=== PATIENT | female | born 1945 | race Caucasian/White ===

== ENCOUNTER 2018-08-18 13:48 | Inpatient (IN) | payer OTHER ==
[~2018-08-18] VITALS: Ht 167.6 cm; Wt 85.8 kg
[2018-08-18] MEDS ORDERED: HYDR25TAB PO (14:06)
[2018-08-18] MEDS ORDERED: CLOP75TA2 PO (14:06)
[2018-08-18] MEDS ORDERED: METF10004 PO (14:06)
[2018-08-18] MEDS ORDERED: MAG400TA PO (14:06)
[2018-08-18] MEDS ORDERED: LEVO50TA5 PO (14:06)
[2018-08-18] MEDS ORDERED: SIMV40TA2 PO (14:06)
[2018-08-18] MEDS ORDERED: JANU100T PO (14:06)
[2018-08-18] MEDS ORDERED: ASPI325T PO (14:06)
[2018-08-18] MEDS ORDERED: POTA1TAB14 PO (14:06)
[2018-08-18] MEDS ORDERED: BASA100I SC (14:06)
[2018-08-18] MEDS ORDERED: GLIM2TAB PO (14:06)
[2018-08-18] MEDS ORDERED: DULO1CAP2 PO (14:06)
[2018-08-18] MEDS ORDERED: NS 1,000 ML IV ONE (14:45)
[2018-08-18] MEDS ORDERED: HumuLIN R (REGULAR) INSULIN (NovoLIN R) **100U/ML** PER UNIT IV ONE (15:00)
[2018-08-18 15:01] LABS: BASO # 0.1 10^3/uL (0.0-0.2); BASO % 0.7 % (0.0-1.0); EOS # 0.1 10^3/uL (0.0-0.50); EOS % 1.3 % (0.0-3.0); HEMATOCRIT 40.2 % (36.0-47.0); HEMOGLOBIN 13.7 g/dl (12.0-15.5); LYMPH # 2.2 10^3/uL (1.5-4.5); MEAN CORPUSCULAR HEMOGLOBIN 29.5 pg (27.0-33.0); MEAN CORPUSCULAR HGB CONC 34.1 g/dl (32.0-36.5); MEAN CORPUSCULAR VOLUME 86.6 fl (80.0-96.0); MONO # 0.4 10^3/uL (0.0-0.8); MONO % 5.2 % (0.0-5.0); NEUTROPHILS # 4.6 10^3/uL (1.8-7.7); PLATELET COUNT, AUTOMATED 216 10^3/uL (150-450); RED BLOOD COUNT 4.64 10^6/uL (4.00-5.40); WHITE BLOOD COUNT 7.5 10^3/uL (4.0-10.0)
[2018-08-18 15:28] LABS: CALCIUM LEVEL 8.3 MG/DL (8.8-10.2); CREATININE FOR GFR 1.04 MG/DL (0.55-1.30); FREE THYROXINE INDEX 3.2 % (1.3-4.8); GLOMERULAR FILTRATION RATE 55.6 (>39); THYROID STIMULATING HORMONE 1.86 uIU/ML (0.358-3.740); THYROXINE (T4) 8.6 UG/DL (4.5-12.0)
[2018-08-18] MEDS ORDERED: NS 500 ML IV ONE (15:45)
[2018-08-18] MEDS ORDERED: ONDANSETRON 4MG/2ML VIAL (J2405) IV ONE ×2 (18:00→21:45)
[2018-08-18] MEDS ORDERED: METOCLOPRAMIDE INJ 10MG/2ML VIAL (J2765) IV ONE (18:00)
[2018-08-18] MEDS ORDERED: MECLIZINE 25 MG TABLET PO ONE (19:15)
[2018-08-18 19:40] LABS: ALBUMIN 3.5 GM/DL (3.2-5.2); BILIRUBIN,DIRECT 0.1 MG/DL (0.0-0.2); BILIRUBIN,TOTAL 0.3 MG/DL (0.2-1.0); MB/CK RELATIVE INDEX 1.54 (< OR =4); TOTAL PROTEIN 6.3 GM/DL (6.4-8.2); TROPONIN I 0.05 NG/ML (< 0.10)
[2018-08-18] MEDS ORDERED: LANTINJ4 SC (19:49)
[2018-08-18] MEDS ORDERED: VITMTA PO (19:49)
--- NOTE | 2018-08-18 19:56 | REP ---
CT Head without contrast HISTORY: Dizziness COMPARISON: None Areas of decreased attenuation are present in the periventricular white matter. This represents small-vessel ischemic disease. There is no intraparenchymal hemorrhage, acute infarct, mass or midline shift. The ventricular system and cortical sulci are dilated consistent with minimal volume loss. There is no extra cerebral collection. There is no fracture. The visualized sinuses are clear. IMPRESSION: 1. Small vessel ischemic disease. 2. Minimal volume loss. Electronically Signed by Tulio Lopez MD 08/18/2018 07:47 P
--- NOTE | 2018-08-18 21:55 | HPEPDOC ---
[facility] Medical History & Physical Date of Admission Aug 18, 2018 Other Provider Dictating/admitting Melvin Muniz M.D. Attending Physician: CAPRI GARNER DO History and Physical CHIEF COMPLAINT: Dizziness 1 day HISTORY OF PRESENT ILLNESS: Patient is a 72-year-old female with history of hypertension, diabetes, hypothyroidism. She came in complaining of dizziness. She is recently domiciled in [place] for the past 4-5 months. She reports being in her usual state of health until today when she started having dizziness and giddiness. She refers resting, but symptoms persisted, hence her presentation to the emergency room. She refers an episode of vomiting while in the emergency room. No fever or chills. No palpitations, no chest pain, no cough or shortness of breath. No recent sick contacts. No no record of eating in restaurants. Patient also reports that she has been off her Synthroid and the duloxetine for about a week. She says she was recently started on insulin prior to this time she used metformin for glycemic control. She also reported that her PCP had gradually increased her dose of insulin and her last use of insulin was yesterday before the dizziness started today. No change in bowel or urine and urinary habits. She was evaluated in the emergency room, non-orthostatic. Labs with slightly elevated glucose 308. Imaging also unremarkable. She received saline for IV fluid resuscitation and had 25 mg meclizine given, which did bring about some improvement. PAST MEDICAL HISTORY: Per HPI PAST SURGICAL HISTORY: None SOCIAL HISTORY: Denies alcohol, smoking or use of illicit drugs FAMILY HISTORY: Father: from heart disease Mother: Diagnosed with diabetes Siblings: Brother diagnosed with diabetes ALLERGIES: Please see below. REVIEW OF SYSTEMS: 12 point review of systems negative other than that described in the body of HPI. HOME MEDICATIONS: Please see below. PHYSICAL EXAMINATION: VITAL SIGNS: Temperature 97.1, pulse 67, respiratory rate 18, blood pressure 118/55, pulse oximetry 98% on room air. GENERAL APPEARANCE: Elderly woman, lying calmly in bed, not in any apparent distress. She is not pale, anicteric and afebrile HEENT: Atraumatic. Neck: Supple. LUNGS: Clear to auscultation bilaterally. CARDIOVASCULAR: S1 and 2 heard, no murmurs, rubs or gallops. ABDOMEN: Obese, soft, not tender, not distended. Bowel sounds normoactive. MUSCULOSKELETAL: Apparently within normal limits. EXTREMITIES: No pedal edema, 2+ bilateral pedal pulses noted. NEUROLOGICAL: Awake, alert, oriented 3. I observed the patient walking and she is still complaining of some dizziness though better no mention came in. PSYCHIATRIC: Normal affect LABORATORY DATA: See below. IMAGING: CT head without contrast: 1. Small vessel ischemic disease. 2. Minimal volume loss EKG: Normal sinus rhythm, no acute ST or T-wave changes noted. MICROBIOLOGY: Please see below. ASSESSMENT: 72-year-old woman with above-mentioned comorbid history comes in complaining of dizziness. No neurological deficits. Exam significant for some dizziness when patient ambulates imaging done negative. EKG normal sinus rhythm. Labs unremarkable and patient reports some improvement after use of meclizine. DIAGNOSES: 1. Dizziness, unclear etiology, possibly benign paroxysmal positional vertigo. 2. Mildly elevated serum glucose. . PLAN: 1. I will admit patient to medical floors with remote telemetry under care of Dr. Garner. 2. Mild hyperglycemia: We'll continue with ADA diet, insulin sliding scale. Follow BMP in the morning. 3. Dizziness: We'll continue meclizine 12.5 mg every 8. IV Zofran when necessary nausea and vomiting. 4. IV fluid resuscitation normal saline to run at 50 mils per hour review volume needs in the morning. 5. DVT prophylaxis. Subcutaneous enoxaparin. 6. GI prophylaxis. IV pantoprazole. 7. Resume outpatient medications. 8. Further management will be per patient's clinical course. Vital Signs Vital Signs Date Time Temp Pulse Resp B/P (MAP) Pulse Ox O2 Delivery O2 Flow Rate FiO2 08/18/18 20:00 97.1 08/18/18 19:56 64 125/59 (81) 67 134/63 (86) 70 133/61 (85) 08/18/18 19:16 16 96 Room Air Laboratory Data Labs 24H Laboratory Tests 2 08/18/18 14:44: Immature Granulocyte % (Auto) 0.8, White Blood Count 7.5, Red Blood Count 4.64, Hemoglobin 13.7, Hematocrit 40.2, Mean Corpuscular Volume 86.6, Mean Corpuscular Hemoglobin 29.5, Mean Corpuscular Hemoglobin Concent 34.1, Red Cell Distribution Width 12.6, Platelet Count 216, Neutrophils (%) (Auto) 62.0, Lymphocytes (%) (Auto) 30.0, Monocytes (%) (Auto) 5.2H, Eosinophils (%) (Auto) 1.3, Basophils (%) (Auto) 0.7, Neutrophils # (Auto) 4.6, Lymphocytes # (Auto) 2.2, Monocytes # (Auto) 0.4, Eosinophils # (Auto) 0.1, Basophils # (Auto) 0.1, Nucleated Red Blood Cells % (auto) 0.0, Anion Gap 11, Glomerular Filtration Rate 55.6, Calcium Level 8.3L, Aspartate Amino Transf (AST/SGOT) 11, Alanine Aminotransferase (ALT/SGPT) 27, Alkaline Phosphatase 68, Total Bilirubin 0.3, Direct Bilirubin 0.1, Total Creatine Kinase 65, Creatine Kinase MB 1.0, Creatine Kinase MB Relative Index 1.54, Troponin I 0.05, Total Protein 6.3L, Albumin 3.5, Albumin/Globulin Ratio 1.25, Lipase 176, Thyroid Stimulating Hormone (TSH) 1.860, Free Thyroxine Index 3.2, Thyroxine (T4) 8.6, Triiodothyronine (T3) Uptake 37 08/18/18 14:47: Bedside Glucose (Misc Panel) 322H 08/18/18 15:36: Bedside Glucose (Misc Panel) 255H 08/18/18 20:06: Lactic Acid Level 1.6 CBC/BMP Laboratory Tests 08/18/18 14:44 Red Blood Count 4.64, Mean Corpuscular Volume 86.6, Mean Corpuscular Hemoglobin 29.5, Mean Corpuscular Hemoglobin Concent 34.1, Red Cell Distribution Width 12.6, Neutrophils (%) (Auto) 62.0, Lymphocytes (%) (Auto) 30.0, Monocytes (%) (Auto) 5.2 H, Eosinophils (%) (Auto) 1.3, Basophils (%) (Auto) 0.7, Neutrophils # (Auto) 4.6, Lymphocytes # (Auto) 2.2, Monocytes # (Auto) 0.4, Eosinophils # (Auto) 0.1, Basophils # (Auto) 0.1 Home Medications Scheduled (Migue Goncalves) 100 Unit/Ml Inj, 18 UNIT SC DAILY Clopidogrel Bisulfate (Clopidogrel) 75 Mg Tab, 75 MG PO DAILY Duloxetine Hcl (Duloxetine HCl) 30 Mg Cap, 60 MG PO DAILY Glimepiride (Glimepiride) 2 Mg Tab, 6 MG PO DAILY Hydrochlorothiazide (Hydrochlorothiazide) 25 Mg Tab, 25 MG PO DAILY Insulin Glargine (Lantus Solostar) 100 Unit/Ml Inj, 1 UNITS SC QAM HAS NOT STARTED, EXPECTED TO START AFTER FINISHING BASAGLAR CHANCE Levothyroxine Sodium (Synthroid) 50 Mcg Tab, 50 MCG PO QHS Magnesium Oxide (Magnesium Oxide) 400 Mg Tab, 400 MG PO DAILY Metformin Hydrochloride (Metformin HCl) 1,000 Mg Tab, 1,000 MG PO BID Multivitamins *[facility] STOCKED* (Thera M Plus *[facility] STOCKED*) 1 Tab Tab, 1 TAB PO DAILY Potassium Chloride (Potassium Chloride ER) 20 Meq Tab, 20 MEQ PO DAILY Simvastatin - High Dose (Simvastatin) 40 Mg Tab, 40 MG PO QHS Sitagliptin Phosphate (Januvia) 100 Mg Tab, 100 MG PO DAILY Scheduled PRN Aspirin (Aspirin) 325 Mg Tab, 325 MG PO DAILY PRN for PAIN / FEVER Allergies Coded Allergies: Penicillins (Verified Allergy, Unknown, 08/18/18) MELVIN MUNIZ MD Aug 18, 2018 21:55
[2018-08-18] MEDS ORDERED: DEXTROSE 50% 50 ML SYRINGE IV PRN (22:00)
[2018-08-18] MEDS ORDERED: GLUCOSE 4 GM CHEW TABLET PO PRN (22:00)
[2018-08-18] MEDS ORDERED: ASPIRIN 325 MG TAB PO PRN (22:00)
[2018-08-18] MEDS ORDERED: GLUCAGON FOR INJ 1 MG VIAL (J1610) SC PRN (22:00)
[2018-08-18] MEDS ORDERED: MECLIZINE 12.5 MG TAB PO PRN (22:00)
[2018-08-18] MEDS ORDERED: ONDANSETRON 4MG/2ML VIAL (J2405) IV PRN (22:00)
[2018-08-18] MEDS ORDERED: ACETAMINOPHEN TAB 650MG DOSE (2X325MG) PO PRN (22:00)
[2018-08-18 23:35] VITALS: BP 139/65
[2018-08-19] MEDS: NS 1,000 ML IV SCH ×2 (00:09→13:56)
[2018-08-19] MEDS: HumaLOG INSULIN (NovoLOG) PER UNIT SC SCH ×4 (00:10→18:09)
[2018-08-19 06:00] VITALS: BP 111/57
[2018-08-19 08:18] LABS: HEMATOCRIT 38.2 % (36.0-47.0); HEMOGLOBIN 13.3 g/dl (12.0-15.5); MEAN CORPUSCULAR HEMOGLOBIN 29.6 pg (27.0-33.0); MEAN CORPUSCULAR HGB CONC 34.8 g/dl (32.0-36.5); MEAN CORPUSCULAR VOLUME 85.1 fl (80.0-96.0); PLATELET COUNT, AUTOMATED 229 10^3/uL (150-450); RED BLOOD COUNT 4.49 10^6/uL (4.00-5.40)
[2018-08-19 08:42] LABS: BLOOD UREA NITROGEN 15 MG/DL (7-18); CARBON DIOXIDE LEVEL 27 MEQ/L (21-32); CHLORIDE LEVEL 109 MEQ/L (98-107); CHOLESTEROL LEVEL 154 MG/DL (<200); CHOLESTEROL RISK RATIO 3.948 (<5); CREATININE FOR GFR 0.96 MG/DL (0.55-1.30); GLOMERULAR FILTRATION RATE > 60.0 (>39); GLUCOSE, FASTING 164 MG/DL (70-100); HDL CHOLESTEROL 39 MG/DL (>40); LDL CHOLESTEROL 78 MG/DL (<100); NON-HDL-C 115 MG/DL; POTASSIUM SERUM 3.5 MEQ/L (3.5-5.1); SODIUM LEVEL 143 MEQ/L (136-145); TRIGLYCERIDES LEVEL 186 MG/DL (<150)
[2018-08-19 08:56] LABS: HEMOGLOBIN A1c 9.7 %
[2018-08-19] MEDS: MAGNESIUM OXIDE 400 MG TAB (MAG-OX) PO SCH (09:26)
[2018-08-19] MEDS: CLOPIDOGREL 75 MG TAB PO SCH (09:26)
[2018-08-19] MEDS: hydroCHLOROthiazide 25 MG TAB PO SCH (09:26)
[2018-08-19] MEDS: ENOXAPARIN 40 MG/0.4 ML SYRINGE (J1650) SC SCH (09:27)
[2018-08-19] MEDS: DULoxetine 30 MG CAP (CYMBALTA) PO SCH (09:27)
[2018-08-19 14:00] VITALS: BP 121/57
--- NOTE | 2018-08-19 16:26 | IPN ---
DATE: 08/19/2018 SUBJECTIVE: Patient seen and examined in the room today. Patient stated she is feeling better; however, patient continues to have dizziness. Dizziness started a few days ago. Never had a similar episode in the past. Patient stated she has been running out of her duloxetine and Synthroid for about a week due to some miscommunication. OBJECTIVE: VITAL SIGNS: Temperature is 98.9, pulse is 59, respirations 18, blood pressure 111/57, pulse oximetry 94% in room air. GENERAL: No sign of acute distress. Patient is alert, awake, comfortable. HEENT: Normocephalic, atraumatic. Extraocular motor grossly intact. CARDIOVASCULAR: Positive S1, S2, regular rate. LUNGS: Clear to auscultation bilaterally. ABDOMEN: Soft, nontender, nondistended. Bowel sounds present. EXTREMITIES: No edema appreciated. LABORATORY DATA: WBC is 9, hemoglobin 13.3, hematocrit 38.2, platelet count is 229. Sodium is 143, potassium 3.5, chloride 109, carbon dioxide 27, BUN 15, creatinine 0.96, GFR greater than 60, fasting glucose is 164. A1c is 9.7. Calcium is 8. Triglycerides is 186, total cholesterol is 154, LDL is 78, HDL is 39. ASSESSMENT AND PLAN: 1. Dizziness. No events recorded on telemetry. Laboratory testing has remained negative. CT of the head without contrast was negative. Patient stated her syncope started acutely and there was worsening with specific head movements. Consult physical therapy (PT) for vascular re-evaluation. Patient stated she has been out of medications such as duloxetine and Synthroid. We restarted medication for the patient. Orthostatic measurement was performed, and result was negative. 2. Diabetes. A1c of 9.7. Patient is on insulin and consistent-carbohydrate diet. 3. Hypertension. Blood pressure in the satisfactory range, on hydrochlorothiazide. 4. Hypothyroidism, on Synthroid. 5. Deep vein thrombosis (DVT) prophylaxis, on Lovenox.
--- NOTE | 2018-08-19 19:49 | ECGEPIP ---
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
[2018-08-19] MEDS ORDERED: LEVOTHYROXINE 50MCG TABLET (0.05MG) PO SCH (21:00)
[2018-08-19] MEDS ORDERED: HumaLOG INSULIN (NovoLOG) PER UNIT SC SCH (21:00)
[2018-08-19] MEDS ORDERED: SIMVASTATIN 40 MG TAB PO SCH (21:00)
[2018-08-19 22:00] VITALS: BP 146/66
[2018-08-20] MEDS: NS 1,000 ML IV SCH (01:43)
[2018-08-20 06:00] VITALS: BP 145/65
[2018-08-20 08:33] LABS: HEMATOCRIT 36.2 % (36.0-47.0); HEMOGLOBIN 12.7 g/dl (12.0-15.5); MEAN CORPUSCULAR HGB CONC 35.1 g/dl (32.0-36.5); MEAN CORPUSCULAR VOLUME 85.4 fl (80.0-96.0); PLATELET COUNT, AUTOMATED 204 10^3/uL (150-450); RED BLOOD COUNT 4.24 10^6/uL (4.00-5.40); WHITE BLOOD COUNT 6.7 10^3/uL (4.0-10.0)
[2018-08-20] MEDS: MAGNESIUM OXIDE 400 MG TAB (MAG-OX) PO SCH (08:42)
[2018-08-20] MEDS: DULoxetine 30 MG CAP (CYMBALTA) PO SCH (08:42)
[2018-08-20] MEDS: CLOPIDOGREL 75 MG TAB PO SCH (08:43)
[2018-08-20] MEDS: hydroCHLOROthiazide 25 MG TAB PO SCH (08:43)
[2018-08-20] MEDS: HumaLOG INSULIN (NovoLOG) PER UNIT SC SCH (08:44)
[2018-08-20] MEDS: ENOXAPARIN 40 MG/0.4 ML SYRINGE (J1650) SC SCH (08:45)
[2018-08-20 08:55] LABS: CALCIUM LEVEL 7.8 MG/DL (8.8-10.2); CREATININE FOR GFR 0.98 MG/DL (0.55-1.30); GLOMERULAR FILTRATION RATE 59.6 (>39); MAGNESIUM LEVEL 1.8 MG/DL (1.8-2.4); POTASSIUM SERUM 3.8 MEQ/L (3.5-5.1)
--- NOTE | 2018-08-20 21:15 | DSES ---
DATE OF ADMISSION: 08/18/2018 DATE OF DISCHARGE: 08/20/2018 PRIMARY CARE PROVIDER: Dr. Franklin in [place]. CONSULTANTS: None. DISCHARGE DIAGNOSIS: 1. Positional vertigo. 2. Hypertension. 3. Hypothyroidism. 4. History of vascular stent placement. HOSPITALIZATION COURSE: Patient is 72-year-old female who presented to [facility] on 08/18/2018 with a complaint of acute severe dizziness with daily functions. Patient is admitted for diagnosis of dizziness. Patient was admitted on the telemetry floor. Patient's medications were reviewed. Patient was out of some medication which was restarted in the hospital. Physical therapy was also consulted for vestibular testing and this workup performed and it all came back negative. During the physical therapy evaluation patient tested positive for benign positional vertigo. Exercise was given to the patient. Patient demonstrated significant symptomatic improvement after the session and patient cleared by physical therapy 08/20/2018. Patient has returned to her baseline with a recommendation to followup with her primary care provider in [place] in 1-2 weeks. VITAL SIGNS ON DAY OF DISCHARGE: Temperature 97.6, pulse 59, respirations 17, blood pressure 145/65, pulse ox 92% on room air. LABORATORY DATA ON DAY OF DISCHARGE: WBC 6.7, hemoglobin 12.7, hematocrit 36.2, platelets 204, sodium 142, potassium 3.8, chloride 108, carbon dioxide 27, BUN 17, creatinine 0.98, GFR 59.6, fasting glucose 243, calcium 7.8, magnesium 1.8, TSH 186, T4 8.6. IMAGING STUDIES: CT of the head without contrast demonstrated a small right sided ischemic disease. Minimal volume loss. DISCHARGE MEDICATIONS: Aspirin 325 mg by mouth daily as needed, Kwik pen 18 units subcu daily, Plavix 75 mg by mouth daily, duloxetine 16 mg by mouth daily, glimepiride 6 mg by mouth daily, hydrochlorothiazide 25 mg by mouth daily, Lantus subcu in the morning, Synthroid 50 mcg by mouth at bedtime, magnesium 400 mg by mouth daily, metformin 1000 mg by mouth twice a day, multivitamin 1 tab by mouth daily, potassium chloride 20 mEq by mouth daily, simvastatin 40 mg at bedtime, Januvia 100 mg by mouth daily. DISCHARGE INSTRUCTIONS: Discontinue line discharge home. Activity as tolerated. Consistent carbohydrate diet as tolerated. Patient should followup with her primary care provider in 1-2 weeks. Patient was recommended to have a close followup with her primary care provider for continuous diabetic medication adjustments. Patient was also recommended to continue vestibular exercise. Patient may benefit from outpatient PT referral if there is a recurrence of symptoms. DISCHARGE CONDITION: Fair. DISCHARGE TIME: Greater than 30 minutes.
== END 2018-08-20 12:10 | disposition home or self-care (01) | DRG 149 ==
LOC: M ED 13:48 → EDBD 13:48 → M ED INP 21:55 → M MSPAV 23:34
PROVIDERS: ADMIT Hospitalist; ATTEND Internal Medicine
DX: H81.10 Benign paroxysmal vertigo, unspecified ear (principal); I10 Essential (primary) hypertension; E03.9 Hypothyroidism, unspecified; E11.65 Type 2 diabetes mellitus with hyperglycemia; Z79.899 Other long term (current) drug therapy; Z88.0 Allergy status to penicillin

== ENCOUNTER 2020-01-05 19:55 | Observation (INO) | payer MEDICARE, OTHER ==
[~2020-01-05] VITALS: Ht 167.6 cm; Wt 81.4 kg
[~2020-01-05 19:55] MED LIST: ASPI-1 PO; BASA100I SC; CLOP75TA2 PO; DULO1CAP5 PO; GLIM2TAB4 PO; HYDR25TAB PO; JANU100T PO; LANTINJ4 SC; LEVO50TA5 PO; MAG400TA PO; METF10004 PO; POTA1TAB14 PO; SIMV40TA20 PO; VITMTA PO
[2020-01-05 20:50] LABS: BASO # 0.1 10^3/uL (0.0-0.2); BASO % 0.8 % (0.0-1.0); EOS # 0.1 10^3/uL (0.0-0.5); EOS % 1.3 % (0.0-3.0); HEMOGLOBIN 14.6 g/dl (12.0-15.5); LYMPH # 3.2 10^3/uL (1.5-5.0); LYMPH % 34.9 % (24.0-44.0); MEAN CORPUSCULAR HEMOGLOBIN 29.1 pg (27.0-33.0); MEAN CORPUSCULAR VOLUME 85.8 fl (80.0-96.0); MONO # 0.6 10^3/uL (0.0-0.8); MONO % 6.6 % (0.0-5.0); NEUTROPHILS # 5.1 10^3/uL (1.5-8.5); NEUTROPHILS % 56.1 % (36.0-66.0); PLATELET COUNT, AUTOMATED 219 10^3/uL (150-450); RED BLOOD COUNT 5.01 10^6/uL (4.00-5.40); WHITE BLOOD COUNT 9.1 10^3/uL (4.0-10.0)
[2020-01-05] MEDS ORDERED: SITagliptin 50 MG TAB (JANUVIA) PO SCH (21:00)
[2020-01-05] MEDS ORDERED: MECLIZINE 25 MG TABLET PO ONE (21:00)
[2020-01-05] MEDS ORDERED: LEVEMIR (INSULIN DETEMIR) 1 UNITS/0.01ML SC SCH (21:00)
[2020-01-05] MEDS ORDERED: SIMVASTATIN 40 MG TAB PO SCH (21:00)
[2020-01-05 21:07] LABS: INR 1.03; PROTHROMBIN TIME 13.2 SECONDS (11.8-14.0)
[2020-01-05 21:08] LABS: PARTIAL THROMBOPLASTIN TIME 25.6 SECONDS (25.0-38.4)
[2020-01-05 21:28] LABS: BLOOD UREA NITROGEN 15 MG/DL (7-18); CALCIUM LEVEL 8.8 MG/DL (8.8-10.2); CARBON DIOXIDE LEVEL 29 MEQ/L (21-32); CHLORIDE LEVEL 107 MEQ/L (98-107); CK-MB VALUE MASS < 1.0 NG/ML (<3.6); CPK CREATINE PHOSPHOKINASE 60 U/L (26-192); CREATININE FOR GFR 0.96 MG/DL (0.55-1.30); FREE T4 1.02 NG/DL (0.76-1.46); GLOMERULAR FILTRATION RATE > 60.0 (>39); GLUCOSE, FASTING 119 MG/DL (70-100); MAGNESIUM LEVEL 1.8 MG/DL (1.8-2.4); MB/CK RELATIVE INDEX 1.67 (< OR =4); POTASSIUM SERUM 3.1 MEQ/L (3.5-5.1); SODIUM LEVEL 141 MEQ/L (136-145); TROPONIN I < 0.02 NG/ML (< 0.10)
--- NOTE | 2020-01-05 21:59 | REPVR ---
PROCEDURE INFORMATION: Exam: CT Head Without Contrast Exam date and time: 01/05/2020 9:26 PM Age: 74 years old Clinical indication: Pain; Headache; Additional info: Headache, dizzy TECHNIQUE: Imaging protocol: Computed tomography of the head without contrast. Radiation optimization: All CT scans at this facility use at least one of these dose optimization techniques: automated exposure control; mA and/or kV adjustment per patient size (includes targeted exams where dose is matched to clinical indication); or iterative reconstruction. COMPARISON: CT Head without contrast 08/18/2018 7:22 PM FINDINGS: Brain: Mild cerebral volume loss. No hemorrhage. Unremarkable white matter. No mass effect. Ventricles: Normal. No ventriculomegaly. Bones/joints: Unremarkable. No acute fracture. Sinuses: Visualized sinuses are unremarkable. No fluid levels. Mastoid air cells: Visualized mastoid air cells are well aerated. Soft tissues: Unremarkable. IMPRESSION: No acute intracranial abnormality. Electronically signed by: Reji Flores On 01/05/2020 21:58:51 PM
[2020-01-05] MEDS ORDERED: POTASSIUM CHLORIDE 10 MEQ SR TABLET PO ONE (22:00)
[2020-01-05] MEDS ORDERED: PROMETHAZINE INJ 25 MG/ML VIAL (J2550) IV ONE (23:00)
[2020-01-05] MEDS ORDERED: SYNT88TA2 PO (23:06)
[2020-01-05] MEDS ORDERED: VITA50005 PO (23:06)
[2020-01-05] MEDS ORDERED: SYNT75TA PO (23:34)
[2020-01-06] MEDS ORDERED: ACETAMINOPHEN TAB 650MG DOSE (2X325MG) PO PRN
[2020-01-06] MEDS ORDERED: MAALOX 30 ML SUSP *UDC PO PRN
[2020-01-06] MEDS ORDERED: MOM 30ML SUSPENSION UDC PO PRN
[2020-01-06] MEDS ORDERED: NS 1,000 ML IV SCH
[2020-01-06] MEDS ORDERED: MECLIZINE 12.5 MG TAB PO PRN
--- NOTE | 2020-01-06 00:05 | HPEPDOC ---
General Date of Admission Date of Service: Jan 05, 2020 Chief Complaint The patient is a 74-year-old female admitted with a reason for visit of Dizziness. Source: Patient Exam Limitations: No limitations Timing/Duration: Other Severity: Other (today) Associated Symptoms: Other (, dizziness) History of Present Illness This is 74 years old white female with past medical history of hypertension, diabetes, hypothyroidism, came in with chief complaints of dizziness starting this a.m. along with dizziness. She also complained of nausea but no chest pain, shortness of breath, abdominal pain, diarrhea, etc. Patient was diagnosed with similar episodes in August 2018 She was diagnosed with benign positional vertigo Home Medications Scheduled Aspirin (Aspirin) 325 Mg Tab, 325 MG PO DAILY, (Reported) Clopidogrel Bisulfate (Clopidogrel) 75 Mg Tab, 75 MG PO DAILY, (Reported) Duloxetine Hcl (Duloxetine HCl) 30 Mg Cap, 60 MG PO DAILY, (Reported) Ergocalciferol (Vitamin D2) (Vitamin D2) 50,000 Units Cap, 50,000 UNITS PO 1XWK, (Reported) SUNDAYS Glimepiride (Glimepiride) 2 Mg Tab, 6 MG PO DAILY, (Reported) Hydrochlorothiazide (Hydrochlorothiazide) 25 Mg Tab, 25 MG PO DAILY, (Reported) Insulin Glargine,Hum.rec.anlog (Basaglar Kwikpen U-100) 100 Unit/Ml Inj, 32 UNIT SC DAILY, (Reported) Levothyroxine Sodium (Synthroid) 75 Mcg Tablet, 75 MCG PO DAILY, (Reported) Magnesium Oxide (Magnesium Oxide) 400 Mg Tab, 400 MG PO DAILY, (Reported) Metformin HCl (Metformin HCl) 1,000 Mg Tab, 1,000 MG PO BID, (Reported) Multivitamins (Thera M Plus Tablet) 1 Tab Tab, 1 TAB PO DAILY, (Reported) Potassium Chloride (Potassium Chloride) 20 Meq Tab, 20 MEQ PO DAILY, (Reported) Simvastatin (Simvastatin) 40 Mg Tab, 40 MG PO QHS, (Reported) Sitagliptin Phosphate (Januvia) 100 Mg Tab, 100 MG PO QHS, (Reported) Allergies Coded Allergies: Penicillins (Verified Adverse Reaction, Mild, vomiting, 01/05/20) codeine (Verified Adverse Reaction, Mild, vomiting, 01/05/20) Past Medical History Medical History Diabetes mellitus, hypertension, hypothyroidism Surgical History None Family History Father with heart disease. Mother has diabetes Social History * Smoker: Denies Alcohol: Denies Drugs: denies A-FIB/CHADSVASC A-FIB History Current/History of A-Fib/PAF?: No Review of Systems Constitutional: Denies: Chills, Fever, Malaise, Night Sweats, Weakness, Fatigue, Weight Loss, Lethargy, Other Eyes: Denies: Pain, Vision change, Conjunctivae inflammation, Eyelid inflammation, Redness, Other ENT: Denies: Head Aches, Ear Pain, Dysphagia, Sinus Congestion, Post Nasal Drip, Sore Throat, Epistaxis, Other Symptoms Skin: Denies: Rash, Lesions, Jaundice, Bruising, Itching, Dry, Breakdown, Nail Changes, Other Pulmonary: Denies: Dyspnea, Cough, Pleuritic Chest Pain, Other Symptoms Cardiovascular: Denies: Chest Pain, Palpitations, Orthopnea, Paroxysmal Noc. Dyspnea, Edema, Lt Headedness, Other Symptoms Gastrointestinal: Denies: Nausea, Vomiting, Abdominal Pain, Diarrhea, Constipation, Melena, Hematochezia, Other Symptoms Genitourinary: Denies: Dysuria, Frequency, Incontinence, Hematuria, Retention, Other Symptoms Hematologic: Denies: Bruising, Bleeding Excessively, Petecchia, Purpura, Enlarged Lymph Nodes, Other Hematologic Endocrine: Denies: Polydipsia, Polyphagia, Polyuria, Heat Intolerance, Cold Intolerance, Other Endocrine Sx Musculoskeletal: Denies: Neck Pain, Back Pain, Shoulder Pain, Arm Pain, Hand Pain, Leg Pain, Foot Pain, Joint Pain, Muscle Pain, Spasms, Other Symptoms Neurological: Reports: Other Symptoms (, vertigo) Psych: Denies: Mood Normal, Anxiety, Depression, Memory Issues, Thoughts of Self Harm, Anger, Thoughts of Harming Other, Other Psych Physical Examination General Exam: Positive: Alert, Cooperative Eye Exam: Positive: PERRLA, Conjunctiva & lids normal ENT Exam: Positive: Atraumatic, Mucous membr. moist/pink Neck Exam: Positive: Supple Chest Exam: Positive: Clear to auscultation, Normal air movement Heart Exam: Positive: Rate Normal, Normal S1, Normal S2 Abdomen Exam: Positive: Normal bowel sounds Extremity Exam: Positive: Normal pulses Skin Exam: Positive: Nl turgor and temperature Neuro Exam: Positive: Strength at 5/5 X4 ext, Cranial Nerves 3-12 NL Psych Exam: Positive: Mood NL, Oriented x 3 Vital Signs Vital Signs Date Time Temp Pulse Resp B/P (MAP) Pulse Ox O2 Delivery O2 Flow Rate FiO2 01/05/20 23:31 98.7 20 150/84 (106) 96 Room Air 01/05/20 23:25 74 Laboratory Data Labs 24H Laboratory Tests 2 01/05/20 20:30: Immature Granulocyte % (Auto) 0.3, Neutrophils (%) (Auto) 56.1, Lymphocytes (%) (Auto) 34.9, Monocytes (%) (Auto) 6.6H, Eosinophils (%) (Auto) 1.3, Basophils (%) (Auto) 0.8, Neutrophils # (Auto) 5.1, Lymphocytes # (Auto) 3.2, Monocytes # (Auto) 0.6, Eosinophils # (Auto) 0.1, Basophils # (Auto) 0.1, Nucleated Red Blood Cells % (auto) 0.0, Prothrombin Time 13.2, Prothromb Time International Ratio 1.03, Activated Partial Thromboplast Time 25.6, Anion Gap 5L, Glomerular Filtration Rate > 60.0, Calcium Level 8.8, Magnesium Level 1.8, Total Creatine Kinase 60, Creatine Kinase MB < 1.0, Creatine Kinase MB Relative Index 1.67, Troponin I < 0.02, Thyroid Stimulating Hormone (TSH) 5.320H, Free Thyroxine 1.02 CBC/BMP Laboratory Tests 01/05/20 20:30 Problems (1) Vertigo Status: Acute Problem Text: Admit patient for observation to [facility] floor with telemetry IV fluids normal saline at 70 mL per hour Antivert 12.5 mg by mouth 3 times a day when necessary Physical therapy consult for Lauren maneuver in a.m. Continue all home meds Bed rest with bathroom privileges Consistent carbohydrate diet DVT prophylaxis with the heparin (2) Diabetes mellitus Status: Chronic Problem Text: Fingerstick blood sugar before meals and at bedtime with coverage as per orders Continue home meds Consistent carbohydrate diet (3) Hypothyroidism Status: Chronic Problem Text: Continue home meds (4) HTN (hypertension) Status: Chronic Problem Text: Continue home meds (5) Hypokalemia Status: Acute Problem Text: Potassium supplement ordered Repeat labs in a.m. Plan / VTE VTE Prophylaxis Ordered?: Yes KHUSHBOO MURILLO MD Jan 06, 2020 00:05
[2020-01-06] MEDS ORDERED: POTASSIUM CHLORIDE 10 MEQ SR TABLET PO ONE ×2 (00:15→09:00)
--- NOTE | 2020-01-06 01:37 | REP ---
Clinical: Syncope/near-syncopal episode . Comparison: None . Findings: The mediastinum and cardiac silhouette are stable and within normal limits for portable technique. The lung rodriguez are clear without acute consolidation, effusion, or pneumothorax. Skeletal structures are intact. Impression: No acute cardiopulmonary process appreciated. Electronically Signed by Poli Batres MD 01/06/2020 01:29 A
[2020-01-06 02:21] VITALS: BP 141/75
[2020-01-06] MEDS ORDERED: GLUCOSE 4GM CHEW TABLET PO PRN (03:00)
[2020-01-06] MEDS ORDERED: GLUCAGON INJ 1MG VIAL SC PRN (03:00)
[2020-01-06] MEDS ORDERED: DEXTROSE 50% 50 ML SYRINGE IV PRN (03:00)
[2020-01-06] MEDS: DOCUSATE SODIUM 100 MG CAP PO SCH ×2 (03:02→08:56)
[2020-01-06 05:59] LABS: HEMATOCRIT 41.2 % (36.0-47.0); MEAN CORPUSCULAR HEMOGLOBIN 29.3 pg (27.0-33.0); MEAN CORPUSCULAR VOLUME 86.2 fl (80.0-96.0); PLATELET COUNT, AUTOMATED 232 10^3/uL (150-450); RED BLOOD COUNT 4.78 10^6/uL (4.00-5.40); WHITE BLOOD COUNT 10.3 10^3/uL (4.0-10.0)
[2020-01-06 06:00] VITALS: BP 131/63
[2020-01-06 06:36] LABS: ALBUMIN 3.6 GM/DL (3.2-5.2); ALT/SGPT 27 U/L (12-78); BILIRUBIN,TOTAL 0.5 MG/DL (0.2-1.0); BLOOD UREA NITROGEN 15 MG/DL (7-18); CALCIUM LEVEL 8.5 MG/DL (8.8-10.2); CARBON DIOXIDE LEVEL 27 MEQ/L (21-32); CHLORIDE LEVEL 109 MEQ/L (98-107); CREATININE FOR GFR 0.95 MG/DL (0.55-1.30); GLOMERULAR FILTRATION RATE > 60.0 (>39); GLUCOSE, FASTING 117 MG/DL (70-100); MAGNESIUM LEVEL 1.6 MG/DL (1.8-2.4); POTASSIUM SERUM 3.4 MEQ/L (3.5-5.1); SODIUM LEVEL 144 MEQ/L (136-145); TOTAL PROTEIN 6.5 GM/DL (6.4-8.2)
--- NOTE | 2020-01-06 06:41 | ECGEPIP ---
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
[2020-01-06] MEDS: HumaLOG INSULIN (NovoLOG) PER UNIT SC SCH ×3 (07:30→12:04)
[2020-01-06] MEDS ORDERED: MAGNESIUM OXIDE 400 MG TAB (MAG-OX) PO SCH (09:00)
[2020-01-06] MEDS ORDERED: ASPIRIN 325 MG TAB PO SCH (09:00)
[2020-01-06] MEDS ORDERED: POTASSIUM CHLORIDE 10 MEQ SR TABLET PO SCH (09:00)
[2020-01-06] MEDS ORDERED: hydroCHLOROthiazide 25 MG TAB PO SCH (09:00)
[2020-01-06] MEDS ORDERED: metFORMIN (GLUCOPHAGE) 1000 MG TABLET PO SCH (09:00)
[2020-01-06] MEDS ORDERED: LEVOTHYROXINE 75MCG TABLET (0.075MG) PO SCH (09:00)
[2020-01-06] MEDS ORDERED: MULTIVITAMINS/MINERALS THERAP 1 TAB PO SCH (09:00)
[2020-01-06] MEDS ORDERED: CLOPIDOGREL 75 MG TAB PO SCH (09:00)
[2020-01-06] MEDS ORDERED: HEPARIN SOD (PORCINE) 5000UNITS/ML VIAL (J1644 PER 1000UNITS) SC SCH (09:00)
[2020-01-06] MEDS ORDERED: DULoxetine 30 MG CAP (CYMBALTA) PO SCH (09:00)
[2020-01-06] MEDS ORDERED: GLIMEPIRIDE 2 MG TAB PO SCH (09:00)
[2020-01-06] MEDS ORDERED: MECL12.589 PO (10:33)
[2020-01-06] MEDS: MAG SULF 1GM/100ML (MAG RUN) 1 GM in IV 1 EA IV SCH ×2 (10:38→11:51)
--- NOTE | 2020-01-06 16:03 | DS.PDOC ---
Discharge Summary General Date of Admission Jan 05, 2020 at 19:56 Date of Discharge 01/06/20 Attending Physician: RADHA LUNA MD Discharge Summary PROCEDURES PERFORMED DURING STAY: [None]. ADMITTING DIAGNOSES: 1. Vertigo DISCHARGE DIAGNOSES: 1. Vertigo COMPLICATIONS/CHIEF COMPLAINT: Vertigo. HISTORY OF PRESENT ILLNESS: Patient is a 74 year old female with a past medical history significant for hypertension, diabetes mellitus type 2, hypothyroidism, and vertigo who presented to the [facility] ER with complaint of dizziness that started in the morning and continued throughout the day. Due to the dizziness she had developed nausea and some vomiting. She denies any chest pain, abdominal pain, shortness of breath, or diarrhea. Given her increased nausea and vomiting the patient was admitted to Hospitalist service for further evaluation and management HOSPITAL COURSE: During her hospitalization the patient received a head CT which was negative for any acute intracranial abnormality. She was given Antivert with improvement in her dizziness. The patient was seen by physical therapy. The patients vertigo resolved and the patient was recommended for outpatient physical therapy and vestibular therapy DISCHARGE MEDICATIONS: Please see below. ALLERGIES: Please see below. PHYSICAL EXAMINATION ON DISCHARGE: VITAL SIGNS: Please see below. GENERAL: Awake, alert, and oriented. Appears in no acute distress. Lying in bed comfortably. Conversive HEENT: Atraumatic, normocephalic. Eyes are nonicteric. Trachea is midline. EOM are intact. No nystagmus demonstrated NECK: No palpable cervical, axillary, or supraclavicular lymphadenopathy CARDIOVASCULAR EXAMINATION: Normal S1, S2. Regular rate and rhythm. No clicks rubs or murmurs RESPIRATORY EXAMINATION: Clear vesicular breath sounds bilaterally with good respiratory effort. No wheezes, rhonchi or rales ABDOMINAL EXAMINATION: Soft, nondistended. Nontender. Normoactive bowel sounds throughout EXTREMITIES: No edema. Full and equal pulses in bilateral upper and lower extremities SKIN: No rashes or lesions NEUROLOGICAL EXAMINATION: No focal neurological deficits. CN II-XII grossly intact PSYCHIATRIC EXAMINATION: Mood and affect appear appropriate LABORATORY DATA: Please see below. IMAGING: Clinical: Syncope/near-syncopal episode . Comparison: None . Findings: The mediastinum and cardiac silhouette are stable and within normal limits for portable technique. The lung rodriguez are clear without acute consolidation, effusion, or pneumothorax. Skeletal structures are intact. Impression: No acute cardiopulmonary process appreciated. Electronically Signed by Poli Batres MD 01/06/2020 01:29 A PROCEDURE INFORMATION: Exam: CT Head Without Contrast Exam date and time: 01/05/2020 9:26 PM Age: 74 years old Clinical indication: Pain; Headache; Additional info: Headache, dizzy TECHNIQUE: Imaging protocol: Computed tomography of the head without contrast. Radiation optimization: All CT scans at this facility use at least one of these dose optimization techniques: automated exposure control; mA and/or kV adjustment per patient size (includes targeted exams where dose is matched to clinical indication); or iterative reconstruction. COMPARISON: CT Head without contrast 08/18/2018 7:22 PM FINDINGS: Brain: Mild cerebral volume loss. No hemorrhage. Unremarkable white matter. No mass effect. Ventricles: Normal. No ventriculomegaly. Bones/joints: Unremarkable. No acute fracture. Sinuses: Visualized sinuses are unremarkable. No fluid levels. Mastoid air cells: Visualized mastoid air cells are well aerated. Soft tissues: Unremarkable. IMPRESSION: No acute intracranial abnormality. Electronically signed by: Reji Flores On 01/05/2020 21:58:51 PM PROGNOSIS: GOOD ACTIVITY: [As tolerated]. DIET: TOLERATED DISCHARGE PLAN: Patient is to be discharged home with follow-up to her PCP in 7- 10 days. She is to take Meclizine as needed for vertigo. She is to follow-up with outpatient physical therapy and vestibular therapy DISPOSITION: 01 Home, Self-Care. DISCHARGE CONDITION: [Stable]. TIME SPENT ON DISCHARGE: Greater than 30 minutes. Attending attestation: I evaluated and examined the patient in person; I discussed the care with Resident in detail and agree with the plan above. Vital Signs/I&Os Vital Signs Date Time Temp Pulse Resp B/P (MAP) Pulse Ox O2 Delivery O2 Flow Rate FiO2 01/06/20 06:00 97.3 64 19 131/63 (85) 97 Room Air I&O- Last 24 Hours up to 6 AM 01/06/20 06:00 Intake Total 210 ml Balance 210 ml Laboratory Data Labs 24H Laboratory Tests 2 01/05/20 20:30: Immature Granulocyte % (Auto) 0.3, Neutrophils (%) (Auto) 56.1, Lymphocytes (%) (Auto) 34.9, Monocytes (%) (Auto) 6.6H, Eosinophils (%) (Auto) 1.3, Basophils (%) (Auto) 0.8, Neutrophils # (Auto) 5.1, Lymphocytes # (Auto) 3.2, Monocytes # (Auto) 0.6, Eosinophils # (Auto) 0.1, Basophils # (Auto) 0.1, Nucleated Red Blood Cells % (auto) 0.0, Prothrombin Time 13.2, Prothromb Time International Ratio 1.03, Activated Partial Thromboplast Time 25.6, Anion Gap 5L, Glomerular Filtration Rate > 60.0, Calcium Level 8.8, Magnesium Level 1.8, Total Creatine Kinase 60, Creatine Kinase MB < 1.0, Creatine Kinase MB Relative Index 1.67, Tro ponin I < 0.02, Thyroid Stimulating Hormone (TSH) 5.320H, Free Thyroxine 1.02 01/06/20 02:38: Bedside Glucose (Misc Panel) 159H 01/06/20 05:25: Nucleated Red Blood Cells % (auto) 0.0, Anion Gap 8, Glomerular Filtration Rate > 60.0, Calcium Level 8.5L, Magnesium Level 1.6L, Total Bilirubin 0.5, Aspartate Amino Transf (AST/SGOT) 16, Alanine Aminotransferase (ALT/SGPT) 27, Alkaline Phosphatase 71, Total Protein 6.5, Albumin 3.6, Albumin/Globulin Ratio 1.2 01/06/20 11:32: Bedside Glucose (Misc Panel) 170H CBC/BMP Laboratory Tests 01/05/20 20:30 01/06/20 05:25 FSBS Laboratory Tests Test 01/06/20 02:38 01/06/20 11:32 Range/Units Bedside Glucose (Misc Panel) 159 170 83-110 MG/DL Discharge Medications Scheduled Aspirin (Aspirin) 325 Mg Tab, 325 MG PO DAILY, (Reported) Clopidogrel Bisulfate (Clopidogrel) 75 Mg Tab, 75 MG PO DAILY, (Reported) Duloxetine Hcl (Duloxetine HCl) 30 Mg Cap, 60 MG PO DAILY, (Reported) Ergocalciferol (Vitamin D2) (Vitamin D2) 50,000 Units Cap, 50,000 UNITS PO 1XWK, (Reported) SUNDAYS Glimepiride (Glimepiride) 2 Mg Tab, 6 MG PO DAILY, (Reported) Hydrochlorothiazide (Hydrochlorothiazide) 25 Mg Tab, 25 MG PO DAILY, (Reported) Insulin Glargine,Hum.rec.anlog (Basaglar Kwikpen U-100) 100 Unit/Ml Inj, 32 UNIT SC DAILY, (Reported) Levothyroxine Sodium (Synthroid) 75 Mcg Tablet, 75 MCG PO DAILY, (Reported) Magnesium Oxide (Magnesium Oxide) 400 Mg Tab, 400 MG PO DAILY, (Reported) Metformin HCl (Metformin HCl) 1,000 Mg Tab, 1,000 MG PO BID, (Reported) Multivitamins (Thera M Plus Tablet) 1 Tab Tab, 1 TAB PO DAILY, (Reported) Potassium Chloride (Potassium Chloride) 20 Meq Tab, 20 MEQ PO DAILY, (Reported) Simvastatin (Simvastatin) 40 Mg Tab, 40 MG PO QHS, (Reported) Sitagliptin Phosphate (Januvia) 100 Mg Tab, 100 MG PO QHS, (Reported) Scheduled PRN Meclizine HCl (Meclizine HCl) 12.5 Mg Tablet, 12.5 MG PO TIDP PRN for DIZZINESS Allergies Coded Allergies: Penicillins (Verified Adverse Reaction, Mild, vomiting, 01/05/20) codeine (Verified Adverse Reaction, Mild, vomiting, 01/05/20) DAVID TYLER DO Jan 06, 2020 16:03 RADHA LUNA MD Jan 08, 2020 00:10
[2020-01-06] MEDS ORDERED: HumaLOG INSULIN (NovoLOG) PER UNIT SC SCH (21:00)
== END 2020-01-06 15:10 | disposition home or self-care (01) ==
LOC: M ED 19:55 → M ED INP 19:56 → ENRESERVDT 01-06 01:45 → ENRESERVTM 01-06 01:45 → M MSPAV 01-06 02:30
PROVIDERS: ADMIT Internal Medicine; ATTEND Internal Medicine
DX: R42 Dizziness and giddiness (principal); R11.2 Nausea with vomiting, unspecified; R26.81 Unsteadiness on feet; I10 Essential (primary) hypertension; E11.9 Type 2 diabetes mellitus without complications; E03.9 Hypothyroidism, unspecified; Z79.899 Other long term (current) drug therapy; Z79.82 Long term (current) use of aspirin; Z79.02 Long term (current) use of antithrombotics/antiplatelets; Z79.4 Long term (current) use of insulin; Z88.0 Allergy status to penicillin; Z88.5 Allergy status to narcotic agent
CPT/HCPCS: 36415; 70450; 71045; 80048; 80053; 82550; 82553; 83735; 84439; 84443; 84484; 85025; 85027; 85610; 85730; 93005; 93041; 94760; 96365; 96372; 96374; 97112; 97161; 97530; 99285; G0378; J1644; J3475

== ENCOUNTER 2020-09-01 14:58 | Inpatient (IN) | payer MEDICARE ==
[~2020-09-01] VITALS: Ht 167.6 cm; Wt 83.4 kg
[~2020-09-01 14:58] MED LIST changes: +MECL12.590 PO; +SYNT75TA PO; +SYNT88TA2 PO; +VITA50005 PO
--- OUTSIDE RECORDS SUMMARY | 2020-09-01 15:05 | CCD ---
Full Chart - [facility] Created on: 06/09/2020 Ender Nolan External Reference #: [id number] : 1945 Sex: Female Author Author [facility] Address [address] [place] [address] Phone Care Team Providers Care Beef Pusher Name Role Phone Lor NAIK, Michelle Singh PP [phone] Abdiaziz CASTILLO, Hailey Unavailable [phone] JONATHAN Bennett, Ksenia Unavailable [phone] Reason for Referral No Reason for Referral Recorded Problems Includes: Active, inactive, and resolved Problems All Visits Effective Date(s) Provider Condition Stat us Nicotine Dependence Cigarettes Mild in Early Remission 03/07 Sharmin Danielson NP Active Note: quit 2019 Hypothyroidism 05/15/2019 Michelle NAIK Active Nicotine Dependence 05/05/2019 - 03/07/2020 Sharmin Danielson PRACTICING DERMATOLOGIST Res olved Note: Quit 2019 Visit For: Gynecological Exam with Pap Smear 05/29/2018 Srikanth Currie NP Active Nicotine Dependence 01/21/2018 - 01/21/2018 Sharmin Danielson NP Res olved Hypokalemia 01/21/2018 Krista L Ray DO Active Diabetes Mellitus Type 2 01/10/2018 Krista L Ray DO Active Hypertension (systemic) 01/10/2018 Krista L Ray DO Active Anxiety Disorder of Unknown (axis Iii) Etiology 01/10/2018 Krista L Ray DO Active Peripheral Vascular Disease 01/10/2018 Krista L Ray DO Acti ve Note: s/p stent placed in RL E Hypothyroidism 01/10/2018 Michelle NAIK Inactive Hyperlipidemia 01/10/2018 Krista L Ray DO Active Benign neoplasm of colon, unspecified 04/24/2017 Hailey mckoy RN Active Note: benign colonic neoplas m- tubular adenoma Per Pathology dated 04/24/17 Plan of Treatment Referrals To Diagnosis DEXA- Order Encounter for genera l adult medical exam w abnormal findings Note: Please schedule patient for test Ophthalmology Referral - Diabetic Eye Exam Dr. Jaylan Menchaca OD Type 2 diabetes mellitus with unspecified complications Note: Please schedule patient with provi yulissa, please send to someone [facility] Case Management Diabetes Future Appointments Date Time Location Provider Care Management Medical- Telephone Encounter 06/10/2020 9:50AM [facility] Hailey Freed RN Chronic Disease Follow-up 10/11/2020 3:00PM [facility] Sharmin Danielson NP Future Tests Order Diagnosis Results Due Ordering Provid er Records Immunizations Type 2 diabetes mellitus with un specified complications 06/09/20 Sharmin Danielson NP Visit Summary - Standard Visit Visit Summary Standard Visi t Type 2 diabetes mellitus with unspecified complications 06/09/20 Sharmin Danielson NP Findings Encounter Date Instructions for patient Chronic Disease Follow-up with Sharmin Danielson NP 06/09/2020 Ordered follow-up visit Chronic Disease Follow-up with Sharmin Danielson NP 06/09/2020 Ordered return to the clinic if condition worsens or n ew symptoms arise Chronic Disease Follow-up with Sharmin Danielson NP 06/09/2020 Return to the clinic if condition worsens or new sympt oms arise Care Management Medical- Telephone Encounter with Sharmin Danielson NP 06/03/2020 Ordered Clinical summary transmitted to referring provider electronically with reasonable certainty of receipt or receiving provider electronically through [employer] [facility] AHR with Sharmin Danielson NP 03/07/2020 Ordered return to the clinic if condition worsens or n ew symptoms arise AHR with Sharmin Danielson NP 03/07/2020 Ordered Clinical summary transmitted to referring provider electronically with reasonable certainty of receipt or receiving provider electronically through [employer] [facility] Acute L3 with Sharmin George NP 03/01/2020 Ordered return to the clinic if condition worsens or n ew symptoms arise Acute L3 with Sharmin George NP 03/01/2020 Ordered Clinical summary transmitted to referring provider electronically with reasonable certainty of receipt or receiving provider electronically through [employer] [facility] Lab Order with Trevon Franklin DO 01/07/2020 Ordered Clinical summary transmitted to referring provider electronically with reasonable certainty of receipt or receiving provider electronically through [employer] [facility] Primary Care Telehealth Zoom with Maik Franklin DO 11/02/2019 Return to the clinic if condition worsens or new sympt oms arise Care Management Medical- Telephone Encounter with Michelle Horowitz [facility] 10/13/2019 Return to the clinic if condition worsens or new sympt oms arise Care Management Medical- Telephone Encounter with Ksenia Bennett RN 08/13/2019 Instructions for patient Labs as order ed in july. Sleep scheudle and habits as reviewed. Increase basal insulin to 28 units and monitor fasting glucose. Follow up in 3 months, sooner with concerns Diabetes Follow-up with Michelle Horowitz [facility] 06/23/2019 Ordered Clinical summary transmitted to referring provider electronically with reasonable certainty of receipt or receiving provider electronically through [facility] Diabetes Follow-up with Michelle Horowitz [facility] 9 Ordered follow-up visit Diabetes Follow-up with Michelle cross [facility] 06/23/2019 Ordered return to the clinic if condition worsens or n ew symptoms arise Diabetes Follow-up with Michelle Horowitz [facility] 06/23/2019 Instructions for patient Labs as order ed. Further recommendation after testing. Nicotine replacement as discussed. She will call when she watns a decrease. Otherwise will see her in one month for DM follow up and chronic follow up Chronic Disease Follow-up with Michelle Horowitz [facility] Ordered Clinical summary transmitted to referring provider electronically with reasonable certainty of receipt or receiving provider electronically through [facility] Chronic Disease Follow-up with Michelle Horowitz [facility] 05/05/2019 Ordered follow-up visit Chronic Disease Follow-up with Michelle Horowitz [facility] 05/05/2019 Ordered return to the clinic if condition worsens or n ew symptoms arise Chronic Disease Follow-up with Michelle Horowitz [facility] 05/05/2019 Instructions for patient Continue curr ent medications, Dietary changes as discsused. If A1C elevated above 7 at next visit will do slight titration of lantus. dm EYE EXAM DUE IN 07/2019. Follow up in 3-4 months, sooner with concerns. Recheck TSH in 8 weeks after taking in morning spaced 1 hour before other meds Chronic Disease Follow-up with Michelle Horowitz [facility] Ordered Clinical summary transmitted to referring provider electronically or receiving provider electronically through [employer] [facility] Chronic Disease Follow-up with Michelle Horowitz [facility] 03/10/2019 Ordered follow-up visit Chronic Disease Follow-up with Michelle Horowitz [facility] 03/10/2019 Ordered return to the clinic if condition worsens or n ew symptoms arise Chronic Disease Follow-up with Michelle Horowitz [facility] 03/10/2019 Ordered Clinical summary transmitted to referring provider electronically or receiving provider electronically through [employer] [facility] AHR with Michelle Horowitz [facility] 12/02/2018 Ordered follow-up visit AHR with Michelle Horowitz [facility] 2018 Ordered return to the clinic if condition worsens or n ew symptoms arise AHR with Michelle Horowitz [employer] 12/02/2018 Instructions for patient Hospital Follow-up with Michelle velez [facility] 08/28/2018 Ordered follow-up visit Hospital Follow-up with Michelle cross [employer] 08/28/2018 Ordered return to the clinic if condition worsens or n ew symptoms arise Hospital Follow-up with Michelle Horowitz [employer] 08/28/2018 Return to the clinic if condition worsens or new sympt oms arise Care Management with Michelle Horowitz [facility] 08/14/2018 Ordered Clinical summary transmitted to referring provider electronically or receiving provider electronically through [employer] [facility] Pap with Le Currie NP 05/29/2018 Ordered return to the clinic if condition worsens or n ew symptoms arise Pap with Le Currie NP 05/29/2018 Ordered Clinical summary transmitted to referring provider electronically or receiving provider electronically through [employer] [facility] Meet & Greet New Appointment with Le Currie NP 03/13/2018 Ordered return to the clinic if condition worsens or n ew symptoms arise Meet & Greet New Appointment with Le Currie NP 03/13/2018 Ordered Clinical summary transmitted to referring provider electronically or receiving provider electronically through [employer] [facility] Walk-In with Krista Saba DO 02/11/2018 Return to the clinic if condition worsens or new sympt oms arise Walk-In with Krista Saba DO 02/11/2018 Ordered Clinical summary transmitted to referring provider electronically or receiving provider electronically through [employer] [facility] Walk-In with Krista Saba DO 01/21/2018 Return to the clinic if condition worsens or new sympt oms arise Walk-In with Krista Cabrera Ray DO 01/21/2018 Ordered Clinical summary transmitted to referring provider electronically or receiving provider electronically through [employer] [facility] Walk-In with Krista Cabrera Ray DO 01/10/2018 Return to the clinic if condition worsens or new sympt oms arise Walk-In with Krista L Ray DO 01/10/2018 Assessments Includes: Assessments for all patient encounters Findings Encounter Date Hyperlipidemia Chronic Disease Follow-up with Sharmin miranda NP 06/09/2020 Hypertension Chronic Disease Follow-up with Sharmin miranda NP 06/09/2020 Hypothyroidism Chronic Disease Follow-up with Sharmin miranda NP 06/09/2020 Type 2 diabetes mellitus Chronic Disease Follow-up with Sharmin Danielson NP 06/09/2020 Hypertension AHR with Sharmin Danielson NP 03/07/2020 Hypothyroidism AHR with Sharmin Danielson NP 03/07/2020 Mild dependence on nicotine in cigarettes in early rem ission AHR with Sharmin Danielson NP 03/07/2020 Routine history and physical See [facility] ed problem list above for impression and plan of any problems addressed today Immunizations reviewed. Tdap advised. Seasonal flu vaccine advised. Colonoscopy- possibly in 2017- records requested. Pap 05/29/2018 reviewed and benign. No further screening advised after age 65. Mammogram and ultrasound 09/08/2018 reviewed and benign. Repeat ordered today. DEXA 03/23/2003 reviewed and benign, repeat ordered today. Greater than 30 pack year history. Low dose CT ordered. Diabetic eye exam 07/08/2018 reviewed and benign, referral provided to provider that is closer. Will obtain urine vanna today, foot exam completed today AHR with Sharmin Danielson NP 03/07/2020 Type 2 diabetes mellitus AHR with Sharmin Danielson NP 0 Left rotator cuff tendonitis Acute L3 with Sharmin George NP 03/01/2020 Left trapezius muscle strain Acute L3 with Sharmin George NP 03/01/2020 Hypothyroidism Telephonic Encounter with Trevon peguero DO 01/14/2020 Hypertension Lab Order with Trevon Franklin DO Hypokalemia Lab Order with Trevon Delacruz Justinsigifredo DO Hypothyroidism Lab Order with Trevon Delacruz Justinsigifredo DO Type 2 diabetes mellitus Lab Order with Trevon Delacruz Justinsigifredo DO 01/07/2020 Vertigo Lab Order with Trevon Jayme Andersonsigifredo DO Anxiety disorder of unknown (axis III) etiology Primar y Care Telehealth Zoom with Trevon Jayme Andersonmanjulachata DO 11/02/2019 Hyperlipidemia Primary Care Telehealth Zoom with Maik bertha Andersonmanjulachata DO 11/02/2019 Hypertension Primary Care Telehealth Zoom with Maik bertha Andersonmanjulachata DO 11/02/2019 Hypothyroidism Primary Care Telehealth Zoom with Maik bertha Andersonmanjulachata DO 11/02/2019 Type 2 diabetes mellitus Primary Care Telehealth Zoom with Trevon Jayme Andersonmanjulachata DO 11/02/2019 Anxiety disorder of unknown (axis III) etiology Diabet es Follow-up with Michelle Horowitz [facility] 06/23/2019 Hyperlipidemia 03/06/19 lipids reviewed Diabetes Follow -up with Michelle Horowitz [facility] 06/23/2019 Hypertension : Well controlled Diabetes Follow-up with Michelle Horowitz [facility] 06/23/2019 Hypothyroidism Due for recheck beginning of july Diabetes Follow-up with Michelle Horowitz [facility] 06/23/2019 Type 2 diabetes mellitus - A1C up to 8. 2. Diet poor and sleep habits. Missing meds. Compliance encouraged. Monitor fasting gluse and we will check in with ehr when she gets labs done. Increase basal insulin to 28 units nightly Diabetes Follow-up with Michelle REYNOLDSP 06/23/2019 Anxiety disorder of unknown (axis III) etiology Chroni c Disease Follow-up with Michelle Horowitz [facility] 05/05/2019 Hypertension Chronic Disease Follow-up with Michelle basurto [facility] 05/05/2019 Hypothyroidism Chronic Disease Follow-up with Michelle basurto [facility] 05/05/2019 Nicotine dependence Chronic Disease Follow-up with Michelle basurto [facility] 05/05/2019 Anxiety disorder of unknown (axis III) etiology Chroni c Disease Follow-up with Michelle REYNOLDSP 03/10/2019 Hyperlipidemia 03/06/19 lipids reviewed Chronic Disease Follow-up with iMchelle Horowitz [facility] 03/10/2019 Hypertension : Well controlled [facility] Hypothyroidism 03/06/19 TSH slightly off, not taking medication properly. Proper administration discussed and recheck in 8 weeks [facility] Type 2 diabetes mellitus : Slightly elev ated a1c, diet changes discussed. Has been drinking a drink with sugar in it when she thought it did not have it, has been effecting her gluicose Chronic Disease [facility]/10[facility]2019 Anxiety disorder of unknown (axis III) etiology AHR with Ruthann Singh [facility] 12/02/2018 Hyperlipidemia AHR with [facility] 12/02/2018 Hypertension : Well controlled [facility]HR with [facility] 12/02/2018 Hypothyroidism : Labs advised [facility]2018 Routine history and physical see [facility] ed problem list above for impression and plan of any problems addressed today. Vaccines reviewed. Seasonal flu shots advised. Tetanus advised, she will look at her records for her last dose. Shingles vaccine optional. Prevnar advised. Routine cancer screening reviewed. Mammograms advised every other year, MAMMO 09/08/18 on file. Paps not advised over 65. Colon cancer screening reviewed and records requested.. Bone density recommended. AHR with Michelle Vargastay [facility] 12/02/2018 Type 2 diabetes mellitus : Well controll ed. She will check who had done her eye exam. Continue with weight loss and increase exercise [facility] Anxiety disorder of unknown (axis III) etiology : Well controlled Hospital Follow-up with Michelle Francisco Lor [facility] 08/28/2018 Hyperlipidemia Labs reviewed. Stable Hospital Follow- up with Michellebenson Horowitz [facility] 08/28/2018 Hypertension : Well controlled. Labs rev iewed. Orders given for microalbumin with next labs Hospital Follow-up with Michelle Horowitz [facility] 9 Hypokalemia Hospital Follow-up with Michellebenson Horowitz [facility] 08/28/2018 Hypothyroidism : THS stable on labs from hospital repo rt Hospital Follow-up with Michelle Horowitz [facility] 08/28/2018 Type 2 diabetes mellitus Hospital Follow-up with Michelle Thomasjaelyn agustin [facility] 08/28/2018 Vertigo : Hospital records reviewed. Stable. Will do P T should symptoms return Hospital Follow-up with Michelle Singh Lor [facility] 08/28/2018 Assessment of visit for: gynecological exam with jackie estrada Pap with Le Currie NP 05/29/2018 Hypertension Meet & Greet New Appointment with Le Currie NP 03/13/2018 Type 2 diabetes mellitus Meet & Greet New Appointment with Le Currie NP 03/13/2018 Type 2 diabetes mellitus I advised t hat since patient is having several elevated blood sugar readings, that she start on 10 units of Lantus with breakfast daily. I advised that she is going to take this insulin in addition to her other diabetic medications. She was advised that the diabetic nurse will be contacting her to help give her some additional instruction about how to use her insulin and further instruction about a diabetic diet. She was advised of the signs and symptoms of hypoglycemia. She was advised to have glucose tablets on hand in case she does have a blood sugar below 80 and needs to take something quickly to bring her blood sugar back up. She was advised to call my office with any questions regarding her new medication or side effects from the new medication. She was advised to call the office if she has any blood sugars less than 80 Walk-In with Krista Saba DO 02/11/2018 Hypokalemia taking potassium 20meQ randy y. Will re-check potassium levels. Patient reports she feels better now that she is taking potassium Walk-In with Krista Saba DO 01/21/2018 Type 2 diabetes mellitus improved controll on oral me dications only Walk-In with Krista Saba DO 01/21/2018 Hyperlipidemia Walk-In with Krista Saba DO 01/10/2018 Hypertension Walk-In with Krista Saba DO 01/10/2018 Hypothyroidism Walk-In with Krista Saba DO 01/10/2018 Peripheral vascular disease Walk-In with Krista Saba DO 03/2018 Type 2 diabetes mellitus I advised p atient to increase her Januvia from 50 mg once a day 200 mg once a day with breakfast. I advised her to have her labs done early next week, fasting. I advised her to keep her initial appointment with her PCP in 2 months. I advised that if her blood sugars were uncontrolled before then, despite the medication change, that she come through walk-in again in 3-4 weeks. Greater than 60 minutes spent in office today, most of time was spent reconciling medications because patient did not bring an accurate list of medications and her pharmacy had to be called Walk-In with Krista Saba DO 01/10/2018 Instructions Instructions not supported for this document typeNo Instructions Recorded Medical Equipment - Implanted Devices Includes: Current and historical DevicesNo Medical Equipment Recorded Medications Includes: Current and historical Medications Current Medications (continue as prescribed) Glimepiride 2 MG Oral Tablet 06/09/2020 Provider: Sharmin Danielson NP Diagnosis: Type 2 diabetes rob itus with unspecified complications 1 tab with breakfast, 2 tabs with supper- with food MiraLax 17 GM/SCOOP Oral Powder 06/09/2020 - 06/04/2021 Prov ider: Sharmin Danielson NP Diagnosis: Other constipation up to 1 cap full PO daily. Mix with 4-8 ounces liquid. OneTouch Delica Lancets 33G Miscellaneous 06/09/2020 - 12/06 Provider: Sharmin Danielson NP Diagnosis: Type 2 diabetes rob itus with unspecified complications as directed Testing BID Levothyroxine Sodium 88 MCG Oral Tablet 06/09/2020 Provider: Sharmin Danielson NP Diagnosis: Hypothyroidism, unsp ecified once a day OneTouch Ultra In Vitro Strip 06/09/2020 - 12/06/2020 Provid er: Sharmin Danielson NP Diagnosis: Type 2 diabetes rob itus with unspecified complications as directed Test blood sugars BID Januvia 100 MG Oral Tablet 03/15/2020 Provider: Sharmin Danielson NP Diagnosis: Type 2 diabetes rob itus with unspecified complications once a day CareFine Pen [place] 32G X 4 MM Miscellaneous 03/15/2020 Provider: Sharmin Danielson NP Diagnosis: Type 2 diabetes rob itus with unspecified complications once a day use to inject insulin once daily OneTouch Ultra STRP 03/15/2020 - 09/11/2020 Provider: Diagnosis: Type 2 diabetes rob itus with unspecified complications Test blood sugars BID Vitamin D (Ergocalciferol) 1.25 MG (68843 UT) Oral Cap poonam 03/07/2020 - 12/02/2020 Provider: Sharmin Danielson NP Diagnosis: as directed Basaglar KwikPen 100 UNIT/ML Subcutaneous Solution Pen-injec tor 11/02/2019 Provider: Trevon Franklin DO Diagnosis: Type 2 diabetes rob itus with unspecified complications INCREASED Inject 36 units SC once daily - MDD=50 units. metFORMIN HCl 1000 MG Oral Tablet 11/02/2019 Provid er: Trevon Franklin DO Diagnosis: Type 2 diabetes rob itus with unspecified complications twice a day Simvastatin 40 MG Oral Tablet 11/02/2019 Provider: Trevon Franklin DO Diagnosis: Hyperlipidemia, unsp ecified 1 every bedtime one po at bedtime Plavix 75 MG Oral Tablet 11/02/2019 Provider: Trevon Franklin DO Diagnosis: Peripheral vascular disease, unspecified once a day Cymbalta 30 MG Oral Capsule Delayed Release Particles 2019 Provider: Trevon Franklin DO Diagnosis: Anxiety disorder, un specified 2 once a day Potassium Chloride ER 20 MEQ Oral Tablet Extended Release Provider: Trevon Franklin DO Diagnosis: Hypokalemia once a day Magnesium Oxide 400 MG Oral Tablet 09/29/2019 - 09/23/2020 P gino: iMchelle Horowitz [employer] Diagnosis: once a day OneTouch Ultra 2 w/Device Kit 08/28/2019 Provider: Sharmin Danielson NP Diagnosis: Type 2 diabetes rob itus with unspecified complications as directed Testing BID Aspirin 325MG Oral Tablet 08/28/2018 Provider: Diagnosis: 1 tab po daily Alcohol Prep 70% Pad 03/13/2018 Provider: Le Currie NP Diagnosis: as directed Past Medications on file OneTouch Delica Lancets 33G Miscellaneous 03/15/2020 - 06/09 Provider: Sharmin Danielson NP Diagnosis: Type 2 diabetes rob itus with unspecified complications as directed Testing BID Glimepiride 2 MG Oral Tablet 03/15/2020 - 06/09/2020 Provide r: Sharmin Danielson NP Diagnosis: Type 2 diabetes rob itus with unspecified complications 3 tabs once a day- with food OneTouch Ultra In Vitro Strip 03/15/2020 - 06/09/2020 Provid er: Sharmin Danielson NP Diagnosis: Type 2 diabetes rob itus with unspecified complications as directed Test blood sugars BID Levothyroxine Sodium 88 MCG Oral Tablet 03/15/2020 - 020 Provider: Sharmin Danielson NP Diagnosis: Hypothyroidism, unsp ecified once a day Dosage decrease Levothyroxine Sodium 88 MCG OR TABS 03/10/2020 - 03/15/2020 Provider: Diagnosis: Hypothyroidism, unsp ecified Dosage decrease Levothyroxine Sodium 88 MCG Oral Tablet 03/10/2020 - 020 Provider: Sharmin Danielson NP Diagnosis: Hypothyroidism, unsp ecified once a day Dosage decrease CareFine Pen [place] 32G X 4 MM Miscellaneous 03/07/2020 - 0 03/15/2020 Provider: Sharmin Danielson NP Diagnosis: Type 2 diabetes rob itus with unspecified complications once a day use to inject insulin once daily Accu-Chek FastClix Lancets Miscellaneous 03/07/2020 - 2019 Provider: Sharmin Danielson NP Diagnosis: Type 2 diabetes rob itus with unspecified complications twice a day Tesst blood sugars BID Glimepiride 2 MG Oral Tablet 03/07/2020 - 03/15/2020 Provide r: Sharmin Danielson NP Diagnosis: Type 2 diabetes rob itus with unspecified complications 3 tabs once a day- with food Januvia 100 MG Oral Tablet 03/07/2020 - 03/15/2020 Provider: Sharmin Danielson NP Diagnosis: Type 2 diabetes rob itus with unspecified complications once a day Cyclobenzaprine HCl 5 MG Oral Tablet 03/01/2020 - 06/09/2020 Provider: Sharmin George NP Diagnosis: 1 every bedtime PRN MUSCLE SPASM Levothyroxine Sodium 100 MCG OR TABS 01/18/2020 - 03/07/2020 Provider: Diagnosis: Hypothyroidism, unsp ecified Levothyroxine Sodium 100 MCG Oral Tablet 01/18/2020 - 2019 Provider: Sharmin Danielson NP Diagnosis: Hypothyroidism, unsp ecified once a day Levothyroxine Sodium 100 MCG Oral Tablet 01/14/2020 - 2019 Provider: Trevon Franklin DO Diagnosis: Hypothyroidism, unsp ecified once a day - increased Meclizine HCl 12.5 MG Oral Tablet 01/06/2020 - 06/09/2020 Pr ovider: Diagnosis: ER discharge Glimepiride 2 MG Oral Tablet 11/16/2019 - 03/07/2020 Provide r: Sharmin Danielson NP Diagnosis: Type 2 diabetes rob itus with unspecified complications 3 tabs once a day- with food Glimepiride 2 MG OR TABS 11/12/2019 - 11/16/2019 Provider: Diagnosis: Type 2 diabetes rob itus with unspecified complications Glimepiride 2 MG Oral Tablet 11/12/2019 - 11/16/2019 Provide r: Fannie Cervantes NP Diagnosis: Type 2 diabetes rob itus with unspecified complications 3 once a day hydroCHLOROthiazide 25 MG Oral Tablet 11/02/2019 - 0 Provider: Trevon Franklin DO Diagnosis: Essential (primary) hypertension once a day Levothyroxine Sodium 88 MCG Oral Tablet 11/02/2019 - 020 Provider: Trevon Franklin DO Diagnosis: Hypothyroidism, unsp ecified once a day increased CareFine Pen [place] 32G X 4 MM Miscellaneous 10/15/2019 - 0 03/07/2020 Provider: Fannie Cervantes NP Diagnosis: Type 2 diabetes rob itus with unspecified complications once a day use to inject insulin once daily Magnesium Oxide 400 MG Oral Tablet 09/24/2019 - 09/29/2019 P rovider: Sharmin Danielson NP Diagnosis: once a day OneTouch Ultra Blue In Vitro Strip 09/08/2019 - 03/15/2020 P rovider: Michelle NAIK Diagnosis: Type 2 diabetes rob itus with unspecified complications as directed Testing BID OneTouch Delica Lancets 33G Miscellaneous 09/08/2019 - 03/15 Provider: Michelle NAIK Diagnosis: Type 2 diabetes rob itus with unspecified complications as directed Testing BID OneTouch Ultra Blue STRP 08/28/2019 - 08/28/2019 Provider : Diagnosis: Type 2 diabetes rob itus with unspecified complications OneTouch Club Lancets Fine Pt MISC 08/28/2019 - 08/28/2019 P rovider: Diagnosis: Type 2 diabetes rob itus with unspecified complications Testing BID OneTouch Ultra Blue In Vitro Strip 08/28/2019 - 03/15/2020 P rovider: Sharmin Danielson PRACTICING DERMATOLOGIST Diagnosis: Type 2 diabetes rob itus with unspecified complications as directed Testing BID OneTouch Ultra Blue STRP 08/28/2019 - 11/12/2019 Provider : Diagnosis: Type 2 diabetes rob itus with unspecified complications Testing BID OneTouch Ultra Blue STRP 08/28/2019 - 11/12/2019 Provider : Diagnosis: Type 2 diabetes rob itus with unspecified complications Testing BID OneTouch Delica Lancets 33G MISC 08/28/2019 - 11/02/2019 Pro vider: Diagnosis: Type 2 diabetes rob itus with unspecified complications Testing BID OneTouch Delica Lancets 33G Miscellaneous 08/28/2019 - 03/15 Provider: Sharmin Danielson NP Diagnosis: Type 2 diabetes rob itus with unspecified complications as directed Testing BID OneTouch Ultra Blue In Vitro Strip 08/28/2019 - 03/15/2020 P rovider: Sharmin Danielson PRACTICING DERMATOLOGIST Diagnosis: Type 2 diabetes rob itus with unspecified complications testing daily and prn OneTouch Ultra 2 w/Device KIT 08/28/2019 - 08/28/2019 Provid er: Diagnosis: Type 2 diabetes rob itus with unspecified complications Testing BID OneTouch Delica Lancets 33G MISC 08/28/2019 - 08/28/2019 Pro vider: Diagnosis: Type 2 diabetes rob itus with unspecified complications Testing BID Accu-Chek Melia Plus In Vitro Strip 08/25/2019 - 08/25/2019 Provider: Michelle NAIK Diagnosis: Type 2 diabetes rob itus with unspecified complications as directed- testing BID and PRN. Accu-Chek Melia Plus In Vitro Strip 08/25/2019 - 08/28/2019 Provider: Michelle REYNOLDSP Diagnosis: Type 2 diabetes rob itus with unspecified complications as directed- testing BID and PRN. MiraLax Oral Powder 08/13/2019 - 06/09/2020 Provider: Sharmin Danielson NP Diagnosis: Other constipation up to 1 cap full PO daily. Mix with 4-8 ounces liquid. Basaglar KwikPen 100 UNIT/ML SC SOPN 07/07/2019 - 08/24/2019 Provider: Diagnosis: Type 2 diabetes rob itus with unspecified complications Inject 26 units SC once daily - MDD=30 units Basaglar KwikPen 100 UNIT/ML Subcutaneous Solution Pen -injector 07/07/2019 - 11/02/2019 Provider: Michelle NAIK Diagnosis: Type 2 diabetes rob itus with unspecified complications once a day Inject 26 units SC once daily - MDD=30 units. REP LACES LANTUS Vitamin D (Ergocalciferol) 1.25 MG (29671 UT) Oral Cap poonam 07/06/2019 - 03/07/2020 Provider: Michelle NAIK Diagnosis: as directed Accu-Chek FastClix Lancets Miscellaneous 07/01/2019 - 2019 Provider: Sharmin PEREYRA Diagnosis: Type 2 diabetes rob itus with unspecified complications twice a day Tesst blood sugars BID CareFine Pen [place] 32G X [address] [facility] [place] 07/01/2019 - 07/03/2019 Provider: Diagnosis: Type 2 diabetes rob itus with unspecified complications use to inject insulin once daily CareFine Pen [place] 32G X 4 MM Miscellaneous 07/01/2019 - 0 10/15/2019 Provider: Sharmin PEREYRA Diagnosis: Type 2 diabetes rob itus with unspecified complications once a day use to inject insulin once daily CareFine Pen [place] 32G X [address] [facility] [place] 06/30/2019 - 07/03/2019 Provider: Diagnosis: Type 2 diabetes rob itus with unspecified complications ; use to inject insulin once daily Potassium Chloride ER 20 MEQ Oral Tablet Extended Rele ase 06/26/2019 - 11/02/2019 Provider: Michelle NAIK Diagnosis: Hypokalemia once a day Lantus SoloStar 100 UNIT/ML Subcutaneous Solution Pen- injector 06/26/2019 - 07/07/2019 Provider: Michelle NAIK Diagnosis: Type 2 diabetes rob itus with unspecified complications Inject 26 units SC once daily- dose increase Cymbalta 30 MG Oral Capsule Delayed Release Particles 2018 - 11/02/2019 Provider: Michelle NAIK Diagnosis: Anxiety disorder, un specified 2 once a day Simvastatin 40 MG Oral Tablet 06/26/2019 - 11/02/2019 Provid er: Michelle NAIK Diagnosis: Hyperlipidemia, unsp ecified 1 every bedtime one po at bedtime metFORMIN HCl 1000 MG Oral Tablet 06/26/2019 - 11/02/2019 Pr ovider: Michelle NAIK Diagnosis: Type 2 diabetes rob itus with unspecified complications twice a day Magnesium Oxide 400 MG Oral Tablet 06/26/2019 - 09/24/2019 P rovider: Michelle REYNOLDSP Diagnosis: once a day Levothyroxine Sodium 75 MCG Oral Tablet 06/26/2019 - 020 Provider: Michelle REYNOLDSP Diagnosis: Hypothyroidism, unsp ecified once a day- DOSE INCREASED Plavix 75 MG Oral Tablet 06/26/2019 - 11/02/2019 Provider: Michelle REYNOLDSP Diagnosis: Peripheral vascular disease, unspecified once a day Januvia 100 MG Oral Tablet 06/26/2019 - 03/07/2020 Provider: Michelle NAIK Diagnosis: Type 2 diabetes rob itus with unspecified complications once a day hydroCHLOROthiazide 25 MG Oral Tablet 06/26/2019 - 0 Provider: Michelle NAIK Diagnosis: Essential (primary) hypertension once a day CareFine Pen [place] 32G X 4 MM Miscellaneous 06/26/2019 - 1 08/30/2018 Provider: Michelle NAIK Diagnosis: Type 2 diabetes rob itus with unspecified complications as directed; use to inject insulin once daily Vitamin D (Ergocalciferol) 1.25 MG (35229 UT) Oral Cap poonam 06/26/2019 - 07/06/2019 Provider: Mihcelle NAIK Diagnosis: as directed Glimepiride 2 MG Oral Tablet 06/26/2019 - 03/07/2020 Provide r: Michelle NAIK Diagnosis: Type 2 diabetes rob itus with unspecified complications as directed 3 a day Levothyroxine Sodium 75 MCG Oral Tablet 05/15/2019 - 019 Provider: Michelle NAIK Diagnosis: Hypothyroidism, unsp ecified once a day- DOSE INCREASED Cymbalta 30 MG Oral Capsule Delayed Release Particles 2018 - 06/26/2019 Provider: Michelle NAIK Diagnosis: Anxiety disorder, un specified 2 once a day Lantus SoloStar 100 UNIT/ML Subcutaneous Solution Pen- injector 05/05/2019 - 06/26/2019 Provider: Michelle NAIK Diagnosis: Type 2 diabetes rob itus with unspecified complications Inject 26 units SC once daily- dose increase Nicorette 2 MG Mouth/Throat Gum 05/05/2019 - 06/23/2019 Prov ider: Michelle NAIK Diagnosis: Nicotine dependence, unspecified, uncomplicated as directed- chew 1 peice of gum with cr avings for 30-60 seconds. MAX 24 pieces in 24 hours. EQ Nicotine 21 MG/24HR Transdermal Patch 24 Hour 05/05/2019 - 06/23/2019 Provider: Michelle NAIK Diagnosis: Nicotine dependence, unspecified, uncomplicated as directed- apply patch once daily. Be sure to remove previous patch before putting on new patch. Rotate site daily. Levothyroxine Sodium 50MCG Oral Tablet 03/18/2019 - 05/15/20 19 Provider: Ros Carlson NP Diagnosis: Hypothyroidism, unsp ecified once a day 1 tab po daily True Metrix Blood Glucose Test In Vitro Strip 03/16/2019 - 0 04/28/2019 Provider: Michelle NAIK Diagnosis: Type 2 diabetes rob itus with unspecified complications twice a day as directed, use to test BG bid and PRN Glimepiride 2MG Oral Tablet 03/16/2019 - 06/26/2019 Provider : Michelle NAIK Diagnosis: Type 2 diabetes rob itus with unspecified complications as directed 3 a day Potassium Chloride ER 20MEQ Oral Tablet Extended Relea se 03/16/2019 - 06/26/2019 Provider: Michelle NAIK Diagnosis: Hypokalemia once a day Simvastatin 40MG Oral Tablet 03/16/2019 - 06/26/2019 Provide r: Michelle NAIK Diagnosis: Hyperlipidemia, unsp ecified 1 every bedtime one po at bedtime metFORMIN HCl 1000MG Oral Tablet 03/16/2019 - 06/26/2019 Pro vider: Michelle NAIK Diagnosis: Type 2 diabetes rob itus with unspecified complications twice a day Plavix 75MG Oral Tablet 03/16/2019 - 06/26/2019 Provider: Michelle NAIK Diagnosis: Peripheral vascular disease, unspecified once a day Potassium Chloride ER 20MEQ Oral Tablet Extended Relea se 03/10/2019 - 03/16/2019 Provider: Michelle NAIK Diagnosis: Hypokalemia once a day Plavix 75MG Oral Tablet 03/10/2019 - 03/16/2019 Provider: Michelle NIAK Diagnosis: Peripheral vascular disease, unspecified once a day Simvastatin 40MG Oral Tablet 03/10/2019 - 03/16/2019 Provide r: Michelle NAIK Diagnosis: Hyperlipidemia, unsp ecified 1 every bedtime one po at bedtime metFORMIN HCl 1000MG Oral Tablet 03/10/2019 - 03/16/2019 Pro vider: Michelle NAIK Diagnosis: Type 2 diabetes rob itus with unspecified complications twice a day Glimepiride 2MG Oral Tablet 03/10/2019 - 03/16/2019 Provider : Michelle NAIK Diagnosis: Type 2 diabetes rob itus with unspecified complications as directed 3 a day Magnesium Oxide 400MG Oral Tablet 03/10/2019 - 06/26/2019 Pr ovider: Michelle NAIK Diagnosis: once a day hydroCHLOROthiazide 25MG Oral Tablet 02/11/2019 - 06/26/2019 Provider: Sharmin PEREYRA Diagnosis: Essential (primary) hypertension once a day Glimepiride 2MG Oral Tablet 01/07/2019 - 03/10/2019 Provider : Nicole Aguirre MD Diagnosis: Type 2 diabetes rob itus with unspecified complications as directed Take 3 tablets a day Glimepiride 2 MG OR TABS 01/07/2019 - 02/11/2019 Provider: Diagnosis: Type 2 diabetes rob itus with unspecified complications Take 3 tablets a day Lantus SoloStar 100UNIT/ML Subcutaneous Solution Pen-i njector 12/09/2018 - 05/05/2019 Provider: Michelle NAIK Diagnosis: Type 2 diabetes rob itus with unspecified complications Inject 26 units SC once daily- dose increase Plavix 75MG Oral Tablet 12/09/2018 - 03/10/2019 Provider: Michelle NAIK Diagnosis: Peripheral vascular disease, unspecified once a day Januvia 100MG Oral Tablet 12/09/2018 - 06/26/2019 Provider: Michelle NAIK Diagnosis: Type 2 diabetes rob itus with unspecified complications once a day Simvastatin 40MG Oral Tablet 12/09/2018 - 03/10/2019 Provide r: Michelle NAIK Diagnosis: Hyperlipidemia, unsp ecified 1 every bedtime one po at bedtime CareFine Pen [place] 32G X 4 MM Miscellaneous 12/09/2018 - 1 08/26/2018 Provider: Michelle NAIK Diagnosis: Type 2 diabetes rob itus with unspecified complications as directed; use to inject insulin once daily metFORMIN HCl 1000MG Oral Tablet 12/09/2018 - 03/10/2019 Pro vider: Michelle NAIK Diagnosis: Type 2 diabetes rob itus with unspecified complications twice a day Potassium Chloride ER 20MEQ Oral Tablet Extended Relea se 12/09/2018 - 03/10/2019 Provider: Michelle NAIK Diagnosis: Hypokalemia once a day Cymbalta 30MG Oral Capsule Delayed Release Particles 019 - 05/05/2019 Provider: Michelle NAIK Diagnosis: Anxiety disorder, un specified 2 once a day Lantus SoloStar 100UNIT/ML Subcutaneous Solution Pen-i njector 12/02/2018 - 12/09/2018 Provider: Michelle NAIK Diagnosis: Type 2 diabetes rob itus with unspecified complications Inject 26 units SC once daily- dose increase Vitamin D (Ergocalciferol) [id number] Oral Capsule 12/02/2018 - 06/26/2019 Provider: Michelle NAIK Diagnosis: as directed Accu-Chek Melia Plus In Vitro Strip 10/30/2018 - 11/06/2018 Provider: Ros Carslon PRACTICING DERMATOLOGIST Diagnosis: Type 2 diabetes rob itus with unspecified complications twice a day Test blood sugars BID Accu-Chek Melia Plus STRP 10/30/2018 - 08/24/2019 Provide r: Diagnosis: Type 2 diabetes rob itus with unspecified complications Test blood sugars BID Januvia 100MG Oral Tablet 10/06/2018 - 12/09/2018 Provider: Michelle NAIK Diagnosis: Type 2 diabetes rob itus with unspecified complications once a day Magnesium Oxide 400MG Oral Tablet 09/23/2018 - 03/10/2019 Pr ovider: Michelle NAIK Diagnosis: once a day Simvastatin 40MG Oral Tablet 09/02/2018 - 12/02/2018 Provide r: Le Currie NP Diagnosis: once a day - Will run out before mail order pharmacy refills script. Lantus SoloStar 100UNIT/ML Subcutaneous Solution Pen-i njector 08/28/2018 - 12/02/2018 Provider: Michlele NAIK Diagnosis: Benign paroxysmal ve rtigo, bilateral Inject 18 units SC once daily- replaces baslagar Simvastatin 40MG Oral Tablet 08/28/2018 - 12/09/2018 Provide r: Michelle NAIK Diagnosis: Hyperlipidemia, unsp ecified 1 every bedtime one po at bedtime MiraLax Oral Powder 08/28/2018 - 08/13/2019 Provider: Michelle NAIK Diagnosis: Other constipation up to 1 cap full PO daily. Mix with 4-8 ounces liquid. Cymbalta 30MG Oral Capsule Delayed Release Particles 019 - 12/09/2018 Provider: Michelle NAIK Diagnosis: Anxiety disorder, un specified 2 once a day HydroCHLOROthiazide 25MG Oral Tablet 08/28/2018 - 02/11/2019 Provider: Michelle NAIK Diagnosis: Essential (primary) hypertension once a day Plavix 75MG Oral Tablet 08/28/2018 - 12/09/2018 Provider: Michelle NAIK Diagnosis: Peripheral vascular disease, unspecified once a day Potassium Chloride ER 20MEQ Oral Tablet Extended Relea se 08/28/2018 - 12/09/2018 Provider: Michelle NAIK Diagnosis: Hypokalemia once a day Levothyroxine Sodium 50MCG Oral Tablet 08/28/2018 - 03/18/20 19 Provider: Michelle NAIK Diagnosis: Hypothyroidism, unsp ecified once a day 1 tab po daily MetFORMIN HCl 1000MG Oral Tablet 08/28/2018 - 12/09/2018 Pro vider: Michelle NAIK Diagnosis: Type 2 diabetes rob itus with unspecified complications twice a day Glimepiride 2MG Oral Tablet 08/28/2018 - 03/10/2019 Provider : Michelle NAIK Diagnosis: Type 2 diabetes rob itus with unspecified complications as directed 3 a day Januvia 100MG Oral Tablet 08/28/2018 - 10/06/2018 Provider: Michelle REYNOLDSP Diagnosis: Type 2 diabetes rob itus with unspecified complications once a day Magnesium Oxide 400MG Oral Tablet 08/28/2018 - 09/23/2018 Pr ovider: Michelle Horowitz SCENIC DESIGNER Diagnosis: once a day Simvastatin 40MG Oral Tablet 08/28/2018 - 08/28/2018 Provide r: Diagnosis: Hyperlipidemia, unsp ecified one po at bedtime MiraLax Oral Powder 08/28/2018 - 08/28/2018 Provider: Diagnosis: 17 po daily Cymbalta 30MG Oral Capsule Delayed Release Particles 019 - 08/28/2018 Provider: Krista Saba DO Diagnosis: 2 once a day Levothyroxine Sodium 50MCG Oral Tablet 08/12/2018 - 08/28/19 Provider: Krista Saba DO Diagnosis: once a day 1 tab po daily Accu-Chek Melia Device 07/24/2018 - 08/28/2019 Provider: David Levin MD Diagnosis: Type 2 diabetes rob itus with unspecified complications as directed Test blood sugars BID Accu-Chek FastClix Lancets MISC 07/24/2018 - 08/12/2018 Prov ider: Diagnosis: Type 2 diabetes rob itus with unspecified complications Tesst blood sugars BID Accu-Chek Melia Plus STRP 07/24/2018 - 08/12/2018 Provide r: Diagnosis: Type 2 diabetes rob itus with unspecified complications Test blood sugars BID Accu-Chek Melia HUBERT 07/24/2018 - 08/12/2018 Provider: Diagnosis: Type 2 diabetes rob itus with unspecified complications Test blood sugars BID Accu-Chek Melia Plus In Vitro Strip 07/24/2018 - 10/30/2018 Provider: David Levin MD Diagnosis: Type 2 diabetes rob itus with unspecified complications twice a day Test blood sugars BID Accu-Chek FastClix Lancets Miscellaneous 07/24/2018 - 2018 Provider: David Levin MD Diagnosis: Type 2 diabetes rob itus with unspecified complications twice a day Tesst blood sugars BID Cymbalta 30MG Oral Capsule Delayed Release Particles 018 - 08/12/2018 Provider: Le Currie NP Diagnosis: 2 once a day True Metrix Blood Glucose Test In Vitro Strip 06/20/2018 - 0 03/16/2019 Provider: Krista Saba DO Diagnosis: Type 2 diabetes rob itus with unspecified complications twice a day as directed, use to test BG bid and PRN True Metrix Blood Glucose Test STRP 06/20/2018 - 07/07/20 18 Provider: Diagnosis: Type 2 diabetes rob itus with unspecified complications as directed, use to test BG bid and PRN Cymbalta 30MG Oral Capsule Delayed Release Particles 018 - 07/08/2018 Provider: Le Currie NP Diagnosis: 2 once a day Basaglar KwikPen 100UNIT/ML Subcutaneous Solution Pen- injector 05/07/2018 - 08/28/2018 Provider: Le Currie NP Diagnosis: Type 2 diabetes rob itus with unspecified complications as directed Inject 14 units SC with breakfast daily MDD=14 Dosage increase Basaglar KwikPen 100 UNIT/ML SC SOPN 05/07/2018 - 05/29/2018 Provider: Diagnosis: Type 2 diabetes rob itus with unspecified complications Inject 14 units SC with breakfast daily MDD=14 Dosage incr ease Cymbalta 30MG Oral Capsule Delayed Release Particles 018 - 06/05/2018 Provider: Le Currie NP Diagnosis: 2 once a day Plavix 75 MG OR TABS 04/08/2018 - 05/07/2018 Provider: Diagnosis: Plavix 75MG Oral Tablet 04/08/2018 - 08/28/2018 Provider: Le Currie NP Diagnosis: once a day HydroCHLOROthiazide 25MG Oral Tablet 04/08/2018 - 08/28/2018 Provider: Le Currie NP Diagnosis: Essential (primary) hypertension once a day hydroCHLOROthiazide 25 MG TABS 04/08/2018 - 05/07/2018 Provi yulissa: Diagnosis: Essential (primary) hypertension Levothyroxine Sodium 50MCG Oral Tablet 04/02/2018 - 08/12/19 19 Provider: Le Currie NP Diagnosis: once a day 1 tab po daily Plavix 75MG Oral Tablet 03/29/2018 - 04/08/2018 Provider: Sharmin George NP Diagnosis: once a day 1 tab po daily Cymbalta 30MG Oral Capsule Delayed Release Particles - 04/30/2018 Provider: Shramin George NP Diagnosis: 2 once a day HydroCHLOROthiazide 25MG Oral Tablet 03/29/2018 - 04/08/2018 Provider: Sharmin George NP Diagnosis: once a day 1 tab po daily MetFORMIN HCl 1000MG Oral Tablet 03/27/2018 - 08/28/2018 Pro vider: Le Currie NP Diagnosis: Type 2 diabetes rob itus with unspecified complications twice a day Potassium Chloride ER 20MEQ Oral Tablet Extended Relea se 03/27/2018 - 08/28/2018 Provider: Le Currie NP Diagnosis: once a day Magnesium Oxide 400MG Oral Tablet 03/27/2018 - 08/28/2018 Pr ovider: Le Currie NP Diagnosis: once a day metFORMIN HCl 1000 MG TABS 03/27/2018 - 04/08/2018 Provider: Diagnosis: Type 2 diabetes rob itus with unspecified complications Potassium Chloride ER 20 MEQ OR TBCR 03/27/2018 - 08/28/2018 Provider: Diagnosis: Magnesium Oxide 400 MG OR TABS 03/27/2018 - 08/28/2018 Provi yulissa: Diagnosis: Glimepiride 2MG Oral Tablet 03/13/2018 - 08/28/2018 Provider : Le Currie NP Diagnosis: as directed 3 a day Vitamin D (Ergocalciferol) [id number] Oral Capsule 03/13/2018 - 12/02/2018 Provider: Le Currie NP Diagnosis: as directed Januvia 100MG Oral Tablet 03/13/2018 - 08/28/2018 Provider: Le Currie NP Diagnosis: once a day Simvastatin 40MG Oral Tablet 02/21/2018 - 03/13/2018 Provide r: Krista Saba DO Diagnosis: Hyperlipidemia, unsp ecified 1 every bedtime one po at bedtime Magnesium Oxide 400MG Oral Tablet 02/21/2018 - 08/28/2018 Pr ovider: Krista Saba DO Diagnosis: once a day MetFORMIN HCl 1000MG Oral Tablet 02/21/2018 - 03/27/2018 Pro vider: Krista Saba DO Diagnosis: twice a day 1 tab po BID Potassium Chloride ER 20MEQ Oral Tablet Extended Relea se 02/21/2018 - 08/28/2018 Provider: Krista Saba DO Diagnosis: once a day Simvastatin 40MG Oral Tablet 02/20/2018 - 08/28/2018 Provide r: Diagnosis: Hyperlipidemia, unsp ecified one po at bedtime Basaglar KwikPen 100UNIT/ML Subcutaneous Solution Pen- injector 02/11/2018 - 05/29/2018 Provider: Krista Saba DO Diagnosis: as directed; inject 10 units SC with breakfast daily Lantus SoloStar 100UNIT/ML Subcutaneous Solution Pen-i njector 02/11/2018 - 02/11/2018 Provider: Krista Saba DO Diagnosis: Type 2 diabetes rob itus with unspecified complications as directed; inject 10 units with breakfast each morning SC CareFine Pen [place] 32G X 4 MM Miscellaneous 02/11/2018 - 0 12/09/2018 Provider: Krista Saba DO Diagnosis: Type 2 diabetes rob itus with unspecified complications as directed; use to inject insulin once daily MetFORMIN HCl 1000MG Oral Tablet 01/21/2018 - 02/21/2018 Pro vider: Krista Sbaa DO Diagnosis: twice a day 1 tab po BID Glimepiride 2MG Oral Tablet 01/21/2018 - 03/13/2018 Provider : Diagnosis: 3 a day Magnesium Oxide 400MG Oral Tablet 01/21/2018 - 02/21/2018 Pr ovider: Krista Saba DO Diagnosis: once a day Januvia 100MG Oral Tablet 01/21/2018 - 03/13/2018 Provider: Krista Saba DO Diagnosis: once a day Potassium Chloride ER 20MEQ Oral Tablet Extended Relea se 01/17/2018 - 02/21/2018 Provider: Krista Saba DO Diagnosis: once a day Lancets MISC 01/14/2018 - 03/04/2018 Provider: Diagnosis: Type 2 diabetes rob itus with unspecified complications please dipsense what is covered by ins, use to test BG up to BID Blood Glucose System Luke KIT 01/14/2018 - 03/04/2018 Provide r: Diagnosis: Type 2 diabetes rob itus with unspecified complications please dispense glucose meter covered by insurance Blood Glucose Test STRP 01/14/2018 - 03/04/2018 Provider: Diagnosis: Type 2 diabetes rob itus with unspecified complications use to test BG up to 2 times per day Blood Glucose Test In Vitro Strip 01/14/2018 - 08/12/2018 Pr ovider: Krista Saba DO Diagnosis: Type 2 diabetes rob itus with unspecified complications as directed; use to test BG bid and PRN Lancets Miscellaneous 01/14/2018 - 08/12/2018 Provider: Krista Saba DO Diagnosis: Type 2 diabetes rob itus with unspecified complications twice a day please dipsense what is cove red by ins, use to test BG up to BID and PRN Blood Glucose System Luke Kit 01/14/2018 - 08/12/2018 Provide r: Krista Saba DO Diagnosis: Type 2 diabetes rob itus with unspecified complications twice a day please dispense glucose meter covered by insuran ce Simvastatin 40MG Oral Tablet 01/10/2018 - 02/20/2018 Provide r: Diagnosis: 1 tab at bedtime Sertraline HCl 50MG Oral Tablet 01/10/2018 - 08/14/2018 Prov ider: Diagnosis: 1 tab po daily MiraLax Oral Powder 01/10/2018 - 08/28/2018 Provider: Diagnosis: 17 po daily Algal [place]-3 DHA 200MG Oral Capsule 01/10/2018 - 01/10/2018 Provider: Diagnosis: 1 tab po daily Levothyroxine Sodium 50MCG Oral Tablet 01/10/2018 - 08/28/19 Provider: Diagnosis: 1 tab po daily Cymbalta 30MG Oral Capsule Delayed Release Particles - 03/13/2018 Provider: Diagnosis: 2 caps po daily Plavix 75MG Oral Tablet 01/10/2018 - 03/13/2018 Provider: Diagnosis: 1 tab po daily Aspirin 325MG Oral Tablet 01/10/2018 - 08/28/2018 Provider: Diagnosis: 1 tab po daily HydroCHLOROthiazide 25MG Oral Tablet 01/10/2018 - 03/13/2018 Provider: Diagnosis: 1 tab po daily Glimepiride 1MG Oral Tablet 01/10/2018 - 01/21/2018 Provider : Diagnosis: 3 tabs po daily Januvia 25MG Oral Tablet 01/10/2018 - 01/10/2018 Provider: Diagnosis: 1 tab po daily MetFORMIN HCl 1000MG Oral Tablet 01/10/2018 - 01/21/2018 Pro vider: Diagnosis: 1 tab po BID Januvia 100MG Oral Tablet 01/10/2018 - 01/21/2018 Provider: Krista Saba DO Diagnosis: once a day EQL [place] 3 Fish Oil 1000MG Oral Capsule 01/10/2018 - 2017 Provider: Diagnosis: two caps twice daily Januvia 50MG Oral Tablet 01/10/2018 - 01/10/2018 Provider: Diagnosis: [facility] Vitamin D3 [id number] Oral Capsule 01/10/2018 - 8 Provider: Diagnosis: two caps everyday Medications Administered Includes: Administered Medications in patient's chartNo Administered Medications Recorded Vital Signs Includes: Vital Signs from 06/09/2019 through 06/09/2020 Vital Name 06/09/2020 11:35A 03/07/2020 01:15P 03/01/2020 02:48P 06/23/2019 01:42P Blood Pressure Sitting L 124/70 120/76 128 /80 BP Cuff Size Large Large Regular Large Pulse Rate-Sitting (bpm) 92 92 86 90 Pulse Rhythm Regular Regular Regular Respiration Rate (breaths/min) 18 18 18 18 Temp-Tympanic (F) 97.8 99.9 98.6 97.8 Weight (lb) 180 179 180 181 Pain Level 0 0 0 0 Oxygen Saturation (%) 95 95 97 96 Flow Rate (l/min) (None (Room Air)) (None (Room Air)) (None (Lacy m Air)) (None (Room Air)) FiO2 (%) 21 21 21 21 Height (in) 66 66 Body Mass Index (kg/m2) 28.9 29.1 Body Surface Area (m2) 1.91 1.91 Blood Pressure Sitting R 148/80 Note: temp taken by Afshan SYKES Results Includes: Results from 06/09/2019 through 06/09/2020 NO URINE RECEIVED FROM PATIENT [facility] Ordered by Sharmin Danielson NP on 04/13/[address] [place], [address] Collected: 04/13/2020 Reported: 04/13/2020 tel:[phone] NO URINE RECEIVED FROM PATIENT NO URINE RECEIVED None Note: Patient informed to return with jaelyn espinoza.Responsible Observer: CLIVE ABRAHAM NO URINE RECEIVED FORM PATIENT 200.9743 (A) Reviewed by Sharmin Danielson NP on 04/14/20; All test results are final unless otherwise noted. Reported Physicians [facility] Ordered by Sharmin Danielson NP on 04/13/[address] [place] [address], [address] Collected: 04/13/2020 Reported: 04/13/2020 tel:[phone] Reported Physicians See Note None Note: Reported Physicians:Ordering: Sharmin ThompsonAttending: Sharmin Danielson Reviewed by Sharmin Danielson NP on 04/14/20; All test results are final unless otherwise noted. FREE T4 (FREE THYROXINE) [facility] Ordered by Sharmin Danielson NP on 04/09/[address] [place] [address], [address] Collected: 04/13/2020 Reported: 04/13/2020 tel:[phone] FREE T4 (FREE THYROXINE) 1.01 NG/DL (0.76-1.78) N (Normal) Note: Responsible Observer: FREE T4 FREE THYROXINE 300.5250 (A) Reviewed by Sharmin Danielson NP on 04/14/20; All test results are final unless otherwise noted. TSH [facility] Ordered by Sharmin Danielson NP on 04/09/[address] [place] [address], [address] Collected: 04/13/2020 Reported: 04/13/2020 tel:[phone] TSH 1.295 uIU/ML (0.470-4.200) N (Normal) Note: Patients should not be tested for 72 hours post fluorescein dye angiography. A false depression of result may occur.Responsible Observer: TSH TSH 300.5500 (A) Reviewed by Sharmin Danielson NP on 04/14/20; All test results are final unless otherwise noted. Reported Physicians [facility] Ordered by Sharmin Danielson NP on 04/09/[address] [place] [address], [address] Collected: 04/13/2020 Reported: 04/13/2020 tel:[phone] Reported Physicians See Note None Note: Reported Physicians:Ordering: Sharmin ThompsonAttending: Sahrmin Danielson Reviewed by Sharmin Danielson NP on 04/14/20; All test results are final unless otherwise noted. Hgb A1c [facility] Ordered by Sharmin Danielson NP on 03/07/2020 Specimen Source: Whole blood Collected: 03/07/2020 R eported: 03/07/2020 Hgb A1c 9.6 A (Abnormal) Reviewed on 03/07/2020; All test result s are final unless otherwise noted. MICROALBUMIN RANDOM [facility] Ordered by Trevon Jayme Franklin DO on 01/31/[address] [place] [address], [address] Collected: 03/07/2020 Reported: 03/07/2020 tel:[phone] Note: Has Patient Fasted For The Past 12 Hours? Y CREAT RANDOM URINE 112.6 MG/DL None Note: No Normal Ranges Available for th is Procedure.Responsible Observer: UR CREAT UR CREATININE 200.3655 (A) MICROALBUMIN,URINE 11.0 MG/L None Note: Responsible Observer: UR MICROALB RND UR MICROALBUMIN RANDOM 200.4000 (A) MICROALBUM/CREATININE RATIO,UR 9.8 UG/MG_CR (0.0-30.0) N (Normal) Note: Responsible Observer: UR MICROALB/ CRE UR MICROALBUMIN/CREAT RATIO 200.4100 (A) Reviewed by Sharmin Danielson NP on 03/07/20 20; All test results are final unless otherwise noted. COMPREHENSIVE METABOLIC PANEL [facility] Ordered by Trevon Franklin DO on 01/31/[address] [place] [address], [address] Collected: 03/07/2020 Reported: 03/07/2020 tel:[phone] Note: Has Patient Fasted For The Past 12 Hours? Y ALB/GLOB RATIO 2.3 G/DL (1.0-3.0) N (Normal) Note: Responsible Observer: A/G RATIO AL B/GLOB RATIO 300.4100 (A) ALBUMIN 4.5 G/DL (3.0-5.1) N (Normal) Note: Responsible Observer: ALB ALBUMIN 300.3900 (A) ALKALINE PHOSPHATASE 72 U/L (40-140) N (Normal) Note: Responsible Observer: ALK PHOS ALK PAUL PHOSPHATASE 300.3110 (A) ALT 55 U/L (5-48) H (High) Note: Responsible Observer: ALT/SGPT ALT 300.3100 (A) AST 25 U/L (5-40) N (Normal) Note: Responsible Observer: AST/SGOT AST 300.3050 (A) BUN/CREAT RATIO 14 (8-36) N (Normal) Note: Responsible Observer: BUN/CREAT RA CAILIN BUN/CREAT RATIO 300.0450 (A) BILIRUBIN,TOTAL 0.4 MG/DL (0.1-1.3) N (Normal) Note: Responsible Observer: TOTAL BILI T OTAL BILIRUBIN 300.2700 (A) BLOOD UREA NITRO 16 MG/DL (7-25) N (Normal) Note: Responsible Observer: BUN BLOOD UR EA NITROGEN 300.0350 (A) CA 9.5 MG/DL (8.7-10.5) N (Normal) Note: Responsible Observer: CA CALCIUM 300.2200 (A) CHLORIDE 102 MEQ/L (94-110) N (Normal) Note: Responsible Observer: CL CHLORIDE 300.0200 (A) CARBON DIOXIDE 28 MEQ/L (22-33) N (Normal) Note: Responsible Observer: CO2 CARBON D IOXIDE 300.0250 (A) CREATININE 1.1 MG/DL (0.6-1.4) N (Normal) Note: Responsible Observer: CREAT CREATI NINE 300.0400 (A) ANION GAP 17 (5-16) H (High) Note: Responsible Observer: ANION GAP AN ION GAP 300.0300 (A) GFR 48.7 ML/MIN None Note: Stage G3a - Mildly to moderately decreased kidney function The GFR is an estimate of the Glomerular Filtration Rate. It is an aid to assess a patient's renal function. It is not a conclusive diagnosis of kidney disease. GFR normal is >=90 The MDRD GFR calculation is considered valid between the ages of 18 and 75 years only.Responsible Observer: GFR GFR 300.0410 (A) GLOBULIN 2.0 G/DL (1.5-3.5) N (Normal) Note: Responsible Observer: GLOB GLOBULI N 300.4050 (A) GLUCOSE 173 MG/DL (70-100) H (High) Note: Responsible Observer: GLU GLUCOSE 300.0500 (A) POTASSIUM 3.9 MEQ/L (3.5-5.3) N (Normal) Note: Responsible Observer: K POTASSIUM 300.0150 (A) SODIUM 143 MEQ/L (135-145) N (Normal) Note: Responsible Observer: NA SODIUM 3 00.0100 (A) TOTAL PROTEIN 6.5 G/DL (5.9-8.3) N (Normal) Note: Responsible Observer: TP TOTAL PRO TEIN 300.3750 (A) Reviewed by Sharmin Danielson NP on 03/07/20; All test results are final unless otherwise noted. LIPID PANEL [facility] Ordered by Trevon Franklin DO on 01/31/[address] [place] [address], [address] Collected: 03/07/2020 Reported: 03/07/2020 tel:[phone] Note: Has Patient Fasted For The Past 12 Hours? Y CHOL/HDL RATIO 4.3 (0-4.3) N (Normal) Note: Responsible Observer: CHOL/HDL RAT IO CHOL/HDL RATIO 300.4700 (A) CHOLESTEROL 138 MG/DL (125-200) N (Normal) Note: Responsible Observer: CHOL CHOLEST KATHERINE 300.4350 (A) HDL CHOLESTEROL 32 MG/DL (32-96) N (Normal) Note: Responsible Observer: HDL HDL CHOL ESTEROL 300.4600 (A) LDL CHOLESTEROL 47 MG/DL (50-130) L (Low) Note: Responsible Observer: LDL LDL CHOL ESTEROL 300.4400 (A) TRIGLYCERIDES 295 MG/DL (45-150) H (High) Note: Responsible Observer: TRIG TRIGLYC ERIDES 300.4300 (A) Reviewed by Sharmin Danielson NP on 03/07/20; All test results are final unless otherwise noted. TSH [facility] Ordered by Trevon Franklin DO on 01/31/[address] [place] [address], [address] Collected: 03/07/2020 Reported: 03/07/2020 tel:[phone] Note: Has Patient Fasted For The Past 12 Hours? Y TSH 0.133 uIU/ML (0.470-4.200) L (Low) Note: Patients should not be tested for 72 hours post fluorescein dye angiography. A false depression of result may occur.Responsible Observer: TSH TSH 300.5500 (A) Reviewed by Sharmin Danielson NP on 03/07/20; All test results are final unless otherwise noted. CBC w/ Auto Diff [facility] Ordered by Trevon Franklin DO on 01/31/[address], [address] Collected: 03/07/2020 Reported: 03/07/2020 tel:[phone] BASO # (AUTO) 0.07 10\^3/uL (0.00-0.20) N (Normal) Note: Responsible Observer: BASO # (AUTO ) BASO # (AUTO) 100.1500 (A) BASO % (AUTO) 0.7 % (0.0-2.0) N (Normal) Note: Responsible Observer: BASO % (AUTO ) BASO % (AUTO) 100.1250 (A) EOS # (AUTO) 0.25 10\^3/uL (0.00-1.10) N (Normal) Note: Responsible Observer: EOS # (AUTO) EOS # (AUTO) 100.1450 (A) EOS % (AUTO) 2.6 % (0.0-11.0) N (Normal) Note: Responsible Observer: EOS % (AUTO) EOS % (AUTO) 100.1200 (A) GRAN # (AUTO) 4.01 10\^3/uL (1.50-6.50) N (Normal) Note: Responsible Observer: GRAN # (AUTO ) GRAN #(AUTO) 100.1325 (A) GRAN % (AUTO) 42.3 % (42.0-75.0) N (Normal) Note: Responsible Observer: GRAN % (AUTO ) GRAN % (AUTO) 100.1000 (A) HEMATOCRIT 43.8 % (35.0-46.0) N (Normal) Note: Responsible Observer: HCT HEMATOCR IT 100.0400 (A) HEMOGLOBIN 14.5 G/DL (11.5-15.6) N (Normal) Note: Responsible Observer: HGB HEMOGLOB IN 100.0300 (A) IG # (AUTO) 0.0 10\^3/uL (<0.5) None Note: Responsible Observer: IG # (AUTO) IG # (AUTO) 100.1260 (A) IG % (AUTO) 0.4 % (1.00-5.00) None Note: Responsible Observer: IG % (AUTO) IG % (AUTO) 100.1255 (A) LYMPH # (AUTO) 4.3 k/uL (1.0-5.0) N (Normal) Note: Responsible Observer: LYMPH # (AUT O) LYMPH # (AUTO) 100.1350 (A) LYMPH % (AUTO) 45.1 % (20.0-51.0) N (Normal) Note: Responsible Observer: LYMPH % (AUT O) LYMPH % (AUTO) 100.1100 (A) MCH 29.5 PG (27.0-34.0) N (Normal) Note: Responsible Observer: MCH MCH 100 .0600 (A) MCHC 33.1 G/DL (32-36) N (Normal) Note: Responsible Observer: MCHC MCHC 1 00.0650 (A) MCV 89.0 FL (80.0-100.0) N (Normal) Note: Responsible Observer: MCV MCV 100 .0550 (A) MONO # (AUTO) 0.84 k/uL (0.20-1.50) N (Normal) Note: Responsible Observer: MONO # (AUTO ) MONO # (AUTO) 100.1400 (A) MONO % (AUTO) 8.9 % (2.0-15.0) N (Normal) Note: Responsible Observer: MONO % (AUTO ) MONO% (AUTO) 100.1150 (A) MPV 8.9 FL (8.7-13.2) N (Normal) Note: Responsible Observer: MPV MPV 100 .0950 (A) PLATELET COUNT 312 10\^3/uL (130-400) N (Normal) Note: Responsible Observer: PLT PLATELET COUNT 100.0850 (A) RED BLOOD COUNT 4.92 10\^6/uL (3.90-5.20) N (Normal) Note: Responsible Observer: RBC RED BLOO D COUNT 100.0250 (A) RDW 12.9 % (11.5-14.5) N (Normal) Note: Responsible Observer: RDW RDW 100 .0700 (A) WHITE BLOOD COUNT 9.49 10\^3/uL (4.00-10.50) N (Normal) Note: Responsible Observer: WBC WHITE BL OOD COUNT 100.0150 (A) Reviewed by Sharmin Danielson NP on 03/07/20 20; All test results are final unless otherwise noted. Reported Physicians [facility] Ordered by Trevon Franklin DO on 01/31/[address], [address] Collected: 03/07/2020 Reported: 03/07/2020 tel:[phone] Reported Physicians See Note None Note: Reported Physicians:Ordering: Trevon Lindoending: Trevon Franklin Reviewed by Sharmin Danielson NP on 03/07/20 20; All test results are final unless otherwise noted. COMPREHENSIVE METABOLIC PANEL [facility] Ordered by Trevon Franklin DO on 01/14/[address], [address] Collected: 01/14/2020 Reported: 01/14/2020 tel:[phone] Note: Has Patient Fasted For The Past 12 Hours? N ALB/GLOB RATIO 2.0 G/DL (1.0-3.0) N (Normal) Note: Responsible Observer: A/G RATIO AL B/GLOB RATIO 300.4100 (A) ALBUMIN 4.4 G/DL (3.0-5.1) N (Normal) Note: Responsible Observer: ALB ALBUMIN 300.3900 (A) ALKALINE PHOSPHATASE 77 U/L (40-140) N (Normal) Note: Responsible Observer: ALK PHOS ALK PAUL PHOSPHATASE 300.3110 (A) ALT 34 U/L (5-48) N (Normal) Note: Responsible Observer: ALT/SGPT ALT 300.3100 (A) AST 16 U/L (5-40) N (Normal) Note: Responsible Observer: AST/SGOT AST 300.3050 (A) BUN/CREAT RATIO 23 (8-36) N (Normal) Note: Responsible Observer: BUN/CREAT RA CAILIN BUN/CREAT RATIO 300.0450 (A) BILIRUBIN,TOTAL 0.3 MG/DL (0.1-1.3) N (Normal) Note: Responsible Observer: TOTAL BILI T OTAL BILIRUBIN 300.2700 (A) BLOOD UREA NITRO 23 MG/DL (7-25) N (Normal) Note: Responsible Observer: BUN BLOOD UR EA NITROGEN 300.0350 (A) CA 9.3 MG/DL (8.7-10.5) N (Normal) Note: Responsible Observer: CA CALCIUM 300.2200 (A) CHLORIDE 101 MEQ/L (94-110) N (Normal) Note: Responsible Observer: CL CHLORIDE 300.0200 (A) CARBON DIOXIDE 28 MEQ/L (22-33) N (Normal) Note: Responsible Observer: CO2 CARBON D IOXIDE 300.0250 (A) CREATININE 1.0 MG/DL (0.6-1.4) N (Normal) Note: Responsible Observer: CREAT CREATI NINE 300.0400 (A) ANION GAP 14 (5-16) N (Normal) Note: Responsible Observer: ANION GAP AN ION GAP 300.0300 (A) GFR 54.3 ML/MIN None Note: Stage G3a - Mildly to moderately decreased kidney function The GFR is an estimate of the Glomerular Filtration Rate. It is an aid to assess a patient's renal function. It is not a conclusive diagnosis of kidney disease. GFR normal is >=90 The MDRD GFR calculation is considered valid between the ages of 18 and 75 years only.Responsible Observer: GFR GFR 300.0410 (A) GLOBULIN 2.2 G/DL (1.5-3.5) N (Normal) Note: Responsible Observer: GLOB GLOBULI N 300.4050 (A) GLUCOSE 321 MG/DL (70-100) H (High) Note: Responsible Observer: GLU GLUCOSE 300.0500 (A) POTASSIUM 3.7 MEQ/L (3.5-5.3) N (Normal) Note: Responsible Observer: K POTASSIUM 300.0150 (A) SODIUM 139 MEQ/L (135-145) N (Normal) Note: Responsible Observer: NA SODIUM 3 00.0100 (A) TOTAL PROTEIN 6.6 G/DL (5.9-8.3) N (Normal) Note: Responsible Observer: TP TOTAL PRO TEIN 300.3750 (A) Reviewed on 01/18/2020; All test result s are final unless otherwise noted. [facility] Ordered by Trevon Franklin DO on 01/14/[address], [address] Collected: 01/14/2020 Reported: 01/14/2020 tel:[phone] Note: Has Patient Fasted For The Past 12 Hours? N TSH 12.204 uIU/ML (0.470-4.200) H (High) Note: Patients should not be tested for 72 hours post fluorescein dye angiography. A false depression of result may occur.Responsible Observer: TSH TSH 300.5500 (A) Reviewed on 01/18/2020; All test result s are final unless otherwise noted. CBC WITH MANUAL DIFF [facility] Ordered by Trevon Franklin DO on 01/14/[address], [address] Collected: 01/14/2020 Reported: 01/14/2020 tel:[phone] BAND # 0.00 10\^3/uL (0.00-0.10) N (Normal) Note: Responsible Observer: BAND# BAND # 100.2450 (A) BASO # 0.00 10\^3/uL (0.00-0.20) N (Normal) Note: Responsible Observer: BASO # BASO # 100.2850 (A) DANYELL CELLS 1+ None Note: Responsible Observer: DANYELL CELLS B URR CELLS 100.5650 (A) EOS # 0.33 10\^3/uL (0.00-1.10) N (Normal) Note: Responsible Observer: EOS # EOS # 100.2750 (A) EOS % 3.00 % (0-11) N (Normal) Note: Responsible Observer: EOS% EOS % 100.2050 (A) GRAN # 4.89 10\^3/uL (1.50-6.50) N (Normal) Note: Responsible Observer: NEUT# NEUT # 100.2400 (A) GRAN % 45.0 % (42-75) N (Normal) Note: Responsible Observer: GRAN% GRAN% 100.1650 (A) HEMATOCRIT 42.2 % (35.0-46.0) N (Normal) Note: Responsible Observer: HCT HEMATOCR IT 100.0400 (A) HEMOGLOBIN 14.3 G/DL (11.5-15.6) N (Normal) Note: Responsible Observer: HGB HEMOGLOB IN 100.0300 (A) LYMPH # 5.00 10\^3/uL (1.00-5.00) N (Normal) Note: Responsible Observer: LYMPH # LYMP H # 100.2550 (A) LYMPHS % 46.0 % (25-45) H (High) Note: Responsible Observer: LYMPH% LYMPH S % 100.1850 (A) ATYPICAL LYMPHS % 3.0 % (0-0) H (High) Note: Responsible Observer: ATYPICAL LYM PHS ATYPICAL LYMPHS 100.3550 (A) MCH 29.7 PG (27.0-34.0) N (Normal) Note: Responsible Observer: MCH MCH 100 .0600 (A) MCHC 33.9 G/DL (32-36) N (Normal) Note: Responsible Observer: MCHC MCHC 1 00.0650 (A) MCV 87.6 FL (80.0-100.0) N (Normal) Note: Responsible Observer: MCV MCV 100 .0550 (A) MONO # 0.33 10\^3/uL (0.00-1.10) N (Normal) Note: Responsible Observer: MONO # MONO # 100.2650 (A) MONO % 3.00 % (2.0-15.0) N (Normal) Note: Responsible Observer: MONO% MONO % 100.1950 (A) MPV 8.9 FL (8.7-13.2) N (Normal) Note: Responsible Observer: MPV MPV 100 .0950 (A) PLATELET ESTIMATE NORMAL None Note: Responsible Observer: PLATELET EST PLATELET ESTIMATE 100.4305 (A) PLATELET COUNT 283 10\^3/uL (130-400) N (Normal) Note: Responsible Observer: PLT PLATELET COUNT 100.0850 (A) RED BLOOD COUNT 4.82 10\^6/uL (3.90-5.20) N (Normal) Note: Responsible Observer: RBC RED BLOO D COUNT 100.0250 (A) RDW 12.8 % (11.5-14.5) N (Normal) Note: Responsible Observer: RDW RDW 100 .0700 (A) SMUDGE CELLS FEW None Note: Responsible Observer: SMUDGE CELLS SMUDGE CELLS 100.4050 (A) TOTAL CELLS COUNTED(MANUAL) 100 None Note: Responsible Observer: TOT CELLS CO UNT TOTAL CELLS COUNTED(MANUAL) 100.1550 (A) WHITE BLOOD COUNT 10.86 10\^3/uL (4.00-10.50) H (High) Note: Responsible Observer: WBC WHITE BL OOD COUNT 100.0150 (A) Reviewed on 01/18/2020; All test result s are final unless otherwise noted. Reported Physicians [facility] Ordered by Trevon Franklin DO on 01/14/[address], [address] Collected: 01/14/2020 Reported: 01/14/2020 tel:[phone] Reported Physicians See Note None Note: Reported Physicians:Ordering: Trevon Lindoending: Trevon Franklin Reviewed on 01/18/2020; All test result s are final unless otherwise noted. URINALYSIS [facility] Ordered by Trevon Franklin DO on 01/07/[address], [address] Collected: 01/07/2020 Reported: 01/07/2020 tel:[phone] URINE EPITH MANY PER/LPF (FEW-MOD) None Note: Responsible Observer: UR EPITH URI NE EPITH 200.1155 (A) APPEARANCE,UR CLOUDY (CLEAR) A (Abnormal) Note: Responsible Observer: UR APPEAR UR APPEARANCE 200.0250 (A) BACTERIA,UR MANY PER_HPF (NONE) A (Abnormal) Note: Responsible Observer: UR BACT UR B ACTERIA 200.1755 (A) BILIRUBIN,UR NEGATIVE (NEGATIVE) None Note: Responsible Observer: UR BILI UR B ILIRUBIN 200.0750 (A) COLOR,UR YELLOW (YELLOW) None Note: Responsible Observer: UR COLOR UR COLOR 200.0200 (A) GLUCOSE, UR 50 MG/DL (NEGATIVE) A (Abnormal) Note: Responsible Observer: UR GLU UR GL UCOSE 200.0500 (A) HYALINE CAST,UR RARE PER/LPF (NONE SEEN) None Note: Responsible Observer: UR HYALINE C AST HYALINE CAST,UR 200.1850 (A) KETONES,UR NEGATIVE MG/DL (NEGATIVE) None Note: Responsible Observer: UR KETO UR K ETONES 200.0600 (A) LEUKOCYTE ESTERASE ,UR LARGE (NEGATIVE) A (Abnormal) Note: Responsible Observer: UR KEYONA ELYSE ASE UR LEUKOCYTE ESTERASE 200.0725 (A) MUCUS,UR RARE PER_HPF (NONE SEEN) None Note: Responsible Observer: UR MUCUS UR MUCUS 200.2300 (A) NITRATE,UR POSITIVE (NEGATIVE) A (Abnormal) Note: Responsible Observer: UR NIT UR NI TRATE 200.0700 (A) OCCULT BLOOD,UR SMALL (NEGATIVE) A (Abnormal) Note: Responsible Observer: UR OCLT BLD UR OCCULT BLOOD 200.0650 (A) PH,UR 5.0 (5.0-8.0) None Note: Responsible Observer: UR PH UR PH 200.0350 (A) PROTEIN,UR NEGATIVE MG/DL (NEGATIVE) None Note: Responsible Observer: UR PROT UR P ROTEIN 200.0450 (A) RBC,UR 3-9 PER_HPF (0-2) A (Abnormal) Note: Responsible Observer: UR RBC UR RB C 200.1005 (A) SPECIFIC GRAVITY,UR 1.013 (1.002-1.035) N (Normal) Note: Responsible Observer: SG URINE SPE CIFIC GRAVITY,UR 200.0410 (A) UROBILINOGEN,UR 0.2-1.0 EU_MG/DL (NEG-0-1.0) None Note: Responsible Observer: UR URO UR UR OBILINOGEN 200.0900 (A) WBC,UR >100 PER_HPF (<5) A (Abnormal) Note: Responsible Observer: UR WBC UR WB C 200.1055 (A) Reviewed by Trevon Franklin DO on ; All test results are final unless otherwise noted. URINE CULTURE [facility] Ordered by Trevon Franklin DO on 01/07/[address], [address] Collected: 01/07/2020 Reported: 01/09/2020 tel:[phone] See Note Peterson None Note: Run: 01/09/20 0849 INTERFACED REPORT Name: Ender Nolan Age/Sex: 74/F Location: [facility] Acct: [id number] Unit: [id number] Status: REG REF Room/Bed: Re01/07/20 Disch: Att Dr: Trevon Franklin DO Specimen #: [id number] Ordered : 01/07/2011/22/1846 Collected : 01/07/2011/22/1846 By: OFFICE Received: 01/07/2011/22/1846 By: LUDMILA Source: URINE CC Specimen Description: Comments: Has been collected UCC Procedure Result COLONY COUNT Final COLONY COUNT GREATER THAN 100,000 CFU/ML URINE CULTURE Final COLIFORMS MANY Organism 1 ESCHERICHIA COLI 1. ESCHERICHIA COLI SEVEN Int --------- --- AMIKACIN <=16 S AMPICILLIN >16 R AMPICILLIN/SULBACTAM 16/8 I AZTREONAM <=4 S CEFAZOLIN <=2 S CEFEPIME <=2 S CEFTAZIDIME <=1 S CEFTRIAXONE <=1 S CIPROFLOXACIN <=1 S GENTAMICIN <=4 S IMIPENEM <=1 S LEVOFLOXACIN <=2 S MEROPENEM <=1 S NITROFURANTOIN <=32 S TETRACYCLINE <=4 S TOBRAMYCIN <=4 S TRIMETHOPRIM/SULFAMETHOXAZOLE <=2/38 S PIPERACILLIN/TAZOBACTAM <=16 S S = Susceptible MS = Moderately Susceptible I = Intermediate R = Resistant LOUISE = Beta Lactamase Positive SEVEN = MCG/mL BLANK = Not Tested or Advisable URINE CULTURE Preliminary (Corrected) COLIFORMS MANY END OF REPORT Reviewed by Trevon Franklin DO on ; All test results are final unless otherwise noted. Reported Physicians [facility] Ordered by Trevon Franklin DO on 01/07/[address] [place] [address], [address] Collected: 01/07/2020 Reported: 01/09/2020 tel:[phone] Reported Physicians See Note None Note: Reported Physicians:Ordering: Trevon Lindoending: Trevon Franklin Reviewed by Trevon Franklin DO on ; All test results are final unless otherwise noted. [facility] Ordered by Michelle NAIK on 10/26/[address], [address] Collected: 10/28/2019 Reported: 10/30/2019 tel:[phone] TSH 5.839 uIU/ML (0.470-4.200) H (High) Note: Patients should not be tested for 72 hours post fluorescein dye angiography. A false depression of result may occur.Responsible Observer: TSH TSH 300.5500 (A) Reviewed by Trevon Franklin DO on ; All test results are final unless otherwise noted. Reported Physicians [facility] Ordered by Michelle NAIK on 10/26/[address], [address] Collected: 10/28/2019 Reported: 10/30/2019 tel:[phone] Reported Physicians See Note None Note: Reported Physicians:Ordering: Michelle PerzeAttending: Michelle Horowitz Reviewed by Trevon Franklin DO on ; All test results are final unless otherwise noted. CBC w/ Auto Diff [facility] Ordered by Michelle Horowitz [facility] on 07/10/[address] [place], [address] Collected: 08/26/2019 Reported: 08/26/2019 tel:[phone] BASO # (AUTO) 0.07 10\^3/uL (0.00-0.20) N (Normal) Note: Responsible Observer: BASO # (AUTO ) BASO # (AUTO) 100.1500 (A) BASO % (AUTO) 0.9 % (0.0-2.0) N (Normal) Note: Responsible Observer: BASO % (AUTO ) BASO % (AUTO) 100.1250 (A) EOS # (AUTO) 0.18 10\^3/uL (0.00-1.10) N (Normal) Note: Responsible Observer: EOS # (AUTO) EOS # (AUTO) 100.1450 (A) EOS % (AUTO) 2.3 % (0.0-11.0) N (Normal) Note: Responsible Observer: EOS % (AUTO) EOS % (AUTO) 100.1200 (A) GRAN # (AUTO) 3.44 10\^3/uL (1.50-6.50) N (Normal) Note: Responsible Observer: GRAN # (AUTO ) GRAN #(AUTO) 100.1325 (A) GRAN % (AUTO) 43.6 % (42.0-75.0) N (Normal) Note: Responsible Observer: GRAN % (AUTO ) GRAN % (AUTO) 100.1000 (A) HEMATOCRIT 42.2 % (35.0-46.0) N (Normal) Note: Responsible Observer: HCT HEMATOCR IT 100.0400 (A) HEMOGLOBIN 14.5 G/DL (11.5-15.6) N (Normal) Note: Responsible Observer: HGB HEMOGLOB IN 100.0300 (A) IG # (AUTO) 0.0 10\^3/uL (<0.5) None Note: Responsible Observer: IG # (AUTO) IG # (AUTO) 100.1260 (A) IG % (AUTO) 0.4 % (1.00-5.00) None Note: Responsible Observer: IG % (AUTO) IG % (AUTO) 100.1255 (A) LYMPH # (AUTO) 3.5 k/uL (1.0-5.0) N (Normal) Note: Responsible Observer: LYMPH # (AUT O) LYMPH # (AUTO) 100.1350 (A) LYMPH % (AUTO) 44.2 % (20.0-51.0) N (Normal) Note: Responsible Observer: LYMPH % (AUT O) LYMPH % (AUTO) 100.1100 (A) MCH 30.3 PG (27.0-34.0) N (Normal) Note: Responsible Observer: MCH MCH 100 .0600 (A) MCHC 34.4 G/DL (32-36) N (Normal) Note: Responsible Observer: MCHC MCHC 1 00.0650 (A) MCV 88.1 FL (80.0-100.0) N (Normal) Note: Responsible Observer: MCV MCV 100 .0550 (A) MONO # (AUTO) 0.68 k/uL (0.20-1.50) N (Normal) Note: Responsible Observer: MONO # (AUTO ) MONO # (AUTO) 100.1400 (A) MONO % (AUTO) 8.6 % (2.0-15.0) N (Normal) Note: Responsible Observer: MONO % (AUTO ) MONO% (AUTO) 100.1150 (A) MPV 9.0 FL (8.7-13.2) N (Normal) Note: Responsible Observer: MPV MPV 100 .0950 (A) PLATELET COUNT 248 10\^3/uL (130-400) N (Normal) Note: Responsible Observer: PLT PLATELET COUNT 100.0850 (A) RED BLOOD COUNT 4.79 10\^6/uL (3.90-5.20) N (Normal) Note: Responsible Observer: RBC RED BLOO D COUNT 100.0250 (A) RDW 12.9 % (11.5-14.5) N (Normal) Note: Responsible Observer: RDW RDW 100 .0700 (A) WHITE BLOOD COUNT 7.89 10\^3/uL (4.00-10.50) N (Normal) Note: Responsible Observer: WBC WHITE BL OOD COUNT 100.0150 (A) Reviewed by Michelle NAIK on 08/06; All test results are final unless otherwise noted. RETICULOCYTE % (AUTO) [facility] Ordered by Michelle NAIK on 07/10/[address] [place], [address] Collected: 08/26/2019 Reported: 08/26/2019 tel:[phone] IMMATURE RETIC FRACTION 8.0 % (3.0-15.9) N (Normal) Note: Responsible Observer: IRF IMMATURE RETIC FRAC 100.6275 (A) ABSOLUTE RETICS # 0.0905 10\^6/uL None Note: Responsible Observer: ABS RETIC# A BSOLUTE RETICS # 100.6200 (A) RETICULOCYTE % (AUTO) 1.9 % (0.5-2.0) N (Normal) Note: Responsible Observer: RETIC% (AUTO ) RETICULOCYTE % (AUTO) 100.6100 (A) RETICULOCYTE HGB 35.4 pg (29-35) H (High) Note: Responsible Observer: RET-HE (AUTO ) RETICULOCYTE HGB 100.6155 (A) Reviewed by Michelle NAIK on 08/06; All test results are final unless otherwise noted. COMPREHENSIVE METABOLIC PANEL [facility] Ordered by Michelle NAIK on 07/10/[address] [place] [address], [address] Collected: 08/26/2019 Reported: 08/26/2019 tel:[phone] Note: Has Patient Fasted For The Past 12 Hours? N Has Patient Fasted For The Past 12 Hours? Y ALB/GLOB RATIO 2.1 G/DL (1.0-2.7) N (Normal) Note: Responsible Observer: A/G RATIO AL B/GLOB RATIO 300.4100 (A) ALBUMIN 4.5 G/DL (3.0-5.1) N (Normal) Note: Responsible Observer: ALB ALBUMIN 300.3900 (A) ALKALINE PHOSPHATASE 76 U/L (40-140) N (Normal) Note: Responsible Observer: ALK PHOS ALK PAUL PHOSPHATASE 300.3110 (A) ALT 26 U/L (5-48) N (Normal) Note: Responsible Observer: ALT/SGPT ALT 300.3100 (A) AST 11 U/L (5-40) N (Normal) Note: Responsible Observer: AST/SGOT AST 300.3050 (A) BUN/CREAT RATIO 24 (8-36) N (Normal) Note: Responsible Observer: BUN/CREAT RA CAILIN BUN/CREAT RATIO 300.0450 (A) BILIRUBIN,TOTAL 0.5 MG/DL (0.1-1.3) N (Normal) Note: Responsible Observer: TOTAL BILI T OTAL BILIRUBIN 300.2700 (A) BLOOD UREA NITRO 24 MG/DL (7-25) N (Normal) Note: Responsible Observer: BUN BLOOD UR EA NITROGEN 300.0350 (A) CA 9.7 MG/DL (8.7-10.5) N (Normal) Note: Responsible Observer: CA CALCIUM 300.2200 (A) CHLORIDE 103 MEQ/L (94-110) N (Normal) Note: Responsible Observer: CL CHLORIDE 300.0200 (A) CARBON DIOXIDE 31 MEQ/L (22-33) N (Normal) Note: Responsible Observer: CO2 CARBON D IOXIDE 300.0250 (A) CREATININE 1.0 MG/DL (0.6-1.4) N (Normal) Note: Responsible Observer: CREAT CREATI NINE 300.0400 (A) ANION GAP 11 (5-16) N (Normal) Note: Responsible Observer: ANION GAP AN ION GAP 300.0300 (A) GFR 54.5 ML/MIN None Note: Stage G3a - Mildly to moderately decreased kidney function GFR normal is >=90 The MDRD GFR calculation is considered valid between the ages of 18 and 75 years only. The GFR is an estimate of the Glomerular Filtration Rate. It is considered accurate in evaluating patients with Chronic Kidney Disease,but may underestimate kidney function in Healthy Patients.Responsible Observer: GFR GFR 300.0410 (A) GLOBULIN 2.1 G/DL (1.5-3.5) N (Normal) Note: Responsible Observer: GLOB GLOBULI N 300.4050 (A) GLUCOSE 242 MG/DL (70-100) H (High) Note: Responsible Observer: GLU GLUCOSE 300.0500 (A) POTASSIUM 4.0 MEQ/L (3.5-5.3) N (Normal) Note: Responsible Observer: K POTASSIUM 300.0150 (A) SODIUM 141 MEQ/L (135-145) N (Normal) Note: Responsible Observer: NA SODIUM 3 00.0100 (A) TOTAL PROTEIN 6.6 G/DL (5.9-8.3) N (Normal) Note: Responsible Observer: TP TOTAL PRO TEIN 300.3750 (A) Reviewed by Michelle NAIK on 08/06; All test results are final unless otherwise noted. IRON TIBC [facility] Ordered by Michelle NAIK on 07/10/[address], [address] Collected: 08/26/2019 Reported: 08/26/2019 tel:[phone] Note: Has Patient Fasted For The Past 12 Hours? N Has Patient Fasted For The Past 12 Hours? Y IRON 90 UG/DL (35-150) N (Normal) Note: Responsible Observer: FE IRON 300 .2400 (A) % IRON SATURATION 24.0 % (20-50) N (Normal) Note: Responsible Observer: % FE SAT % I BEN SATURATION 300.2500 (A) TIBC 378 UG/DL (260-400) N (Normal) Note: Responsible Observer: TIBC TIBC 3 00.2450 (A) Reviewed by Michelle NAIK on 08/06; All test results are final unless otherwise noted. FERRITIN [facility] Ordered by Michelle NAIK on 07/10/[address], [address] Collected: 08/26/2019 Reported: 08/26/2019 tel:[phone] Note: Has Patient Fasted For The Past 12 Hours? N Has Patient Fasted For The Past 12 Hours? Y FERRITIN 45.7 NG/ML (22-322) N (Normal) Note: Responsible Observer: FERRITIN CAL RITIN 300.2650 (A) Reviewed by Michelle NAIK on 08/06; All test results are final unless otherwise noted. LIPID PANEL [facility] Ordered by Michelle NAIK on 07/10/[address], [address] Collected: 08/26/2019 Reported: 08/26/2019 tel:[phone] Note: Has Patient Fasted For The Past 12 Hours? N Has Patient Fasted For The Past 12 Hours? Y CHOL/HDL RATIO 4.3 (0-4.3) N (Normal) Note: Responsible Observer: CHOL/HDL RAT IO CHOL/HDL RATIO 300.4700 (A) CHOLESTEROL 178 MG/DL (125-200) N (Normal) Note: Responsible Observer: CHOL CHOLEST KATHERINE 300.4350 (A) HDL CHOLESTEROL 41 MG/DL (32-96) N (Normal) Note: Responsible Observer: HDL HDL CHOL ESTEROL 300.4600 (A) LDL CHOLESTEROL 94 MG/DL (50-130) N (Normal) Note: Responsible Observer: LDL LDL CHOL ESTEROL 300.4400 (A) TRIGLYCERIDES 217 MG/DL (45-150) H (High) Note: Responsible Observer: TRIG TRIGLYC ERIDES 300.4300 (A) Reviewed by Michelle NAIK on 08/06; All test results are final unless otherwise noted. VITAMIN B12 [facility] Ordered by Michelle NAIK on 07/10/[address] [place] [address], [address] Collected: 08/26/2019 Reported: 08/26/2019 tel:[phone] Note: Has Patient Fasted For The Past 12 Hours? N Has Patient Fasted For The Past 12 Hours? Y VITAMIN B12 727 PG/ML (211-2000) N (Normal) Note: Responsible Observer: B12 VITAMIN B12 300.5200 (A) Reviewed by Michelle NAIK on 08/06; All test results are final unless otherwise noted. FOLATE [facility] Ordered by Michelle NAIK on 07/10/[address] [place] [address], [address] Collected: 08/26/2019 Reported: 08/26/2019 tel:[phone] Note: Has Patient Fasted For The Past 12 Hours? N Has Patient Fasted For The Past 12 Hours? Y FOLATE 10.73 NG/ML (3.40-24.00) N (Normal) Note: Responsible Observer: FOLATE FOLAT E 300.5210 (A) Reviewed by Michelle NAIK on 08/06; All test results are final unless otherwise noted. TSH [facility] Ordered by Michelle NAIK on 07/10/[address] [place], [address] Collected: 08/26/2019 Reported: 08/26/2019 tel:[phone] Note: Has Patient Fasted For The Past 12 Hours? N Has Patient Fasted For The Past 12 Hours? Y TSH 6.402 uIU/ML (0.470-4.200) H (High) Note: Patients should not be tested for 72 hours post fluorescein dye angiography. A false depression of result may occur.Responsible Observer: TSH TSH 300.5500 (A) Reviewed by Michelle ANIK on 08/06; All test results are final unless otherwise noted. Reported Physicians [facility] Ordered by Michelle NAIK on 07/10/[address] [place], [address] Collected: 08/26/2019 Reported: 08/26/2019 tel:[phone] Reported Physicians See Note None Note: Reported Physicians:Ordering: Michelle PerezAttending: Michelle Horowitz Reviewed by Michelle NAIK on 08/06; All test results are final unless otherwise noted. [facility] Ordered by Michelle NAIK on 07/15/[address] [place], [address] Collected: 07/10/2019 Reported: 07/10/2019 tel:[phone] TSH 2.683 uIU/ML (0.470-4.200) N (Normal) Note: Patients should not be tested for 72 hours post fluorescein dye angiography. A false depression of result may occur.Responsible Observer: TSH TSH 300.5500 (A) Reviewed by Michelle NAIK on 04/2019; All test results are final unless otherwise noted. Reported Physicians [facility] Ordered by Michelle NAIK on 07/15/[address] [place], [address] Collected: 07/10/2019 Reported: 07/10/2019 tel:[phone] Reported Physicians See Note None Note: Reported Physicians:Ordering: Checo Perezending: Michelle Horowitz Reviewed by Michelle NAIK on 04/2019; All test results are final unless otherwise noted. Hgb A1c [facility] Ordered by Michelle NAIK on 06/23/2019 Specimen Source: Whole blood Collected: 06/23/2019 R eported: 06/23/2019 Hgb A1c 8.2 A (Abnormal) Reviewed on 06/23/2019; All test result s are final unless otherwise noted. Hgb A1c [facility] Ordered by Sharmin Danielson NP on 06/09/2020 Specimen Source: Whole blood Collected: Reported: 06/09/2020 Hgb A1c 8.6 A (Abnormal) Reviewed on 06/09/2020; All test result s are final unless otherwise noted. History of Present Illness History of Present Illness not supported for this document typeNo History of Present Illness Recorded Social History Description Last Updated Has high school diploma 06/09/2020 No secondhand cigarette smoke exposure 06/09/2020 Smoking status 06/09/2020 : Former smoker 06/09/2020 Procedures and Surgical/Medical History Includes: Procedures from 06/09/2019 through 06/09/2020 Procedures CPT-4 Diagnosis Performing Provider Service Location Service Date Hemoglobin; Glycated A1c (QW) 04015 Type 2 alyssia betes mellitus with unspecified complications Sharmin aDnielson NP [facility] 03/07/2020 Tdap, Tetanus, [place]hthe[place] [address] Encounter for immunization Sharmin Danielson NP [facility] 03/07/2020 Immunization Administration (includes Percutaneous, Intrader 37208 Encounter for immunization Sharmin Danileson NP [facility] 03/07/2020 AHR -Subsequent Annual Wellness Visit (Signi/Sep Eval. & Man .) G0439 Encntr for general adult medical exam w/o abnormal findings, Anxiety disorder, unspecified, Unspecified menopausal and perimenopausal disorder, Essential (primary) hypertension Sharmin Danielson NP [facility] 03/07/2020 Qual nonMD est pt 21>min G2063 Essential (prim enma) hypertension, Type 2 diabetes mellitus with unspecified complications, Hypokalemia, Hypothyroidism, unspecified Trevon Franklin DO [facility] 01/07/2020 Hemoglobin; Glycated A1c (QW) 42726 Type 2 alyssia betes mellitus with unspecified complications Michelle Horowitz [facility] 06/23/2019 Surgical History Last Updated Surgical / procedural history stent RLE 06/09/2020 Family History Includes: Family History in patient's chart Description Last Updated Family history of diabetes mellitus mom 06/09/2020 Family history of heart disease dad 06/09/2020 Family history of hypertension dad 06/09/2020 Review of Systems Review of Systems not supported for this document typeNo Review of Systems Recorded Mental Status Mental Status not supported for this document type Description Oriented to time, place, and person Functional Status Functional Status not supported for this document typeNo Functional Status Recorded Physical Exam Physical Exam not supported for this document typeNo Physical Exam Recorded Immunizations Includes: Immunizations in patient's chart Vaccine Dose # Date Site Reaction(s) Status Source Boostrix 1 03/07/2020 Right Arm Complete (Administered) [facility] Influenza 1 05/05/2018 Complete (Reported) Patient Influenza 2 04/17/2019 Complete (Reported) Patient PCV (Pneumovax 23) 1 09/16/2017 Complete (Reported ) Patient Prevnar 13 1 12/02/2018 Upper Left Thigh Complete (Adminis tered) [facility] Zoster (Use [employer]) 1 12/02/2018 Complet e (Refused - Patient objection) [facility] Allergies Includes: Active, inactive, and resolved Allergies Substance Type Reaction Effective Status Penicillins Allergy Nausea, Vomiting, Diarrhea 01/10/2018 A ctive Codeine and Related Allergy Nausea, Vomiting, Diarrhea 018 Active Encounters Includes: Encounters from 06/09/2019 through 06/09/2020 Encounter Provider Location Date Diagnosis Chronic Disease Follow-up Sharmin Danielson NP [facility] 06/09/20 20 Diabetes Mellitus Type 2, Hypertension (systemic), Hyperlipidemia, Hypothyroidism Care Management Medical- Telephone Encounter Sharmin Danielson NP [facility] 06/03/2020 Chart Update Hailey Freed RN 04/14/2020 Correspondence Trevon Franklin DO 03/31/2020 Chart Update Sharmin Danielson NP 03/31/2020 Lab Order Sharmin Danielson NP 03/10/2020 [Patient Encounter] Sharmin Danielson NP 03/08/2020 [Patient Encounter] Sharmin Reis Jgajit PRACTICING DERMATOLOGIST 03/07/2020 AHR Sharmin Reis Jagjit PRACTICING DERMATOLOGIST [facility] 03/07/2020 Routine History and Physical, Diabetes Mellitus Type 2, Hypertension (systemic), Hypothyroidism, Nicotine Dependence Cigarettes Mild in Early Remission Correspondence Trevon Jayme Franklin 03/03/2020 Acute L3 Sharmin George PRACTICING DERMATOLOGIST [facility] 03/01/20 20 Tendonitis Rotator Cuff Left, Trapezius Muscle Strain Left Telephonic Encounter [place] [facility] Franklin 01/14/2020 Hypothyroidism [facility] Verti go, Hypothyroidism, Hypokalemia, Hypertension (systemic), Diabetes Mellitus Type 2 Primary Care Telehealth Zoom [place] Jay[facility] Franklin Diabetes Mellitus Type 2, Hypothyroidism, Hypertension (systemic), Anxiety Disorder of Unknown (axis Iii) Etiology, Hyperlipidemia Care Management Medical- Telephone Encounter Michelle Horowitz [facility] 10/13/2019 Care Management Medical- Telephone Encounter Ksenia Bennett RN 10/06/2019 Correspondence Michelle Horowitz [facility] 08/28/2019 Lab Order Michelle Horowitz [facility] 08/28/2019 Medication Order Michelle Horowitz [facility] 08/25/2019 Correspondence Michelle Horowitz [facility] 08/17/2019 Care Management Medical- Telephone Encounter Ksenia Bennett RN 08/13/2019 Correspondence Michelle Horowitz [facility] 07/14/2019 Diabetes Follow-up Michelle Horowitz [facility] 06/23/2019 Diabetes Mellitus Type 2, Hypothyroidism, Hypertension (systemic), Anxiety Disorder of Unknown (axis Iii) Etiology, Hyperlipidemia Insurance Includes: Active Insurance Policies Plan Name Member ID Group # Subscriber Relationship Effective Da cameron 1 - [employer] [id number] Ender Nolan Self [id number] - Unknown Advance Directives Includes: Current Advance Directives Directive Pat Aware Third Constitution Party Effective Date Reviewed Status Ebola Screening Performed Yes 03/01/2020 Current and Verified Note: Within the last month, have you traveled outside of the [place]? - NO packet given Pt Bill of Rights, Priv Prac, Ad Dir Yes 03/07/2020 Current and Verified Note: Pt declined AD packet Health Concerns Includes: Active Health Concerns Diabetes Mellitus Type 2 Onset 01/10/2018 Patient Self-management Goal Added 12/02/2018 Goals Includes: Active Goals fasting blood sugar consistently under 2 00. HgbA1C under 8 Added 08/13/2019 by Provider Health Concern: Diabetes Mellitus Type 2 Interventions Includes: Interventions for active Goals pt reeducated on dm diet and carbs Added 08/13/2019 Goal: fasting blood sugar consistently under 200. HgbA1C under 8 basaglar increased to 30 units daily Added 08/13/2019 Goal: fasting blood sugar consistently under 200. HgbA1C under 8 pt will increase exercise to 15 min randy y Added 08/13/2019 Goal: fasting blood sugar consistently under 200. HgbA1C under 8 Will call patient weekly/biweekly as braulio newman for diabetic care management Added 06/03/2020 Goal: fasting blood sugar consistently under 200. HgbA1C under 8 Patient will exercise 5x/week for 20-30 minutes Added 06/03/2020 Goal: fasting blood sugar consistently under 200. HgbA1C under 8 Patient will make dietary changes to fur ther reduce carb intake. Reeducated patient on diabetic diet. Added 06/03/2020 Goal: fasting blood sugar consistently under 200. HgbA1C under 8 Evaluations & Outcomes Includes: Evaluations & Outcomes for active Goals Call to pt to initiate diabetic care man agement and patient reports fasting BGs in 130s-160s range. Patient will begin to check BGs pre and post prandially daily and record BG readings. Patient states she is taking all diabetic medications as prescribed with no missed doses including 36 units of basaglar. Educated patient on s/s of hyper/hypoglycemia, importance of reducing carbs in diet and exercising frequently, and on proper foot/oral/eye care. Advised patient would call with any changes to meds/treatment plan but otherwise will follow up again in 7-10 days. Patient will call with any significantly elevated BG readings or if symptoms of hyper/hypoglycemia occur. Added 10/06/2019 - In Progress Goal: fasting blood sugar consistently under 200. HgbA1C under 8
--- OUTSIDE RECORDS SUMMARY | 2020-09-01 15:07 | CCD ---
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 Name Role Phone Lor NAIK, Michelle Singh PP [phone] Abdiaziz CASTILLO, Hailey Unavailable [phone] JONATHAN Bennett, Ksenia Unavailable [phone] Reason for Referral No Reason for Referral Recorded Problems Includes: Active, inactive, and resolved Problems All Visits Effective Date(s) Provider Condition Stat us Nicotine Dependence Cigarettes Mild in Early Remission 03/07 Sharmin Danielson NP Active Note: quit 2019 Hypothyroidism 05/15/2019 Michelle NAIK Active Nicotine Dependence 05/05/2019 - 03/07/2020 Sharmin Danielson [employer] Res olved Note: Quit 2019 Visit For: [...] Per Pathology dated 04/24/17 Plan of Treatment Pending Tests Order Diagnosis Results Due Ordering Provi yulissa Lab MICROALBUMIN RANDOM 07/07/20 Sharmin vega NP Referrals To Diagnosis DEXA- Order Encounter for genera l adult medical exam w abnormal findings Note: Please schedule patient for test Ophthalmology Referral - Diabetic Eye Exam Dr. Jaylan Menchaca OD Type 2 diabetes mellitus with unspecified complications Note: Please schedule patient with provi yulissa, please send to someone local [facility] Case Management Diabetes Future Appointments Date Time Location Provider Chronic Disease Follow-up 06/09/2020 11:10AM [facility] Sharmin Danielson NP Care Management Medical- Telephone Encounter 06/10/2020 9:50AM [facility] Hailey Freed RN Findings Encounter Date Return to the clinic if condition worsens or new sympt oms arise Care Management Medical- Telephone Encounter with Sharmin Danielson NP 06/03/2020 Ordered Clinical summary transmitted to referring provider electronically with reasonable certainty of receipt or receiving provider electronically through [facility] AHR with Sharmin Danielson NP 03/07/2020 Ordered return to the clinic if condition worsens or n ew symptoms arise AHR with Sharmin Danielson NP 03/07/2020 Ordered Clinical summary transmitted to referring provider electronically with reasonable certainty of receipt or receiving provider electronically through [facility] Acute L3 with Sharmin George NP 03/01/2020 Ordered return to the clinic if condition worsens or n ew symptoms arise Acute L3 with Sharmin George NP 03/01/2020 Ordered Clinical summary transmitted to referring provider electronically with reasonable certainty of receipt or receiving provider electronically through [facility] Lab Order with Trevon Franklin DO 01/07/2020 Ordered Clinical summary transmitted to referring provider electronically with reasonable certainty of receipt or receiving provider electronically through [facility] Primary Care Telehealth Zoom with Maik Franklin DO 11/02/2019 Return to the clinic if condition worsens or new sympt oms arise Care Management Medical- Telephone Encounter with Michelle NAIK 10/13/2019 Return to the clinic if condition worsens or new sympt oms arise Care Management Medical- Telephone Encounter with Ksenia Bennett RN 08/13/2019 Instructions for patient Labs as order ed in july. Sleep scheudle and habits as reviewed. Increase basal insulin to 28 units and monitor fasting glucose. Follow up in 3 months, sooner with concerns Diabetes Follow-up with Michelle Horowitz [facility] 06/23/2019 Ordered Clinical summary transmitted to referring provider electronically with reasonable certainty of receipt or receiving provider electronically through [facility] Diabetes Follow-up with Michelle Horowitz [facility] 9 Ordered follow-up visit Diabetes Follow-up with Michelle cross [facility] 06/23/2019 Ordered return to the clinic if condition worsens or n ew symptoms arise Diabetes Follow-up with Michelle Horowitz [facility] 06/23/2019 Instructions for patient Labs as order ed. Further recommendation after testing. Nicotine replacement as discussed. She will call when she watns a decrease. Otherwise will see her in one month for DM follow up and chronic follow up Chronic Disease Follow-up with Michelle Horowitz [facility] Ordered Clinical summary transmitted to referring provider electronically with reasonable certainty of receipt or receiving provider electronically through [facility] Chronic Disease Follow-up with Michelle Horowitz [facility] 05/05/2019 Ordered follow-up visit Chronic Disease Follow-up with Michelle Horowitz [facility] 05/05/2019 Ordered return to the clinic if condition worsens or n ew symptoms arise Chronic Disease Follow-up with Michelle Horowitz [facility] 05/05/2019 Instructions for patient Continue curr ent medications, Dietary changes as discsused. If A1C elevated above 7 at next visit will do slight titration of lantus. dm EYE EXAM DUE IN 07/2019. Follow up in 3-4 months, sooner with concerns. Recheck TSH in 8 weeks after taking in morning spaced 1 hour before other meds Chronic Disease Follow-up with Michelle Horowitz [facility] Ordered Clinical summary transmitted to referring provider electronically or receiving provider electronically through [facility] Chronic Disease Follow-up with Michelle Horowitz [facility] 03/10/2019 Ordered follow-up visit Chronic Disease Follow-up with Michelle Horowitz [facility] 03/10/2019 Ordered return to the clinic if condition worsens or n ew symptoms arise Chronic Disease Follow-up with Michelle Horowitz [facility] 03/10/2019 Ordered Clinical summary transmitted to referring provider electronically or receiving provider electronically through [facility] AHR with Michelle Francisco Lor [facility] 12/02/2018 Ordered follow-up visit AHR with Michelle Francisco Lor [employer] 2018 Ordered return to the clinic if condition worsens or n ew symptoms arise AHR with Michelle Francisco Lor [facility] 12/02/2018 Instructions for patient Hospital Follow-up with Michelle Francisco Galarza agustin [employer] 08/28/2018 Ordered follow-up visit Hospital Follow-up with Michelle Francisco Alicia cross [employer] 08/28/2018 Ordered return to the clinic if condition worsens or n ew symptoms arise Hospital Follow-up with Michelle Francisco Lor [employer] 08/28/2018 Return to the clinic if condition worsens or new sympt oms arise Care Management with Michelle Horowitz [facility] 08/14/2018 Ordered Clinical summary transmitted to referring provider electronically or receiving provider electronically through [facility] Pap with Le Currie NP 05/29/2018 Ordered return to the clinic if condition worsens or n ew symptoms arise Pap with Le Currie NP 05/29/2018 Ordered Clinical summary transmitted to referring provider electronically or receiving provider electronically through [facility] Meet & Greet New Appointment with Le Currie NP 03/13/2018 Ordered return to the clinic if condition worsens or n ew symptoms arise Meet & Greet New Appointment with Le Currie NP 03/13/2018 Ordered Clinical summary transmitted to referring provider electronically or receiving provider electronically through [facility] Walk-In with Krista L Ray DO 02/11/2018 Return to the clinic if condition worsens or new sympt oms arise Walk-In with Krista L Ray DO 02/11/2018 Ordered Clinical summary transmitted to referring provider electronically or receiving provider electronically through [facility] Walk-In with Krista L Ray DO 01/21/2018 Return to the clinic if condition worsens or new sympt oms arise Walk-In with Krista L Ray DO 01/21/2018 Ordered Clinical summary transmitted to referring provider electronically or receiving provider electronically through [facility] Walk-In with Krista L Ray DO 01/10/2018 Return to the clinic if condition worsens or new sympt oms arise Walk-In with Krista L Ray DO 01/10/2018 Assessments Includes: Assessments for all patient encounters Findings Encounter Date Hypertension AHR with Sharmin Danielson NP 03/07/2020 Hypothyroidism AHR with Sharmin Danielson NP 03/07/2020 Mild dependence on nicotine in cigarettes in early rem ission AHR with Sharmin Danielson NP 03/07/2020 Routine history and physical See [facility] ed problem list above for impression and [...] Franklin DO Hypokalemia Lab Order with Trevon Franklin DO Hypothyroidism Lab Order with Trevon Franklin DO Type 2 diabetes mellitus Lab Order with Trevon Franklin DO 01/07/2020 Vertigo Lab Order with Trevon Franklin DO Anxiety disorder of unknown (axis III) etiology Primar y Care Telehealth Zoom with Trevon Franklin DO 11/02/2019 Hyperlipidemia Primary Care Telehealth Zoom with Maik Franklin DO 11/02/2019 Hypertension Primary Care Telehealth Zoom with Maik Franklin DO 11/02/2019 Hypothyroidism Primary Care Telehealth Zoom with Maik Franklin DO 11/02/2019 Type 2 diabetes mellitus Primary Care Telehealth Zoom with Trevon Franklin DO 11/02/2019 Anxiety disorder of unknown (axis III) etiology Diabet es Follow-[facility]benson [facility] 06/23/2019 Hyperlipidemia 03/06/19 lipids reviewed Diabetes Follow -up with Michelle [facility] 06/23/2019 Hypertension : Well controlled Diabetes Follow-up with Michelle Horowitz [facility] 06/23/2019 Hypothyroidism Due for recheck beginning of july Diabetes Follow[facility] with Michelle [facility] 06/23/2019 Type 2 diabetes mellitus - A1C up to 8. 2. Diet poor and sleep habits. Missing meds. Compliance encouraged. Monitor fasting gluse and we will check in with ehr when she gets labs done. Increase basal insulin to 28 units nightly Diabetes Follow-up with Michelle Horowitz [facility] 06/23/2019 Anxiety disorder of unknown (axis III) etiology Chroni c Disease Follow-up with Michelle Horowitz [facility] 05/05/2019 Hypertension Chronic Disease Follow-up with Michelle basurto [facility] 05/05/2019 Hypothyroidism Chronic Disease Follow-up with Michelle trevinoewelina [facility] 05/05/2019 Nicotine dependence [facility] Anxiety disorder of unknown (axis III) etiology Chroni c Disease Follow-up with Michelle Horowitz [facility] 03/10/2019 Hyperlipidemia 03/06/19 lipids reviewed Chronic Disease Follow-up with Michelle Horowitz [facility] 03/10/2019 Hypertension : Well controlled Chronic Disease Follow- up with Michelle Horowitz [facility] 03/10/2019 Hypothyroidism 03/06/19 TSH slightly off, not taking medication properly. Proper administration discussed and recheck in 8 weeks Chronic Disease Follow-up with Michelle Horowtiz [facility] 03/10/2019 Type 2 diabetes mellitus : Slightly elev ated a1c, diet changes discussed. Has been drinking a drink with sugar in it when she thought it did not have it, has been effecting her gluicose Chronic Disease Follow-up with Michelle Horowitz [facility] 03/10/2019 Anxiety disorder of unknown (axis III) etiology AHR with Ruthann Horowitz [facility] 12/02/2018 Hyperlipidemia AHR with Michelle Horowitz [facility] 12/02/2018 Hypertension : Well controlled AHR with Michelle Horowitz [facility] 12/02/2018 Hypothyroidism : Labs advised AHR with Michelle Francisco Lor [facility] 12/02/2018 Routine history and physical see [facility] ed problem list above for impression and [...] requested.. Bone density recommended. AHR with Michelle Singh Lor [facility] 12/02/2018 Type 2 diabetes mellitus : Well controll ed. She will check who had done her eye exam. Continue with weight loss and increase exercise AHR with Michelle Francisco Lor [facility] 12/02/2018 Anxiety disorder of unknown (axis III) etiology : Well controlled Hospital Follow-up with Michelle Horowitz [facility] 08/28/2018 Hyperlipidemia Labs reviewed. Stable Hospital Follow- up with Michelle Horowitz [facility] 08/28/2018 Hypertension : Well controlled. Labs rev iewed. Orders given for microalbumin with next labs Hospital Follow-up with Michelle Horowitz [facility] 9 Hypokalemia Hospital Follow-up with Michelle Horowitz [facility] 08/28/2018 Hypothyroidism : THS stable on labs from hospital repo rt Hospital Follow-up with Michelle Horowitz [facility] 08/28/2018 Type 2 diabetes mellitus Hospital Follow-up with Michelle velez [facility] 08/28/2018 Vertigo : Hospital records reviewed. Stable. Will do P T should symptoms return Hospital Follow-up with Michelle Horowitz [facility] 08/28/2018 Assessment of visit for: gynecological exam with pap s mear Pap with Le Currie NP 05/29/2018 Hypertension [...] historical Medications Current Medications (continue as prescribed) Levothyroxine Sodium 88 MCG Oral Tablet 03/15/2020 Provider: Sharmin Danielson NP Diagnosis: Hypothyroidism, unsp ecified once a day Dosage decrease Glimepiride 2 MG Oral Tablet 03/15/2020 Provider: Sharmin Danielson NP Diagnosis: Type 2 diabetes rob itus with unspecified complications 3 tabs once a day- with food Januvia 100 MG Oral Tablet 03/15/2020 Provider: Sharmin Danielson NP Diagnosis: Type 2 diabetes rob itus with unspecified complications once a day CareFine Pen Lignite 32G X 4 MM Miscellaneous 03/15/2020 Provider: Sharmin Danielson NP Diagnosis: Type 2 diabetes rob itus with unspecified complications once a day use to inject insulin once daily OneTouch Ultra In Vitro Strip 03/15/2020 Provider: Sharmin Danielson NP Diagnosis: Type 2 diabetes rob itus with unspecified complications as directed Test blood sugars BID OneTouch Delica Lancets 33G Miscellaneous 03/15/2020 Provider: Sharmin Danielson NP Diagnosis: Type 2 diabetes rob itus with unspecified complications as directed Testing BID OneTouch Ultra STRP 03/15/2020 - 09/11/2020 Provider: Diagnosis: Type 2 diabetes rob itus with unspecified complications Test blood sugars BID Vitamin D (Ergocalciferol) 1.25 MG (72501 UT) Oral Cap poonam 03/07/2020 - 12/02/2020 Provider: Sharmin Danielson NP Diagnosis: as directed Meclizine HCl 12.5 MG Oral Tablet 01/06/2020 Provid er: Diagnosis: ER discharge metFORMIN HCl 1000 MG Oral Tablet 11/02/2019 Provid er: Trevon Franklin DO Diagnosis: Type 2 diabetes rob itus with unspecified complications twice a day Basaglar KwikPen 100 UNIT/ML Subcutaneous Solution Pen-injec tor 11/02/2019 Provider: Trevon Franklin DO Diagnosis: Type 2 diabetes rob itus with unspecified complications INCREASED Inject 36 units SC once daily - MDD=50 units. Simvastatin 40 MG Oral Tablet 11/02/2019 Provider: [...] 400 MG Oral Tablet 09/29/2019 - 09/23/2020 Barby christian: Michelle REYNOLDSP Diagnosis: once a day OneTouch Ultra 2 w/Device Kit 08/28/2019 Provider: Sharmin Danielson NP Diagnosis: Type 2 diabetes rob itus with unspecified complications as directed Testing BID MiraLax Oral Powder 08/13/2019 Provider: Sharmin Danielson NP Diagnosis: Other constipation up to 1 cap full PO daily. Mix with 4-8 ounces liquid. Aspirin 325MG Oral Tablet 08/28/2018 Provider: Diagnosis: 1 tab po daily Alcohol Prep 70% Pad 03/13/2018 Provider: Le Currie NP Diagnosis: as directed Past Medications on file Levothyroxine Sodium 88 MCG Oral Tablet 03/10/2020 - 020 Provider: Sharmin Danielson NP Diagnosis: Hypothyroidism, unsp ecified once a day Dosage decrease Levothyroxine Sodium 88 MCG OR TABS 03/10/2020 - 03/15/2020 Provider: Diagnosis: Hypothyroidism, unsp ecified Dosage decrease Glimepiride 2 MG Oral Tablet 03/07/2020 - 03/15/2020 Provide r: Sharmin Danielson NP Diagnosis: Type 2 diabetes rob itus with unspecified complications 3 tabs once a day- with food CareFine Pen L[place]ite 32G X 4 MM Miscellaneous 03/07/2020 - 0 03/15/2020 Provider: Sharmin Danielson NP Diagnosis: Type 2 diabetes rob itus with unspecified complications once a day use to inject insulin once daily Accu-Chek FastClix Lancets Miscellaneous 03/07/2020 - 2019 Provider: Sharmin Danielson NP Diagnosis: Type 2 diabetes rob itus with unspecified complications twice a day Tesst blood sugars BID Januvia 100 MG Oral Tablet 03/07/2020 - 03/15/2020 Provider: Sharmin Danielson NP Diagnosis: Type 2 diabetes rob itus with unspecified complications once a day Cyclobenzaprine HCl 5 MG Oral Tablet 03/01/2020 - 03/08/2020 Provider: Sharmin George [employer] Diagnosis: 1 every bedtime PRN MUSCLE SPASM Levothyroxine Sodium 100 MCG OR TABS 01/18/2020 - 03/07/2020 Provider: Diagnosis: Hypothyroidism, unsp ecified Levothyroxine Sodium 100 MCG Oral Tablet 01/18/2020 - 2019 Provider: Sharmin Danielson NP Diagnosis: Hypothyroidism, unsp ecified once a day Levothyroxine Sodium 100 MCG Oral Tablet 01/14/2020 - 2019 Provider: Trevon Franklin DO Diagnosis: Hypothyroidism, unsp ecified once a day - increased Glimepiride 2 MG Oral Tablet 11/16/2019 - [...] with unspecified complications 3 once a day Levothyroxine Sodium 88 MCG Oral Tablet 11/02/2019 - 020 Provider: Trevon Franklin DO Diagnosis: Hypothyroidism, unsp ecified once a day increased hydroCHLOROthiazide 25 MG Oral Tablet 11/02/2019 - 0 Provider: Trevon Franklin DO Diagnosis: Essential (primary) hypertension once a day CareFine Pen Lignite 32G X 4 MM Miscellaneous 10/15/2019 - 0 03/07/2020 Provider: Fannie Cervantes NP Diagnosis: Type 2 diabetes rob itus with unspecified complications once a day use to inject insulin once daily Magnesium Oxide 400 MG Oral Tablet 09/24/2019 - 09/29/2019 P rovider: Sharmin Danielson NP Diagnosis: once a day OneTouch Ultra Blue In Vitro Strip 09/08/2019 - 03/15/2020 P jassivider: Michelle NAIK Diagnosis: Type 2 diabetes rob itus with unspecified complications as directed Testing BID OneTouch Delica Lancets 33G Miscellaneous 09/08/2019 - 03/15 Provider: Michelle NAIK Diagnosis: Type 2 diabetes rob itus with unspecified complications as directed Testing BID OneTouch Club Lancets Fine Pt MISC 08/28/2019 - 08/28/2019 P rovider: Diagnosis: Type 2 diabetes rob itus with unspecified complications Testing BID OneTouch Ultra Blue STRP 08/28/2019 - 08/28/2019 Provider : Diagnosis: Type 2 diabetes rob itus with unspecified complications OneTouch Delica Lancets 33G MISC 08/28/2019 - 08/28/2019 Pro vider: Diagnosis: Type 2 diabetes rob itus with unspecified complications Testing BID OneTouch Ultra Blue In Vitro Strip 08/28/2019 - 03/15/2020 P rovider: Sharmin Danielson NP Diagnosis: Type 2 diabetes rob itus with unspecified complications as directed Testing BID OneTouch Ultra Blue STRP 08/28/2019 - 11/12/2019 Provider : Diagnosis: Type 2 diabetes rob itus with unspecified complications Testing BID OneTouch Ultra Blue STRP 08/28/2019 - 11/12/2019 Provider : Diagnosis: Type 2 diabetes rob itus with unspecified complications Testing BID OneTouch [facility]ets [facility]G [facility] 08/[facility] - 11/02/2019 Pro vider: Diagnosis: Type 2 diabetes rob itus with unspecified complications Testing BID OneTouch Delica Lancets 33G Miscellaneous 08/28/2019 - 03/15 Provider: Sharmin Danielson NP Diagnosis: Type 2 diabetes rob itus with unspecified complications as directed Testing BID OneTouch Ultra Blue In Vitro Strip 08/28/2019 - 03/15/2020 P rovider: Sharmin Danielson NP Diagnosis: Type 2 diabetes rob itus with unspecified complications testing daily and prn OneTouch Ultra 2 w/Device KIT 08/28/2019 - 08/28/2019 Provid er: Diagnosis: Type 2 diabetes rob itus with unspecified complications Testing BID Accu-Chek Melia Plus In Vitro Strip 08/25/2019 - 08/28/2019 Provider: Michelle NAIK Diagnosis: Type 2 diabetes rob itus with unspecified complications as directed- testing BID and PRN. Accu-Chek Melia Plus In Vitro Strip 08/25/2019 - 08/25/2019 Provider: Michelle NAIK Diagnosis: Type 2 diabetes rob itus with unspecified complications as directed- testing BID and PRN. Basaglar KwikPen 100 UNIT/ML Subcutaneous Solution Pen -injector 07/07/2019 - 11/02/2019 Provider: Michelle NAIK Diagnosis: Type 2 diabetes rob itus with unspecified complications once a day Inject 26 units SC once daily - MDD=30 units. REP LACES LANTUS Basaglar KwikPen 100 UNIT/ML SC SOPN 07/07/2019 - 08/24/2019 Provider: Diagnosis: Type 2 diabetes rob itus with unspecified complications Inject 26 units SC once daily - MDD=30 units Vitamin D (Ergocalciferol) 1.25 MG (18633 UT) Oral Cap poonam 07/06/2019 - 03/07/2020 Provider: Michelle NAIK Diagnosis: as directed CareFine Pen Lignite 32G X 4 MM Miscellaneous 07/01/2019 - 0 10/15/2019 Provider: Sharmin PEREYRA Diagnosis: Type 2 diabetes rob itus with unspecified complications once a day use to inject insulin once daily Accu-Chek FastClix Lancets Miscellaneous 07/01/2019 - 2019 Provider: Sharmin PEREYRA Diagnosis: Type 2 diabetes rob itus with unspecified complications twice a day Tesst blood sugars BID CareFine Pen Lignite 32G X 4 MM [facility] 07/01/2019 - 07/03/2019 Provider: Diagnosis: Type 2 diabetes rob itus with unspecified complications use to inject insulin once daily CareFine Pen Lignite 32G X 4 MM [facility] 06/30/2019 - 07/03/2019 Provider: Diagnosis: Type 2 diabetes rob itus with unspecified complications ; use to inject insulin once daily Potassium Chloride ER 20 MEQ Oral Tablet Extended Rele ase 06/26/2019 - 11/02/2019 Provider: Michelle NAIK Diagnosis: Hypokalemia once a day Glimepiride 2 MG Oral Tablet 06/26/2019 - 03/07/2020 Provide r: Michelle NAIK Diagnosis: Type 2 diabetes rob itus with unspecified complications as directed 3 a day Lantus SoloStar 100 UNIT/ML Subcutaneous [...] Tablet 06/26/2019 - 09/24/2019 P rovider: Michelle NAIK Diagnosis: once a day Levothyroxine Sodium 75 MCG Oral Tablet 06/26/2019 - 020 Provider: Michelle NAIK Diagnosis: Hypothyroidism, unsp ecified once a day- DOSE INCREASED Plavix 75 MG Oral Tablet 06/26/2019 - 11/02/2019 Provider: Michelle NAIK Diagnosis: Peripheral vascular disease, unspecified once a day Januvia 100 MG Oral Tablet 06/26/2019 - 03/07/2020 Provider: Michelle NAIK Diagnosis: Type 2 diabetes rob itus with unspecified complications once a day hydroCHLOROthiazide 25 MG Oral Tablet 06/26/2019 - 0 Provider: Michelle NAIK Diagnosis: Essential (primary) hypertension once a day CareFine Pen Lignite 32G X 4 MM Miscellaneous 06/26/2019 - 1 08/30/2018 Provider: Michelle NAIK Diagnosis: Type 2 diabetes rob itus with unspecified complications as directed; use to inject insulin once daily Vitamin D (Ergocalciferol) 1.25 MG (81303 UT) Oral Cap poonam 06/26/2019 - 07/06/2019 Provider: Michelle NAIK Diagnosis: as directed Levothyroxine Sodium 75 MCG Oral Tablet 05/15/2019 - 019 Provider: Michelle NAIK Diagnosis: Hypothyroidism, unsp ecified once a day- DOSE INCREASED Cymbalta 30 MG Oral Capsule Delayed Release Particles 10/01/ 2019 - 06/26/2019 Provider: Michelle NAIK Diagnosis: Anxiety [...] Sodium 50MCG Oral Tablet 03/18/2019 - 05/15/20 Provider: Ros Carlson [employer] Diagnosis: Hypothyroidism, unsp ecified once a day [...] Oral Tablet 03/10/2019 - 03/16/2019 Provider: Michelle NAIK Diagnosis: Peripheral vascular disease, [...] 1 every bedtime one po at bedtime Cymbalta 30MG Oral Capsule Delayed Release Particles 019 - 05/05/2019 Provider: Michelle NAIK Diagnosis: Anxiety disorder, un specified 2 once a day Potassium Chloride ER 20MEQ Oral Tablet Extended Relea se 12/09/2018 - 03/10/2019 Provider: Michelle NAIK Diagnosis: Hypokalemia once a day metFORMIN HCl 1000MG Oral Tablet 12/09/2018 - 03/10/2019 Pro vider: Michelle NAIK Diagnosis: Type 2 diabetes rob itus with unspecified complications twice a day CareFine Pen [place] 32G X 4 MM Miscellaneous 12/09/2018 - 1 08/26/2018 Provider: Michelle NAIK Diagnosis: Type 2 diabetes rob itus with unspecified complications as directed; use to inject insulin once daily Lantus SoloStar 100UNIT/ML Subcutaneous Solution Pen-i njector 12/02/2018 - 12/09/2018 Provider: Michelle NAIK Diagnosis: Type 2 diabetes rob itus with unspecified complications Inject 26 units SC once daily- dose increase Vitamin D (Ergocalciferol) [id number] Oral Capsule 12/02/2018 - 06/26/2019 Provider: Michelle NAIK Diagnosis: as directed Accu-Chek Melia Plus In Vitro Strip 10/30/2018 - 11/06/2018 Provider: Ros Carlson NP Diagnosis: Type 2 diabetes rob itus [...] 09/02/2018 - 12/02/2018 Provide r: Le Currie [employer] Diagnosis: once a day - Will run out before mail order pharmacy refills script. Lantus SoloStar 100UNIT/ML Subcutaneous Solution Pen-i njector 08/28/2018 - 12/02/2018 Provider: Michelle NAIK Diagnosis: Benign paroxysmal ve rtigo, bilateral [...] Oral Tablet 08/28/2018 - 03/10/2019 Provider : Micehlle NAIK Diagnosis: Type 2 diabetes rob itus with unspecified complications as directed 3 a day Januvia 100MG Oral Tablet 08/28/2018 - 10/06/2018 Provider: Michelle REYNOLDSP Diagnosis: Type 2 diabetes rob itus with unspecified complications once a day Magnesium Oxide 400MG Oral Tablet 08/28/2018 - 09/23/2018 Pr ovider: Michelle REYNOLDSP Diagnosis: once a day Simvastatin 40MG Oral Tablet 08/28/2018 - 08/28/2018 Provide r: Diagnosis: Hyperlipidemia, unsp ecified one po at bedtime MiraLax Oral Powder 08/28/2018 - 08/28/2018 Provider: Diagnosis: 17 po daily Levothyroxine Sodium 50MCG Oral Tablet 08/12/2018 - 08/28/19 Provider: Krista Saba DO Diagnosis: once a day 1 tab po daily Cymbalta 30MG Oral Capsule Delayed Release Particles - 08/28/2018 Provider: Krista Saba DO Diagnosis: 2 once a day Accu-Chek Melia Device 07/24/2018 - 08/28/2019 Provider: David Levin MD Diagnosis: Type 2 diabetes rob itus with unspecified complications as directed Test blood sugars BID Accu-Chek FastClix Lancets Miscellaneous 07/24/2018 - 2018 Provider: David Levin MD Diagnosis: Type 2 diabetes rob itus with unspecified complications twice a day Tesst blood sugars BID Accu-Chek FastClix Lancets MISC [...] twice a day Test blood sugars BID Cymbalta 30MG Oral Capsule Delayed Release Particles 018 - 08/12/2018 Provider: Le Currie NP Diagnosis: 2 once a day True Metrix Blood Glucose Test STRP 06/20/2018 - 07/07/20 18 Provider: Diagnosis: Type 2 diabetes rob itus with unspecified complications as directed, use to test BG bid and PRN True Metrix Blood Glucose Test In Vitro Strip 06/20/2018 - 0 03/16/2019 Provider: Krista Saba DO Diagnosis: Type 2 diabetes rob itus with unspecified complications twice a day as directed, use to test BG bid and PRN Cymbalta 30MG Oral Capsule Delayed Release Particles 018 - 07/08/2018 Provider: Le Currie NP Diagnosis: 2 once a day Basaglar KwikPen 100 UNIT/ML SC SOPN 05/07/2018 - 05/29/2018 Provider: Diagnosis: Type 2 diabetes rob itus with unspecified complications Inject 14 units SC with breakfast daily MDD=14 Dosage incr ease Basaglar KwikPen 100UNIT/ML Subcutaneous Solution Pen- injector 05/07/2018 - 08/28/2018 Provider: Le Currie NP Diagnosis: Type 2 diabetes rob itus with unspecified complications as directed Inject 14 units SC with breakfast daily MDD=14 Dosage increase Cymbalta 30MG Oral Capsule Delayed Release Particles 018 - 06/05/2018 Provider: Le Currie NP Diagnosis: 2 once a day HydroCHLOROthiazide 25MG Oral Tablet 04/08/2018 - 08/28/2018 Provider: Le Currie NP Diagnosis: Essential (primary) hypertension once a day Plavix 75 MG OR TABS 04/08/2018 - 05/07/2018 Provider: Diagnosis: hydroCHLOROthiazide 25 MG TABS 04/08/2018 - 05/07/2018 Provi yulissa: Diagnosis: Essential (primary) hypertension Plavix 75MG Oral Tablet 04/08/2018 - 08/28/2018 Provider: Le Currie NP Diagnosis: once a day Levothyroxine Sodium 50MCG Oral Tablet 04/02/2018 - 08/12/19 19 Provider: Le Currie NP Diagnosis: once a day 1 tab po daily Cymbalta 30MG Oral Capsule Delayed Release Particles - 04/30/2018 Provider: Sharmin George NP Diagnosis: 2 once a day Plavix 75MG Oral Tablet 03/29/2018 - 04/08/2018 Provider: Sharmin George NP Diagnosis: once a day 1 tab po daily HydroCHLOROthiazide 25MG Oral Tablet 03/29/2018 - 04/08/2018 Provider: Sharmin George NP Diagnosis: once a day 1 tab po daily Potassium Chloride ER 20MEQ Oral Tablet Extended Relea se 03/27/2018 - 08/28/2018 Provider: Le Currie NP Diagnosis: once a day Magnesium Oxide 400MG Oral Tablet 03/27/2018 - 08/28/2018 Pr ovider: Le Currie NP Diagnosis: once a day MetFORMIN HCl 1000MG Oral Tablet 03/27/2018 - 08/28/2018 Pro vider: Le Currie NP Diagnosis: Type 2 diabetes rob itus with unspecified complications twice a day Potassium Chloride ER 20 MEQ OR TBCR 03/27/2018 - 08/28/2018 Provider: Diagnosis: Magnesium Oxide 400 MG OR TABS 03/27/2018 - 08/28/2018 Provi yulissa: Diagnosis: metFORMIN HCl 1000 MG TABS 03/27/2018 - 04/08/2018 Provider: Diagnosis: Type 2 diabetes rob itus with unspecified complications Glimepiride 2MG Oral Tablet 03/13/2018 - 08/28/2018 Provider : Le Currie NP Diagnosis: as directed 3 a day Vitamin D (Ergocalciferol) [id number] Oral Capsule 03/13/2018 - 12/02/2018 Provider: Le [...] inject 10 units SC with breakfast daily CareFine Pen [place] 32G X 4 MM Miscellaneous 02/11/2018 - 0 12/09/2018 Provider: Krista Saba DO Diagnosis: Type 2 diabetes rob itus with unspecified complications as directed; use to inject insulin once daily Lantus SoloStar 100UNIT/ML Subcutaneous Solution Pen-i njector 02/11/2018 - 02/11/2018 Provider: Krista Saba DO Diagnosis: Type 2 diabetes rob itus with unspecified complications as directed; inject 10 units with breakfast each morning SC Magnesium Oxide 400MG Oral Tablet 01/21/2018 - 02/21/2018 Pr ovider: Krista Saba DO Diagnosis: once a day MetFORMIN HCl 1000MG Oral Tablet 01/21/2018 - 02/21/2018 Pro vider: Krista Saba DO Diagnosis: twice a day 1 tab po BID Januvia 100MG Oral Tablet 01/21/2018 - 03/13/2018 Provider: Krista Saba DO Diagnosis: once a day Glimepiride 2MG Oral Tablet 01/21/2018 - 03/13/2018 Provider : Diagnosis: 3 a day Potassium Chloride ER 20MEQ Oral Tablet Extended Relea se 01/17/2018 - 02/21/2018 Provider: Krista Saba DO Diagnosis: once a day Blood Glucose System Luke Kit 01/14/2018 - 08/12/2018 Provide r: Krista Saba DO Diagnosis: Type 2 diabetes rob itus with unspecified complications twice a day please dispense glucose meter covered by insuran ce Blood Glucose Test In Vitro Strip 01/14/2018 [...] test BG up to BID and PRN Lancets MISC 01/14/2018 - 03/04/2018 Provider: Diagnosis: Type 2 diabetes rob itus with unspecified complications please dipsense what is covered by ins, use to test BG up to BID Blood Glucose Test STRP 01/14/2018 - 03/04/2018 Provider: Diagnosis: Type 2 diabetes rob itus with unspecified complications use to test BG up to 2 times per day Blood Glucose System Luke KIT 01/14/2018 - 03/04/2018 Provide r: Diagnosis: Type 2 diabetes rob itus with unspecified complications please dispense glucose meter covered by insurance HydroCHLOROthiazide 25MG Oral Tablet 01/10/2018 - 03/13/2018 Provider: Diagnosis: 1 tab po daily Glimepiride 1MG Oral Tablet 01/10/2018 - 01/21/2018 Provider : Diagnosis: 3 tabs po daily Januvia 25MG Oral Tablet 01/10/2018 - 01/10/2018 Provider: Diagnosis: 1 tab po daily MetFORMIN HCl 1000MG Oral Tablet 01/10/2018 - 01/21/2018 Pro vider: Diagnosis: 1 tab po BID Aspirin 325MG Oral Tablet 01/10/2018 - 08/28/2018 Provider: Diagnosis: 1 tab po daily Januvia 100MG Oral Tablet 01/10/2018 - 01/21/2018 Provider: Krista Saba DO Diagnosis: once a day [facility] Vitamin D3 [id number] Oral Capsule 01/10/2018 - 8 Provider: Diagnosis: two caps everyday Januvia 50MG Oral Tablet 01/10/2018 - 01/10/2018 Provider: Diagnosis: EQL [place] 3 Fish Oil 1000MG Oral Capsule 01/10/2018 - 2017 Provider: Diagnosis: two caps twice daily Simvastatin 40MG Oral Tablet 01/10/2018 - 02/20/2018 Provide r: Diagnosis: 1 tab at bedtime Sertraline HCl 50MG Oral Tablet 01/10/2018 - 08/14/2018 Prov ider: Diagnosis: 1 tab po daily MiraLax Oral Powder 01/10/2018 - 08/28/2018 Provider: Diagnosis: 17 po daily Algal [place]-3 DHA 200MG Oral Capsule 01/10/2018 - 01/10/2018 Provider: Diagnosis: 1 tab po daily Levothyroxine Sodium 50MCG Oral Tablet 01/10/2018 - 08/28/19 19 Provider: Diagnosis: 1 tab po daily Cymbalta 30MG Oral Capsule Delayed Release Particles 018 - 03/13/2018 Provider: Diagnosis: 2 caps po daily Plavix 75MG Oral Tablet 01/10/2018 - 03/13/2018 Provider: Diagnosis: 1 tab po daily Medications Administered Includes: Administered Medications in patient's chartNo Administered Medications Recorded Vital Signs Includes: Vital Signs from 06/03/2019 through 06/03/2020 Vital Name 03/07/2020 01:15P 03/01/2020 02:48P 06/23/2019 0 1:42P Blood Pressure Sitting L 120/76 128/80 BP Cuff Size Large Regular Large Pulse Rate-Sitting (bpm) 92 86 90 Pulse Rhythm Regular Regular Respiration Rate (breaths/min) 18 18 1 8 Temp-Tympanic (F) 99.9 98.6 97.8 Height (in) 66 66 Weight (lb) 179 180 181 Body Mass Index (kg/m2) 28.9 29.1 Body Surface Area (m2) 1.91 1.91 Pain Level 0 0 0 Oxygen Saturation (%) 95 97 96 Flow Rate (l/min) (None (Room Air)) (None (Room Air)) (None ( Room Air)) FiO2 (%) 21 21 21 Blood Pressure Sitting R 148/80 Note: temp taken by Afshan SYKES Results Includes: Results from 06/03/2019 through 06/03/2020 NO URINE RECEIVED FROM PATIENT [facility] Ordered by Sharmin Danielson NP on 04/13/[address] [place], [address] Collected: 04/13/2020 Reported: 04/13/2020 tel:[phone] NO URINE RECEIVED FROM PATIENT NO URINE RECEIVED None Note: Patient informed to return with jaelyn espinoza.Responsible Observer: CLIVE ABRAHAM NO URINE RECEIVED FORM PATIENT 200.6095 (A) Reviewed by Sharmin Danielson NP on 04/14/20; All test results are final unless otherwise noted. Reported Physicians [facility] Ordered by Sharmin Danielson NP on 04/13/[address] [place] [address], [address] Collected: 04/13/2020 Reported: 04/13/2020 tel:[phone] Reported Physicians See Note None Note: Reported Physicians:Ordering: Sharmin ThompsonAttending: Sharmin Danielson Reviewed by Sharmin Danielson NP on 04/14/20; All test results are final unless otherwise noted. FREE T4 (FREE THYROXINE) [facility] Ordered by Sharmin Danielson NP on 04/09/[address] [place] [address], [address] Collected: 04/13/2020 Reported: 04/13/2020 tel:[phone] FREE T4 (FREE THYROXINE) 1.01 NG/DL (0.76-1.78) N (Normal) Note: Responsible Observer: FREE T4 FREE THYROXINE 300.5250 (A) Reviewed by Sharmin Danielson NP on 04/14/20; All test results are final unless otherwise noted. TSH [facility] Ordered by Sharmin Danielson NP on 04/09/[address] [place] [address], [address] Collected: 04/13/2020 Reported: 04/13/2020 tel:[phone] TSH 1.295 uIU/ML (0.470-4.200) N (Normal) Note: Patients should not be tested for 72 hours post fluorescein dye angiography. A false depression of result may occur.Responsible Observer: TSH TSH 300.5500 (A) Reviewed by Sharmin Danielson NP on 04/14/20; All test results are final unless otherwise noted. Reported Physicians [facility] Ordered by Sharmin Danielson NP on 04/09/[address] [place] [address], [address] Collected: 04/13/2020 Reported: 04/13/2020 tel:[phone] Reported Physicians See Note None Note: Reported [...] are final unless otherwise noted. MICROALBUMIN RANDOM [facility] Ordered by Trevon Franklin DO on 01/31/[address], [address] Collected: 03/07/2020 Reported: 03/07/2020 tel:[phone] Note: Has Patient Fasted For The Past [...] final unless otherwise noted. COMPREHENSIVE METABOLIC PANEL [facility] Ordered by Trevon Franklin DO on 01/31/[address] [place] [address], [address] Collected: 03/07/2020 Reported: 03/07/2020 tel:[phone] Note: Has Patient Fasted For The Past [...] are final unless otherwise noted. LIPID PANEL [facility] Ordered by Trevon Franklin DO on 01/31/[address] [place] [address], [address] Collected: 03/07/2020 Reported: 03/07/2020 tel:[phone] Note: Has Patient Fasted For The Past [...] results are final unless otherwise noted. TSH [facility] Ordered by Trevon Franklin DO on 01/31/[address] [place] [address], [address] Collected: 03/07/2020 Reported: 03/07/2020 tel:[phone] Note: Has Patient Fasted For The Past 12 Hours? Y TSH 0.133 uIU/ML (0.470-4.200) L (Low) Note: Patients should not be tested for 72 hours post fluorescein dye angiography. A false depression of result may occur.Responsible Observer: TSH TSH 300.5500 (A) Reviewed by Sharmin Danielson NP on 03/07/20 20; All test results are final unless otherwise noted. CBC w/ Auto Diff [facility] Ordered by Trevon Franklin DO on 01/31/[address] [place] [address], [address] Collected: 03/07/2020 Reported: 03/07/2020 tel:[phone] BASO # (AUTO) 0.07 10\^3/uL (0.00-0.20) N [...] are final unless otherwise noted. Reported Physicians [facility] Ordered by Trevon Franklin DO on 01/31/[address] [place] [address], [address] Collected: 03/07/2020 Reported: 03/07/2020 tel:[phone] Reported Physicians See Note None Note: Reported Physicians:Ordering: Trevon Lindoending: Trevon Franklin Reviewed by Sharmin Danielson NP on 03/07/20 20; All test results are final unless otherwise noted. COMPREHENSIVE METABOLIC PANEL [facility] Ordered by Trevon Franklin DO on 01/14/[address], [address] Collected: 01/14/2020 Reported: 01/14/2020 tel:[phone] Note: Has Patient Fasted For The Past [...] result s are final unless otherwise noted. [facility] Ordered by Trevon Franklin DO on 01/14/[address], [address] Collected: 01/14/2020 Reported: 01/14/2020 tel:[phone] Note: Has Patient Fasted For The Past 12 Hours? N TSH 12.204 uIU/ML (0.470-4.200) H (High) Note: Patients should not be tested for 72 hours post fluorescein dye angiography. A false depression of result may occur.Responsible Observer: TSH TSH 300.5500 (A) Reviewed on 01/18/2020; All test result s are final unless otherwise noted. CBC WITH MANUAL DIFF [facility] Ordered by Trevon Franklin DO on 01/14/[address], [address] Collected: 01/14/2020 Reported: 01/14/2020 tel:[phone] BAND # 0.00 10\^3/uL (0.00-0.10) N (Normal) [...] are final unless otherwise noted. Reported Physicians [facility] Ordered by Trevon Franklin DO on 01/14/[address], [address] Collected: 01/14/2020 Reported: 01/14/2020 tel:[phone] Reported Physicians See Note None Note: Reported Physicians:Ordering: Trevon Lindoending: Trevon Franklin Reviewed on 01/18/2020; All test result s are final unless otherwise noted. URINALYSIS [facility] Ordered by Trevon Jayme Franklin DO on 01/07/[address], [address] Collected: 01/07/2020 Reported: 01/07/2020 tel:[phone] URINE EPITH MANY PER/LPF (FEW-MOD) None Note: [...] are final unless otherwise noted. URINE CULTURE [facility] Ordered by Trevon Franklin DO on 01/07/[address] [place] [address], [address] Collected: 01/07/2020 Reported: 01/09/2020 tel:[phone] See Note Peterson None Note: Run: 01/09/20 0849 INTERFACED REPORT Name: nEder Nolan Age/Sex: 74/F Location: [facility] Acct: [id number] Unit: [id number] Status: REG REF Room/Bed: Re01/07/20 Disch: Att Dr: Trevon Franklin DO Specimen #: [id number] Ordered : 01/07/2011/22/1846 Collected : 01/07/2011/22/1846 By: [...] are final unless otherwise noted. Reported Physicians [facility] Ordered by Trevon Franklin DO on 01/07/[address] [place] [address], [address] Collected: 01/07/2020 Reported: 01/09/2020 tel:[phone] Reported Physicians See Note None Note: Reported Physicians:Ordering: Trevon Lindoending: Trevon Franklin Reviewed by Trevon Franklin DO on ; All test results are final unless otherwise noted. [facility] Ordered by Michelle NAIK on 10/26/[address], [address] Collected: 10/28/2019 Reported: 10/30/2019 tel:[phone] TSH 5.839 uIU/ML (0.470-4.200) H (High) Note: Patients should not be tested for 72 hours post fluorescein dye angiography. A false depression of result may occur.Responsible Observer: TSH TSH 300.4954 (A) Reviewed by Trevon Franklin DO on ; All test results are final unless otherwise noted. Reported Physicians [facility] Ordered by Michelle NAIK on 10/26/[address] [place] [address], [address] Collected: 10/28/2019 Reported: 10/30/2019 tel:[phone] Reported Physicians See Note None Note: Reported Physicians:Ordering: Michelle PerezAttending: Michelle Horowitz Reviewed by Trevon Franklin DO on ; All test results are final unless otherwise noted. CBC w/ Auto Diff [facility] Ordered by Michelle Horowitz [facility] on 07/10/[address] [place] [address], [address] Collected: 08/26/2019 Reported: 08/26/2019 tel:[phone] BASO # (AUTO) 0.07 10\^3/uL (0.00-0.20) N [...] final unless otherwise noted. RETICULOCYTE % (AUTO) [facility] Ordered by Michelle NAIK on 07/10/[address] [place] [address], [address] Collected: 08/26/2019 Reported: 08/26/2019 tel:[phone] IMMATURE RETIC FRACTION 8.0 % (3.0-15.9) N [...] final unless otherwise noted. COMPREHENSIVE METABOLIC PANEL [facility] Ordered by Michelle NAIK on 07/10/[address] [place] [address], [address] Collected: 08/26/2019 Reported: 08/26/2019 tel:[phone] Note: Has Patient Fasted For The Past [...] are final unless otherwise noted. IRON TIBC [facility] Ordered by Michelle NAIK on 07/10/[address], [address] Collected: 08/26/2019 Reported: 08/26/2019 tel:[phone] Note: Has Patient Fasted For The Past [...] results are final unless otherwise noted. FERRITIN [facility] Ordered by Michelle NAIK on 07/10/[address] [place] [address], [address] Collected: 08/26/2019 Reported: 08/26/2019 tel:[phone] Note: Has Patient Fasted For The Past 12 Hours? N Has Patient Fasted For The Past 12 Hours? Y FERRITIN 45.7 NG/ML (22-322) N (Normal) Note: Responsible Observer: FERRITIN CAL RITIN 300.2650 (A) Reviewed by Michelle NAIK on 08/06; All test results are final unless otherwise noted. LIPID PANEL [facility] Ordered by Michelle NAIK on 07/10/[address] [place] [address], [address] Collected: 08/26/2019 Reported: 08/26/2019 tel:[phone] Note: Has Patient Fasted For The Past [...] are final unless otherwise noted. VITAMIN B12 [facility] Ordered by Michelle NAIK on 07/10/[address] [place] [address], [address] Collected: 08/26/2019 Reported: 08/26/2019 tel:[phone] Note: Has Patient Fasted For The Past 12 Hours? N Has Patient Fasted For The Past 12 Hours? Y VITAMIN B12 727 PG/ML (211-2000) N (Normal) Note: Responsible Observer: B12 VITAMIN B12 300.5200 (A) Reviewed by Michelle NAIK on 08/06; All test results are final unless otherwise noted. FOLATE [facility] Ordered by Michelle NAIK on 07/10/[address] [place] [address], [address] Collected: 08/26/2019 Reported: 08/26/2019 tel:[phone] Note: Has Patient Fasted For The Past 12 Hours? N Has Patient Fasted For The Past 12 Hours? Y FOLATE 10.73 NG/ML (3.40-24.00) N (Normal) Note: Responsible Observer: FOLATE FOLAT E 300.5210 (A) Reviewed by Michelle NAIK on 08/06; All test results are final unless otherwise noted. TSH [facility] Ordered by Michelle REYNOLDSP on 07/10/2019 [address] [place], [address] Collected: 08/26/2019 Reported: 08/26/2019 tel:[phone] Note: Has Patient Fasted For The Past 12 Hours? N Has Patient Fasted For The Past 12 Hours? Y TSH 6.402 uIU/ML (0.470-4.200) H (High) Note: Patients should not be tested for 72 hours post fluorescein dye angiography. A false depression of result may occur.Responsible Observer: TSH TSH 300.5500 (A) Reviewed by Michelle NAIK on 08/06; All test results are final unless otherwise noted. Reported Physicians [facility] Ordered by Michelle REYNOLDSP on 07/10/2019 [address] [place], [address] Collected: 08/26/2019 Reported: 08/26/2019 tel:[phone] Reported Physicians See Note None Note: Reported Physicians:Ordering: Michelle PerezAttending: Michelle Horowitz Reviewed by Michelle NAIK on 08/06; All test results are final unless otherwise noted. [facility] Ordered by Michelle REYNOLDSP on 07/15/2019 [address] [place], [address] Collected: 07/10/2019 Reported: 07/10/2019 tel:[phone] TSH 2.683 uIU/ML (0.470-4.200) N (Normal) Note: Patients should not be tested for 72 hours post fluorescein dye angiography. A false depression of result may occur.Responsible Observer: TSH TSH 300.5500 (A) Reviewed by Michelle NAIK on 04/2019; All test results are final unless otherwise noted. Reported Physicians [facility] Ordered by Michelle NAIK on 07/15/2019 [address] [place], [address] Collected: 07/10/2019 Reported: 07/10/2019 tel:[phone] Reported Physicians See Note None Note: Reported Physicians:Ordering: Checo Perezending: Michelle Horowitz Reviewed by Michelle REYNOLDSP on 04/2019; All test results are final [...] Illness Recorded Social History Description Last Updated Do you feel stress - tense, restless, ne rvous, or anxious, or unable to sleep at night because your mind is troubled all the time - these days? A little bit 03/07/2020 Has high school diploma 03/07/2020 How hard is it for you to pay for the ve basics like food, housing, medical care, and heating? was four pts Not very hard 03/07/2020 How often does patient see or talk to pe ople that that he/she cares about and feels close to: 5 or more times a week 03/07/2020 No secondhand cigarette smoke exposure 03/07/2020 Smoking status 03/07/2020 : Former smoker 03/07/2020 Procedures and Surgical/Medical History Includes: Procedures from 06/03/2019 through 06/03/2020 Procedures CPT-4 Diagnosis Performing Provider Service Location Service Date Hemoglobin; Glycated A1c (QW) 47797 Type 2 alyssia betes mellitus with unspecified complications Sharmin Danielson NP [facility] 03/07/2020 Tdap, Tetanus, Diphthe[place] [address] Encounter for immunization Sharmin Danielson NP [facility] 03/07/2020 Immunization Administration (includes Percutaneous, [place] [id number] Encounter for immunization Sharmin Danielson NP [facility] 03/07/2020 AHR -Subsequent Annual Wellness Visit (Signi/Sep Eval. & Man .) [id number] Encntr for general adult medical exam w/o abnormal findings, Anxiety disorder, unspecified, Unspecified menopausal and perimenopausal disorder, Essential (primary) hypertension Sharmin Danielson [employer] [facility] 03/07/2020 Qual nonMD est pt 21>min G2063 Essential (prim enma) hypertension, Type 2 diabetes mellitus with unspecified complications, Hypokalemia, Hypothyroidism, unspecified Trevon Delacruz Justinmanjulachata DO [facility] 01/07/2020 Hemoglobin; Glycated A1c (QW) 26581 Type 2 alyssia betes mellitus with unspecified complications Michelle Horowitz [facility] 06/23/2019 Surgical History Last Updated Surgical / procedural history stent RLE 03/07/2020 Medical History Last Updated Generalized noncompliance 06/03/2020 Not taking antibiotics 06/03/2020 Past medical history -Please see Problem List for Act prateek Chronic Problems 03/07/2020 Therapy noncompliance due to lack of comprehension 10/2019 Therapy noncompliance for dietary reasons 03/07/2020 Family History Includes: Family History in patient's chart Description Last Updated Family history of diabetes mellitus mom 03/07/2020 Family history of heart disease dad 03/07/2020 Family history of hypertension dad 03/07/2020 Review of Systems Review of Systems not supported for this document typeNo Review of Systems Recorded Mental Status Mental Status not supported for this document typeNo Mental Status Recorded Functional Status Functional Status not supported for [...] Diarrhea 018 Active Encounters Includes: Encounters from 06/03/2019 through 06/03/2020 Encounter Provider Location Date Diagnosis Care Management Medical- Telephone Encounter Sharmin Danielson NP [facility] 06/03/2020 Chart Update Hailey Freed RN 04/14/2020 Correspondence Trevon Franklin 03/31/2020 Chart Update Rebecca Jagjit DANIELS 03/31/2020 Lab Order Sharmin Reis Jagjit DANIELS 03/10/2020 [Patient Encounter] Sharmin Reis Jagjit DANIELS 03/08/2020 [Patient Encounter] Sharmin Reis Jagjit [employer] [employer] 03/07/2020 A[facility] Sharmin Danielson [facility] [facility] 03/07/2020 Routine History and Physical, Diabetes Mellitus Type 2, Hypertension (systemic), Hypothyroidism, Nicotine Dependence Cigarettes Mild in Early Remission Correspondence Trevon Franklin 03/03/2020 Acute L3 SashaLeydi George NP [facility] 03/01/20 20 Tendonitis Rotator Cuff Left, Trapezius Muscle Strain Left Telephonic Encounter Trevongabriela Franklin 01/14/2020 Hypothyroidism Telephonic Encounter Trevon Franklin DO [facility] 020 Lab Order Trevongabriela Franklin 01/07/2020 Verti go, Hypothyroidism, Hypokalemia, Hypertension (systemic), Diabetes Mellitus Type 2 Primary Care Telehealth Zoom Trevongabriela Franklin Diabetes Mellitus Type 2, Hypothyroidism, Hypertension (systemic), Anxiety Disorder of Unknown (axis Iii) Etiology, Hyperlipidemia Care Management Medical- Telephone Encounter Michelle Horowitz [facility] 10/13/2019 Care Management Medical- Telephone Encounter Ksenia Bennett RN 10/06/2019 Correspondence Michelle Horowitz [facility] 08/28/2019 Lab Order Michelle Horowitz [facility] 08/28/2019 Medication Order Michelle Horowitz [facility] 08/25/2019 Correspondence Michelle Horowitz [facility] 08/17/2019 Care Management Medical- Telephone Encounter Ksenia Bennett RN 08/13/2019 Correspondence Michelle Horowitz [facility] 07/14/2019 Diabetes Follow-up Michelle Horowitz [facility] 06/23/2019 Diabetes Mellitus Type 2, Hypothyroidism, Hypertension (systemic), Anxiety Disorder of Unknown (axis Iii) Etiology, Hyperlipidemia Insurance Includes: Active Insurance Policies Plan Name Member ID Group # Subscriber Relationship Effective Da cameron 1 - [facility] [id number] Ender Nolan Self [phone] [id number] Unknown Advance Directives Includes: Current Advance Directives Directive Pat Aware Third Libertarian Effective Date Reviewed Status Ebola Screening Performed [...]
--- OUTSIDE RECORDS SUMMARY | 2020-09-01 15:08 | CCD ---
Author Author [facility] Organization [facility] Address Unknown Phone Unavailable Care Team Providers Care Crossword Puzzle Maker Name Role Phone Kimberlyn, Chato Sharmin WOOL HAT FLANGER Unavailable Unavailable Shaben, E Sharmin WOOL HAT FLANGER Unavailable Unavailable Shaben, E Sharmin WOOL HAT FLANGER Unavailable Unavailable Shaben, E Sharmin WOOL HAT FLANGER Unavailable Unavailable Shaben, E Sharmin WOOL HAT FLANGER Unavailable Unavailable Shaben, E Sharmin WOOL HAT FLANGER Unavailable Unavailable Shaben, E Sharmin WOOL HAT FLANGER Unavailable Unavailable Shaben, E Sharmin WOOL HAT FLANGER Unavailable Unavailable Shaben, E Sharmin WOOL HAT FLANGER Unavailable Unavailable Shaben, E Sharmin WOOL HAT FLANGER Unavailable Unavailable Shaben, E Sharmin WOOL HAT FLANGER Unavailable Unavailable Shaben, E Sharmin WOOL HAT FLANGER Unavailable Unavailable Shaben, E Sharmin WOOL HAT FLANGER Unavailable Unavailable Shaben, E Sharmin WOOL HAT FLANGER Unavailable Unavailable Shaben, E Sharmin WOOL HAT FLANGER Unavailable Unavailable Shaben, E Sharmin WOOL HAT FLANGER Unavailable Unavailable Shaben, E Sharmin WOOL HAT FLANGER Unavailable Unavailable Shaben, E Sharmin WOOL HAT FLANGER Unavailable Unavailable Shaben, E Sharmin WOOL HAT FLANGER Unavailable Unavailable Shaben, E Sharmin WOOL HAT FLANGER Unavailable Unavailable Shaben, E Sharmin WOOL HAT FLANGER Unavailable Unavailable Shaben, E Sharmin WOOL HAT FLANGER Unavailable Unavailable Shaben, E Sharmin WOOL HAT FLANGER Unavailable Unavailable Shaben, E Sharmin WOOL HAT FLANGER Unavailable Unavailable Brushaber, M Michelle WATER CONTROL STATION ENGINEER Unavailable Unavailable Brushaber, M Michelle WATER CONTROL STATION ENGINEER Unavailable Unavailable Brushaber, M Michelle WATER CONTROL STATION ENGINEER Unavailable Unavailable Brushaber, M Michelle WATER CONTROL STATION ENGINEER Unavailable Unavailable Brushaber, M Michelle WATER CONTROL STATION ENGINEER Unavailable Unavailable Brushaber, M Michelle WATER CONTROL STATION ENGINEER Unavailable Unavailable Brushaber, M Michelle WATER CONTROL STATION ENGINEER Unavailable Unavailable Brushaber, M Michelle WATER CONTROL STATION ENGINEER Unavailable Unavailable Brushaber, M Michelle WATER CONTROL STATION ENGINEER Unavailable Unavailable Brushaber, M Michelle WATER CONTROL STATION ENGINEER Unavailable Unavailable Brushaber, M Michelle WATER CONTROL STATION ENGINEER Unavailable Unavailable Brushaber, M Michelle WATER CONTROL STATION ENGINEER Unavailable Unavailable Brushaber, M Michelle WATER CONTROL STATION ENGINEER Unavailable Unavailable Brushaber, M Michelle WATER CONTROL STATION ENGINEER Unavailable Unavailable Brushaber, M Michelle WATER CONTROL STATION ENGINEER Unavailable Unavailable Brushaber, M Micehlle WATER CONTROL STATION ENGINEER Unavailable Unavailable Brushaber, M Michelle WATER CONTROL STATION ENGINEER Unavailable Unavailable Brushaber, M Michelle WATER CONTROL STATION ENGINEER Unavailable Unavailable Brushaber, M Michelle WATER CONTROL STATION ENGINEER Unavailable Unavailable Brushaber, M Michelle WATER CONTROL STATION ENGINEER Unavailable Unavailable Brushaber, M Michelle WATER CONTROL STATION ENGINEER Unavailable Unavailable Brushaber, M Michelle WATER CONTROL STATION ENGINEER Unavailable Unavailable Brushaber, M Michelle WATER CONTROL STATION ENGINEER Unavailable Unavailable Brushaber, M Michelle WATER CONTROL STATION ENGINEER Unavailable Unavailable Brushaber, M Michelle WATER CONTROL STATION ENGINEER Unavailable Unavailable Brushaber, M Michelle WATER CONTROL STATION ENGINEER Unavailable Unavailable Brushaber, M Michelle WATER CONTROL STATION ENGINEER Unavailable Unavailable Brushaber, M Michelle WATER CONTROL STATION ENGINEER Unavailable Unavailable Brushaber, M Michelle WATER CONTROL STATION ENGINEER Unavailable Unavailable Brushaber, M Michelle WATER CONTROL STATION ENGINEER Unavailable Unavailable Brushaber, M Michelle WATER CONTROL STATION ENGINEER Unavailable Unavailable Brushaber, M Michelle WATER CONTROL STATION ENGINEER Unavailable Unavailable Brushaber, M Michelle WATER CONTROL STATION ENGINEER Unavailable Unavailable Brushaber, M Michelle WATER CONTROL STATION ENGINEER Unavailable Unavailable JASIEL-GEORGE, CHASE WATER CONTROL STATION ENGINEER Unavailable Unavaila ble JASIEL-GEORGE, CHASE WATER CONTROL STATION ENGINEER Unavailable Unavaila ble JASIEL-GEORGE, CHASE WATER CONTROL STATION ENGINEER Unavailable Unavaila ble JASIEL-GEORGE, CHASE WATER CONTROL STATION ENGINEER Unavailable Unavaila ble JASIEL-GEORGE, CHASE WATER CONTROL STATION ENGINEER Unavailable Unavaila ble JASIEL-GEORGE, CHASE WATER CONTROL STATION ENGINEER Unavailable Unavaila ble JASIEL-GEORGE, SHARMIN ACOSTA WATER CONTROL STATION ENGINEER Unavailable Unavaila ble JASIEL-GEORGE, SHARMIN ACOSTA WATER CONTROL STATION ENGINEER Unavailable Unavaila ble JASIEL-GEORGE, SHARMIN ACOSTA WATER CONTROL STATION ENGINEER Unavailable Unavaila ble JASIEL-GEORGE, SHARMIN ACOSTA WATER CONTROL STATION ENGINEER Unavailable Unavaila ble JASIEL-GEORGE, SHARMIN ACOSTA WATER CONTROL STATION ENGINEER Unavailable Unavaila ble JASIEL-GEORGE, SHARMIN ACOSTA WATER CONTROL STATION ENGINEER Unavailable Unavaila ble JASIEL-GEORGE, SHARMIN ACOSTA WATER CONTROL STATION ENGINEER Unavailable Unavaila ble JASIEL-GEORGE, SHARMIN ACOSTA WATER CONTROL STATION ENGINEER Unavailable Unavaila ble JASIEL-GEORGE, SHARMIN ACOSTA WATER CONTROL STATION ENGINEER Unavailable Unavaila ble JASIEL-GEORGE, SHARMIN ACOSTA WATER CONTROL STATION ENGINEER Unavailable Unavaila ble JASIEL-GEORGE, SHARMIN ACOSTA WATER CONTROL STATION ENGINEER Unavailable Unavaila ble JASIEL-GEORGE, SHARMIN ACOSTA WATER CONTROL STATION ENGINEER Unavailable Unavaila ble JASIEL-GEORGE, SHARMIN ACOSTA WATER CONTROL STATION ENGINEER Unavailable Unavaila ble JASIEL-GEORGE, SHARMIN ACOSTA WATER CONTROL STATION ENGINEER Unavailable Unavaila ble JASIEL-GEORGE, SHARMIN ACOSTA WATER CONTROL STATION ENGINEER Unavailable Unavaila ble JASIEL-GEORGE, SHARMIN ACOSTA WATER CONTROL STATION ENGINEER Unavailable Unavaila ble JASIEL-GEORGE, SHARMIN ACOSTA WATER CONTROL STATION ENGINEER Unavailable Unavaila ble JASIEL-GEORGE, SHARMIN ACOSTA WATER CONTROL STATION ENGINEER Unavailable Unavaila ble JASIEL-GEORGE, SHARMIN ACOSTA WATER CONTROL STATION ENGINEER Unavailable Unavaila ble JASIEL-GEORGE, SHARMIN ACOSTA WATER CONTROL STATION ENGINEER Unavailable Unavaila ble JASIEL-GEORGE, SHARMIN ACOSTA WATER CONTROL STATION ENGINEER Unavailable Unavaila ble JASIEL-GEORGE, SHARMIN ACOSTA WATER CONTROL STATION ENGINEER Unavailable Unavaila ble JASIEL-GEORGE, SHARMIN ACOSTA WATER CONTROL STATION ENGINEER Unavailable Unavaila ble JASIEL-GEORGE, SHARMIN ACOSTA WATER CONTROL STATION ENGINEER Unavailable Unavaila ble JASIEL-GEORGE, SHARMIN ACOSTA WATER CONTROL STATION ENGINEER Unavailable Unavaila ble JASIEL-GEORGE, SHARMIN ACOSTA WATER CONTROL STATION ENGINEER Unavailable Unavaila ble JASIEL-GEORGE, SHARMIN ACOSTA WATER CONTROL STATION ENGINEER Unavailable Unavaila ble JASIEL-GEORGE, SHARMIN ACOSTA WATER CONTROL STATION ENGINEER Unavailable Unavaila ble JASIEL-GEORGE, SHARMIN ACOSTA WATER CONTROL STATION ENGINEER Unavailable Unavaila ble JASIEL-GEORGE, SHARMIN ACOSTA WATER CONTROL STATION ENGINEER Unavailable Unavaila ble JASIEL-GEORGE, SHARMIN ACOSTA WATER CONTROL STATION ENGINEER Unavailable Unavaila ble JASIEL-GEORGE, SHARMIN ACOSTA WATER CONTROL STATION ENGINEER Unavailable Unavaila ble JASIEL-GEORGE, SHARMIN ACOSTA WATER CONTROL STATION ENGINEER Unavailable Unavaila ble JASIEL-GEORGE, SHARMIN ACOSTA WATER CONTROL STATION ENGINEER Unavailable Unavaila ble JASIEL-GEORGE, SHARMIN ACOSTA WATER CONTROL STATION ENGINEER Unavailable Unavaila ble JASIEL-GEORGE, SHARMIN ACOSTA WATER CONTROL STATION ENGINEER Unavailable Unavaila ble JASIEL-GEORGE, SHARMIN ACOSTA WATER CONTROL STATION ENGINEER Unavailable Unavaila ble JASIEL-GEORGE, SHARMIN ACOSTA WATER CONTROL STATION ENGINEER Unavailable Unavaila ble JASIEL-GEORGE, SHARMIN ACOSTA WATER CONTROL STATION ENGINEER Unavailable Unavaila ble JASIEL-GEORGE, SHARMIN ACOSTA WATER CONTROL STATION ENGINEER Unavailable Unavaila ble JustinguJayme brizuela Trevon DO Unavailable Unavailable Carguello J Trevon DO Unavailable Unavailable Carguello J Trevon DO Unavailable Unavailable Carguello J Trevon DO Unavailable Unavailable CarguelloJayme Trevon DO Unavailable Unavailable CarguelloJayme Trevon DO Unavailable Unavailable CarguelloJayme Trevon DO Unavailable Unavailable CarguelloJayme Trevon DO Unavailable Unavailable CarguelloJayme Trevon DO Unavailable Unavailable CarguelloJayme Trevon DO Unavailable Unavailable CarguelloJayme Trevon DO Unavailable Unavailable CarguelloJayme Trevon DO Unavailable Unavailable CarguelloJayme Trevon DO Unavailable Unavailable CarguelloJayme Trevon DO Unavailable Unavailable CarguelloJayme Trevon DO Unavailable Unavailable CarguelloJayme Trevon DO Unavailable Unavailable CarguelloJayme Trevon DO Unavailable Unavailable CarguelloJayme Trevon DO Unavailable Unavailable CarguelloJayme Trevon DO Unavailable Unavailable CarguelloJayme Trevon DO Unavailable Unavailable CarguelloJayme Trevon DO Unavailable Unavailable CarguelloJayme Trevon DO Unavailable Unavailable CarguelloJayme Trevon DO Unavailable Unavailable CarguelloJayme Trevon DO Unavailable Unavailable CarguelloJayme Trevon DO Unavailable Unavailable CarguelloJayme Trevon DO Unavailable Unavailable CarguelloJayme Trevon DO Unavailable Unavailable CarguelloJayme Trevon DO Unavailable Unavailable CarguelloJayme Trevon DO Unavailable Unavailable CarguelloJayme Trevon DO Unavailable Unavailable CarguelloJayme Trevon DO Unavailable Unavailable CarguelloJayme Trevon DO Unavailable Unavailable CarguelloJayme Trevon DO Unavailable Unavailable CarguelloJayme Trevon DO Unavailable Unavailable CarguelloJayme Trevon DO Unavailable Unavailable CarguelloJayme Trevon DO Unavailable Unavailable CarguelloJayme Trevon DO Unavailable Unavailable CarguelloJayme Trevon DO Unavailable Unavailable CarguJayme brizuela Trevon DO Unavailable Unavailable Carguello, J Trevon DO Unavailable Unavailable Carguello J Trevon DO Unavailable Unavailable Carguello, J Trevno DO Unavailable Unavailable Carguello J Trevon DO Unavailable Unavailable Carguello J Trevon DO Unavailable Unavailable Carguello, J Trevon DO Unavailable Unavailable Carguello, J Trevon DO Unavailable Unavailable Carguello, J Trevon DO Unavailable Unavailable Carguello, J Trevon DO Unavailable Unavailable Carguello, J Trevon DO Unavailable Unavailable Carguello, J Trevon DO Unavailable Unavailable Carguello J Trevon DO Unavailable Unavailable Carguello, J Trevon DO Unavailable Unavailable Carguello, J Trevon DO Unavailable Unavailable Carguello, J Trevon DO Unavailable Unavailable Carguello, J Trevon DO Unavailable Unavailable Carguello, J Trevon DO Unavailable Unavailable Carguello, J Trevon DO Unavailable Unavailable Carguello, J Trevon DO Unavailable Unavailable Carguello, J Trevon DO Unavailable Unavailable Carguello, J Trevon DO Unavailable Unavailable Carguello, J Trevon DO Unavailable Unavailable Carguello, J Trevon DO Unavailable Unavailable Carguello J Trevon DO Unavailable Unavailable Carguello J Trevon DO Unavailable Unavailable Carguello J Trevon DO Unavailable Unavailable Carguello, J Trevon DO Unavailable Unavailable Carguello, J Trevon DO Unavailable Unavailable Carguello, J Trevon DO Unavailable Unavailable Carguello J Trevon DO Unavailable Unavailable Carguello, J Trevon DO Unavailable Unavailable Carguello, J Trevon DO Unavailable Unavailable Carguello, J Trevon DO Unavailable Unavailable Carguello, J Trevon DO Unavailable Unavailable Carguello J Trevon DO Unavailable Unavailable Carguello J Trevon DO Unavailable Unavailable Carguello J Trevon DO Unavailable Unavailable Carguello J Trevon DO Unavailable Unavailable Carguello J Trevon DO Unavailable Unavailable Carguello, J Trevon DO Unavailable Unavailable Carguello, J Trevon DO Unavailable Unavailable Carguello J Trevon DO Unavailable Unavailable Carguello, J Trevon DO Unavailable Unavailable Carguello J Trevon DO Unavailable Unavailable Abdiaziz CASTILLO, Hailey Unavailable RAVI, SHARMIN ACOSTA WATER CONTROL STATION ENGINEER Unavailable Unavaila ble RAVI, SHARMIN ACOSTA WATER CONTROL STATION ENGINEER Unavailable Unavaila ble RAVI, SHARMIN ACOSTA WATER CONTROL STATION ENGINEER Unavailable Unavaila ble JASIEL-GEORGE, SHARMIN ACOSTA WATER CONTROL STATION ENGINEER Unavailable Unavaila ble JASIEL-GEORGE, SHARMIN ACOSTA WATER CONTROL STATION ENGINEER Unavailable Unavaila ble JASIEL-GEORGE, SHARMIN ACOSTA WATER CONTROL STATION ENGINEER Unavailable Unavaila ble JASIEL-GEORGE, SHARMIN ACOSTA WATER CONTROL STATION ENGINEER Unavailable Unavaila ble JASIEL-GEORGE, SHARMIN ACOSTA WATER CONTROL STATION ENGINEER Unavailable Unavaila ble JASIEL-GEORGE, SHARMIN ACOSTA WATER CONTROL STATION ENGINEER Unavailable Unavaila ble JASIEL-GEORGE, SHARMIN ACOSTA WATER CONTROL STATION ENGINEER Unavailable Unavaila ble JASIEL-GEORGE, SHARMIN ACOSTA WATER CONTROL STATION ENGINEER Unavailable Unavaila ble JASIEL-GEORGE, SHARMIN ACOSTA WATER CONTROL STATION ENGINEER Unavailable Unavaila ble JASIEL-GEORGE, SHARMIN ACOSTA WATER CONTROL STATION ENGINEER Unavailable Unavaila ble JASIEL-GEORGE, SHARMIN ACOSTA WATER CONTROL STATION ENGINEER Unavailable Unavaila ble JASIEL-GEORGE, SHARMIN ACOSTA WATER CONTROL STATION ENGINEER Unavailable Unavaila ble JASIEL-GEORGE, SHARMIN ACOSTA WATER CONTROL STATION ENGINEER Unavailable Unavaila ble JASIEL-GEORGE, SHARMIN ACOSTA WATER CONTROL STATION ENGINEER Unavailable Unavaila ble JASIEL-GEORGE, SHARMIN ACOSTA WATER CONTROL STATION ENGINEER Unavailable Unavaila ble JASIEL-GEORGE, SHARMIN ACOSTA WATER CONTROL STATION ENGINEER Unavailable Unavaila ble JASIEL-GEORGE, SHARMIN ACOSTA WATER CONTROL STATION ENGINEER Unavailable Unavaila ble JASIEL-GEORGE, SHARMIN ACOSTA WATER CONTROL STATION ENGINEER Unavailable Unavaila ble JASIEL-GEORGE, SHARMIN ACOSTA WATER CONTROL STATION ENGINEER Unavailable Unavaila ble JASIEL-GEORGE, SHARMIN ACOSTA WATER CONTROL STATION ENGINEER Unavailable Unavaila ble JASIEL-GEORGE, SHARMIN ACOSTA WATER CONTROL STATION ENGINEER Unavailable Unavaila ble JASIEL-GEORGE, SHARMIN ACOSTA WATER CONTROL STATION ENGINEER Unavailable Unavaila ble JASIEL-GEORGE, SHARMIN ACOSTA WATER CONTROL STATION ENGINEER Unavailable Unavaila ble JASIEL-GEORGE, SHARMIN ACOSTA WATER CONTROL STATION ENGINEER Unavailable Unavaila ble JASIEL-GEORGE, SHARMIN ACOSTA WATER CONTROL STATION ENGINEER Unavailable Unavaila ble JASIEL-GEORGE, SHARMIN ACOSTA WATER CONTROL STATION ENGINEER Unavailable Unavaila ble JASIEL-GEORGE, SHARMIN ACOSTA WATER CONTROL STATION ENGINEER Unavailable Unavaila ble JASIEL-GEORGE, SHARMIN ACOSTA WATER CONTROL STATION ENGINEER Unavailable Unavaila ble JASIEL-GEORGE, SHARMIN ACOSTA WATER CONTROL STATION ENGINEER Unavailable Unavaila ble JASIEL-GEORGE, SHARMIN ACOSTA WATER CONTROL STATION ENGINEER Unavailable Unavaila ble JASIEL-GEORGE, SHARMIN ACOSTA WATER CONTROL STATION ENGINEER Unavailable Unavaila ble JASIEL-GEORGE, SHARMIN ACOSTA WATER CONTROL STATION ENGINEER Unavailable Unavaila ble JASIEL-GEORGE, SHARMIN ACOSTA WATER CONTROL STATION ENGINEER Unavailable Unavaila ble JASIEL-GEORGE, SHARMIN ACOSTA WATER CONTROL STATION ENGINEER Unavailable Unavaila ble JASIEL-GEORGE, SHARMIN ACOSTA WATER CONTROL STATION ENGINEER Unavailable Unavaila ble JASIEL-GEORGE, SHARMIN ACOSTA WATER CONTROL STATION ENGINEER Unavailable Unavaila ble JASIEL-GEORGE, SHARMIN ACOSTA WATER CONTROL STATION ENGINEER Unavailable Unavaila ble JASIEL-GEORGE, SHARMIN ACOSTA WATER CONTROL STATION ENGINEER Unavailable Unavaila ble JASIEL-GEORGE, SHARMIN ACOSTA WATER CONTROL STATION ENGINEER Unavailable Unavaila ble JASIEL-GEORGE, SHARMIN ACOSTA WATER CONTROL STATION ENGINEER Unavailable Unavaila ble JASIEL-GEORGE, SHARMIN ACOSTA WATER CONTROL STATION ENGINEER Unavailable Unavaila ble JASIEL-GEORGE, SHARMIN ACOSTA WATER CONTROL STATION ENGINEER Unavailable Unavaila ble JASIEL-GEORGE, SHARMIN ACOSTA WATER CONTROL STATION ENGINEER Unavailable Unavaila ble JONATHAN Bennett, Ksenia Unavailable Jayme Franklin DO Unavailable Unavailable Jayme Franklin DO Unavailable Unavailable Jayme Franklin DO Unavailable Unavailable Jayme Franklin DO Unavailable Unavailable Jayme Franklin Trevon DO Unavailable Unavailable Jayem Franklin DO Unavailable Unavailable Jayme Franklin DO Unavailable Unavailable Jayme Franklin DO Unavailable Unavailable Jayme Franklin DO Unavailable Unavailable Jayme Franklin DO Unavailable Unavailable Jayme Franklin DO Unavailable Unavailable Jayme Franklin DO Unavailable Unavailable Jayme Franklin DO Unavailable Unavailable Jayme Franklin Trevon DO Unavailable Unavailable Jayme Franklin DO Unavailable Unavailable Jayme Franklin DO Unavailable Unavailable Jayme Franklin Trevon DO Unavailable Unavailable Jayme Franklin Trevon DO Unavailable Unavailable Jayme Franklin Trevon DO Unavailable Unavailable Jayme Franklin Trevon DO Unavailable Unavailable Jayme Franklin Trevon DO Unavailable Unavailable Jayme Franklin Trevon DO Unavailable Unavailable Jayme Franklin Trevon DO Unavailable Unavailable JustinguJayme brizuela Trevon DO Unavailable Unavailable JustinguJayme brizuela Trevon DO Unavailable Unavailable Jayme Franklin Trevon DO Unavailable Unavailable Jayme Franklin Trevon DO Unavailable Unavailable Jayme Franklin Trevon DO Unavailable Unavailable Jayme Franklin Trevon DO Unavailable Unavailable Jayme Franklin Trevon DO Unavailable Unavailable JustinguJayme brizuela Trevon DO Unavailable Unavailable Jayme Franklin Trevon DO Unavailable Unavailable Jayme Franklin Trevon DO Unavailable Unavailable Jayme Franklin Trevon DO Unavailable Unavailable Carguello, J Trevon DO Unavailable Unavailable Carguello, J Trevon DO Unavailable Unavailable Carguello, J Trevon DO Unavailable Unavailable Carguello, J Trevon DO Unavailable Unavailable Carguello, J Trevon DO Unavailable Unavailable Carguello, J Trevon DO Unavailable Unavailable Carguello, J Trevon DO Unavailable Unavailable Carguello, J Trevon DO Unavailable Unavailable Carguello, J Trevon DO Unavailable Unavailable Carguello, J Trevon DO Unavailable Unavailable Carguello, J Trevon DO Unavailable Unavailable Carguello, J Trevon DO Unavailable Unavailable Carguello, J Trevon DO Unavailable Unavailable Carguello, J Trevon DO Unavailable Unavailable Carguello, J Trevon DO Unavailable Unavailable Carguello, J Trevon DO Unavailable Unavailable Carguello, J Trevon DO Unavailable Unavailable Carguello, J Trevon DO Unavailable Unavailable Carguello, J Trevon DO Unavailable Unavailable Carguello, J Trevon DO Unavailable Unavailable Carguello, J Trevon DO Unavailable Unavailable Carguello, J Trevon DO Unavailable Unavailable Carguello, J Trevon DO Unavailable Unavailable Carguello J Trevon DO Unavailable Unavailable Carguello, J Trevon DO Unavailable Unavailable Carguello, J Trevon DO Unavailable Unavailable Carguello, J Trevon DO Unavailable Unavailable Carguello, J Trevon DO Unavailable Unavailable Carguello, J Trevon DO Unavailable Unavailable Carguello, J Trevon DO Unavailable Unavailable Carguello, J Trevon DO Unavailable Unavailable Carguello, J Trevon DO Unavailable Unavailable Carguello, J Trevon DO Unavailable Unavailable Carguello, J Trevon DO Unavailable Unavailable Carguello, J Trevon DO Unavailable Unavailable Carguello, J Trevon DO Unavailable Unavailable Carguello, J Trevon DO Unavailable Unavailable Carguello, J Trevon DO Unavailable Unavailable Carguello J Trevon DO Unavailable Unavailable Carguello, J Trevon DO Unavailable Unavailable Carguello, J Trevon DO Unavailable Unavailable Carguello J Trevon DO Unavailable Unavailable Carguello, J Trevon DO Unavailable Unavailable Carguello, J Trevon DO Unavailable Unavailable Carguello, J Trevon DO Unavailable Unavailable Carguello J Trevon DO Unavailable Unavailable Carguello, J Trevon DO Unavailable Unavailable Carguello, J Trevon DO Unavailable Unavailable Carguello, J Trevon DO Unavailable Unavailable Re-disclosure Warning The records that you are about to access may contain information from federally-assisted alcohol or drug abuse programs. If such information is present, then the following federally mandated warning applies: This information has been disclosed to you from records protected by federal confidentiality rules (42 CFR part 2). The federal rules prohibit you from making any further disclosure of this information unless further disclosure is expressly permitted by the written consent of the person to whom it pertains or as otherwise permitted by 42 CFR part 2. A general authorization for the release of medical or other information is NOT sufficient for this purpose. The Federal rules restrict any use of the information to criminally investigate or prosecute any alcohol or drug abuse patient.The records that you are about to access may contain highly sensitive health information, the redisclosure of which is protected by Article 27-F of the [facility] Public [facility] law. If you continue you may have access to information: Regarding HIV / AIDS; Provided by facilities licensed or operated by the [facility] Office of Mental Health; or Provided by the [facility] Office for People With Developmental Disabilities. If such information is present, then the following [facility] mandated warning applies: This information has been disclosed to you from confidential records which are protected by state law. State law prohibits you from making any further disclosure of this information without the specific written consent of the person to whom it pertains, or as otherwise permitted by law. Any unauthorized further disclosure in violation of state law may result in a fine or fpc sentence or both. A general authorization for the release of medical or other information is NOT sufficient authorization for further disc losure. 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 -NO Allergies and Adverse Reactions Type Description Substance Reaction Status Data Source(s ) Drug Class PENICILLINS PENICILLINS [place] DRUG INGREDI CODEINE CODEINE [place] Family History Family Member Name Family Member Gender Family Member Status Date o f Status Description Data Source(s) Unknown Female Problem [facility] ([facility]) Encounters Encounter Providers Location Date Indications Data Source(s ) Outpatient<td ID="encounterTypeDescripti onID0">Chronic Disease Follow- up</td><td>Sharmin Danielson NP</td><td>[facility]</td><td>06/09/2020</td><td><content ID="encounterDiagnosisID0-0"> Diabetes Mellitus Type 2</content>, <content ID="encounterDiagnosisID0- 1">Hypertension (systemic)</content>, <content ID="encounterDiagnosisID0-2">Hyperlipidemia</content>, <content ID="encounterDiagnosisID0-3">Hypothyroidism</content></td> Attender: Sharmin NAIK [facility] 06/09/2020 11:13:00 AM EST - 06/09/2020 12:02:01 PM EST HypothyroidismHyperlipidemiaHypertension (systemic)Diabetes Mellitus Type 2 [place] ([facility]) Hypothyroidism Hyperlipidemia Hypertension (systemic) Diabetes Mellitus Type 2 Outpatient<td ID="encounterTypeDescripti onID1">Care Management Medical- Telephone Encounter</td><td>Sharmin Danielson NP</td><td>[facility]</td><td>06/03/2020</td><td></td> Attender: Sharmin NAIK [facility] 06/03/2020 02:56:00 PM EDT - 06/03/2020 02:56:00 PM EDT [place] ([facility]) Unknown<td ID="encounterTypeDescriptionI D2">Chart Update</td><td>Hailey Freed RN</td><td></td><td>04/14/2020</td><td></td> Attender: Hailey Freed RN 04/14/2020 10:50:00 AM EDT - 04/14/2020 11:59:00 PM EDT [place] ([facility]) Outpatient Attender: Sharmin NAIK 04/13/2020 07:58:00 A M EDT lab 1 of 1 [facility] lab 1 of 1 Unknown<td ID="encounterTypeDescriptionI D3">Correspondence</td><td>Trevon Franklin DO</td><td></td><td>03/31/2020</td><td></td> Attender: Trevon Franklin DO 03/31/2020 04:11:00 PM EDT - 03/31/2020 11:59:00 PM EDT [place] ([facility]) Unknown<td ID="encounterTypeDescriptionI D4">Chart Update</td><td>Sharmin Danielson NP</td><td></td><td>03/31/2020</td><td></td> Attender: Sharmin NAIK 03/31/2020 10:03:00 AM EDT - 03/31/2020 11:59:00 PM EDT [place] ([facility]) Outpatient Attender: Sharmin NAIK 03/30/2020 08:2 7:00 AM EDT Z12.31 mammo/US,N95.9 bonita/pre-bonita,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 211 remiss Obstetrics<td ID="encounterTypeDescripti onID5">Lab Order</td><td>Sharmin Danielson NP</td><td></td><td>03/10/2020</td><td></td> Attender: Sharmin NAIK 03/10/2020 09:14:00 AM EDT - 03/10/2020 11:59:00 PM EDT [place] ([facility]) Unknown<td ID="encounterTypeDescriptionI D6">[Patient Encounter]</td><td>Sharmin Danielson NP</td><td></td><td>03/08/2020</td><td></td> Attender: Sharmin NAIK 03/08/2020 10:08:00 AM EDT - 03/08/2020 11:59:00 PM EDT [place] ([facility]) Unknown<td ID="encounterTypeDescriptionI D7">[Patient Encounter]</td><td>Sharmin Reis Jagjit DANIELS</td><td></td><td>03/07/2020</td><td></td> Attender: Sharmin Martinezlynette NAIK 03/07/2020 02:51:00 PM EDT - 03/07/2020 11:59:00 PM EDT [place] ([facility]) Unknown<td ID="encounterTypeDescriptionI D8">AHR</td><td>Sharmin Reis Jagjit DANIELS</td><td>[facility]</td><td>03/07/2020</td><td><content ID="encounterDiagnosisID8-0">Routine History and Physical</content>, <content ID="encounterDiagnosisID8-1">Diabetes Mellitus Type 2</content>, <content ID="encounterDiagnosisID8-2">Hypertension (systemic)</content>, <content ID="encounterDiagnosisID8-3">Hypothyroidism</content>, <content ID="encounterDiagnosisID8-4">Nicotine Dependence Cigarettes Mild in Early Remission</content></td> Attender: Sharmin Martinezlynette [facility] 0 12:57:00 PM EDT - 03/07/2020 02:32:23 PM EDT Nicotine Dependence Cigarettes Mild in Early RemissionRoutine History and PhysicalNicotine Dependence Cigarettes Mild in Early RemissionRoutine History and PhysicalNicotine Dependence Cigarettes Mild in Early RemissionRoutine History and PhysicalNicotine Dependence Cigarettes Mild in Early RemissionRoutine History and PhysicalNicotine Dependence Cigarettes Mild in Early RemissionRoutine History and PhysicalNicotine Dependence Cigarettes Mild in Early RemissionRoutine History and PhysicalHypothyroidismHypothyroidismHypothyroidismHypothyroidismHypothyroidismHy pothyroidismHypertension (systemic)Diabetes Mellitus Type 2Hypertension (systemic)Diabetes Mellitus Type 2Hypertension (systemic)Diabetes Mellitus Type 2Hypertension (systemic)Diabetes Mellitus Type 2Hypertension (systemic)Diabetes Mellitus Type 2Hypertension (systemic)Diabetes Mellitus Type 2 [place] ([facility]) Nicotine Dependence Cigarettes Mild in E fanny Remission Routine History and Physical Nicotine Dependence Cigarettes Mild in E fanny Remission Routine History and Physical Nicotine Dependence Cigarettes Mild in E fanny Remission Routine History and Physical Nicotine Dependence Cigarettes Mild in E fanny Remission Routine History and Physical Nicotine Dependence Cigarettes Mild in E fanny Remission Routine History and Physical Nicotine Dependence Cigarettes Mild in E fanny Remission Routine History and Physical Hypothyroidism Hypothyroidism Hypothyroidism Hypothyroidism Hypothyroidism Hypothyroidism Hypertension (systemic) Diabetes Mellitus Type 2 Hypertension (systemic) Diabetes Mellitus Type 2 Hypertension (systemic) Diabetes Mellitus Type 2 Hypertension (systemic) Diabetes Mellitus Type 2 Hypertension (systemic) Diabetes Mellitus Type 2 Hypertension (systemic) Diabetes Mellitus Type 2 Outpatient Attender: Trevon Franklin DO 03/07/2020 08:20:00 AM EDT lab 1 of 1 [facility] lab 1 of 1 Unknown<td ID="encounterTypeDescriptionI D9">Correspondence</td><td>Trevon Franklin DO</td><td></td><td>03/03/2020</td><td></td> Attender: Trevon Franklin DO 03/03/2020 09:26:00 AM EDT - 03/03/2020 11:59:00 PM EDT [place] ([facility]) Outpatient Attender: SHARMIN RODRIGUES NP 0 03/01/2020 03:53:00 PM EDT ay [facility] Xray Outpatient<td ID="encounterTypeDescripti onID10">Acute L3</td><td>Sharmin George NP</td><td>[facility]</td><td>03/01/2020</td><td><content ID="[id number]">Tendonitis Rotator Cuff Left</content>, <content ID="zqjoihfufZyozcfbcxOC61-6">Trapezius Muscle Strain Left</content></td> Attender: SHARMIN RODRIGUES NP [facility] 03/01/2020 02: 22:00 PM EDT - 03/01/2020 03:32:51 PM EDT Trapezius Muscle Strain LeftTendonitis R otator Cuff LeftTrapezius Muscle Strain LeftTendonitis Rotator Cuff LeftTrapezius Muscle Strain LeftTendonitis Rotator Cuff LeftTrapezius Muscle Strain LeftTen donitis Rotator Cuff LeftTrapezius Muscle Strain LeftTendonitis Rotator Cuff LeftTrapezius Muscle Strain LeftTendonitis Rotator Cuff LeftTrapezius Muscle Strain LeftTendonitis Rotator Cuff Left [place] ([facility]) Trapezius Muscle Strain Left Tendonitis Rotator Cuff Left Trapezius Muscle Strain Left Tendonitis Rotator Cuff Left Trapezius Muscle Strain Left Tendonitis Rotator Cuff Left Trapezius Muscle Strain Left Tendonitis Rotator Cuff Left Trapezius Muscle Strain Left Tendonitis Rotator Cuff Left Trapezius Muscle Strain Left Tendonitis Rotator Cuff Left Trapezius Muscle Strain Left Tendonitis Rotator Cuff Left Outpatient<td ID="encounterTypeDescripti onID11">Telephonic Encounter</td><td>Trevon Franklin DO</td><td></td><td>01/14/2020</td><td><content ID="[id number]"> Hypothyroidism</content></td> Attender: Trevon Franklin DO 01/14/2020 04:13:00 PM EDT - 01/14/2020 11:59:00 PM EDT HypothyroidismHypothyroidismHypothyroidismHypothyroidismHypothyroidismHypothyroi dismHypothyroidismHypothyroidism [place] ([facility]) Hypothyroidism Hypothyroidism Hypothyroidism Hypothyroidism Hypothyroidism Hypothyroidism Hypothyroidism Hypothyroidism Outpatient Attender: Trevon Franklin DO 01/14/2020 09:36 :00 AM EDT Lab [facility] Lab Outpatient Attender: Trevon Franklin DO 01/07/2020 11:47:00 PM EDT 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 [facility] 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 Outpatient<td ID="encounterTypeDescripti onID12">Telephonic Encounter</td><td>Trevon Franklin DO</td><td>[facility]</td><td>01/07/2020</td><td></td> Attender: Trevon Franklin DO [facility] 01/07/2020 04:40:00 PM EDT - 01/07/2020 02:40:38 PM EDT [place] ([facility]) Obstetrics<td ID="encounterTypeDescripti onID13">Lab Order</td><td>Trevon Franklin DO</td><td></td><td>01/07/2020</td><td><content ID="[id number]">Vertigo</content>, <content ID="gwvbcrezfIjycrfuocEX54-9">Hypothyroidism</content>, <content ID="rbnpsvyyzQmxmqcnedCK24-2">Hypokalemia</content>, <content ID="icuerpluhTahfvkjplMK63-9">Hypertension (systemic)</content>, <content ID="azxjgufghKitqlglncDM16-7">Diabetes Mellitus Type 2</content></td> Attender: Trevon Franklin DO 01/07/2020 11:12:00 AM EDT - 01/07/2020 11:59:00 PM EDT VertigoVertigoVertigoVertigoVertigoVertigoVertigoVertigoVertigoHypothyroidismHyp aHypokalemiaHypokalemiaHypokalemiaHypokalemia HypokalemiaHypokalemiaHypokalemiaHypokalemiaDiabetes Mellitus Type 2Hypertension (systemic)Diabetes Mellitus Type 2Hypertension (systemic)Diabetes Mellitus Type 2Hypertension (systemic)Diabetes Mellitus Type 2Hypertension (systemic)Diabetes Mellitus Type 2Hypertension (systemic)Diabetes Mellitus Type 2Hypertension (systemic)Diabetes Mellitus Type 2Hypertension (systemic)Diabetes Mellitus Type 2Hypertension (systemic)Diabetes Mellitus Type 2Hypertension (systemic) [place] ([facility]) Vertigo Vertigo Vertigo Vertigo Vertigo Vertigo Vertigo Vertigo Vertigo Hypothyroidism Hypothyroidism Hypothyroidism Hypothyroidism Hypothyroidism Hypothyroidism Hypothyroidism Hypothyroidism Hypothyroidism Hypokalemia Hypokalemia Hypokalemia Hypokalemia Hypokalemia Hypokalemia Hypokalemia Hypokalemia Hypokalemia Diabetes Mellitus Type 2 Hypertension (systemic) Diabetes Mellitus Type 2 Hypertension (systemic) Diabetes Mellitus Type 2 Hypertension (systemic) Diabetes Mellitus Type 2 Hypertension (systemic) Diabetes Mellitus Type 2 Hypertension (systemic) Diabetes Mellitus Type 2 Hypertension (systemic) Diabetes Mellitus Type 2 Hypertension (systemic) Diabetes Mellitus Type 2 Hypertension (systemic) Diabetes Mellitus Type 2 Hypertension (systemic) Outpatient<td ID="encounterTypeDescripti onID14">Primary Care Telehealth [facility]</td><td>Trevon Franklin DO</td><td></td><td>11/02/2019</td><td><content ID="syjtibqeaDvpwzcuivIS44-9">Diabetes Mellitus Type 2</content>, <content ID="kaqxiqketCnafmkqpiEE43-8">Hypothyroidism</content>, <content ID="dyxnshrmwTybwurbokXO93-8">Hypertension (systemic)</content>, <content ID="dlgjbqtahKqqprqrruJK55-3">Anxiety Disorder of Unknown (axis Iii) Etiology</content>, <content ID="rhyiwmoczRegqrkftwUD88-8">Hyperlipidemia</content></td> Attender: Trevon Franklin DO 11/02/2019 03:40:00 PM EDT - 11/02/2019 11:59:00 PM EDT HypothyroidismHypothyroidismHypothyroidismHypothyroidismHypothyroidismHypothyroi Disorder of Unknown (axis Iii) EtiologyHypertension (systemic)Diabetes Mellitus Type 2HyperlipidemiaAnxiety Disorder of Unknown (axis Iii) EtiologyHypertension (systemic)Diabetes Mellitus Type 2HyperlipidemiaAnxiety Disorder of Unknown (axis Iii) EtiologyHypertension (systemic)Diabetes Mellitus Type 2 HyperlipidemiaAnxiety Disorder of Unknown (axis Iii) EtiologyHypertension (systemic)Diabetes Mellitus Type 2HyperlipidemiaAnxiety Disorder of Unknown (axis Iii) EtiologyHypertension (systemic)Diabetes Mellitus Type 2Hyperlipidemia Anxiety Disorder of Unknown (axis Iii) EtiologyHypertension (systemic)Diabetes Mellitus Type 2HyperlipidemiaAnxiety Disorder of Unknown (axis Iii) EtiologyHypertension (systemic)Diabetes Mellitus Type 2HyperlipidemiaAnxiety Disorder of Unknown (axis Iii) EtiologyHypertension (systemic)Diabetes Mellitus Type 2HyperlipidemiaAnxiety Disorder of Unknown (axis Iii) EtiologyHypertension (systemic)Diabetes Mellitus Type 2HyperlipidemiaAnxiety Disorder of Unknown (axis Iii) EtiologyHypertension (systemic)Diabetes Mellitus Type 2 [place] ([facility]) Hypothyroidism Hypothyroidism Hypothyroidism Hypothyroidism Hypothyroidism Hypothyroidism Hypothyroidism Hypothyroidism Hypothyroidism Hypothyroidism Hyperlipidemia Anxiety Disorder of Unknown (axis Iii) E tiology Hypertension (systemic) Diabetes Mellitus Type 2 Hyperlipidemia Anxiety Disorder of Unknown (axis Iii) E tiology Hypertension (systemic) Diabetes Mellitus Type 2 Hyperlipidemia Anxiety Disorder of Unknown (axis Iii) E tiology Hypertension (systemic) Diabetes Mellitus Type 2 Hyperlipidemia Anxiety Disorder of Unknown (axis Iii) E tiology Hypertension (systemic) Diabetes Mellitus Type 2 Hyperlipidemia Anxiety Disorder of Unknown (axis Iii) E tiology Hypertension (systemic) Diabetes Mellitus Type 2 Hyperlipidemia Anxiety Disorder of Unknown (axis Iii) E tiology Hypertension (systemic) Diabetes Mellitus Type 2 Hyperlipidemia Anxiety Disorder of Unknown (axis Iii) E tiology Hypertension (systemic) Diabetes Mellitus Type 2 Hyperlipidemia Anxiety Disorder of Unknown (axis Iii) E tiology Hypertension (systemic) Diabetes Mellitus Type 2 Hyperlipidemia Anxiety Disorder of Unknown (axis Iii) E tiology Hypertension (systemic) Diabetes Mellitus Type 2 Hyperlipidemia Anxiety Disorder of Unknown (axis Iii) E tiology Hypertension (systemic) Diabetes Mellitus Type 2 Outpatient Attender: Michelle Horowitz NP 10/28/2019 11:21:00 AM EDT Lab [facility] Lab Outpatient<td ID="encounterTypeDescripti onID15">Care Management Medical- Telephone Encounter</td><td>Michelle NAIK</td><td></td><td>10/13/2019</td><td></td> Attender: Michelle Horowitz NP 10/13/2019 03:39:00 PM EDT - 10/13/2019 11:59:00 PM EDT [place] ([facility]) Outpatient<td ID="encounterTypeDescripti onID16">Care Management Medical- Telephone Encounter</td><td>Ksenia Bennett RN</td><td></td><td>10/06/2019</td><td></td> Attender: Ksenia Bennett RN 10/06/2019 09:22:00 AM EST - 10/06/2019 11:59:00 PM EST [place] ([facility]) Unknown<td ID="encounterTypeDescriptionI D17">Correspondence</td><td>Michelle NAIK</td><td></td><td>08/28/2019</td><td></td> Attender: Michelle Horowitz NP 08/28/2019 10:54:00 AM EST - 08/28/2019 11:59:00 PM EST [place] ([facility]) Obstetrics<td ID="encounterTypeDescripti onID18">Lab Order</td><td>Michelle Horowitz WOOL HAT FLANGER</td><td></td><td>08/28/2019</td><td></td> Attender: Michelle Horowitz NP 08/28/2019 10:29:00 AM EST - 08/28/2019 11:59:00 PM EST [place] [facility] Attender: Michelle Horowitz NP 08/26/2019 08:17:00 AM EST Lab [facility] Lab Outpatient<td ID="encounterTypeDescripti onID19">Medication Order</td><td>Michelle Horowitz WOOL HAT FLANGER</td><td></td><td>08/25/2019</td><td></td> Attender: Michelle Horowitz NP 08/25/2019 08:16:00 AM EST - 08/25/2019 11:59:00 PM EST [place] ([facility]) Unknown<td ID="encounterTypeDescriptionI D20">Correspondence</td><td>Michelle Horowitz WOOL HAT FLANGER</td><td></td><td>08/17/2019</td><td></td> Attender: Michelle Horowitz NP 08/17/2019 01:13:00 PM EST - 08/17/2019 11:59:00 PM EST [place] [facility] Outpatient<td ID="encounterTypeDescripti onID21">Care Management Medical- Telephone Encounter</td><td>Ksenia Bennett RN</td><td></td><td>08/13/2019</td><td></td> Attender: Ksenia Bennett RN 08/13/2019 09:08:00 AM EST - 08/13/2019 11:59:00 PM EST [place] [facility] Unknown<td ID="encounterTypeDescriptionI D22">Correspondence</td><td>Michelle REYNOLDSP</td><td></td><td>07/14/2019</td><td></td> Attender: Michelle Horowitz WATER CONTROL STATION ENGINEER 07/14/2019 11:47:00 AM EST - 07/14/2019 11:59:00 PM EST [place] ([facility]) Outpatient Attender: Michelle Horowitz NP 07/10/2019 08:51:00 AM EST lab [facility] lab Immunizations Vaccine Date Status Description Data Source(s) Tdap 03/07/2020 02:48:00 PM EDT completed Boostrix 1 0 Right Arm Complete (Administered) [facility] ([facility]) Medications Medication Brand Name Start Date Product Form Dose Route Admi nistrative Instructions Pharmacy Instructions Status Indications Reaction Description Data Source(s) glimepiride 2 MG Oral Tablet Glimepiride 2 MG Oral Tab let Glimepiride 2 MG Oral Tablet 06/09/2020 12:00:00 AM EST active glimepiride 2 MG Oral Tablet [place] ([facility]) OneTouch Delica Lancets 33G Miscellaneous OneTouch Del ica Lancets 33G Miscellaneous 06/09/2020 12:00:00 AM EST acti ve OneTouch Delica Lancets 33G [place] ([facility]) OneTouch Ultra In Vitro Strip OneTouch Ultra In Vitro Strip 06/09/2020 12:00:00 AM EST [facility] Levothyroxine Sodium 0.088 MG Oral Table t Levothyroxine Sodium 88 MCG Oral Tablet Levothyroxine Sodium 88 MCG Oral Tablet 06/09/2020 12:00:00 AM EST 1 active levothyroxine sodium 0.08 8 MG Oral Tablet [place] ([facility]) POLYETHYLENE GLYCOL 3350 142 MG/ML Oral Solution [Miralax] MiraLax 17 GM/SCOOP Oral Powder MiraLax 17 GM/SCOOP Oral Powder 06/09/2020 12:00:00 AM EST active polyethylene gly col 3350 41769 MG Powder for Oral Solution [Miralax] [place] ([facility]) glimepiride 2 MG Oral Tablet Glimepiride 2 MG Oral Tab let Glimepiride 2 MG Oral Tablet 03/15/2020 12:00:00 AM EDT aborted glimepiride 2 MG Oral Tablet [place] ([facility]) CareFine Pen Webster 32G X 4 MM Miscellaneous CareFine Pen Webster 32G X 4 MM Miscellaneous 03/15/2020 12:00:00 AM EDT 1 acti ve CareFine Pen Webster [place] ([facility]) sitagliptin 100 MG Oral Tablet [Januvia] Januvia 100 M G Oral Tablet Januvia 100 MG Oral Tablet 03/15/2020 12:00:00 AM EDT 1 act prateek sitagliptin 100 MG Oral Tablet [Januvia] [place] ([facility]) Levothyroxine Sodium 0.088 MG Oral Table t Levothyroxine Sodium 88 MCG Oral Tablet Levothyroxine Sodium 88 MCG Oral Tablet 03/15/2020 12:00:00 AM EDT 1 aborted levothyroxine sodium 0.08 8 MG Oral Tablet [place] ([facility]) OneTouch Ultra STRP OneTouch Ultra STRP 03/15/2020 12:00:00 AM E DT active OneTouch Ultra [place] ( [facility]) OneTouch Ultra In Vitro Strip OneTouch Ultra In Vitro Strip 03/15/2020 12:00:00 AM EDT aborted OneTouch Ultra G [place] ([facility]) OneTouch Delica Lancets 33G Miscellaneous OneTouch Del ica Lancets 33G Miscellaneous 03/15/2020 12:00:00 AM EDT abor jessica OneTouch Delica Lancets 33G [place] ([facility]) Levothyroxine Sodium 0.088 MG Oral Table t Levothyroxine Sodium 88 MCG Oral Tablet Levothyroxine Sodium 88 MCG Oral Tablet 03/10/2020 12:00:00 AM EDT 1 aborted levothyroxine sodium 0.08 8 MG Oral Tablet [place] ([facility]) Levothyroxine Sodium 0.088 MG Oral Tablet Levothyroxin e Sodium 88 MCG OR TABS Levothyroxine Sodium 88 MCG OR TABS 03/10/2020 12:00:00 AM EDT 1 aborted levothyroxine sodium 0.088 MG Or al Tablet [place] ([facility]) glimepiride 2 MG Oral Tablet Glimepiride 2 MG Oral Tab let Glimepiride 2 MG Oral Tablet 03/07/2020 12:00:00 AM EDT aborted glimepiride 2 MG Oral Tablet [place] ([facility]) CareFine Pen Webster 32G X 4 MM Miscellaneous CareFine Pen Webster 32G X 4 MM Miscellaneous 03/07/2020 12:00:00 AM EDT 1 abor jessica CareFine Pen Webster [place] ([facility]) Vitamin D (Ergocalciferol) 1.25 MG (98338 UT) Oral Cap poonam Vitamin D (Ergocalciferol) 1.25 MG (01985 UT) Oral Capsule 03/07/2020 12:00:00 AM EDT active Vitamin D (Ergocalci ferol) [place] ([facility]) sitagliptin 100 MG Oral Tablet [Januvia] Januvia 100 M G Oral Tablet Januvia 100 MG Oral Tablet 03/07/2020 12:00:00 AM EDT 1 abo rted sitagliptin 100 MG Oral Tablet [Januvia] [place] ([facility]) Accu-Chek FastClix Lancets Miscellaneous Accu-Chek Fas tClix Lancets Miscellaneous 03/07/2020 12:00:00 AM EDT 1 abor jessica Accu-Chek FastClix Lancets [place] ([facility]) Cyclobenzaprine hydrochloride 5 MG Oral Tablet Cyclobenzaprine HCl 5 MG Oral Tablet Cyclobenzaprine HCl 5 MG Oral Tablet 03/01/2020 12:00:00 AM EDT 1 aborted cyclobenzaprine hydrochlorid e 5 MG Oral Tablet [place] ([facility]) Levothyroxine Sodium 0.1 MG Oral Tablet Levothyroxine Sodium 100 MCG OR TABS Levothyroxine Sodium 100 MCG OR TABS 01/18/2020 12:00:00 AM EDT 1 aborted levothyroxine sodium 0.1 MG Oral Tablet [place] ([facility]) Levothyroxine Sodium 0.1 MG Oral Tablet Levothyroxine Sodium 100 MCG Oral Tablet Levothyroxine Sodium 100 MCG Oral Tablet 01/18/2020 12:00:00 AM EDT 1 aborted levothyroxine sodium 0.1 MG Oral Tablet [place] ([facility]) Levothyroxine Sodium 0.1 MG Oral Tablet Levothyroxine Sodium 100 MCG Oral Tablet Levothyroxine Sodium 100 MCG Oral Tablet 01/14/2020 12:00:00 AM EDT 1 aborted levothyroxine sodium 0.1 MG Oral Tablet [place] ([facility]) Meclizine Hydrochloride 12.5 MG Oral Tablet Meclizine HCl 12.5 MG Oral Tablet Meclizine HCl 12.5 MG Oral Tablet 01/06/2020 12:00:00 AM EDT aborted meclizine hydrochloride 12.5 MG Oral Tab let [place] ([facility]) glimepiride 2 MG Oral Tablet Glimepiride 2 MG Oral Tab let Glimepiride 2 MG Oral Tablet 11/16/2019 12:00:00 AM EDT aborted glimepiride 2 MG Oral Tablet [place] ([facility]) glimepiride 2 MG Oral Tablet Glimepiride 2 MG Oral Tab let Glimepiride 2 MG Oral Tablet 11/12/2019 12:00:00 AM EDT 3 aborted glimepiride 2 MG Oral Tablet [place] ([facility]) glimepiride 2 MG Oral Tablet Glimepiride 2 MG OR TABS Glimep iride 2 MG OR TABS 11/12/2019 12:00:00 AM EDT 3 aborted glimepiride 2 MG Oral Tablet [place] ([facility]) Levothyroxine Sodium 0.088 MG Oral Table t Levothyroxine Sodium 88 MCG Oral Tablet Levothyroxine Sodium 88 MCG Oral Tablet 11/02/2019 12:00:00 AM EDT 1 aborted levothyroxine sodium 0.08 8 MG Oral Tablet [place] ([facility]) Basaglar KwikPen 100 UNIT/ML Subcutaneous Solution Pen -injector Basaglar KwikPen 100 UNIT/ML Subcutaneous Solution Pen-injector 11/02/2019 12:00:00 AM EDT 1 active Sensor 3 ML insulin glargine 100 UNT/ML Pen Injector [Basaglar] [place] ([facility]) Metformin hydrochloride 1000 MG Oral Tablet metFORMIN HCl 1000 MG Oral Tablet metFORMIN HCl 1000 MG Oral Tablet 11/02/2019 12:00:00 AM EDT 1 active metformin hydrochloride 1000 MG Oral Tablet [place] ( [facility]) Hydrochlorothiazide 25 MG Oral Tablet hydroCHLOROthiaz margarita 25 MG Oral Tablet hydroCHLOROthiazide 25 MG Oral Tablet 11/02/2019 12:00:00 AM EDT 1 aborted hydrochlorothiazide 25 MG Oral T ablet [place] ([facility]) Simvastatin 40 MG Oral Tablet Simvastatin 40 MG Oral Tablet 11/02/2019 12:00:00 AM EDT 1 active simvastatin 40 MG Oral Tablet [place] ([facility]) duloxetine 30 MG Delayed Release Oral Ca psule [Cymbalta] Cymbalta 30 MG Oral Capsule Delayed Release Particles Cymbalta 30 MG Oral Capsule Delayed Rele ase Particles 11/02/2019 12:00:00 AM EDT 2 active duloxetine 30 MG Delayed Release Oral Capsule [Cymbalta] [place] ([facility]) Potassium Chloride 20 MEQ Extended Relea se Oral Tablet Potassium Chloride ER 20 MEQ Oral Tablet Extended Release Potassium Chloride ER 20 MEQ Oral Tablet Extended Release 11/02/2019 12:00:00 AM EDT 1 a ctive potassium chloride 20 MEQ Extended Release Oral Tablet [place] ([facility]) clopidogrel 75 MG Oral Tablet [Plavix] Plavix 75 MG Or al Tablet Plavix 75 MG Oral Tablet 11/02/2019 12:00:00 AM EDT 1 active clopidogrel 75 MG Oral Tablet [Plavix] [place] ([facility]) CareFine Pen Webster 32G X 4 MM Miscellaneous CareFine Pen Webster 32G X 4 MM Miscellaneous 10/15/2019 12:00:00 AM EDT 1 abor jessica CareFine Pen Webster [place] ([facility]) Magnesium Oxide 400 MG Oral Tablet Magnesium Oxide 400 MG Or al Tablet 09/29/2019 12:00:00 AM EST 1 active magnesi um oxide 400 MG Oral Tablet [place] ([facility]) Magnesium Oxide 400 MG Oral Tablet Magnesium Oxide 400 MG Or al Tablet 09/24/2019 12:00:00 AM EST 1 aborted magnes ium oxide 400 MG Oral Tablet [place] ([facility]) OneTouch Delica Lancets 33G Miscellaneous OneTouch Del ica Lancets 33G Miscellaneous 09/08/2019 12:00:00 AM EST abor jessica OneTouch Delica Lancets 33G [place] ([facility]) OneTouch Ultra Blue In Vitro Strip OneTouch Ultra Blue In Vi tro Strip 09/08/2019 12:00:00 AM EST aborted OneTou ch Ultra Blue [place] [facility] OneTouch Ultra 2 w/Device KIT OneTouch Ultra 2 w/Device KIT 08/28/2019 12:00:00 AM EST aborted OneTouch Ultra 2 [place] [facility] OneTouch Ultra Blue In Vitro Strip OneTouch Ultra Blue In Vi tro Strip 08/28/2019 12:00:00 AM EST aborted OneTou ch Ultra Blue [place] [facility] OneTouch Delica Lancets 33G Miscellaneous OneTouch Del ica Lancets 33G Miscellaneous 08/28/2019 12:00:00 AM EST abor jessica OneTouch Delica Lancets 33G [place] [facility] OneTouch Delica Lancets 33G MISC OneTouch Delica Lancets 33G MISC 08/28/2019 12:00:00 AM EST aborted OneTouc h Delica Lancets 33G [place] ([facility] OneTouch Ultra Blue STRP OneTouch Ultra Blue STRP 08/06 12:00:00 AM EST aborted OneTouch Ultra B lue [place] ([facility] OneTouch Ultra Blue STRP OneTouch Ultra Blue STRP 08/06 12:00:00 AM EST aborted OneTouch Ultra B lue [place] ([facility]) OneTouch Ultra 2 w/Device Kit OneTouch Ultra 2 w/Device Kit 08/28/2019 12:00:00 AM EST active OneTouch Ultra 2 [place] [facility] OneTouch Delica Lancets 33G MISC OneTouch Delica Lancets 33G MISC 08/28/2019 12:00:00 AM EST aborted OneTouc h Delica Lancets 33G [place] ([facility] OneTouch Ultra Blue In Vitro Strip OneTouch Ultra Blue In Vi tro Strip 08/28/2019 12:00:00 AM EST aborted OneTou ch Ultra Blue [place] ([facility] OneTouch Ultra Blue STRP OneTouch Ultra Blue STRP 08/06 12:00:00 AM EST aborted OneTouch Ultra B lue [place] ([facility]) OneTouch Club Lancets Fine Pt [facility] OneTouch Club Lancets [facility] 08/28/2019 12:00:00 AM EST aborted OneTou ch Club Lancets Fine Pt [place] ([facility]) Accu-Chek Melia Plus In Vitro Strip Accu-Chek Melia Plus In Vitro Strip 08/25/2019 12:00:00 AM EST aborted Accu-Chek Melia Plus [place] ([facility]) Accu-Chek Melia Plus In Vitro Strip Accu-Chek Melia Plus In Vitro Strip 08/25/2019 12:00:00 AM EST aborted Accu-Chek Melia Plus [place] ([facility]) POLYETHYLENE GLYCOL 3350 142 MG/ML Oral Solution [Eliz lax] MiraLax Oral Powder MiraLax Oral Powder 08/13/2019 12:00:00 AM EST aborted polyethylene glycol 3350 18675 MG Powder for Oral Solution [Miralax] [place] ([facility]) Basaglar KwikPen 100 UNIT/ML SC SOPN Basaglar KwikPen 100 UN IT/ML SC SOPN 07/07/2019 12:00:00 AM EST 1 aborted Sensor 3 ML insulin glargine 100 UNT/ML Pen Injector [Basaglar] [place] ([facility]) Basaglar KwikPen 100 UNIT/ML Subcutaneous Solution Pen -injector Basaglar KwikPen 100 UNIT/ML Subcutaneous Solution Pen-injector 07/07/2019 12:00:00 AM EST 1 aborted Sensor 3 ML in sulin glargine 100 UNT/ML Pen Injector [Basaglar] [place] ([facility]) Vitamin D (Ergocalciferol) 1.25 MG (40210 UT) Oral Cap poonam Vitamin D (Ergocalciferol) 1.25 MG (17233 UT) Oral Capsule 07/06/2019 12:00:00 AM EST aborted Vitamin D (Ergocalci ferol) MI[place] ([facility]) CareFine Pen Webster 32G X 4 MM Miscellaneous CareFine Pen Webster 32G X 4 MM Miscellaneous 07/01/2019 12:00:00 AM EST 1 abor jessica CareFine Pen Webster [place] ([facility]) Accu-Chek FastClix Lancets Miscellaneous Accu-Chek Fas tClix Lancets Miscellaneous 07/01/2019 12:00:00 AM EST 1 abor jessica Accu-Chek FastClix Lancets [place] ([facility]) Magnesium Oxide 400 MG Oral Tablet Magnesium Oxide 400 MG Or al Tablet 06/26/2019 12:00:00 AM EST 1 aborted magnes ium oxide 400 MG Oral Tablet [place] ([facility]) Levothyroxine Sodium 0.075 MG Oral Table t Levothyroxine Sodium 75 MCG Oral Tablet Levothyroxine Sodium 75 MCG Oral Tablet 06/26/2019 12:00:00 AM EST 1 aborted levothyroxine sodium 0.07 5 MG Oral Tablet [place] ([facility]) clopidogrel 75 MG Oral Tablet [Plavix] Plavix 75 MG Or al Tablet Plavix 75 MG Oral Tablet 06/26/2019 12:00:00 AM EST 1 aborte d clopidogrel 75 MG Oral Tablet [Plavix] [place] ([facility]) sitagliptin 100 MG Oral Tablet [Januvia] Januvia 100 M G Oral Tablet Januvia 100 MG Oral Tablet 06/26/2019 12:00:00 AM EST 1 abo rted sitagliptin 100 MG Oral Tablet [Januvia] [place] ([facility]) Vitamin D (Ergocalciferol) 1.25 MG (79842 UT) Oral Cap poonam Vitamin D (Ergocalciferol) 1.25 MG (35445 UT) Oral Capsule 06/26/2019 12:00:00 AM EST aborted Vitamin D (Ergocalci ferol) [place] ([facility]) Hydrochlorothiazide 25 MG Oral Tablet hydroCHLOROthiaz margarita 25 MG Oral Tablet hydroCHLOROthiazide 25 MG Oral Tablet 06/26/2019 12:00:00 AM EST 1 aborted hydrochlorothiazide 25 MG Oral T ablet [place] ([facility]) Simvastatin 40 MG Oral Tablet Simvastatin 40 MG Oral Tablet 06/26/2019 12:00:00 AM EST 1 aborted simvastatin 40 M G Oral Tablet [place] ([facility]) 3 ML Insulin Glargine 100 UNT/ML Pen Inj bubba [Lantus] Lantus SoloStar 100 UNIT/ML Subcutaneous Solution Pen-injector Lantus SoloStar 100 UNIT/ML Subcutaneous Solution Pen-injector 06/26/2019 12:00:00 AM EST 1 aborted 3 ML insulin glargine 100 UNT/ML Pen Inj bubba [Lantus] [place] ([facility]) duloxetine 30 MG Delayed Release Oral Ca psule [Cymbalta] Cymbalta 30 MG Oral Capsule Delayed Release Particles Cymbalta 30 MG Oral Capsule Delayed Rele ase Particles 06/26/2019 12:00:00 AM EST 2 aborted duloxetine 30 MG Delayed Release Oral Capsule [Cymbalta] [place] ([facility]) Potassium Chloride 20 MEQ Extended Relea se Oral Tablet Potassium Chloride ER 20 MEQ Oral Tablet Extended Release Potassium Chloride ER 20 MEQ Oral Tablet Extended Release 06/26/2019 12:00:00 AM EST 1 a borted potassium chloride 20 MEQ Extended Release Oral Tablet [place] ([facility]) glimepiride 2 MG Oral Tablet Glimepiride 2 MG Oral Tab let Glimepiride 2 MG Oral Tablet 06/26/2019 12:00:00 AM EST aborted glimepiride 2 MG Oral Tablet [place] ([facility]) Metformin hydrochloride 1000 MG Oral Tablet metFORMIN HCl 1000 MG Oral Tablet metFORMIN HCl 1000 MG Oral Tablet 06/26/2019 12:00:00 AM EST 1 aborted metformin hydrochloride 1000 MG Oral Tab let [place] ([facility]) Accu-Chek Melia Plus STRP Accu-Chek Melia Plus STRP 12:00:00 AM EDT 1 aborted Accu-Chek Melia Plus [place] ([facility]) POLYETHYLENE GLYCOL 3350 142 MG/ML Oral Solution [Eliz lax] MiraLax Oral Powder MiraLax Oral Powder 08/28/2018 12:00:00 AM EST aborted polyethylene glycol 3350 09393 MG Powder for Oral Solution [Miralax] [place] ([facility]) Accu-Chek Melia Device Accu-Chek Melia Device 07/24/2018 12:00:[address] aborted Accu-Chek Melia [place] ([facility]) Insurance Providers Payer name Policy type / Coverage type Policy ID Covered green party ID Covered green party's relationship to bernardo Policy Bernardo Plan Information [facility] [id number] [employer] Other 0 Self 0 [employer]. Other 0 Self 0 Well[employer] Other 0 Self 0 SELF PAY WellCare MCR [employer] [id number] SP [id number] HU[employer] MEDICARE ADVANTAGE 26 [id number] Self [id number] SELF PAY Well[employer] MCR [employer] [id number] SP [id number] [employer] Other 0 Self 0 [employer]. Other 0 Self 0 [employer]. Other 0 Self 0 [employer] Other 0 Self 0 SELF PAY WellCare MCR [employer] [id number] SP [id number] SELF PAY Well[employer] MCR [employer] [id number] SP [id number] [employer] Other 0 Self 0 [employer]. Other 0 Self 0 SELF PAY WellCare MCR [employer] [id number] SP [id number] WELLCARE [id number] SP [id number] HU[employer]NA GOLD [id number] SP [id number] [employer] Other 0 Self 0 SELF PAY WellCare MCR [employer] [id number] SP [id number] Well[employer]. Other 0 Self 0 [employer] Other 0 Self 0 SELF PAY Well[employer] M[employer] [id number] SP [id number] [employer]. Other 0 Self 0 SELF PAY Well[employer] M[employer] [id number] SP [id number] Well[employer]. Other 0 Self 0 SELF PAY HUMANA MEDICARE ADV [id number] SP [id number] Humana Care Plan Other 0 Self 0 SELF PAY HUMANA MEDICARE ADV [id number] SP [id number] [employer] Care Plan Other 0 Self 0 Humana Care Plan Other 0 Self 0 Humana Care Plan Other 0 Self 0 SELF PAY HUMANA MEDICARE ADV [id number] SP [id number] SELF PAY HUMANA MEDICARE ADV [id number] SP [id number] Humana Care Plan Other 0 Self 0 HUMANA GOLD [id number] SP [id number] [employer] INC [id number] SP [id number] SELF PAY HUMANA MEDICARE ADV [id number] SP [id number] Medicare/Humana Commercial [id number] Self [id number] TOD[employer]YS OPTIONS MCR [id number] SP [id number] TOD[employer] MCR [id number] SP [id number] TOD[employer] MCR [id number] SP [id number] TODAY'S OPTIONS [facility] [id number] SP [id number] Problems, Conditions, and Diagnoses Code Display Name Description Problem Type Effective Dates Data Source(s) 12182492 Tobacco dependence syndrome (disorder) N icotine Dependence Cigarettes Mild in Early Remission Problem 03/07/2020 12:00:00 AM EDT [facility] ([facility] 78184961 Tobacco dependence syndrome (disorder) N icotine Dependence Cigarettes Mild in Early Remission Problem 03/07/2020 12:00:00 AM EDT [place] ([facility]) 40861715 Tobacco dependence syndrome (disorder) N icotine Dependence Cigarettes Mild in Early Remission Problem 03/07/2020 12:00:00 AM EDT [place] ([facility]) 60620095 Tobacco dependence syndrome (disorder) N icotine Dependence Cigarettes Mild in Early Remission Problem 03/07/2020 12:00:00 AM EDT [facility] ([facility] 72558646 Tobacco dependence syndrome (disorder) N icotine Dependence Cigarettes Mild in Early Remission Problem 03/07/2020 12:00:00 AM EDT [place] ([facility]) 63378243 Tobacco dependence syndrome (disorder) N icotine Dependence Cigarettes Mild in Early Remission Problem 03/07/2020 12:00:00 AM EDT [facility] ([facility] Z87.891 Personal history of nicotine dependence Z87.891 - Personal history of nicotine dependence Diagnosis 03/30/2020 08:27:00 AM EDT [facility] E03.9 Hypothyroidism, unspecified E03.9 - Hypothyroidism, un specified Diagnosis 03/07/2020 08:20:00 AM EDT [facility] E87.6 Hypokalemia E87.6 - Hypokalemia Diagnosis 01/14/2020 09:3 6:00 AM EDT [facility] N39.0 Urinary tract infection, site not specif ied N39.0 - Urinary tract infection, site not specified Diagnosis 01/07/2020 11:47:00 PM EDT [facility] [employer] Surgeries/Procedures Procedure Description Date Indications Data Source(s) Surgical / procedural history stent RLE Surgical / pr ocedural history stent RLE 06/09/2020 12:00:00 AM EST [place] ([facility]) Not taking antibiotics Not taking antibiotics 06/03/2020 12:00:00 A M EDT [place] ([facility]) Generalized noncompliance Generalized noncompliance 06/03/2020 1 2:00:00 AM EDT [place] ([facility]) Annual wellness visit, includes a person alized prevention plan of service (pps), subsequent visit AHR -Subsequent Annual Wellness Visit (S igni/Sep Eval. & Man.) 03/07/2020 12:00:00 AM EDT [place] ([facility]) Immunization Administration (includes Percutaneous, In loan administrator Immunization Administration (includes Percutaneous, Intrader 03/07/2020 12:00:00 AM EDT [place] ([facility]) Tdap, Tetanus, Diphtheria Toxoids and Acellular Pertus sis Va Tdap, Tetanus, Diphtheria Toxoids and Acellular Pertussis Va 03/07/2020 12:00:00 AM EDT [place] ([facility]) Hemoglobin; Glycated A1c (QW) Hemoglobin; Glycated A1c (QW) 03/07/2020 12:00:00 AM EDT [place] ([facility]) Therapy noncompliance for dietary reasons Therapy nonc ompliance for dietary reasons 03/07/2020 12:00:00 AM EDT [place] ([facility]) Therapy noncompliance due to lack of comprehension The rapy noncompliance due to lack of comprehension 03/07/2020 12:00:00 AM EDT [place] ([facility]) Past medical history -Please see Problem List for Act prateek Chronic Problems Past medical history -Please see Problem List for Active Chronic Problems 03/07/2020 12:00:00 AM EDT [place] ([facility]) Surgical / procedural history stent RLE Surgical / pr ocedural history stent RLE 03/07/2020 12:00:00 AM EDT [place] ([facility]) Not taking antibiotics Not taking antibiotics 03/07/2020 12:00:00 A M EDT [place] ([facility]) Tdap, Tetanus, Diphtheria Toxoids and Acellular Pertus sis Va Tdap, Tetanus, Diphtheria Toxoids and Acellular Pertussis Va 03/07/2020 12:00:00 AM EDT [place] ([facility]) Therapy noncompliance for dietary reasons Therapy nonc ompliance for dietary reasons 01/14/2020 12:00:00 AM EDT [place] ([facility]) Therapy noncompliance due to lack of comprehension The rapy noncompliance due to lack of comprehension 01/14/2020 12:00:00 AM EDT [place] ([facility]) Not taking antibiotics Not taking antibiotics 01/14/2020 12:00:00 A M EDT [place] ([facility]) Surgical / procedural history stent RLE Surgical / pr ocedural history stent RLE 01/14/2020 12:00:00 AM EDT [place] ([facility]) Qual nonMD est pt 21>min Qual nonMD est pt 21>min 01/07/2020 12:00: 00 AM EDT [place] ([facility]) Therapy noncompliance for dietary reasons Therapy nonc ompliance for dietary reasons 01/07/2020 12:00:00 AM EDT [place] ([facility]) Therapy noncompliance due to lack of comprehension The rapy noncompliance due to lack of comprehension 01/07/2020 12:00:00 AM EDT [place] ([facility]) Not taking antibiotics Not taking antibiotics 01/07/2020 12:00:00 A M EDT [place] ([facility]) Surgical / procedural history stent RLE Surgical / pr ocedural history stent RLE 01/07/2020 12:00:00 AM EDT [place] ([facility]) Not taking antibiotics Not taking antibiotics 10/13/2019 12:00:00 A M EDT [place] ([facility]) Therapy noncompliance for dietary reasons Therapy nonc ompliance for dietary reasons 08/13/2019 12:00:00 AM EST [place] ([facility]) Not taking antibiotics Not taking antibiotics 08/13/2019 12:00:00 A M EST [place] ([facility]) OPH MEDICAL XM&EVAL COMPRHNSV ESTAB PT 1/> VST 07/15 12:00:00 AM EST [facility] ([facility]) Results ID Date Data Source [id number] 06/09/2020 12:00:00 AM EST [place] ([facility]) Name Value Range Interpretation Code Description Data Karen rce(s) Supporting Document(s) Hemoglobin A1c/Hemoglobin.total in Blood 8.6 Abnormal (applies to non-numeric results) Hgb A1c [place] ([facility]) ID Date Data Source [id number] 04/13/2020 10:24:00 AM EDT [place] ([facility]) Name Value Range Interpretation Code Description Data Karen rce(s) Supporting Document(s) Reported Physicians See Note Reported Physicians [place] ([facility]) Note: Reported Physicians:Ordering: Sharmin ThompsonAttending: Sharmin Danielson ID Date Data Source [id number] 04/13/2020 10:24:00 AM EDT [facility] Name Value Range Interpretation Code Description Data Karen rce(s) Supporting Document(s) NO URINE RECEIVED FROM PATIENT NO URINE RECEIVED NO URINE RECEIVED FROM PATIENT [place] ([facility]) Note: Patient informed to return with jaelyn espinoza.Responsible Observer: CLIVE JARAD NO URINE RECEIVED FORM PATIENT [phone] (A) ID Date Data Source [id number] 04/13/2020 10:25:00 AM EDT [facility] [facility] Name Value Range Interpretation Code Description Data Karen rce(s) Supporting Document(s) NO URINE RECEIVED FROM PATIENT NO URINE RECEIVED [email or web address] Patient informed to return with specime n. ID Date Data Source [id number] 04/13/2020 08:01:00 AM EDT [place] ([facility]) Name Value Range Interpretation Code Description Data Karen rce(s) Supporting Document(s) Reported Physicians See Note Reported Physicians [place] ([facility]) Note: Reported Physicians:Ordering: Sharmin ThompsonAttending: Sharmin Danielson ID Date Data Source [id number] 04/13/2020 08:01:00 AM EDT [facility] Name Value Range Interpretation Code Description Data Karen rce(s) Supporting Document(s) Thyrotropin [Units/volume] in Serum or Plasma by Detec tion limit <= 0.05 mIU/L 1.295 uIU/ML Normal TSH [place] ([facility]) Note: Patients should not be tested for 72 hours post fluorescein dye angiography. A false depression of result may occur.Responsible Observer: TSH TSH 300.5500 (A) ID Date Data Source [id number] 04/13/2020 08:01:00 AM EDT [place] ([facility]) Name Value Range Interpretation Code Description Data Karen rce(s) Supporting Document(s) FREE T4 (FREE THYROXINE) 1.01 NG/DL Normal FREE T4 (FR EE THYROXINE) [place] ([facility]) Note: Responsible Observer: FREE T4 FREE THYROXINE 300.5250 (A) ID Date Data Source [id number] 04/13/2020 02:57:00 PM EDT [facility] Name Value Range Interpretation Code Description Data Karen rce(s) Supporting Document(s) FREE T4 (FREE THYROXINE) 1.01 NG/DL 0.76-1.78 [facility] ID Date Data Source [id number] 04/13/2020 02:57:00 PM EDT [facility] Name Value Range Interpretation Code Description Data Karen rce(s) Supporting Document(s) TSH 1.295 uIU/ML 0.470-4.200 N [facility] Patients should not be tested for 72 ho urs post fluorescein dye angiography. A false depression of result may occur. ID Date Data Source [id number] 03/30/2020 10:27:00 [place] [address] Patient Name: Enedr Simpson Exam Date: 03/30/20 : 1945 Ordering Doctor: Sharmin Danielson NP Attending Doctor: Sharmin Danielson NP CC: CT CHEST WITHOUT CONTRAST CLINICAL HISTORY: NICOTINE DEPENDENCE COMPARISON: None. TECHNIQUE: Axial CT images were obtained of the chest without. Additional coronal and sagittal reformatted images were obtained. One or more of the following dose reduction techniques were utilized in effectively lowering the radiation dose for this examination: Automated Exposure Control, Adjustment of the mA and/or kV according to patient size, or Iterative reconstruction. FINDINGS: Lines and devices: None. Lungs: Right upper lobe calcified granuloma. No pulmonary nodules are identified. No consolidations. Large airways: Unremarkable. Mediastinum and karo: Unremarkable. Pleura: Unremarkable. Vessels: Evaluation of the vessels is limited without contrast. Unremarkable. Heart: Unremarkable. Chest wall/tissues: Unremarkable. Bones: Unremarkable. Upper abdomen: Limited evaluation without contrast, Grossly unremarkable. IMPRESSION: No pulmonary nodules are identified. Lung-RADS 1 - Negative, no nodules and definitely benign nodules. Recommendation: Continue annual screening with Low Dose CT in 12 months. Professional interpretation performed by [facility] at [facility] . End of diagnostic report: [id number] Signed: Manjit Paris MD 03/30/20 1229 Interpreted by: Manjit ParisTranscribed by: Manjit Paris Name Value Range Interpretation Code Description Data Karen rce(s) Supporting Document(s) ID Date Data Source [id number] 03/30/2020 10:06:00 [place] [address] Patient Name: Ender Simpson Exam Date: 03/30/20 : 1945 Ordering Doctor: Sharmin Danielson NP Attending Doctor: Sharmin Danielson NP CC: SCREENING DIGITAL MAMMOGRAM WITH CAD INDICATION: Routine screen COMPARISON: 2018 LAST CLINICAL BREAST EXAM: 2019 MARI Breast Cancer Risk Evaluation (Tyrer-Cuzick Model v.8) This patient - Lifetime risk (to age 85): 6.4% Lifetime population risk (to age 85): 4.6% Probability BRCA 1: 7.65% Probability BRCA 2: 0.45% TECHNIQUE: Craniocaudal and mediolateral oblique digital mammograms. Computer-aided detection was also utilized. FINDINGS: The breast tissue is almost entirely fatty. No primary or secondary signs of malignancy detected. BILATERAL BREAST SO NOGRAM History: Bilateral breast sonogram for screening. TECHNIQUE: Bilateral survey of the breast parenchyma sonographically. COMPARISON: 2019 sonogram. FINDINGS: There are no solid or cystic masses seen in either breast. IMPRESSION: Negative BI-RADS Category 1 IMPRESSION: Normal mammogram and sonogram . Recommend routine yearly mammography. BI- RADS 1 - NEGATIVE Professional interpretation performed at [facility] . End of diagnostic report: [id number] Signed: Joaquim Duran MD 03/30/20 1015 Interpreted by: Joaquim DuranTranscribed by: Joaquim Duran Name Value Range Interpretation Code Description Data Karen rce(s) Supporting Document(s) ID Date Data Source [id number] 03/30/2020 10:03:00 AM EDT [address] [address] Patient Name: Ender Simpson Exam Date: 03/30/20 : 1945 Ordering Doctor: Sharmin Danielson NP Attending Doctor: Sharmin Danielson NP CC: SCREENING DIGITAL MAMMOGRAM WITH CAD INDICATION: Routine screen COMPARISON: 2018 LAST CLINICAL BREAST EXAM: 2019 MARI Breast Cancer Risk Evaluation (Tyrer-Cuzick Model v.8) This patient - Lifetime risk (to age 85): 6.4% Lifetime population risk (to age 85): 4.6% Probability BRCA 1: 7.65% Probability BRCA 2: 0.45% TECHNIQUE: Craniocaudal and mediolateral oblique digital mammograms. Computer-aided detection was also utilized. FINDINGS: The breast tissue is almost entirely fatty. No primary or secondary signs of malignancy detected. BILATERAL BREAST SO NOGRAM History: Bilateral breast sonogram for screening. TECHNIQUE: Bilateral survey of the breast parenchyma sonographically. COMPARISON: 2019 sonogram. FINDINGS: There are no solid or cystic masses seen in either breast. IMPRESSION: Negative BI-RADS Category 1 IMPRESSION: Normal mammogram and sonogram . Recommend routine yearly mammography. BI- RADS 1 - NEGATIVE Professional interpretation performed at [facility] . End of diagnostic report: [id number] Signed: Joaquim Duran MD 03/30/20 1015 Interpreted by: Joaquim DuranTranscribed by: Joaquim Duran Name Value Range Interpretation Code Description Data Karen rce(s) Supporting Document(s) ID Date Data Source [id number] 03/30/2020 09:36:00 [place] [address] Patient Name: Ender Simpson Exam Date: 03/30/20 : 1945 Ordering Doctor: Sharmin Danielson NP Attending Doctor: Sharmin Danielson NP CC: DEXA BONE DENSITOMETRY INDICATION: Postmenopausal screening for osteoporosis. COMPARISON: None TECHNIQUE: Quantitative assessment of bone mineral density was obtained with dual-energy x-ray technique with the Hologic scanner. Imaging was performed over the lumbar spine and hip. By convention, the World Health Organization criteria for postmenopausal men and women older than age 50 is as follows: Normal is T- score greater than or equal to -1.0 Osteopenia is a T-score between -1.0 and - 2.5. Osteoporosis is a T-score less than or equal to -2.5. IMPRESSION: No rmal bone mineral density Complete data sheets will be sent to the referring physician's office. Professional interpretation performed at [facility] . End of diagnostic report: [id number] Signed: Aj Valerio MD 03/30/20 0951 Interpreted by: Rossi Valerioscribed by: Aj Valerio Name Value Range Interpretation Code Description Data Karen rce(s) Supporting Document(s) ID Date Data Source [id number] 03/07/2020 01:29:00 PM EDT [place] ([facility]) Name Value Range Interpretation Code Description Data Karen rce(s) Supporting Document(s) Hemoglobin A1c/Hemoglobin.total in Blood 9.6 Abnormal (applies to non-numeric results) Hgb A1c [facility] [facility] ID Date Data Source [id number] 03/07/2020 08:22:00 AM EDT [place] ([facility]) Name Value Range Interpretation Code Description Data Karen rce(s) Supporting Document(s) Reported Physicians See Note Reported Physicians [place] ([facility]) Note: Reported Physicians:Ordering: Trevon Lnidoending: Trevon Franklin ID Date Data Source [id number] 03/07/2020 08:22:00 AM EDT [place] ([facility]) Name Value Range Interpretation Code Description Data Karen rce(s) Supporting Document(s) BASO # (AUTO) 0.07 10\\^3/uL Normal BASO # (AUTO) [place] ([facility]) Note: Responsible Observer: BASO # (AUTO ) BASO # (AUTO) 100.1500 (A) BASO % (AUTO) 0.7 % Normal BASO % (AUTO) [place] ([facility]) Note: Responsible Observer: BASO % (AUTO ) BASO % (AUTO) 100.1250 (A) EOS # (AUTO) 0.25 10\\^3/uL Normal EOS # (AUTO) [place] ( [facility]) Note: Responsible Observer: EOS # (AUTO) EOS # (AUTO) 100.1450 (A) EOS % (AUTO) 2.6 % Normal EOS % (AUTO) [place] ([facility]) Note: Responsible Observer: EOS % (AUTO) EOS % (AUTO) 100.1200 (A) GRAN # (AUTO) 4.01 10\\^3/uL Normal GRAN # (AUTO) [place] ([facility]) Note: Responsible Observer: GRAN # (AUTO ) GRAN #(AUTO) 100.1325 (A) GRAN % (AUTO) 42.3 % Normal GRAN % (AUTO) [place] ([facility]) Note: Responsible Observer: GRAN % (AUTO ) GRAN % (AUTO) 100.1000 (A) Hematocrit [Volume Fraction] of Blood by Automated count 43.8 % Normal HEMATOCRIT [place] ([facility]) Note: Responsible Observer: HCT HEMATOCR IT 100.0400 (A) Hemoglobin [Mass/volume] in Blood 14.5 G/DL Normal HE MOGLOBIN [place] ([facility]) Note: Responsible Observer: HGB HEMOGLOB IN 100.0300 (A) IG # (AUTO) 0.0 10\\^3/uL IG # (AUTO) [facility] ([facility]) Note: Responsible Observer: IG # (AUTO) IG # (AUTO) 100.1260 (A) IG % (AUTO) 0.4 % IG % (AUTO) MILE ([facility]) Note: Responsible Observer: IG % (AUTO) IG % (AUTO) 100.1255 (A) LYMPH # (AUTO) 4.3 k/uL Normal LYMPH # (AUTO) MILE ( [facility]) Note: Responsible Observer: LYMPH # (AUT O) LYMPH # (AUTO) 100.1350 (A) Erythrocyte mean corpuscular hemoglobin [Entitic mass] by Automated count 29.5 PG Normal MCH [place] ([facility]) Note: Responsible Observer: MCH MCH 100 .0600 (A) LYMPH % (AUTO) 45.1 % Normal LYMPH % (AUTO) MI[place] ( [facility]) Note: Responsible Observer: LYMPH % (AUT O) LYMPH % (AUTO) 100.1100 (A) Erythrocyte mean corpuscular hemoglobin concentration [Mass/volume] by Automated count 33.1 G/DL Normal MCHC [place] ([facility]) Note: Responsible Observer: MCHC MCHC 1 00.0650 (A) Erythrocyte mean corpuscular volume [Entitic volume] by Auto mated count 89.0 FL Normal MCV [place] ([facility]) Note: Responsible Observer: MCV MCV 100 .0550 (A) MONO # (AUTO) 0.84 k/uL Normal MONO # (AUTO) MI[place] ([facility]) Note: Responsible Observer: MONO # (AUTO ) MONO # (AUTO) 100.1400 (A) MONO % (AUTO) 8.9 % Normal MONO % (AUTO) MI[place] ([facility]) Note: Responsible Observer: MONO % (AUTO ) MONO% (AUTO) 100.1150 (A) MPV 8.9 FL Normal MPV [place] ([facility]) Note: Responsible Observer: MPV MPV 100 .0950 (A) Platelets [#/volume] in Plasma by Automated count 312 10\\^3/uL Normal PLATELET COUNT [place] ([facility]) Note: Responsible Observer: PLT PLATELET COUNT 100.0850 (A) Erythrocytes [#/volume] in Blood by Automated count 4.92 10\\^6/uL Normal RED BLOOD COUNT [place] ([facility]) Note: Responsible Observer: RBC RED BLOO D COUNT 100.0250 (A) Erythrocyte distribution width [Ratio] by Automated count 12.9 % Normal RDW [place] ([facility]) Note: Responsible Observer: RDW RDW 100 .0700 (A) Leukocytes [#/volume] in Blood by Automated count 9.49 10\\^3/uL Normal WHITE BLOOD COUNT [place] ([facility]) Note: Responsible Observer: WBC WHITE BL OOD COUNT 100.0150 (A) ID Date Data Source [id number] 03/07/2020 08:22:00 AM EDT [place] ([facility]) Name Value Range Interpretation Code Description Data Karen rce(s) Supporting Document(s) Thyrotropin [Units/volume] in Serum or Plasma by Detec tion limit <= 0.05 mIU/L 0.133 uIU/ML Below low normal TSH [place] ([facility]) Note: Patients should not be tested for 72 hours post fluorescein dye angiography. A false depression of result may occur.Responsible Observer: TSH TSH 300.5500 (A) ID Date Data Source [id number] 03/07/2020 08:22:00 AM EDT [employer] ([facility]) Name Value Range Interpretation Code Description Data Karen rce(s) Supporting Document(s) Deprecated Cholesterol.in LDL/Cholestero l.in HDL [Mass ratio] in Serum or Plasma 4.3 Normal CHOL/HDL RATIO [place] ([facility] ) Note: Responsible Observer: CHOL/HDL RAT IO CHOL/HDL RATIO 300.4700 (A) Cholesterol crystals [Presence] in Stone by Infrared spectroscop y 138 MG/DL Normal CHOLESTEROL [place] ([facility]) Note: Responsible Observer: CHOL CHOLEST KATHERINE 300.4350 (A) Cholesterol in HDL [Mass/volume] in Serum or Plasma ultracen trifugate 32 MG/DL Normal HDL CHOLESTEROL [place] ([facility]) Note: Responsible Observer: HDL HDL CHOL ESTEROL 300.4600 (A) Cholesterol in LDL [Mass/volume] in Serum or Plasma by Direct as say 47 MG/DL Below low normal LDL CHOLESTEROL [place] ([facility]) Note: Responsible Observer: LDL LDL CHOL ESTEROL 300.4400 (A) Triglyceride [Mass/volume] in Serum or Plasma 295 MG/DL Above high normal TRIGLYCERIDES [place] ([facility]) Note: Responsible Observer: TRIG TRIGLYC ERIDES 300.4300 (A) ID Date Data Source [id number] 03/07/2020 08:22:00 AM EDT [employer] ([facility]) Name Value Range Interpretation Code Description Data Karen rce(s) Supporting Document(s) Albumin/Globulin [Mass Ratio] in Amniotic fluid 2.3 G/DL Normal ALB/GLOB RATIO [place] ([facility]) Note: Responsible Observer: A/G RATIO AL B/GLOB RATIO 300.4100 (A) Albumin [Mass/volume] in Synovial fluid 4.5 G/DL Normal ALBUMIN [place] ([facility]) Note: Responsible Observer: ALB ALBUMIN 300.3900 (A) Alkaline phosphatase isoenzyme [Units/volume] in Serum or Plasma 72 U/L Normal ALKALINE PHOSPHATASE [place] ([facility]) Note: Responsible Observer: ALK PHOS ALK PAUL PHOSPHATASE 300.3110 (A) Alanine aminotransferase [Enzymatic activity/volume] in Seru m or Plasma 55 U/L Above high normal ALT [place] ([facility]) Note: Responsible Observer: ALT/SGPT ALT 300.3100 (A) Aspartate aminotransferase [Enzymatic activity/volume] in Serum or Plasma 25 U/L Normal AST [place] ([facility]) Note: Responsible Observer: AST/SGOT AST 300.3050 (A) Urea nitrogen/Creatinine [Mass Ratio] in Serum or Plasma 14 Normal BUN/CREAT RATIO [place] ([facility]) Note: Responsible Observer: BUN/CREAT RA CAILIN BUN/CREAT RATIO 300.0450 (A) Bilirubin.total [Mass/volume] in Serum or Plasma 0.4 MG/DL Normal BILIRUBIN,TOTAL [place] ([facility]) Note: Responsible Observer: TOTAL BILI T OTAL BILIRUBIN 300.2700 (A) BLOOD UREA NITRO 16 MG/DL Normal BLOOD UREA NITRO [facility] ([facility]) Note: Responsible Observer: BUN BLOOD UR EA NITROGEN 300.0350 (A) CA 9.5 MG/DL Normal CA [place] ([facility]) Note: Responsible Observer: CA CALCIUM 300.2200 (A) Chloride [Moles/volume] in Serum, Plasma or Blood 102 MEQ/L Normal CHLORIDE [place] ([facility]) Note: Responsible Observer: CL CHLORIDE 300.0200 (A) Carbon dioxide, total [Moles/volume] in Serum or Plasma 28 MEQ/L Normal CARBON DIOXIDE [place] ([facility]) Note: Responsible Observer: CO2 CARBON D IOXIDE 300.0250 (A) Creatine/Creatinine [Mass Ratio] in Urine 1.1 MG/DL Sonia l CREATININE [place] ([facility]) Note: Responsible Observer: CREAT CREATI NINE 300.0400 (A) Anion gap in Blood 17 Above high normal ANION GAP GRE [facility] ([facility]) Note: Responsible Observer: ANION GAP AN ION GAP 300.0300 (A) GFR 48.7 ML/MIN GFR [place] ([facility]) Note: Stage G3a - Mildly to moderately [...] years only.Responsible Observer: GFR GFR 300.0410 (A) Globulin [Mass/volume] in Serum by calculation 2.0 G/DL Normal GLOBULIN [place] ([facility]) Note: Responsible Observer: GLOB GLOBULI N 300.4050 (A) Glucose [Presence] in Urine 173 MG/DL Above high normal G LUCOSE [place] ([facility]) Note: Responsible Observer: GLU GLUCOSE 300.0500 (A) Potassium [Mass/volume] in Blood 3.9 MEQ/L Normal POT ASSIUM [place] ([facility]) Note: Responsible Observer: K POTASSIUM 300.0150 (A) Sodium [Moles/volume] in Serum, Plasma or Blood 143 MEQ/L Normal SODIUM [place] ([facility]) Note: Responsible Observer: NA SODIUM 3 00.0100 (A) Protein [Mass/volume] in Synovial fluid 6.5 G/DL Normal TOTAL PROTEIN [place] ([facility]) Note: Responsible Observer: TP TOTAL PRO TEIN 300.3750 (A) ID Date Data Source [id number] 03/07/2020 08:22:00 AM EDT [place] ([facility]) Name Value Range Interpretation Code Description Data Karen rce(s) Supporting Document(s) Deprecated Creatinine 112.6 MG/DL CREAT RANDOM URI NE [place] ([facility]) Note: No Normal Ranges Available for th is Procedure.Responsible Observer: UR CREAT UR CREATININE 200.3655 (A) Microalbumin [Mass/volume] in Urine 11.0 MG/L MICROALBUMIN,URINE [place] ([facility]) Note: Responsible Observer: UR MICROALB RND UR MICROALBUMIN RANDOM 200.4000 (A) Microalbumin/Creatinine [Mass Ratio] in Urine 9.8 UG/MG_CR Normal MICROALBUM/CREATININE RATIO,UR [place] ([facility]) Note: Responsible Observer: UR MICROALB/ CRE UR MICROALBUMIN/CREAT RATIO 200.4100 (A) ID Date Data Source [id number] 03/07/2020 01:56:00 PM [facility] Has Patient Fasted For The Past 12 Hour s? Y Has Patient Fasted For The Past 12 Hour s? Y Has Patient Fasted For The Past 12 Hour s? Y Has Patient Fasted For The Past 12 Hour s? Y Name Value Range Interpretation Code Description Data Karen rce(s) Supporting Document(s) CREAT RANDOM URINE 112.6 MG/DL [place] [facility] No Normal Ranges Available for this Pro cedure. MICROALBUMIN,URINE 11.0 MG/L [facility] MICROALBUM/CREATININE RATIO,UR 9.8 UG/MG CR 0.0-30.0 N [facility] ID Date Data Source [id number] 03/07/2020 02:32:00 PM EDT [facility] Has Patient Fasted For The Past 12 Hour s? Y Has Patient Fasted For The Past 12 Hour s? Y Has Patient Fasted For The Past 12 Hour s? Y Has Patient Fasted For The Past 12 Hour s? Y Name Value Range Interpretation Code Description Data Karen rce(s) Supporting Document(s) WHITE BLOOD COUNT 9.49 10^3/uL 4.00-10.50 N [facility] RED BLOOD COUNT 4.92 10^6/uL 3.90-5.20 N [facility] HEMOGLOBIN 14.5 G/DL 11.5-15.6 N [facility] HEMATOCRIT 43.8 % 35.0-46.0 N [facility] MCV 89.0 FL 80.0-100.0 N [facility] MCH 29.5 PG 27.0-34.0 N [facility] MCHC 33.1 G/DL 32-36 N [facility] RDW 12.9 % 11.5-14.5 N [facility] PLATELET COUNT 312 10^3/uL 130-400 N [facility] MPV 8.9 FL 8.7-13.2 N [facility] GRAN % (AUTO) 42.3 % 42.0-75.0 N [facility] LYMPH % (AUTO) 45.1 % 20.0-51.0 N [facility] MONO % (AUTO) 8.9 % 2.0-15.0 N [facility] EOS % (AUTO) 2.6 % 0.0-11.0 N [facility] BASO % (AUTO) 0.7 % 0.0-2.0 N [facility] % (AUTO) 0.4 % 1.00-5.00 [facility] IG # (AUTO) 0.0 10^3/uL <0.5 [facility] GRAN # (AUTO) 4.01 10^3/uL 1.50-6.50 N [facility] LYMPH # (AUTO) 4.3 k/uL 1.0-5.0 N [facility] MONO # (AUTO) 0.84 k/uL 0.20-1.50 N [facility] EOS # (AUTO) 0.25 10^3/uL 0.00-1.10 N [facility] BASO # (AUTO) 0.07 10^3/uL 0.00-0.20 N [facility] ID Date Data Source [id number] 03/07/2020 01:56:00 PM EDT [facility] Has Patient Fasted For The Past 12 Hour s? Y Has Patient Fasted For The Past 12 Hour s? Y Has Patient Fasted For The Past 12 Hour s? Y Has Patient Fasted For The Past 12 Hour s? Y Name Value Range Interpretation Code Description Data Karen rce(s) Supporting Document(s) SODIUM 143 MEQ/L 135-145 N [facility] POTASSIUM 3.9 MEQ/L 3.5-5.3 [facility] CHLORIDE 102 MEQ/L 94-110 [facility] CARBON DIOXIDE 28 MEQ/L 22-33 [facility] ANION GAP 17 5-16 H [facility] BLOOD UREA NITRO 16 MG/DL 7-25 N [facility] CREATININE 1.1 MG/DL 0.6-1.4 [facility] GFR 48.7 ML/MIN [facility] Stage G3a - Mildly to moderately decrea sed kidney function The GFR is an estimate of the Glomerular Filtration Rate. It is an aid to assess a patient's renal function. It is not a conclusive diagnosis of kidney disease. GFR normal is >=90 The MDRD GFR calculation is considered valid between the ages of 18 and 75 years only. BUN/CREAT RATIO 14 8-36 N [facility] GLUCOSE 173 MG/DL 70-100 H [facility] CA 9.5 MG/DL 8.7-10.5 [facility] BILIRUBIN,TOTAL 0.4 MG/DL 0.1-1.3 N [facility] AST 25 U/L 5-40 N [facility] ALT 55 U/L 5-48 H [facility] ALKALINE PHOSPHATASE 72 U/L 40-140 [facility] TOTAL PROTEIN 6.5 G/DL 5.9-8.3 N [facility] ALBUMIN 4.5 G/DL 3.0-5.1 N [facility] GLOBULIN 2.0 G/DL 1.5-3.5 N [facility] ALB/GLOB RATIO 2.3 G/DL 1.0-3.0 N [facility] ID Date Data Source [id number] 03/07/2020 01:56:00 PM EDT [facility] Has Patient Fasted For The Past 12 Hour s? Y Has Patient Fasted For The Past 12 Hour s? Y Has Patient Fasted For The Past 12 Hour s? Y Has Patient Fasted For The Past 12 Hour s? Y Name Value Range Interpretation Code Description Data Karen rce(s) Supporting Document(s) TRIGLYCERIDES 295 MG/DL 45-150 H [facility] CHOLESTEROL 138 MG/DL 125-200 N [facility] LDL CHOLESTEROL 47 MG/DL 50-130 L [facility] HDL CHOLESTEROL 32 MG/DL 32-96 N [facility] CHOL/HDL RATIO 4.3 0-4.3 N [facility] ID Date Data Source [id number] 03/07/2020 01:56:00 PM EDT [facility] Has Patient Fasted For The Past 12 Hour s? Y Has Patient Fasted For The Past 12 Hour s? Y Has Patient Fasted For The Past 12 Hour s? Y Has Patient Fasted For The Past 12 Hour s? Y Name Value Range Interpretation Code Description Data Karen rce(s) Supporting Document(s) TSH 0.133 uIU/ML 0.470-4.200 L [facility] Patients should not be tested for 72 ho urs post fluorescein dye angiography. A false depression of result may occur. ID Date Data Source [id number] 03/01/2020 04:04:00 [place] [address] Patient Name: Ender Simpson Exam Date: 03/01/20 : 1945 Ordering Doctor: Sharmin George NP Attending Doctor: Sharmin George NP CC: Left shoulder three views INDICATION: Other shoulder lesion, left shoulder. Pain. COMPARISON: None FINDINGS: Moderate inferior humeral head is neck junction and mild inferior glenoid degenerative osteophytes. Mild to moderate acromioclavicular joint space narrowing and mild inferior degenerative osteophytosis. No acute fracture or dislocation. The visualized portion of the left lung is unremarkable. IMPRESSION: Mild to moderate glenohumeral osteoarthritis. K8 End of diagnostic report: [id number] Signed: Dejuan Christensen MD 03/01/20 1848 Interpreted by: Dejuan ChristensenTranscribed by: Dejuan Christensen Name Value Range Interpretation Code Description Data Karen rce(s) Supporting Document(s) ID Date Data Source [id number] 01/14/2020 09:39:00 AM EDT [place] ([facility]) Name Value Range Interpretation Code Description Data Karen rce(s) Supporting Document(s) Reported Physicians See Note Reported Physicians [place] ([facility]) Note: Reported Physicians:Ordering: Trevon Lindoending: Trevon Franklin ID Date Data Source [id number] 01/14/2020 09:39:00 AM EDT [place] ([facility]) Name Value Range Interpretation Code Description Data Karen rce(s) Supporting Document(s) BAND # 0.00 10\\^3/uL Normal BAND # [place] ([facility]) Note: Responsible Observer: BAND# BAND # 100.2450 (A) BASO # 0.00 10\\^3/uL Normal BASO # [place] ([facility]) Note: Responsible Observer: BASO # [place] # 100.2850 (A) Nicholas cells [Presence] in Blood by Light microscopy 1+ NICHOLAS CELLS [place] ([facility]) Note: Responsible Observer: NICHOLAS CELLS B URR CELLS 100.5650 (A) EOS # 0.33 10\\^3/uL Normal EOS # [place] ([facility]) Note: Responsible Observer: EOS # EOS # 100.2750 (A) EOS % 3.00 % Normal EOS % [place] ([facility]) Note: Responsible Observer: EOS% EOS % 100.2050 (A) GRAN # 4.89 10\\^3/uL Normal GRAN # [place] ([facility]) Note: Responsible Observer: NEUT# NEUT # 100.2400 (A) GRAN % 45.0 % Normal GRAN % [place] ([facility]) Note: Responsible Observer: GRAN% GRAN% 100.1650 (A) Hemoglobin [Mass/volume] in Blood 14.3 G/DL Normal HE MOGLOBIN [place] ([facility]) Note: Responsible Observer: HGB HEMOGLOB IN 100.0300 (A) Hematocrit [Volume Fraction] of Blood by Automated count 42.2 % Normal HEMATOCRIT [place] ([facility]) Note: Responsible Observer: HCT HEMATOCR IT 100.0400 (A) LYMPHS % 46.0 % Above high normal LYMPHS % [place] ([facility]) Note: Responsible Observer: LYMPH% LYMPH S % 100.1850 (A) LYMPH # 5.00 10\\^3/uL Normal LYMPH # [place] ([facility]) Note: Responsible Observer: LYMPH # LYMP H # 100.2550 (A) ATYPICAL LYMPHS % 3.0 % Above high normal ATYPICAL LY MPHS % [place] ([facility]) Note: Responsible Observer: ATYPICAL LYM PHS ATYPICAL LYMPHS 100.3550 (A) Erythrocyte mean corpuscular hemoglobin concentration [Mass/volume] by Automated count 33.9 G/DL Normal MCHC [place] ([facility]) Note: Responsible Observer: MCHC MCHC 1 00.0650 (A) Erythrocyte mean corpuscular hemoglobin [Entitic mass] by Automated count 29.7 PG Normal MCH [place] ([facility]) Note: Responsible Observer: MCH MCH 100 .0600 (A) Erythrocyte mean corpuscular volume [Entitic volume] by Auto mated count 87.6 FL Normal MCV [place] ([facility]) Note: Responsible Observer: MCV MCV 100 .0550 (A) MONO # 0.33 10\\^3/uL Normal MONO # [place] ([facility]) Note: Responsible Observer: MONO # MONO # 100.2650 (A) MONO % 3.00 % Normal MONO % [place] ([facility]) Note: Responsible Observer: MONO% MONO % 100.1950 (A) MPV 8.9 FL Normal MPV [place] ([facility]) Note: Responsible Observer: MPV MPV 100 .0950 (A) PLATELET ESTIMATE NORMAL PL[facility] ESTIMATE [facility] ([facility]) Note: Responsible Observer: PLATELET EST PLATELET ESTIMATE 100.4305 (A) Platelets [#/volume] in Plasma by Automated count 283 10\\^3/uL Normal PLATELET COUNT [place] ([facility]) Note: Responsible Observer: PLT PLATELET COUNT 100.0850 (A) Erythrocyte distribution width [Ratio] by Automated count 12.8 % Normal RDW [place] ([facility]) Note: Responsible Observer: RDW RDW 100 .0700 (A) Erythrocytes [#/volume] in Blood by Automated count 4.82 10\\^6/uL Normal RED BLOOD COUNT [place] ([facility]) Note: Responsible Observer: RBC RED BLOO D COUNT 100.0250 (A) Smudge cells [#/volume] in Blood by Manual count FEW SMUDGE CELLS [place] ([facility]) Note: Responsible Observer: SMUDGE CELLS SMUDGE CELLS 100.4050 (A) TOTAL CELLS COUNTED(MANUAL) 100 TOTAL CE LLS COUNTED(MANUAL) [place] ([facility]) Note: Responsible Observer: TOT CELLS CO UNT TOTAL CELLS COUNTED(MANUAL) 100.1550 (A) Leukocytes [#/volume] in Blood by Automated count 10.86 10\\^3/uL Above high normal WHITE BLOOD COUNT [place] ([facility]) Note: Responsible Observer: WBC WHITE BL OOD COUNT 100.0150 (A) ID Date Data Source [id number] 01/14/2020 09:39:00 AM EDT [place] ([facility]) Name Value Range Interpretation Code Description Data Akren rce(s) Supporting Document(s) Thyrotropin [Units/volume] in Serum or Plasma by Detec tion limit <= 0.05 mIU/L 12.204 uIU/ML Above high normal TSH [place] ([facility]) Note: Patients should not be tested for 72 hours post fluorescein dye angiography. A false depression of result may occur.Responsible Observer: TSH TSH 300.5500 (A) ID Date Data Source [id number] 01/14/2020 09:39:00 AM EDT [place] ([facility]) Name Value Range Interpretation Code Description Data Karen rce(s) Supporting Document(s) Albumin/Globulin [Mass Ratio] in Amniotic fluid 2.0 G/DL Normal ALB/GLOB RATIO [place] ([facility]) Note: Responsible Observer: A/G RATIO AL B/GLOB RATIO 300.4100 (A) Albumin [Mass/volume] in Synovial fluid 4.4 G/DL Normal ALBUMIN [place] ([facility]) Note: Responsible Observer: ALB ALBUMIN 300.3900 (A) Alanine aminotransferase [Enzymatic activity/volume] in Seru m or Plasma 34 U/L Normal ALT [place] ([facility]) Note: Responsible Observer: ALT/SGPT ALT 300.3100 (A) Alkaline phosphatase isoenzyme [Units/volume] in Serum or Plasma 77 U/L Normal ALKALINE PHOSPHATASE [place] ([facility]) Note: Responsible Observer: ALK PHOS ALK PAUL PHOSPHATASE 300.3110 (A) Aspartate aminotransferase [Enzymatic activity/volume] in Serum or Plasma 16 U/L Normal AST [place] ([facility]) Note: Responsible Observer: AST/SGOT AST 300.3050 (A) Urea nitrogen/Creatinine [Mass Ratio] in Serum or Plasma 23 Normal BUN/CREAT RATIO [place] ([facility]) Note: Responsible Observer: BUN/CREAT RA CAILIN BUN/CREAT RATIO 300.0450 (A) Bilirubin.total [Mass/volume] in Serum or Plasma 0.3 MG/DL Normal BILIRUBIN,TOTAL [place] ([facility]) Note: Responsible Observer: TOTAL BILI T OTAL BILIRUBIN 300.2700 (A) BLOOD UREA NITRO 23 MG/DL Normal BLOOD UREA NITRO [facility] ([facility]) Note: Responsible Observer: BUN BLOOD UR EA NITROGEN 300.0350 (A) CA 9.3 MG/DL Normal CA [place] ([facility]) Note: Responsible Observer: CA CALCIUM 300.2200 (A) Chloride [Moles/volume] in Serum, Plasma or Blood 101 MEQ/L Normal CHLORIDE [place] ([facility]) Note: Responsible Observer: CL CHLORIDE 300.0200 (A) Carbon dioxide, total [Moles/volume] in Serum or Plasma 28 MEQ/L Normal CARBON DIOXIDE [place] ([facility]) Note: Responsible Observer: CO2 CARBON D IOXIDE 300.0250 (A) Creatine/Creatinine [Mass Ratio] in Urine 1.0 MG/DL Sonia l CREATININE [place] ([facility]) Note: Responsible Observer: CREAT CREATI NINE 300.0400 (A) Anion gap in Blood 14 Normal ANION GAP [place] ([facility] [place]) Note: Responsible Observer: ANION GAP AN ION GAP 300.0300 (A) GFR 54.3 ML/MIN GFR [place] ([facility]) Note: Stage G3a - Mildly to moderately [...] years only.Responsible Observer: GFR GFR 300.0410 (A) Globulin [Mass/volume] in Serum by calculation 2.2 G/DL Normal GLOBULIN [place] ([facility]) Note: Responsible Observer: GLOB GLOBULI N 300.4050 (A) Glucose [Presence] in Urine 321 MG/DL Above high normal G LUCOSE [place] ([facility]) Note: Responsible Observer: GLU GLUCOSE 300.0500 (A) Sodium [Moles/volume] in Serum, Plasma or Blood 139 MEQ/L Normal SODIUM [place] ([facility]) Note: Responsible Observer: NA SODIUM 3 00.0100 (A) Potassium [Mass/volume] in Blood 3.7 MEQ/L Normal POT ASSIUM [place] ([facility]) Note: Responsible Observer: K POTASSIUM 300.0150 (A) Protein [Mass/volume] in Synovial fluid 6.6 G/DL Normal TOTAL PROTEIN [place] ([facility]) Note: Responsible Observer: TP TOTAL PRO TEIN 300.3750 (A) ID Date Data Source [id number] 01/14/2020 01:57:00 PM EDT [place] [facility] Has Patient Fasted For The Past 12 Hour s? N Has Patient Fasted For The Past 12 Hour s? N Name Value Range Interpretation Code Description Data Karen rce(s) Supporting Document(s) SODIUM 139 MEQ/L 135-145 N [place] [facility] POTASSIUM 3.7 MEQ/L 3.5-5.3 N [place] [facility] CHLORIDE 101 MEQ/L 94-110 N [facility] CARBON DIOXIDE 28 MEQ/L 22-33 N [place] [facility] ANION GAP 14 5-16 N [place] [facility] BLOOD UREA NITRO 23 MG/DL 7-25 N [place] [facility] CREATININE 1.0 MG/DL 0.6-1.4 N [place] [facility] GFR 54.3 ML/MIN [place] [facility] Stage G3a - Mildly to moderately decrea sed kidney function The GFR is an estimate of the Glomerular Filtration Rate. It is an aid to assess a patient's renal function. It is not a conclusive diagnosis of kidney disease. GFR normal is >=90 The MDRD GFR calculation is considered valid between the ages of 18 and 75 years only. BUN/CREAT RATIO 23 8-36 N [facility] GLUCOSE 321 MG/DL 70-100 H [facility] CA 9.3 MG/DL 8.7-10.5 [facility] BILIRUBIN,TOTAL 0.3 MG/DL 0.1-1.3 N [facility] AST 16 U/L 5-40 N [facility] ALT 34 U/L 5-48 [facility] ALKALINE PHOSPHATASE 77 U/L 40-140 [facility] alth TOTAL PROTEIN 6.6 G/DL 5.9-8.3 N [facility] ALBUMIN 4.4 G/DL 3.0-5.1 [facility] GLOBULIN 2.2 G/DL 1.5-3.5 [facility] ALB/GLOB RATIO 2.0 G/DL 1.0-3.0 [facility] ID Date Data Source [id number] 01/14/2020 02:17:00 PM EDT [facility] Has Patient Fasted For The Past 12 Hour s? N Has Patient Fasted For The Past 12 Hour s? N Name Value Range Interpretation Code Description Data Karen rce(s) Supporting Document(s) WHITE BLOOD COUNT 10.86 10^3/uL 4.00-10.50 H [facility] RED BLOOD COUNT 4.82 10^6/uL 3.90-5.20 [facility] th HEMOGLOBIN 14.3 G/DL 11.5-15.6 [facility] HEMATOCRIT 42.2 % 35.0-46.0 [facility] MCV 87.6 FL 80.0-100.0 [facility] MCH 29.7 PG 27.0-34.0 [facility] MCHC 33.9 G/DL 32-36 N [facility] RDW 12.8 % 11.5-14.5 [facility] PLATELET COUNT 283 10^3/uL 130-400 [facility] MPV 8.9 FL 8.7-13.2 [facility] TOTAL CELLS COUNTED(MANUAL) 100 [facility] GRAN % 45.0 % 42-75 N [facility] LYMPHS % 46.0 % 25-45 H [facility] MONO % 3.00 % 2.0-15.0 N [facility] EOS % 3.00 % 0-11 N [facility] GRAN # 4.89 10^3/uL 1.50-6.50 N [facility] BAND # 0.00 10^3/uL 0.00-0.10 N [facility] LYMPH # 5.00 10^3/uL 1.00-5.00 N [facility] MONO # 0.33 10^3/uL 0.00-1.10 N [facility] EOS # 0.33 10^3/uL 0.00-1.10 N [facility] BASO # 0.00 10^3/uL 0.00-0.20 N [facility] ATYPICAL LYMPHS % 3.0 % 0-0 [facility] SMUDGE CELLS FEW [facility] PLATELET ESTIMATE NORMAL [facility] NICHOLAS CELLS 1+ [facility] ID Date Data Source [id number] 01/14/2020 01:57:00 PM EDT [facility] Has Patient Fasted For The Past 12 Hour s? N Has Patient Fasted For The Past 12 Hour s? N Name Value Range Interpretation Code Description Data Karen rce(s) Supporting Document(s) TSH 12.204 uIU/ML 0.470-4.200 [email or web address] Patients should not be tested for 72 ho urs post fluorescein dye angiography. A false depression of result may occur. ID Date Data Source [id number] 01/07/2020 06:47:00 PM EDT [place] ([facility]) Name Value Range Interpretation Code Description Data Karen rce(s) Supporting Document(s) Reported Physicians See Note Reported Physicians [place] ([facility]) Note: Reported Physicians:Ordering: Trevon Lindoending: Trevno Franklin ID Date Data Source [id number] 01/07/2020 06:47:00 PM EDT [place] ([facility]) Name Value Range Interpretation Code Description Data Karen rce(s) Supporting Document(s) See Note Peterson See Note Kristen [place] ([employer]) Note: Run: 01/09/20 0849 INTERFACED REPORT Name: Ender Simpson Age/Sex: 74/F Location: [facility] Acct: [id number] Unit: [id number] Status: REG REF Room/Bed: Re01/07/20 Disch: Att Dr: Trevon Franklin DO Specimen #: [id number] Ordered : 01/07/2011/22/1846 Collected : 01/07/2011/22/1846 By: [...] Preliminary (Corrected) COLIFORMS MANY END OF REPORT ID Date Data Source [id number] 01/07/2020 06:47:00 PM EDT [place] ([facility]) Name Value Range Interpretation Code Description Data Karen rce(s) Supporting Document(s) URINE EPITH MANY PER/LPF URINE EPITH [place] ([facility]) Note: Responsible Observer: UR EPITH URI NE EPITH 200.1155 (A) APPEARANCE,UR CLOUDY Abnormal (applies to non-numeric results) APPEARANCE,UR [place] ([employer]) Note: Responsible Observer: UR APPEAR UR APPEARANCE 200.0250 (A) BACTERIA,UR MANY PER_HPF Abnormal (applies to non-num rita results) BACTERIA,UR [facility] ([facility]) Note: Responsible Observer: UR BACT UR B ACTERIA 200.1755 (A) BILIRUBIN,UR NEGATIVE BILIRUBIN,UR [place] ([facility]) Note: Responsible Observer: UR BILI UR B ILIRUBIN 200.0750 (A) COLOR,UR YELLOW COLOR,UR [place] ([facility]) Note: Responsible Observer: UR COLOR UR COLOR 200.0200 (A) GLUCOSE, UR 50 MG/DL Abnormal (applies to non-numeric re sults) GLUCOSE, UR [place] ([facility]) Note: Responsible Observer: UR GLU UR GL UCOSE 200.0500 (A) HYALINE CAST,UR RARE PER/LPF HYALINE CAST,UR GREEN WAY ([facility]) Note: Responsible Observer: UR HYALINE C AST HYALINE CAST,UR 200.1850 (A) KETONES,UR NEGATIVE MG/DL KETONES,UR [place] ([facility]) Note: Responsible Observer: UR KETO UR K ETONES 200.0600 (A) LEUKOCYTE ESTERASE ,UR LARGE Abnormal (applies to non-numeric results) LEUKOCYTE ESTERASE ,UR [place] ([facility]) Note: Responsible Observer: UR KEYONA ELYSE ASE UR LEUKOCYTE ESTERASE 200.0725 (A) MUCUS,UR RARE PER_HPF MUCUS,UR MI[place] ([facility]) Note: Responsible Observer: UR MUCUS UR MUCUS 200.2300 (A) NITRATE,UR POSITIVE Abnormal (applies to non-numeric res ults) NITRATE,UR [place] ([facility]) Note: Responsible Observer: UR NIT UR NI TRATE 200.0700 (A) OCCULT BLOOD,UR SMALL Abnormal (applies to non- numeric results) OCCULT BLOOD,UR [place] ([facility]) Note: Responsible Observer: UR OCLT BLD UR OCCULT BLOOD 200.0650 (A) PROTEIN,UR NEGATIVE MG/DL PROTEIN,UR [place] ([facility]) Note: Responsible Observer: UR PROT UR P ROTEIN 200.0450 (A) PH,UR 5.0 PH,UR [place] ([facility]) Note: Responsible Observer: UR PH UR PH 200.0350 (A) RBC,UR 3-9 PER_HPF Abnormal (applies to non-numeric re sults) RBC,UR [place] ([facility]) Note: Responsible Observer: UR RBC UR RB C 200.1005 (A) SPECIFIC GRAVITY,UR 1.013 Normal SPECIFIC GRAVITY,UR [place] ([facility]) Note: Responsible Observer: SG URINE SPE CIFIC GRAVITY,UR 200.0410 (A) UROBILINOGEN,UR 0.2-1.0 EU_MG/DL UROBILINOGEN,UR G [place] ([facility]) Note: Responsible Observer: UR URO UR UR OBILINOGEN 200.0900 (A) WBC,UR >100 PER_HPF Abnormal (applies to non-numeric r esults) WBC,UR [place] ([facility]) Note: Responsible Observer: UR WBC UR WB C 200.1055 (A) ID Date Data Source [id number] 01/07/2020 07:24:00 PM EDT [facility] Run: 01/09/20 0849 INTERFACED REPORT Name: Ender Simpson Age/Sex: 74/F Location: [facility] Acct: [id number] Unit: [id number] Status: REG REF Room/Bed: Re01/07/20 Disch: Att Dr: Trevon Franklin DO Specimen #: [id number] Ordered : 01/07/2011/22/1846 Collected : 01/07/2011/22/1846 By: [...] Preliminary (Corrected) COLIFORMS MANY END OF REPORT Name Value Range Interpretation Code Description Data Karen rce(s) Supporting Document(s) COLOR,UR YELLOW YELLOW [facility] APPEARANCE,UR CLOUDY CLEAR A [facility] PH,UR 5.0 5.0-8.0 [facility] SPECIFIC GRAVITY,UR 1.013 1.002-1.035 N [facility] PROTEIN,UR NEGATIVE MG/DL NEGATIVE [facility] GLUCOSE, UR 50 MG/DL NEGATIVE A [facility] KETONES,UR NEGATIVE MG/DL NEGATIVE [facility] OCCULT BLOOD,UR SMALL NEGATIVE A [facility] NITRATE,UR POSITIVE NEGATIVE A [facility] LEUKOCYTE ESTERASE ,UR LARGE NEGATIVE A [facility] BILIRUBIN,UR NEGATIVE NEGATIVE [facility] UROBILINOGEN,UR 0.2-1.0 EU MG/DL NEG-0-1.0 [facility] RBC,UR 3-9 PER HPF 0-2 A [facility] WBC,UR >100 PER HPF <5 A [facility] URINE EPITH MANY PER/LPF FEW-MOD [facility] BACTERIA,UR MANY PER HPF NONE A [facility] HYALINE CAST,UR RARE PER/LPF NONE SEEN [facility] MUCUS,UR RARE PER HPF NONE SEEN [facility] ID Date Data Source [id number] 01/09/2020 08:49:00 AM EDT [facility] Run: 01/09/20 0849 INTERFACED REPORT Name: Elinor Simpsonlena Delacruz Age/Sex: 74/F Location: [facility] Acct: [id number] Unit: [id number] Status: REG REF Room/Bed: Re01/07/20 Disch: Rowan Dr: Trevon Franklin DO Specimen #: [id number] Ordered : 01/07/2011/22/1846 Collected : 01/07/2011/22/1846 By: [...] Preliminary (Corrected) COLIFORMS MANY END OF REPORT Name Value Range Interpretation Code Description Data Karen rce(s) Supporting Document(s) ID Date Data Source [id number] 10/28/2019 11:24:00 AM EDT [place] ([facility]) Name Value Range Interpretation Code Description Data Karen rce(s) Supporting Document(s) Reported Physicians See Note Reported Physicians [place] ([facility]) Note: Reported Physicians:Ordering: Michelle PerezAttending: Michelle Horowitz ID Date Data Source [id number] 10/28/2019 11:24:00 AM EDT [place] ([facility]) Name Value Range Interpretation Code Description Data Karen rce(s) Supporting Document(s) Thyrotropin [Units/volume] in Serum or Plasma by Detec tion limit <= 0.05 mIU/L 5.839 uIU/ML Above high normal TSH [place] ([facility]) Note: Patients should not be tested for 72 hours post fluorescein dye angiography. A false depression of result may occur.Responsible Observer: TSH TSH 300.5500 (A) ID Date Data Source [id number] 10/30/2019 01:50:00 PM [facility] Name Value Range Interpretation Code Description Data Karen rce(s) Supporting Document(s) TSH 5.839 uIU/ML 0.470-4.200 H [facility] Patients should not be tested for 72 ho urs post fluorescein dye angiography. A false depression of result may occur. ID Date Data Source [id number] 08/26/2019 08:22:00 AM EST [place] ([facility]) Name Value Range Interpretation Code Description Data Karen rce(s) Supporting Document(s) Reported Physicians See Note Reported Physicians [place] ([facility]) Note: Reported Physicians:Ordering: Michelle PerezAttending: Michelle Horowitz ID Date Data Source [id number] 08/26/2019 08:22:00 AM [facility] [place] ([facility]) Name Value Range Interpretation Code Description Data Karen rce(s) Supporting Document(s) Thyrotropin [Units/volume] in Serum or Plasma by Detec tion limit <= 0.05 mIU/L 6.402 uIU/ML Above high normal TSH [place] ([facility]) Note: Patients should not be tested for 72 hours post fluorescein dye angiography. A false depression of result may occur.Responsible Observer: TSH TSH 300.5500 (A) ID Date Data Source [id number] 08/26/2019 08:22:00 AM [facility] [place] ([facility]) Name Value Range Interpretation Code Description Data Karen rce(s) Supporting Document(s) Folate [Interpretation] in Blood 10.73 NG/ML Normal FO LATE [place] ([facility]) Note: Responsible Observer: FOLATE FOLAT E 300.5210 (A) ID Date Data Source [id number] 08/26/2019 08:22:00 AM [facility] [place] ([facility]) Name Value Range Interpretation Code Description Data Karen rce(s) Supporting Document(s) Deprecated Cobalamin [Mass/volume] in Serum 727 PG/ML Nor mal VITAMIN B12 [place] ([facility]) Note: Responsible Observer: B12 VITAMIN B12 300.5200 (A) ID Date Data Source [id number] 08/26/2019 08:22:00 AM EST [place] ([facility]) Name Value Range Interpretation Code Description Data Karen rce(s) Supporting Document(s) Deprecated Cholesterol.in LDL/Cholestero l.in HDL [Mass ratio] in Serum or Plasma 4.3 Normal CHOL/HDL RATIO [place] ([facility] ) Note: Responsible Observer: CHOL/HDL RAT IO CHOL/HDL RATIO 300.4700 (A) Cholesterol crystals [Presence] in Stone by Infrared spectroscop y 178 MG/DL Normal CHOLESTEROL [place] ([facility]) Note: Responsible Observer: CHOL CHOLEST KATHERINE 300.4350 (A) Cholesterol in HDL [Mass/volume] in Serum or Plasma ultracen trifugate 41 MG/DL Normal HDL CHOLESTEROL [place] ([facility]) Note: Responsible Observer: HDL HDL CHOL ESTEROL 300.4600 (A) Cholesterol in LDL [Mass/volume] in Serum or Plasma by Direct as say 94 MG/DL Normal LDL CHOLESTEROL [place] ([facility]) Note: Responsible Observer: LDL LDL CHOL ESTEROL 300.4400 (A) Triglyceride [Mass/volume] in Serum or Plasma 217 MG/DL Above high normal TRIGLYCERIDES [place] ([facility]) Note: Responsible Observer: TRIG TRIGLYC ERIDES 300.4300 (A) ID Date Data Source [id number] 08/26/2019 08:22:00 AM EST [employer] ([facility]) Name Value Range Interpretation Code Description Data Karen rce(s) Supporting Document(s) Ferritin [Mass/volume] in Serum or Plasma 45.7 NG/ML Sonia l FERRITIN [place] ([facility]) Note: Responsible Observer: FERRITIN CAL RITIN 300.2650 (A) ID Date Data Source [id number] 08/26/2019 08:22:00 AM EST [employer] ([facility]) Name Value Range Interpretation Code Description Data Karen rce(s) Supporting Document(s) Iron [Mass/volume] in Urine collected for unspecified duration 9 0 UG/DL Normal IRON [place] ([facility]) Note: Responsible Observer: FE IRON 300 .2400 (A) % IRON SATURATION 24.0 % Normal % [facility] ([facility]) Note: Responsible Observer: % FE SAT % I BEN SATURATION 300.2500 (A) TIBC 378 UG/DL Normal TIBC [place] ([facility]) Note: Responsible Observer: TIBC TIBC 3 00.2450 (A) ID Date Data Source [id number] 08/26/2019 08:22:00 AM EST [employer] ([facility]) Name Value Range Interpretation Code Description Data Karen rce(s) Supporting Document(s) Albumin/Globulin [Mass Ratio] in Amniotic fluid 2.1 G/DL Normal ALB/GLOB RATIO [place] ([facility]) Note: Responsible Observer: A/G RATIO AL B/GLOB RATIO 300.4100 (A) Alkaline phosphatase isoenzyme [Units/volume] in Serum or Plasma 76 U/L Normal ALKALINE PHOSPHATASE [place] ([facility]) Note: Responsible Observer: ALK PHOS ALK PAUL PHOSPHATASE 300.3110 (A) Albumin [Mass/volume] in Synovial fluid 4.5 G/DL Normal ALBUMIN [place] ([facility]) Note: Responsible Observer: ALB ALBUMIN 300.3900 (A) Alanine aminotransferase [Enzymatic activity/volume] in Seru m or Plasma 26 U/L Normal ALT [place] ([facility]) Note: Responsible Observer: ALT/SGPT ALT 300.3100 (A) Urea nitrogen/Creatinine [Mass Ratio] in Serum or Plasma 24 Normal BUN/CREAT RATIO [place] ([facility]) Note: Responsible Observer: BUN/CREAT RA CAILIN BUN/CREAT RATIO 300.0450 (A) Aspartate aminotransferase [Enzymatic activity/volume] in Serum or Plasma 11 U/L Normal AST [place] ([facility]) Note: Responsible Observer: AST/SGOT AST 300.3050 (A) Bilirubin.total [Mass/volume] in Serum or Plasma 0.5 MG/DL Normal BILIRUBIN,TOTAL [place] ([facility]) Note: Responsible Observer: TOTAL BILI T OTAL BILIRUBIN 300.2700 (A) BLOOD UREA NITRO 24 MG/DL Normal BLOOD UREA NITRO [facility] ([facility]) Note: Responsible Observer: BUN BLOOD UR EA NITROGEN 300.0350 (A) Chloride [Moles/volume] in Serum, Plasma or Blood 103 MEQ/L Normal CHLORIDE [place] ([facility]) Note: Responsible Observer: CL CHLORIDE 300.0200 (A) CA 9.7 MG/DL Normal CA [place] ([facility]) Note: Responsible Observer: CA CALCIUM 300.2200 (A) Carbon dioxide, total [Moles/volume] in Serum or Plasma 31 MEQ/L Normal CARBON DIOXIDE [place] ([facility]) Note: Responsible Observer: CO2 CARBON D IOXIDE 300.0250 (A) Creatine/Creatinine [Mass Ratio] in Urine 1.0 MG/DL Sonia l CREATININE [place] ([facility]) Note: Responsible Observer: CREAT CREATI NINE 300.0400 (A) Anion gap in Blood 11 Normal ANION GAP [place] ([facility] [place]) Note: Responsible Observer: ANION GAP AN ION GAP 300.0300 (A) GFR 54.5 ML/MIN GFR [place] ([facility]) Note: Stage G3a - Mildly to moderately decreased kidney function GFR normal is >=90 The MDRD GFR calculation is considered valid between the ages of 18 and 75 years only. The GFR is an estimate of the Glomerular Filtration Rate. It is considered accurate in evaluating patients with Chronic Kidney Disease,but may underestimate kidney function in Healthy Patients.Responsible Observer: GFR GFR 300.0410 (A) Globulin [Mass/volume] in Serum by calculation 2.1 G/DL Normal GLOBULIN [place] ([facility]) Note: Responsible Observer: GLOB GLOBULI N 300.4050 (A) Glucose [Presence] in Urine 242 MG/DL Above high normal G LUCOSE [place] ([facility]) Note: Responsible Observer: GLU GLUCOSE 300.0500 (A) Potassium [Mass/volume] in Blood 4.0 MEQ/L Normal POT ASSIUM [place] ([facility]) Note: Responsible Observer: K POTASSIUM 300.0150 (A) Sodium [Moles/volume] in Serum, Plasma or Blood 141 MEQ/L Normal SODIUM [place] ([facility]) Note: Responsible Observer: NA SODIUM 3 00.0100 (A) Protein [Mass/volume] in Synovial fluid 6.6 G/DL Normal TOTAL PROTEIN [place] ([facility]) Note: Responsible Observer: TP TOTAL PRO TEIN 300.3750 (A) ID Date Data Source [id number] 08/26/2019 08:22:00 AM EST [place] ([facility]) Name Value Range Interpretation Code Description Data Karen rce(s) Supporting Document(s) IMMATURE RETIC FRACTION 8.0 % Normal IMMATURE RET IC FRACTION [place] ([facility]) Note: Responsible Observer: IRF IMMATURE RETIC FRAC 100.6275 (A) ABSOLUTE RETICS # 0.0905 10\\^6/uL ABSOLUTE RETICS # [place] ([facility]) Note: Responsible Observer: ABS RETIC# A BSOLUTE RETICS # 100.6200 (A) RETICULOCYTE % (AUTO) 1.9 % Normal RETICULOCYTE % (AUTO) [place] ([facility]) Note: Responsible Observer: RETIC% (AUTO ) RETICULOCYTE % (AUTO) 100.6100 (A) RETICULOCYTE HGB 35.4 pg Above high normal RETICULOCYTE HGB [place] ([facility]) Note: Responsible Observer: RET-HE (AUTO ) RETICULOCYTE HGB 100.6155 (A) ID Date Data Source [id number] 08/26/2019 08:22:00 AM EST [place] ([facility]) Name Value Range Interpretation Code Description Data Karen rce(s) Supporting Document(s) BASO # (AUTO) 0.07 10\\^3/uL Normal BASO # (AUTO) [place] ([facility]) Note: Responsible Observer: BASO # (AUTO ) BASO # (AUTO) 100.1500 (A) EOS # (AUTO) 0.18 10\\^3/uL Normal EOS # (AUTO) [place] ( [facility]) Note: Responsible Observer: EOS # (AUTO) EOS # (AUTO) 100.1450 (A) BASO % (AUTO) 0.9 % Normal BASO % (AUTO) [place] ([facility]) Note: Responsible Observer: BASO % (AUTO ) BASO % (AUTO) 100.1250 (A) EOS % (AUTO) 2.3 % Normal EOS % (AUTO) [place] ([facility]) Note: Responsible Observer: EOS % (AUTO) EOS % (AUTO) 100.1200 (A) GRAN # (AUTO) 3.44 10\\^3/uL Normal GRAN # (AUTO) [place] ([facility]) Note: Responsible Observer: GRAN # (AUTO ) GRAN #(AUTO) 100.1325 (A) GRAN % (AUTO) 43.6 % Normal GRAN % (AUTO) [place] [facility] Note: Responsible Observer: GRAN % (AUTO ) GRAN % (AUTO) 100.1000 (A) Hematocrit [Volume Fraction] of Blood by Automated count 42.2 % Normal HEMATOCRIT [place] ([facility]) Note: Responsible Observer: HCT HEMATOCR IT 100.0400 (A) IG # (AUTO) 0.0 10\\^3/uL IG # (AUTO) [place] ([facility]) Note: Responsible Observer: IG # (AUTO) IG # (AUTO) 100.1260 (A) Hemoglobin [Mass/volume] in Blood 14.5 G/DL Normal HE MOGLOBIN [place] ([facility]) Note: Responsible Observer: HGB HEMOGLOB IN 100.0300 (A) IG % (AUTO) 0.4 % IG % (AUTO) [place] ([facility]) Note: Responsible Observer: IG % (AUTO) IG % (AUTO) 100.1255 (A) LYMPH # (AUTO) 3.5 k/uL Normal LYMPH # (AUTO) [place] ( [facility]) Note: Responsible Observer: LYMPH # (AUT O) LYMPH # (AUTO) 100.1350 (A) Erythrocyte mean corpuscular hemoglobin [Entitic mass] by Automated count 30.3 PG Normal MCH [place] ([facility]) Note: Responsible Observer: MCH MCH 100 .0600 (A) LYMPH % (AUTO) 44.2 % Normal LYMPH % (AUTO) [place] ( [facility]) Note: Responsible Observer: LYMPH % (AUT O) LYMPH % (AUTO) 100.1100 (A) Erythrocyte mean corpuscular hemoglobin concentration [Mass/volume] by Automated count 34.4 G/DL Normal MCHC [place] ([facility]) Note: Responsible Observer: MCHC MCHC 1 00.0650 (A) Erythrocyte mean corpuscular volume [Entitic volume] by Auto mated count 88.1 FL Normal MCV [place] ([facility]) Note: Responsible Observer: MCV MCV 100 .0550 (A) MONO % (AUTO) 8.6 % Normal MONO % (AUTO) [place] ([facility]) Note: Responsible Observer: MONO % (AUTO ) MONO% (AUTO) 100.1150 (A) MONO # (AUTO) 0.68 k/uL Normal MONO # (AUTO) [place] ([facility]) Note: Responsible Observer: MONO # (AUTO ) MONO # (AUTO) 100.1400 (A) MPV 9.0 FL Normal MPV [place] ([facility]) Note: Responsible Observer: MPV MPV 100 .0950 (A) Platelets [#/volume] in Plasma by Automated count 248 10\\^3/uL Normal PLATELET COUNT [place] ([facility]) Note: Responsible Observer: PLT PLATELET COUNT 100.0850 (A) Erythrocyte distribution width [Ratio] by Automated count 12.9 % Normal RDW [place] ([facility]) Note: Responsible Observer: RDW RDW 100 .0700 (A) Erythrocytes [#/volume] in Blood by Automated count 4.79 10\\^6/uL Normal RED BLOOD COUNT [place] ([facility]) Note: Responsible Observer: RBC RED BLOO D COUNT 100.0250 (A) Leukocytes [#/volume] in Blood by Automated count 7.89 10\\^3/uL Normal WHITE BLOOD COUNT [place] ([facility]) Note: Responsible Observer: WBC WHITE BL OOD COUNT 100.0150 (A) ID Date Data Source [id number] 08/26/2019 01:24:00 PM [facility] Has Patient Fasted For The Past 12 Hour s? N Has Patient Fasted For The Past 12 Hours? Y Has Patient Fasted For The Past 12 Hour s? N Has Patient Fasted For The Past 12 Hours? Y Has Patient Fasted For The Past 12 Hour s? N Has Patient Fasted For The Past 12 Hours? Y Has Patient Fasted For The Past 12 Hour s? N Has Patient Fasted For The Past 12 Hours? Y Has Patient Fasted For The Past 12 Hour s? N Has Patient Fasted For The Past 12 Hours? Y Has Patient Fasted For The Past 12 Hour s? N Has Patient Fasted For The Past 12 Hours? Y Has Patient Fasted For The Past 12 Hour s? N Has Patient Fasted For The Past 12 Hours? Y Name Value Range Interpretation Code Description Data Karen rce(s) Supporting Document(s) WHITE BLOOD COUNT 7.89 10^3/uL 4.00-10.50 N [facility] RED BLOOD COUNT 4.79 10^6/uL 3.90-5.20 [facility] th HEMOGLOBIN 14.5 G/DL 11.5-15.6 [facility] HEMATOCRIT 42.2 % 35.0-46.0 [facility] MCV 88.1 FL 80.0-100.0 [facility] MCH 30.3 PG 27.0-34.0 [facility] MCHC 34.4 G/DL 32-36 [facility] RDW 12.9 % 11.5-14.5 [facility] PLATELET COUNT 248 10^3/uL 130-400 [facility] MPV 9.0 FL 8.7-13.2 N [facility] GRAN % (AUTO) 43.6 % 42.0-75.0 N [facility] LYMPH % (AUTO) 44.2 % 20.0-51.0 N [facility] MONO % (AUTO) 8.6 % 2.0-15.0 N [facility] EOS % (AUTO) 2.3 % 0.0-11.0 N [facility] BASO % (AUTO) 0.9 % 0.0-2.0 N [facility] IG % (AUTO) 0.4 % 1.00-5.00 [facility] IG # (AUTO) 0.0 10^3/uL <0.5 [facility] GRAN # (AUTO) 3.44 10^3/uL 1.50-6.50 N [facility] LYMPH # (AUTO) 3.5 k/uL 1.0-5.0 N [facility] MONO # (AUTO) 0.68 k/uL 0.20-1.50 N [facility] EOS # (AUTO) 0.18 10^3/uL 0.00-1.10 N [facility] BASO # (AUTO) 0.07 10^3/uL 0.00-0.20 N [email or web address] ID Date Data Source [id number] 08/26/2019 01:54:00 PM EST [email or web address] Has Patient Fasted For The Past 12 Hour s? N Has Patient Fasted For The Past 12 Hours? Y Has Patient Fasted For The Past 12 Hour s? N Has Patient Fasted For The Past 12 Hours? Y Has Patient Fasted For The Past 12 Hour s? N Has Patient Fasted For The Past 12 Hours? Y Has Patient Fasted For The Past 12 Hour s? N Has Patient Fasted For The Past 12 Hours? Y Has Patient Fasted For The Past 12 Hour s? N Has Patient Fasted For The Past 12 Hours? Y Has Patient Fasted For The Past 12 Hour s? N Has Patient Fasted For The Past 12 Hours? Y Has Patient Fasted For The Past 12 Hour s? N Has Patient Fasted For The Past 12 Hours? Y Name Value Range Interpretation Code Description Data Karen rce(s) Supporting Document(s) SODIUM 141 MEQ/L 135-145 [email or web address] POTASSIUM 4.0 MEQ/L 3.5-5.3 [email or web address] CHLORIDE 103 MEQ/L 94-110 [facility] CARBON DIOXIDE 31 MEQ/L 22-33 [facility] ANION GAP 11 5-16 [facility] BLOOD UREA NITRO 24 MG/DL 7-25 [facility] CREATININE 1.0 MG/DL 0.6-1.4 [facility] GFR 54.5 ML/MIN [facility] Stage G3a - Mildly to moderately decrea sed kidney function GFR normal is >=90 The MDRD GFR calculation is considered valid between the ages of 18 and 75 years only. The GFR is an estimate of the Glomerular Filtration Rate. It is considered accurate in evaluating patients with Chronic Kidney Disease,but may underestimate kidney function in Healthy Patients. BUN/CREAT RATIO 24 8-36 [facility] GLUCOSE 242 MG/DL 70-100 H [facility] CA 9.7 MG/DL 8.7-10.5 [facility] BILIRUBIN,TOTAL 0.5 MG/DL 0.1-1.3 [facility] AST 11 U/L 5-40 [facility] ALT 26 U/L 5-48 [facility] ALKALINE PHOSPHATASE 76 U/L 40-140 [facility] alth TOTAL PROTEIN 6.6 G/DL 5.9-8.3 [facility] ALBUMIN 4.5 G/DL 3.0-5.1 [facility] GLOBULIN 2.1 G/DL 1.5-3.5 [facility] ALB/GLOB RATIO 2.1 G/DL 1.0-2.7 [facility] ID Date Data Source [id number] 08/26/2019 01:24:00 PM [facility] Has Patient Fasted For The Past 12 Hour s? N Has Patient Fasted For The Past 12 Hours? Y Has Patient Fasted For The Past 12 Hour s? N Has Patient Fasted For The Past 12 Hours? Y Has Patient Fasted For The Past 12 Hour s? N Has Patient Fasted For The Past 12 Hours? Y Has Patient Fasted For The Past 12 Hour s? N Has Patient Fasted For The Past 12 Hours? Y Has Patient Fasted For The Past 12 Hour s? N Has Patient Fasted For The Past 12 Hours? Y Has Patient Fasted For The Past 12 Hour s? N Has Patient Fasted For The Past 12 Hours? Y Has Patient Fasted For The Past 12 Hour s? N Has Patient Fasted For The Past 12 Hours? Y Name Value Range Interpretation Code Description Data Karen rce(s) Supporting Document(s) RETICULOCYTE % (AUTO) 1.9 % 0.5-2.0 [facility] ealt RETICULOCYTE HGB 35.4 pg 29-35 H [facility] ABSOLUTE RETICS # [id number] 10^6/uL [facility] IMMATURE RETIC FRACTION 8.0 % 3.0-15.9 N [facility] ID Date Data Source [id number] 08/26/2019 01:54:00 PM [facility] Has Patient Fasted For The Past 12 Hour s? N Has Patient Fasted For The Past 12 Hours? Y Has Patient Fasted For The Past 12 Hour s? N Has Patient Fasted For The Past 12 Hours? Y Has Patient Fasted For The Past 12 Hour s? N Has Patient Fasted For The Past 12 Hours? Y Has Patient Fasted For The Past 12 Hour s? N Has Patient Fasted For The Past 12 Hours? Y Has Patient Fasted For The Past 12 Hour s? N Has Patient Fasted For The Past 12 Hours? Y Has Patient Fasted For The Past 12 Hour s? N Has Patient Fasted For The Past 12 Hours? Y Has Patient Fasted For The Past 12 Hour s? N Has Patient Fasted For The Past 12 Hours? Y Name Value Range Interpretation Code Description Data Karen rce(s) Supporting Document(s) IRON 90 UG/DL 35-150 [facility] TIBC 378 UG/DL 260-400 [facility] % IRON SATURATION 24.0 % 20-50 N [facility] h ID Date Data Source [id number] 08/26/2019 01:54:00 PM [facility] Has Patient Fasted For The Past 12 Hour s? N Has Patient Fasted For The Past 12 Hours? Y Has Patient Fasted For The Past 12 Hour s? N Has Patient Fasted For The Past 12 Hours? Y Has Patient Fasted For The Past 12 Hour s? N Has Patient Fasted For The Past 12 Hours? Y Has Patient Fasted For The Past 12 Hour s? N Has Patient Fasted For The Past 12 Hours? Y Has Patient Fasted For The Past 12 Hour s? N Has Patient Fasted For The Past 12 Hours? Y Has Patient Fasted For The Past 12 Hour s? N Has Patient Fasted For The Past 12 Hours? Y Has Patient Fasted For The Past 12 Hour s? N Has Patient Fasted For The Past 12 Hours? Y Name Value Range Interpretation Code Description Data Karen rce(s) Supporting Document(s) FERRITIN 45.7 NG/ML 22-322 N [facility] ID Date Data Source [id number] 08/26/2019 01:54:00 PM [facility] Has Patient Fasted For The Past 12 Hour s? N Has Patient Fasted For The Past 12 Hours? Y Has Patient Fasted For The Past 12 Hour s? N Has Patient Fasted For The Past 12 Hours? Y Has Patient Fasted For The Past 12 Hour s? N Has Patient Fasted For The Past 12 Hours? Y Has Patient Fasted For The Past 12 Hour s? N Has Patient Fasted For The Past 12 Hours? Y Has Patient Fasted For The Past 12 Hour s? N Has Patient Fasted For The Past 12 Hours? Y Has Patient Fasted For The Past 12 Hour s? N Has Patient Fasted For The Past 12 Hours? Y Has Patient Fasted For The Past 12 Hour s? N Has Patient Fasted For The Past 12 Hours? Y Name Value Range Interpretation Code Description Data Karen rce(s) Supporting Document(s) TRIGLYCERIDES 217 MG/DL 45-150 H [facility] CHOLESTEROL 178 MG/DL 125-200 N [facility] LDL CHOLESTEROL 94 MG/DL 50-130 N [facility] HDL CHOLESTEROL 41 MG/DL 32-96 [facility] CHOL/HDL RATIO 4.3 0-4.3 N [facility] ID Date Data Source [id number] 08/26/2019 01:54:00 PM [facility] Has Patient Fasted For The Past 12 Hour s? N Has Patient Fasted For The Past 12 Hours? Y Has Patient Fasted For The Past 12 Hour s? N Has Patient Fasted For The Past 12 Hours? Y Has Patient Fasted For The Past 12 Hour s? N Has Patient Fasted For The Past 12 Hours? Y Has Patient Fasted For The Past 12 Hour s? N Has Patient Fasted For The Past 12 Hours? Y Has Patient Fasted For The Past 12 Hour s? N Has Patient Fasted For The Past 12 Hours? Y Has Patient Fasted For The Past 12 Hour s? N Has Patient Fasted For The Past 12 Hours? Y Has Patient Fasted For The Past 12 Hour s? N Has Patient Fasted For The Past 12 Hours? Y Name Value Range Interpretation Code Description Data Karen rce(s) Supporting Document(s) VITAMIN B12 727 PG/ML 211-1999 N [facility] ID Date Data Source [id number] 08/26/2019 01:54:00 PM [facility] Has Patient Fasted For The Past 12 Hour s? N Has Patient Fasted For The Past 12 Hours? Y Has Patient Fasted For The Past 12 Hour s? N Has Patient Fasted For The Past 12 Hours? Y Has Patient Fasted For The Past 12 Hour s? N Has Patient Fasted For The Past 12 Hours? Y Has Patient Fasted For The Past 12 Hour s? N Has Patient Fasted For The Past 12 Hours? Y Has Patient Fasted For The Past 12 Hour s? N Has Patient Fasted For The Past 12 Hours? Y Has Patient Fasted For The Past 12 Hour s? N Has Patient Fasted For The Past 12 Hours? Y Has Patient Fasted For The Past 12 Hour s? N Has Patient Fasted For The Past 12 Hours? Y Name Value Range Interpretation Code Description Data Karen rce(s) Supporting Document(s) FOLATE 10.73 NG/ML 3.40-24.00 N [facility] ID Date Data Source [id number] 08/26/2019 01:54:00 PM [facility] Has Patient Fasted For The Past 12 Hour s? N Has Patient Fasted For The Past 12 Hours? Y Has Patient Fasted For The Past 12 Hour s? N Has Patient Fasted For The Past 12 Hours? Y Has Patient Fasted For The Past 12 Hour s? N Has Patient Fasted For The Past 12 Hours? Y Has Patient Fasted For The Past 12 Hour s? N Has Patient Fasted For The Past 12 Hours? Y Has Patient Fasted For The Past 12 Hour s? N Has Patient Fasted For The Past 12 Hours? Y Has Patient Fasted For The Past 12 Hour s? N Has Patient Fasted For The Past 12 Hours? Y Has Patient Fasted For The Past 12 Hour s? N Has Patient Fasted For The Past 12 Hours? Y Name Value Range Interpretation Code Description Data Karen rce(s) Supporting Document(s) TSH 6.402 uIU/ML 0.470-4.200 [facility] Patients should not be tested for 72 ho urs post fluorescein dye angiography. A false depression of result may occur. ID Date Data Source [id number] 07/10/2019 08:57:00 AM EST [employer] Name Value Range Interpretation Code Description Data Karen rce(s) Supporting Document(s) Reported Physicians See Note Reported Physicians [place] ([facility]) Note: Reported Physicians:Ordering: Checo Perezending: Michelle Horowitz ID Date Data Source [id number] 07/10/2019 08:57:00 AM EST [place] ([facility]) Name Value Range Interpretation Code Description Data Karen rce(s) Supporting Document(s) Thyrotropin [Units/volume] in Serum or Plasma by Detec tion limit <= 0.05 mIU/L 2.683 uIU/ML Normal TSH [place] ([facility]) Note: Patients should not be tested for 72 hours post fluorescein dye angiography. A false depression of result may occur.Responsible Observer: TSH TSH [id number] (A) ID Date Data Source [id number] 07/10/2019 12:45:00 PM EST [facility] [facility] Name Value Range Interpretation Code Description Data Karen rce(s) Supporting Document(s) TSH 2.683 uIU/ML 0.470-4.200 [facility] [place] [facility] Patients should not be tested for 72 ho urs post fluorescein dye angiography. A false depression of result may occur. Procedure Social History Code Duration Value Status Description Data Source(s ) Smoking 06/09/2020 12:00:00 AM EST Ex-smoker (finding) complet ed Ex-smoker (finding) [place] ([facility]) Smoking 03/07/2020 12:00:00 AM EDT Ex-smoker (finding) complet ed Ex-smoker (finding) [place] ([facility]) Smoking 03/01/2020 12:00:00 AM EDT Ex-smoker (finding) complet ed Ex-smoker (finding) [place] ([facility]) Vital Signs ID Date Data Source UNK Name Value Range Interpretation Code Description Data Source(s) Inhaled oxygen concentration 21 % 21 % [place] ([facility]) Inhaled oxygen flow rate 0 L/min 0 L/min [place] ([facility]) Oxygen saturation in Arterial blood by Pulse oximetry 95 % 95 % [place] ([facility]) PhenX - pain, abdominal - type and intensity protocol 0 0 [place] ([facility]) Body weight 180 [lb_av] 180 [lb_av] [place] ([facility] [place]) Body temperature 97.8 [degF] 97.8 [degF] [facility] ([facility]) Respiratory rate 18 /min 18 /min [place] ([facility]) Heart rate rhythm 1 1 [place] [facility] Heart rate 92 /min 92 /min [place] [facility] Diastolic blood pressure 70 mm[Hg] 70 mm[Hg] [place] ([facility]) Systolic blood pressure 124 mm[Hg] 124 mm[Hg] [place] ([facility]) Inhaled oxygen concentration 21 % 21 % [place] ([facility]) temp taken by Afshan SYKES Inhaled oxygen flow rate 0 L/min 0 L/min [place] ([facility]) temp taken by Afshan SYKES Oxygen saturation in Arterial blood by Pulse oximetry 95 % 95 % [place] ([facility]) temp taken by Afshan SYKES PhenX - pain, abdominal - type and intensity protocol 0 0 [place] ([facility]) temp taken by Afshan SYKES Body surface area Derived from formula 1.91 m2 1.91 m2 [place] ([facility]) temp taken by Afshan SYKES Body mass index (BMI) [Ratio] 28.9 kg/m2 28.9 k g/m2 [place] ([facility]) temp taken by Afshan SYKES Body weight 179 [lb_av] 179 [lb_av] [place] ([facility]) temp taken by Afshan SYKES Body height 66 [in_i] 66 [in_i] [place] ([facility]) temp taken by Afshan SYKES Body temperature 99.9 [degF] 99.9 [degF] [place] ([facility]) temp taken by Afshan SYKES Respiratory rate 18 /min 18 /min [place] ([facility]) temp taken by Afshan SYKES Heart rate rhythm 1 1 [place] ([facility]) temp taken by Afshan SYKES Heart rate 92 /min 92 /min [place] ([facility]) temp taken by Afshan SYKES Diastolic blood pressure 76 mm[Hg] 76 mm[Hg] [place] ([facility]) temp taken by Afshan SYKES Systolic blood pressure 120 mm[Hg] 120 mm[Hg] G [place] ([facility]) temp taken by Afshan SYKES Inhaled oxygen concentration 21 % 21 % [place] ([facility]) Inhaled oxygen flow rate 0 L/min 0 L/min [place] ([facility]) Oxygen saturation in Arterial blood by Pulse oximetry 97 % 97 % [place] ([facility]) PhenX - pain, abdominal - type and intensity protocol 0 0 [place] ([facility]) Body surface area Derived from formula 1.91 m2 1.91 m2 [place] ([facility]) Body mass index (BMI) [Ratio] 29.1 kg/m2 29.1 k g/m2 [place] ([facility]) Body weight 180 [lb_av] 180 [lb_av] [place] ([facility]) Body height 66 [in_i] 66 [in_i] [place] ([facility]) Body temperature 98.6 [degF] 98.6 [degF] [facility] ([facility]) Respiratory rate 18 /min 18 /min [place] ([facility]) Heart rate 86 /min 86 /min [place] ([facility]) Diastolic blood pressure 80 mm[Hg] 80 mm[Hg] [place] ([facility]) Systolic blood pressure 148 mm[Hg] 148 mm[Hg] [facility] Intraocular pressure Left eye 15 mm[Hg] 15 mm[ Hg] [place] ([facility]) TP MH 11:24 Am Intraocular pressure Right eye 11 mm[Hg] 11 mm [Hg] [facility] ([facility]) Patient Treatment Plan of Care Planned Activity Planned Date Details Description Data Source (s) OneTouch Ultra In Vitro Strip 06/09/2020 12:00:00 AM [facility] ([facility]) Levothyroxine Sodium 0.088 MG Oral Tablet 06/09/2020 12:00:00 AM [facility] ([facility]) OneTouch Delica Lancets 33G Miscellaneous 06/09/2020 12:00:00 AM Expan [place] ([facility]) POLYETHYLENE GLYCOL 3350 142 MG/ML Oral Solution [Eliz lax] 06/09/2020 12:00:00 AM [facility] glimepiride 2 MG Oral Tablet 06/09/2020 12:00:00 AM EST [place] ([facility]) Levothyroxine Sodium 0.088 MG Oral Tablet 03/15/2020 12:00:00 AM ED T [place] ([facility]) OneTouch Ultra In Vitro Strip 03/15/2020 12:00:00 AM EDT [place] ([facility]) CareFine Pen [place] 32G X 4 MM Miscellaneous 03/15/2020 12:00:00 A M EDT [place] ([facility]) sitagliptin 100 MG Oral Tablet [Januvia] 03/15/2020 12:00:00 AM EDT [place] ([facility]) glimepiride 2 MG Oral Tablet 03/15/2020 12:00:00 AM EDT [place] ([facility]) OneTouch Delica Lancets 33G Miscellaneous 03/15/2020 12:00:00 AM ED T [place] ([facility]) Levothyroxine Sodium 0.088 MG Oral Tablet 03/10/2020 12:00:00 AM ED [facility] ([facility]) sitagliptin 100 MG Oral Tablet [Januvia] 03/07/2020 12:00:00 AM EDT [place] ([facility]) glimepiride 2 MG Oral Tablet 03/07/2020 12:00:00 AM EDT [place] ([facility]) Accu-Chek FastClix Lancets Miscellaneous 03/07/2020 12:00:00 AM EDT [place] ([facility]) CareFine Pen [place] 32G X 4 MM Miscellaneous 03/07/2020 12:00:00 A M EDT [place] ([facility]) Vitamin D (Ergocalciferol) 1.25 MG (59117 UT) Oral Cap poonam 03/07/2020 12:00:00 AM EDT [place] ([facility] e) Cyclobenzaprine hydrochloride 5 MG Oral Tablet 03/01/2020 12:00:00 AM EDT [place] ([facility]) Levothyroxine Sodium 0.1 MG Oral Tablet 01/18/2020 12:00:00 AM EDT [place] ([facility]) Levothyroxine Sodium 0.1 MG Oral Tablet 01/14/2020 12:00:00 AM EDT [place] ([facility]) glimepiride 2 MG Oral Tablet 11/16/2019 12:00:00 AM ED [place] ([facility]) glimepiride 2 MG Oral Tablet 11/12/2019 12:00:00 AM EDT [place] ([facility]) Levothyroxine Sodium 0.088 MG Oral Tablet 11/02/2019 12:00:00 AM [facility] ([facility]) Hydrochlorothiazide 25 MG Oral Tablet 11/02/2019 12:00:00 AM EDT [place] ([facility]) Potassium Chloride 20 MEQ Extended Release Oral Tablet 11/02/2019 12:00:00 AM EDT [place] ([facility]) duloxetine 30 MG Delayed Release Oral Capsule [Cymbalt a] 11/02/2019 12:00:00 AM [facility] ([facility]) clopidogrel 75 MG Oral Tablet [Plavix] 11/02/2019 12:00:00 AM [facility] ([facility]) Simvastatin 40 MG Oral Tablet 11/02/2019 12:00:00 AM [facility] ([facility]) Metformin hydrochloride 1000 MG Oral Tablet 11/02/2019 12:00:00 AM [facility] ([facility]) Basaglar KwikPen 100 UNIT/ML Subcutaneous Solution Pen -injector 11/02/2019 12:00:00 AM [facility] ([facility]) CareFine Pen [place] 32G X 4 MM Miscellaneous 10/15/2019 12:00:00 A M [facility] ([facility]) Magnesium Oxide 400 MG Oral Tablet 09/29/2019 12:00:00 AM [facility] [place] ([facility]) Magnesium Oxide 400 MG Oral Tablet 09/24/2019 12:00:00 AM [facility] [place] ([facility]) OneTouch Delica Lancets 33G Miscellaneous 09/08/2019 12:00:00 AM T [place] ([facility]) OneTouch Ultra Blue In Vitro Strip 09/08/2019 12:00:00 AM EST [place] ([facility]) OneTouch Ultra Blue In Vitro Strip 08/28/2019 12:00:00 AM [facility] [place] ([facility]) OneTouch Delica Lancets 33G Miscellaneous 08/28/2019 12:00:00 AM ES T [place] ([facility]) OneTouch Ultra Blue In Vitro Strip 08/28/2019 12:00:00 AM EST [place] ([facility]) OneTouch Ultra 2 w/Device Kit 08/28/2019 12:00:00 AM EST [place] ([facility]) Accu-Chek Melia Plus In Vitro Strip 08/25/2019 12:00:00 AM EST [place] ([facility]) Accu-Chek Melia Plus In Vitro Strip 08/25/2019 12:00:00 AM EST [place] ([facility]) POLYETHYLENE GLYCOL 3350 142 MG/ML Oral Solution [Eliz lax] 08/13/2019 12:00:00 AM EST [place] ([facility]) Basaglar KwikPen 100 UNIT/ML Subcutaneous Solution Pen -injector 07/07/2019 12:00:00 AM EST [place] ([facility]) Vitamin D (Ergocalciferol) 1.25 MG (38548 UT) Oral Cap poonam 07/06/2019 12:00:00 AM EST [place] ([facility]) CareFine Pen [place] 32G X 4 MM Miscellaneous 07/01/2019 12:00:00 A M EST [place] ([facility]) Accu-Chek FastClix Lancets Miscellaneous 07/01/2019 12:00:00 AM EST [place] ([facility]) glimepiride 2 MG Oral Tablet 06/26/2019 12:00:00 AM EST [place] ([facility]) Vitamin D (Ergocalciferol) 1.25 MG (07387 UT) Oral Cap poonam 06/26/2019 12:00:00 AM EST [place] ([facility]) Hydrochlorothiazide 25 MG Oral Tablet 06/26/2019 12:00:00 AM EST [place] ([facility]) sitagliptin 100 MG Oral Tablet [Januvia] 06/26/2019 12:00:00 AM EST [place] ([facility]) clopidogrel 75 MG Oral Tablet [Plavix] 06/26/2019 12:00:00 AM EST [place] ([facility]) Levothyroxine Sodium 0.075 MG Oral Tablet 06/26/2019 12:00:00 AM ES T [place] ([facility]) Magnesium Oxide 400 MG Oral Tablet 06/26/2019 12:00:00 AM EST [place] ([facility]) Metformin hydrochloride 1000 MG Oral Tablet 06/26/2019 12:00:00 AM EST [place] ([facility]) Simvastatin 40 MG Oral Tablet 06/26/2019 12:00:00 AM EST [place] ([facility]) duloxetine 30 MG Delayed Release Oral Capsule [Cymbalt a] 06/26/2019 12:00:00 AM EST [place] ([facility] e) 3 ML Insulin Glargine 100 UNT/ML Pen Injector [Lantus] 06/26/2019 12:00:00 AM EST [place] ([facility]) Potassium Chloride 20 MEQ Extended Release Oral Tablet 06/26/2019 12:00:00 AM EST [place] ([facility]) POLYETHYLENE GLYCOL 3350 142 MG/ML Oral Solution [Eliz lax] 08/28/2018 12:00:00 AM EST [place] ([facility]) Accu-Chek Melia Device 07/24/2018 12:00:00 AM EST [place] ([facility])
[2020-09-01 17:15] LABS: HEMATOCRIT 43.7 % (36.0-47.0); HEMOGLOBIN 14.6 g/dl (12.0-15.5); MEAN CORPUSCULAR HEMOGLOBIN 29.5 pg (27.0-33.0); MEAN CORPUSCULAR HGB CONC 33.4 g/dl (32.0-36.5); MEAN CORPUSCULAR VOLUME 88.3 fl (80.0-96.0); PLATELET COUNT, AUTOMATED 266 10^3/uL (150-450); RED BLOOD COUNT 4.95 10^6/uL (4.00-5.40); WHITE BLOOD COUNT 9.9 10^3/uL (4.0-10.0)
[2020-09-01 17:36] LABS: CALCIUM LEVEL 9.5 MG/DL (8.8-10.2); CREATININE FOR GFR 1.04 MG/DL (0.55-1.30); GLOMERULAR FILTRATION RATE 55.3 (>39); POTASSIUM SERUM 3.9 MEQ/L (3.5-5.1)
--- OUTSIDE RECORDS SUMMARY | 2020-09-01 17:40 | CCD ---
Author Author [facility] Organization [facility] Address Unknown Phone Unavailable Care Team Providers Care Body Care Manager Name Role Phone Kimberlyn, Chato Sharmin GM/[employer]P [employer] Unavailable Unavailable Shaben, E Sharmin GM/SVP [employer] Unavailable Unavailable Shaben, E Sharmin GM/SVP GLO[employer] PUBL[employer] Unavailable Unavailable Shaben, E Sharmin GM/SVP GLOBAL PUBL[employer]ER [employer] Unavailable Unavailable Shaben, E Sharmin GM/SVP GLOBAL PUBL[employer]ER [employer] Unavailable Unavailable Shaben, E Sharmin GM/SVP GLOBAL PUBL[employer]ER [employer] Unavailable Unavailable Shaben, E Sharmin GM/SVP GLO[employer] PUBL[employer] Unavailable Unavailable Shaben, E Sharmin GM/SVP GLO[employer] PUBL[employer] Unavailable Unavailable Shaben, E Sharmin GM/SVP [employer] PUBL[employer] Unavailable Unavailable Shaben, E Sharmin GM/SVP [employer] PUBL[employer] Unavailable Unavailable Shaben, E Sharmin GM/SVP [employer]LO[employer] PUBL[employer] Unavailable Unavailable Shaben, E Sharmin GM/SVP [employer] Unavailable Unavailable Shaben, E Sharmin GM/SVP [employer] PUBL[employer] Unavailable Unavailable Shaben, E Sharmin GM/SVP [employer] PUBL[employer] Unavailable Unavailable Shaben, E Sharmin GM/SVP [employer] Unavailable Unavailable Shaben, E Sharmin GM/SVP [employer] Unavailable Unavailable Shaben, E Sharmin GM/SVP [employer] Unavailable Unavailable Shaben, E Sharmin GM/SVP [employer] Unavailable Unavailable Shaben, E Sharmin GM/SVP [employer] PUBL[employer] Unavailable Unavailable Shaben, E Sharmin GM/SVP [employer] Unavailable Unavailable Shaben, E Sharmin GM/SVP [employer] Unavailable Unavailable Shaben, E Sharmin GM/SVP [employer] Unavailable Unavailable Shaben, E Sharmin GM/SVP [employer] Unavailable Unavailable Shaben, E Sharmin GM/SVP [employer] Unavailable Unavailable Brushaber, M Michelle WORKFORCE SPECIALIST Unavailable Unavailable Brushaber, M Michelle WORKFORCE SPECIALIST Unavailable Unavailable Brushaber, M Michelle WORKFORCE SPECIALIST Unavailable Unavailable Brushaber, M Michelle WORKFORCE SPECIALIST Unavailable Unavailable Brushaber, M Michelle WORKFORCE SPECIALIST Unavailable Unavailable Brushaber, M Michelle WORKFORCE SPECIALIST Unavailable Unavailable Brushaber, M Michelle WORKFORCE SPECIALIST Unavailable Unavailable Brushaber, M Michelle WORKFORCE SPECIALIST Unavailable Unavailable Brushaber, M Michelle WORKFORCE SPECIALIST Unavailable Unavailable Brushaber, M Michelle WORKFORCE SPECIALIST Unavailable Unavailable Brushaber, M Michelle WORKFORCE SPECIALIST Unavailable Unavailable Brushaber, M Michelle WORKFORCE SPECIALIST Unavailable Unavailable Brushaber, M Michelle WORKFORCE SPECIALIST Unavailable Unavailable Brushaber, M Michelle WORKFORCE SPECIALIST Unavailable Unavailable Brushaber, M Michelle WORKFORCE SPECIALIST Unavailable Unavailable Brushaber, M Michelle WORKFORCE SPECIALIST Unavailable Unavailable Brushaber, M Michelle WORKFORCE SPECIALIST Unavailable Unavailable Brushaber, M Michelle WORKFORCE SPECIALIST Unavailable Unavailable Brushaber, M Michelle WORKFORCE SPECIALIST Unavailable Unavailable Brushaber, M Michelle WORKFORCE SPECIALIST Unavailable Unavailable Brushaber, M Michelle WORKFORCE SPECIALIST Unavailable Unavailable Brushaber, M Michelle WORKFORCE SPECIALIST Unavailable Unavailable Brushaber, M Michelle WORKFORCE SPECIALIST Unavailable Unavailable Brushaber, M Michelle WORKFORCE SPECIALIST Unavailable Unavailable Brushaber, M Michelle WORKFORCE SPECIALIST Unavailable Unavailable Brushaber, M Michelle WORKFORCE SPECIALIST Unavailable Unavailable Brushaber, M Michelle WORKFORCE SPECIALIST Unavailable Unavailable Brushaber, M Michelle WORKFORCE SPECIALIST Unavailable Unavailable Brushaber, M Michelle WORKFORCE SPECIALIST Unavailable Unavailable Brushaber, M Michelle WORKFORCE SPECIALIST Unavailable Unavailable Brushaber, M Michelle WORKFORCE SPECIALIST Unavailable Unavailable Brushaber, M Michelle WORKFORCE SPECIALIST Unavailable Unavailable Brushaber, M Michelle WORKFORCE SPECIALIST Unavailable Unavailable Brushaber, M Michelle WORKFORCE SPECIALIST Unavailable Unavailable JASIEL-GEORGE, CHASE WORKFORCE SPECIALIST Unavailable Unavaila ble JASIEL-GEORGE, CHASE WORKFORCE SPECIALIST Unavailable Unavaila ble JASIEL-GEORGE, CHASE WORKFORCE SPECIALIST Unavailable Unavaila ble JASIEL-GEORGE, CHASE WORKFORCE SPECIALIST Unavailable Unavaila ble JASIEL-GEORGE, CHASE WORKFORCE SPECIALIST Unavailable Unavaila ble JASIEL-GEORGE, CHASE WORKFORCE SPECIALIST Unavailable Unavaila ble JASIEL-GEORGE, SHARMIN ACOSTA WORKFORCE SPECIALIST Unavailable Unavaila ble JASIEL-GEORGE, SHARMIN ACOSTA WORKFORCE SPECIALIST Unavailable Unavaila ble JASIEL-GEORGE, SHARMIN ACOSTA WORKFORCE SPECIALIST Unavailable Unavaila ble JASIEL-GEORGE, SHARMIN ACOSTA WORKFORCE SPECIALIST Unavailable Unavaila ble JASIEL-GEORGE, SHARMIN ACOSTA WORKFORCE SPECIALIST Unavailable Unavaila ble JASIEL-GEORGE, SHARMIN ACOSTA WORKFORCE SPECIALIST Unavailable Unavaila ble JASIEL-GEORGE, SHARMIN ACOSTA WORKFORCE SPECIALIST Unavailable Unavaila ble JASIEL-GEORGE, SHARMIN ACOSTA WORKFORCE SPECIALIST Unavailable Unavaila ble JASIEL-GEORGE, SHARMIN ACOSTA WORKFORCE SPECIALIST Unavailable Unavaila ble JASIEL-GEORGE, SHARMIN ACOSTA WORKFORCE SPECIALIST Unavailable Unavaila ble JASIEL-GEORGE, SHARMIN ACOSTA WORKFORCE SPECIALIST Unavailable Unavaila ble JASIEL-GEORGE, SHARMIN ACOSTA WORKFORCE SPECIALIST Unavailable Unavaila ble JASIEL-GEORGE, SHARMIN ACOSTA WORKFORCE SPECIALIST Unavailable Unavaila ble JASIEL-GEORGE, SHARMIN ACOSTA WORKFORCE SPECIALIST Unavailable Unavaila ble JASIEL-GEORGE, SHARMIN ACOSTA WORKFORCE SPECIALIST Unavailable Unavaila ble JASIEL-GEORGE, SHARMIN ACOSTA WORKFORCE SPECIALIST Unavailable Unavaila ble JASIEL-GEORGE, SHARMIN ACOSTA WORKFORCE SPECIALIST Unavailable Unavaila ble JASIEL-GEORGE, SHARMIN ACOSTA WORKFORCE SPECIALIST Unavailable Unavaila ble JASIEL-GEORGE, SHARMIN ACOSTA WORKFORCE SPECIALIST Unavailable Unavaila ble JASIEL-GEORGE, SHARMIN ACOSTA WORKFORCE SPECIALIST Unavailable Unavaila ble JASIEL-GEORGE, SHARMIN ACOSTA WORKFORCE SPECIALIST Unavailable Unavaila ble JASIEL-GEORGE, SHARMIN ACOSTA WORKFORCE SPECIALIST Unavailable Unavaila ble JASIEL-GEORGE, SHARMIN ACOSTA WORKFORCE SPECIALIST Unavailable Unavaila ble JASIEL-GEORGE, SHARMIN ACOSTA WORKFORCE SPECIALIST Unavailable Unavaila ble JASIEL-GEORGE, SHARMIN ACOSTA WORKFORCE SPECIALIST Unavailable Unavaila ble JASIEL-GEORGE, SHARMIN ACOSTA WORKFORCE SPECIALIST Unavailable Unavaila ble JASIEL-GEORGE, SHARMIN ACOSTA WORKFORCE SPECIALIST Unavailable Unavaila ble JASIEL-GEORGE, SHARMIN ACOSTA WORKFORCE SPECIALIST Unavailable Unavaila ble JASIEL-GEORGE, SHARMIN ACOSTA WORKFORCE SPECIALIST Unavailable Unavaila ble JASIEL-GEORGE, SHARMIN ACOSTA WORKFORCE SPECIALIST Unavailable Unavaila ble JASIEL-GEORGE, SHARMIN ACOSTA WORKFORCE SPECIALIST Unavailable Unavaila ble JASIEL-GEORGE, SHARMIN ACOSTA WORKFORCE SPECIALIST Unavailable Unavaila ble JASIEL-GEORGE, SHARMIN ACOSTA WORKFORCE SPECIALIST Unavailable Unavaila ble JASIEL-GEORGE, SHARMIN ACOSTA WORKFORCE SPECIALIST Unavailable Unavaila ble JASIEL-GEORGE, SHARMIN ACOSTA WORKFORCE SPECIALIST Unavailable Unavaila ble JASIEL-GEORGE, SHARMIN ACOSTA WORKFORCE SPECIALIST Unavailable Unavaila ble JASIEL-GEORGE, SHARMIN ACOSTA WORKFORCE SPECIALIST Unavailable Unavaila ble JASIEL-GEORGE, SHARMIN ACOSTA WORKFORCE SPECIALIST Unavailable Unavaila ble JASIEL-GEORGE, SHARMIN ACOSTA WORKFORCE SPECIALIST Unavailable Unavaila ble JASIEL-GEORGE, SHARMIN ACOSTA WORKFORCE SPECIALIST Unavailable Unavaila ble JustinguJayme brizuela Trevon DO [...] Abdiaziz CASTILLO, Hailey Unavailable RAVI, SHARMIN ACOSTA WORKFORCE SPECIALIST Unavailable Unavaila ble RAVI, SHARMIN ACOSTA WORKFORCE SPECIALIST Unavailable Unavaila ble RAVI, SHARMIN ACOSTA WORKFORCE SPECIALIST Unavailable Unavaila ble JASIEL-GEORGE, SHARMIN ACOSTA WORKFORCE SPECIALIST Unavailable Unavaila ble JASIEL-GEORGE, SHARMIN ACOSTA WORKFORCE SPECIALIST Unavailable Unavaila ble JASIEL-GEORGE, SHARMIN ACOSTA WORKFORCE SPECIALIST Unavailable Unavaila ble JASIEL-GEORGE, SHARMIN ACOSTA WORKFORCE SPECIALIST Unavailable Unavaila ble JASIEL-GEORGE, SHARMIN ACOSTA WORKFORCE SPECIALIST Unavailable Unavaila ble JASIEL-GEORGE, SHARMIN ACOSTA WORKFORCE SPECIALIST Unavailable Unavaila ble JASIEL-GEORGE, SHARMIN ACOSTA WORKFORCE SPECIALIST Unavailable Unavaila ble JASIEL-GEORGE, SHARMIN ACOSTA WORKFORCE SPECIALIST Unavailable Unavaila ble JASIEL-GEORGE, SHARMIN ACOSTA WORKFORCE SPECIALIST Unavailable Unavaila ble JASIEL-GEORGE, SHARMIN ACOSTA WORKFORCE SPECIALIST Unavailable Unavaila ble JASIEL-GEORGE, SHARMIN ACOSTA WORKFORCE SPECIALIST Unavailable Unavaila ble JASIEL-GEORGE, SHARMIN ACOSTA WORKFORCE SPECIALIST Unavailable Unavaila ble JASIEL-GEORGE, SHARMIN ACOSTA WORKFORCE SPECIALIST Unavailable Unavaila ble JASIEL-GEORGE, SHARMIN ACOSTA WORKFORCE SPECIALIST Unavailable Unavaila ble JASIEL-GEORGE, SHARMIN ACOSTA WORKFORCE SPECIALIST Unavailable Unavaila ble JASIEL-GEORGE, SHARMIN ACOSTA WORKFORCE SPECIALIST Unavailable Unavaila ble JASILE-GEORGE, SHARMIN ACOSTA WORKFORCE SPECIALIST Unavailable Unavaila ble JASIEL-GEORGE, SHARMIN ACOSTA WORKFORCE SPECIALIST Unavailable Unavaila ble JASIEL-GEORGE, SHARMIN ACOSTA WORKFORCE SPECIALIST Unavailable Unavaila ble JASIEL-GEORGE, SHARMIN ACOSTA WORKFORCE SPECIALIST Unavailable Unavaila ble JASIEL-GEORGE, SHARMIN ACOSTA WORKFORCE SPECIALIST Unavailable Unavaila ble JASIEL-GEORGE, SHARMIN ACOSTA WORKFORCE SPECIALIST Unavailable Unavaila ble JASIEL-GEORGE, SHARMIN ACOSTA WORKFORCE SPECIALIST Unavailable Unavaila ble JASIEL-GEORGE, SHARMIN ACOSTA WORKFORCE SPECIALIST Unavailable Unavaila ble JASIEL-GEORGE, SHARMIN ACOSTA WORKFORCE SPECIALIST Unavailable Unavaila ble JASIEL-GEORGE, HSARMIN ACOSTA WORKFORCE SPECIALIST Unavailable Unavaila ble JASIEL-GEORGE, SHARMIN ACOSTA WORKFORCE SPECIALIST Unavailable Unavaila ble JASIEL-GEORGE, SHARMIN ACOSTA WORKFORCE SPECIALIST Unavailable Unavaila ble JASIEL-GEORGE, SHARMIN ACOSTA WORKFORCE SPECIALIST Unavailable Unavaila ble JASIEL-GEORGE, SHARMIN ACOSTA WORKFORCE SPECIALIST Unavailable Unavaila ble JASIEL-GEORGE, SHARMIN ACOSTA WORKFORCE SPECIALIST Unavailable Unavaila ble JASIEL-GEORGE, SHARMIN ACOSTA WORKFORCE SPECIALIST Unavailable Unavaila ble JASIEL-GEORGE, SHARMIN ACOSTA WORKFORCE SPECIALIST Unavailable Unavaila ble JASIEL-GEORGE, SHARMIN ACOSTA WORKFORCE SPECIALIST Unavailable Unavaila ble JASIEL-GEORGE, SHARMIN ACOSTA WORKFORCE SPECIALIST Unavailable Unavaila ble JASIEL-GEORGE, SHARMIN ACOSTA WORKFORCE SPECIALIST Unavailable Unavaila ble JASIEL-GEORGE, SHARMIN ACOSTA WORKFORCE SPECIALIST Unavailable Unavaila ble JASIEL-GEORGE, SHARMIN ACOSTA WORKFORCE SPECIALIST Unavailable Unavaila ble JASIEL-GEORGE, SHARMIN ACOSTA WORKFORCE SPECIALIST Unavailable Unavaila ble JASIEL-GEORGE, SHARMIN ACOSTA WORKFORCE SPECIALIST Unavailable Unavaila ble JASIEL-GEORGE, SHARMIN ACOSTA WORKFORCE SPECIALIST Unavailable Unavaila ble JASIEL-GEORGE, SHARMIN ACOSTA WORKFORCE SPECIALIST Unavailable Unavaila ble JASIEL-GEORGE, SHARMIN ACOSTA WORKFORCE SPECIALIST Unavailable Unavaila ble JONATHAN Bennett, Ksenia Unavailable [...] Franklin Trevon DO Unavailable Unavailable Jayme Franklin Trveon DO Unavailable Unavailable Jayme Franklin Trevon DO [...] is protected by Article 27-F of the [facility] Public Health law. If you continue you may have access to information: Regarding HIV / AIDS; Provided by facilities licensed or operated by the [facility] Office of Mental Health; or Provided by the [facility] Office for People With Developmental Disabilities. If such information is present, then the following [facility] mandated warning applies: This information has been [...] law may result in a fine or group home sentence or both. A general authorization for the release of medical or other information is NOT sufficient authorization for further disc losure. Advance Directives Directive Description Family Assessment Worker Traffic Control Specialist Status Observation Descr iption Data Source(s) packet given Pt Bill of Rights, Priv Prac, Ad Dir completed packet given Pt Bill of Rights, Priv Prac, Ad Dir [facility] ([facility]) Note: Pt declined AD packet Ebola Screening Performed completed Ebol a Screening Performed [facility] ([facility]) Note: Within the last month, have you [...] Outpatient<td ID="encounterTypeDescripti onID0">Chronic Disease Follow- up</td><td>Sharmin Danielson NP</td><td>[facility]</td><td>06/09/2020</td><td><content ID="encounterDiagnosisID0-0"> Diabetes Mellitus Type 2</content>, <content ID="encounterDiagnosisID0- 1">Hypertension (systemic)</content>, <content ID="encounterDiagnosisID0-2">Hyperlipidemia</content>, <content ID="encounterDiagnosisID0-3">Hypothyroidism</content></td> Attender: Sharmin NAIK [facility] 06/09/2020 11:13:00 AM EST - 06/09/2020 12:02:01 PM EST HypothyroidismHyperlipidemiaHypertension (systemic)Diabetes Mellitus Type 2 [facility] ([facility]) Hypothyroidism Hyperlipidemia Hypertension (systemic) Diabetes Mellitus Type 2 Outpatient<td ID="encounterTypeDescripti onID1">Care Management Medical- Telephone Encounter</td><td>Sharmin Danielson NP</td><td>[facility]</td><td>06/03/2020</td><td></td> Attender: Sharmin NAIK [facility] 06/03/2020 02:56:00 PM EDT - 06/03/2020 02:56:00 PM EDT [facility] ([facility]) Unknown<td ID="encounterTypeDescriptionI D2">Chart Update</td><td>Hailey Freed RN</td><td></td><td>04/14/2020</td><td></td> Attender: Hailey Freed RN 04/14/2020 10:50:00 AM EDT - 04/14/2020 11:59:00 PM EDT [facility] ([facility]) Outpatient Attender: Sharmin NAIK 04/13/2020 07:58:00 A M EDT lab 1 of 1 [facility] lab 1 of 1 Unknown<td ID="encounterTypeDescriptionI D3">Correspondence</td><td>Trevon Franklin DO</td><td></td><td>03/31/2020</td><td></td> Attender: Trevon rFanklin DO 03/31/2020 04:11:00 PM EDT - 03/31/2020 11:59:00 PM EDT [facility] ([facility]) Unknown<td ID="encounterTypeDescriptionI D4">Chart Update</td><td>Sharmin Danielson NP</td><td></td><td>03/31/2020</td><td></td> Attender: Sharmin NAIK 03/31/2020 10:03:00 AM EDT - 03/31/2020 11:59:00 PM EDT [facility] ([facility]) Outpatient Attender: Sharmin NAIK 03/30/2020 08:2 7:00 AM EDT Z12.31 mammo/US,N95.9 bonita/pre-bonita,F17.211 [facility]o/US,N95.9 bonita/pre-bonita,F17. 211 remiss Obstetrics<td ID="encounterTypeDescripti onID5">Lab Order</td><td>Sharmin Danielson NP</td><td></td><td>03/10/2020</td><td></td> Attender: Sharmin NAIK 03/10/2020 09:14:00 AM EDT - 03/10/2020 11:59:00 PM EDT [facility] ([facility]) Unknown<td ID="encounterTypeDescriptionI D6">[Patient Encounter]</td><td>Sharmin Danielson NP</td><td></td><td>03/08/2020</td><td></td> Attender: Sharmin NAIK 03/08/2020 10:08:00 AM EDT - 03/08/2020 11:59:00 PM EDT [facility] ([facility]) Unknown<td ID="encounterTypeDescriptionI D7">[Patient Encounter]</td><td>Sharmin Reis Jagjit DANIELS</td><td></td><td>03/07/2020</td><td></td> Attender: Sharmin Martinezlynette NAIK 03/07/2020 02:51:00 PM EDT - 03/07/2020 11:59:00 PM EDT [facility] ([facility]) Unknown<td ID="encounterTypeDescriptionI D8">AHR</td><td>Sharmin Reis Jagjit DANIELS</td><td>[facility]</td><td>03/07/2020</td><td><content ID="encounterDiagnosisID8-0">Routine History and Physical</content>, <content ID="encounterDiagnosisID8-1">Diabetes Mellitus Type 2</content>, <content ID="encounterDiagnosisID8-2">Hypertension (systemic)</content>, <content ID="encounterDiagnosisID8-3">Hypothyroidism</content>, <content ID="encounterDiagnosisID8-4">Nicotine Dependence Cigarettes Mild in Early Remission</content></td> Attender: Sharmin Martinezlynette [facility] 0 12:57:00 PM EDT - 03/07/2020 02:32:23 [...] Type 2Hypertension (systemic)Diabetes Mellitus Type 2 [facility] ([facility]) Nicotine Dependence Cigarettes Mild in E fanny [...] 08:20:00 AM EDT lab 1 of 1 [facility] lab 1 of 1 Unknown<td ID="encounterTypeDescriptionI D9">Correspondence</td><td>Trevon Franklin DO</td><td></td><td>03/03/2020</td><td></td> Attender: Trevon Franklin DO 03/03/2020 09:26:00 AM EDT - 03/03/2020 11:59:00 PM EDT [facility] ([facility]) Outpatient Attender: SHARMIN RODRIGUES NP 0 03/01/2020 03:53:00 PM EDT ay [facility] Xray Outpatient<td ID="encounterTypeDescripti onID10">Acute L3</td><td>Sharmin George NP</td><td>[facility]</td><td>03/01/2020</td><td><content ID="ulrvcnejxUyszfnnmdJY56-3">Tendonitis Rotator Cuff Left</content>, <content ID="tzigkakejTyhdyighjVT43-6">Trapezius Muscle Strain Left</content></td> Attender: SHARMIN RODRIGUES NP [facility] 03/01/2020 02: 22:00 PM EDT - [...] Left Outpatient<td ID="encounterTypeDescripti onID11">Telephonic Encounter</td><td>Trevon Franklin DO</td><td></td><td>01/14/2020</td><td><content ID="rnektaxnsYrupaotkdAA86-2"> Hypothyroidism</content></td> Attender: Trevon Franklin DO 01/14/2020 04:13:00 PM EDT - 01/14/2020 11:59:00 PM EDT HypothyroidismHypothyroidismHypothyroidismHypothyroidismHypothyroidismHypothyroi dismHypothyroidismHypothyroidism [facility] ([facility]) Hypothyroidism Hypothyroidism Hypothyroidism Hypothyroidism Hypothyroidism Hypothyroidism Hypothyroidism Hypothyroidism Outpatient Attender: Trevon Franklin DO 01/14/2020 09:36 :00 AM EDT Lab [facility] Lab Outpatient Attender: Trevon Franklin DO 01/07/2020 11:47:00 PM EDT Egg Tester [facility] Egg Tester Outpatient<td ID="encounterTypeDescripti onID12">Telephonic Encounter</td><td>Trevon Franklin DO</td><td>[facility]</td><td>01/07/2020</td><td></td> Attender: Trevon Franklin DO [facility] 01/07/2020 04:40:00 PM EDT - 01/07/2020 02:40:38 PM EDT [facility] ([facility]) Obstetrics<td ID="encounterTypeDescripti onID13">Lab Order</td><td>Trevon Franklin DO</td><td></td><td>01/07/2020</td><td><content ID="hqcwsggecNbncpfpakUH23-8">Vertigo</content>, <content ID="eatgxipleNkwejunyfQP73-0">Hypothyroidism</content>, <content ID="mfejvdwujKfuiranujQM53-7">Hypokalemia</content>, <content ID="fwzvskpfnXpbtdjxodBH40-0">Hypertension (systemic)</content>, <content ID="cieollqtnYvpqlqcfhUD70-1">Diabetes Mellitus Type 2</content></td> Attender: Trevon Franklin DO 01/07/2020 11:12:00 AM EDT - 01/07/2020 11:59:00 PM EDT VertigoVertigoVertigoVertigoVertigoVertigoVertigoVertigoVertigoHypothyroidismHyp aHypokalemiaHypokalemiaHypokalemiaHypokalemia HypokalemiaHypokalemiaHypokalemiaHypokalemiaDiabetes Mellitus Type 2Hypertension (systemic)Diabetes Mellitus Type 2Hypertension (systemic)Diabetes Mellitus Type 2Hypertension (systemic)Diabetes Mellitus Type 2Hypertension (systemic)Diabetes Mellitus Type 2Hypertension (systemic)Diabetes Mellitus Type 2Hypertension (systemic)Diabetes Mellitus Type 2Hypertension (systemic)Diabetes Mellitus Type 2Hypertension (systemic)Diabetes Mellitus Type 2Hypertension (systemic) [facility] ([facility]) Vertigo Vertigo Vertigo Vertigo Vertigo Vertigo Vertigo [...] ID="encounterTypeDescripti onID14">Primary Care Telehealth [facility]</td><td>Trevon Franklin DO</td><td></td><td>11/02/2019</td><td><content ID="kmnkkcuvwTnzffyqkxSF36-4">Diabetes Mellitus Type 2</content>, <content ID="mwyikoefpHhmqjrygqTK94-8">Hypothyroidism</content>, <content ID="coaoelgdoWakuhnhbgYH35-2">Hypertension (systemic)</content>, <content ID="dceamkdbcSqfbunsibZX25-9">Anxiety Disorder of Unknown (axis Iii) Etiology</content>, <content ID="ennrwerevZqdhztnrnKF84-0">Hyperlipidemia</content></td> Attender: Trevon Franklin DO 11/02/2019 03:40:00 PM [...] Horowitz NP 10/28/2019 11:21:00 AM EDT Lab [facility] Lab Outpatient<td ID="encounterTypeDescripti onID15">Care Management Medical- Telephone Encounter</td><td>Michelle NAIK</td><td></td><td>10/13/2019</td><td></td> Attender: Michelle Horowitz NP 10/13/2019 03:39:00 PM EDT - 10/13/2019 11:59:00 PM EDT [facility] ([facility]) Outpatient<td ID="encounterTypeDescripti onID16">Care Management Medical- Telephone Encounter</td><td>Ksenia Bennett RN</td><td></td><td>10/06/2019</td><td></td> Attender: Ksenia Bennett RN 10/06/2019 09:22:00 AM EST - 10/06/2019 11:59:00 PM EST [facility] ([facility]) Unknown<td ID="encounterTypeDescriptionI D17">Correspondence</td><td>Michelle NAIK</td><td></td><td>08/28/2019</td><td></td> Attender: Michelle Horowitz NP 08/28/2019 10:54:00 AM EST - 08/28/2019 11:59:00 PM EST [facility] ([facility]) Obstetrics<td ID="encounterTypeDescripti onID18">Lab Order</td><td>Michelle Horowitz GM/SVP [employer] PUBLISH[employer]</td><td></td><td>08/28/2019</td><td></td> Attender: Michelle Horowitz NP 08/28/2019 10:29:00 AM EST - 08/28/2019 11:59:00 PM EST [facility] Outpatient Attender: Michelle Horowitz NP 08/26/2019 08:17:00 AM EST Lab [facility] Lab Outpatient<td ID="encounterTypeDescripti onID19">Medication Order</td><td>Michelle Horowitz GM/SVP GLO[employer] PUBLISH[employer] BUSINESS</td><td></td><td>08/25/2019</td><td></td> Attender: Michelle Horowitz NP 08/25/2019 08:16:00 AM EST - 08/25/2019 11:59:00 PM EST [facility] ([facility]) Unknown<td ID="encounterTypeDescriptionI D20">Correspondence</td><td>Michelle Horowitz GM/SVP GLO[employer] PUBLISHER BUSINESS</td><td></td><td>08/17/2019</td><td></td> Attender: Michelle Horowitz NP 08/17/2019 01:13:00 PM EST - 08/17/2019 11:59:00 PM EST [facility] Outpatient<td ID="encounterTypeDescripti onID21">Care Management Medical- Telephone Encounter</td><td>Ksenia Bennett RN</td><td></td><td>08/13/2019</td><td></td> Attender: Ksenia Bennett RN 08/13/2019 09:08:00 AM EST - 08/13/2019 11:59:00 PM EST [facility] Unknown<td ID="encounterTypeDescriptionI D22">Correspondence</td><td>Michelle REYNOLDSP</td><td></td><td>07/14/2019</td><td></td> Attender: Michelle Horowitz WORKFORCE SPECIALIST 07/14/2019 11:47:00 AM EST - 07/14/2019 11:59:00 PM EST [facility] ([facility]) Outpatient Attender: Michelle Horowitz NP 07/10/2019 08:51:00 AM EST lab [facility] lab Immunizations Vaccine Date Status Description Data Source(s) Tdap 03/07/2020 02:48:00 PM EDT completed Boostrix 1 0 Right Arm Complete (Administered) [facility] ([facility]) Medications Medication Brand Name Start Date Product Form Dose Route Admi nistrative Instructions Pharmacy Instructions Status Indications Reaction Description Data Source(s) glimepiride 2 MG Oral Tablet Glimepiride 2 MG Oral Tab let Glimepiride 2 MG Oral Tablet 06/09/2020 12:00:00 AM EST active glimepiride 2 MG Oral Tablet [facility] ([facility]) OneTouch Delica Lancets 33G Miscellaneous OneTouch Del ica Lancets 33G Miscellaneous 06/09/2020 12:00:00 AM EST acti ve OneTouch Delica Lancets 33G [facility] ([facility]) OneTouch Ultra In Vitro Strip OneTouch Ultra In Vitro Strip 06/09/2020 12:00:00 AM EST active [facility] Levothyroxine Sodium 0.088 MG Oral Table t Levothyroxine Sodium 88 MCG Oral Tablet Levothyroxine Sodium 88 MCG Oral Tablet 06/09/2020 12:00:00 AM EST 1 active levothyroxine sodium 0.08 8 MG Oral Tablet [facility] ([facility]) POLYETHYLENE GLYCOL 3350 142 MG/ML Oral Solution [Miralax] MiraLax 17 GM/SCOOP Oral Powder MiraLax 17 GM/SCOOP Oral Powder 06/09/2020 12:00:00 AM EST active polyethylene gly col 3350 13617 MG Powder for Oral Solution [Miralax] [facility] ([facility]) glimepiride 2 MG Oral Tablet Glimepiride 2 MG Oral Tab let Glimepiride 2 MG Oral Tablet 03/15/2020 12:00:00 AM EDT aborted glimepiride 2 MG Oral Tablet MILE ([facility]) CareFine Pen Hume 32G X 4 MM Miscellaneous CareFine Pen Hume 32G X 4 MM Miscellaneous 03/15/2020 12:00:00 AM EDT 1 acti ve CareFine Pen Hume MILE ([facility]) sitagliptin 100 MG Oral Tablet [Januvia] Januvia 100 M G Oral Tablet Januvia 100 MG Oral Tablet 03/15/2020 12:00:00 AM EDT 1 act prateek sitagliptin 100 MG Oral Tablet [Januvia] MILE ([facility]) Levothyroxine Sodium 0.088 MG Oral Table t Levothyroxine Sodium 88 MCG Oral Tablet Levothyroxine Sodium 88 MCG Oral Tablet 03/15/2020 12:00:00 AM EDT 1 aborted levothyroxine sodium 0.08 8 MG Oral Tablet MILE ([facility]) OneTouch Ultra STRP OneTouch Ultra STRP 03/15/2020 12:00:00 AM E DT active OneTouch Ultra MILE ( [facility]) OneTouch Ultra In Vitro Strip OneTouch Ultra In Vitro Strip 03/15/2020 12:00:00 AM EDT aborted OneTouch Ultra G REENWAY ([facility]) OneTouch Delica Lancets 33G Miscellaneous OneTouch Del ica Lancets 33G Miscellaneous 03/15/2020 12:00:00 AM EDT abor jessica OneTouch Delica Lancets 33G MILE ([facility]) Levothyroxine Sodium 0.088 MG Oral Table t Levothyroxine Sodium 88 MCG Oral Tablet Levothyroxine Sodium 88 MCG Oral Tablet 03/10/2020 12:00:00 AM EDT 1 aborted levothyroxine sodium 0.08 8 MG Oral Tablet MILE ([facility]) Levothyroxine Sodium 0.088 MG Oral Tablet Levothyroxin e Sodium 88 MCG OR TABS Levothyroxine Sodium 88 MCG OR TABS 03/10/2020 12:00:00 AM EDT 1 aborted levothyroxine sodium 0.088 MG Or al Tablet MILE ([facility]) glimepiride 2 MG Oral Tablet Glimepiride 2 MG Oral Tab let Glimepiride 2 MG Oral Tablet 03/07/2020 12:00:00 AM EDT aborted glimepiride 2 MG Oral Tablet GWYNN OAK ([facility]) CareFine Pen Hume 32G X 4 MM Miscellaneous CareFine Pen Hume 32G X 4 MM Miscellaneous 03/07/2020 12:00:00 AM EDT 1 abor jessica CareFine Pen Hume MILE ([facility]) Vitamin D (Ergocalciferol) 1.25 MG (04251 UT) Oral Cap poonam Vitamin D (Ergocalciferol) 1.25 MG (14541 UT) Oral Capsule 03/07/2020 12:00:00 AM EDT active Vitamin D (Ergocalci ferol) GWYNN OAK ([facility]) sitagliptin 100 MG Oral Tablet [Januvia] Januvia 100 M G Oral Tablet Januvia 100 MG Oral Tablet 03/07/2020 12:00:00 AM EDT 1 abo rted sitagliptin 100 MG Oral Tablet [Januvia] GWYNN OAK ([facility]) Accu-Chek FastClix Lancets Miscellaneous Accu-Chek Fas tClix Lancets Miscellaneous 03/07/2020 12:00:00 AM EDT 1 abor jessica Accu-Chek FastClix Lancets GWYNN OAK ([facility]) Cyclobenzaprine hydrochloride 5 MG Oral Tablet Cyclobenzaprine HCl 5 MG Oral Tablet Cyclobenzaprine HCl 5 MG Oral Tablet 03/01/2020 12:00:00 AM EDT 1 aborted cyclobenzaprine hydrochlorid e 5 MG Oral Tablet GWYNN OAK ([facility]) Levothyroxine Sodium 0.1 MG Oral Tablet Levothyroxine Sodium 100 MCG OR TABS Levothyroxine Sodium 100 MCG OR TABS 01/18/2020 12:00:00 AM EDT 1 aborted levothyroxine sodium 0.1 MG Oral Tablet GWYNN OAK ([facility]) Levothyroxine Sodium 0.1 MG Oral Tablet Levothyroxine Sodium 100 MCG Oral Tablet Levothyroxine Sodium 100 MCG Oral Tablet 01/18/2020 12:00:00 AM EDT 1 aborted levothyroxine sodium 0.1 MG Oral Tablet GWYNN OAK ([facility]) Levothyroxine Sodium 0.1 MG Oral Tablet Levothyroxine Sodium 100 MCG Oral Tablet Levothyroxine Sodium 100 MCG Oral Tablet 01/14/2020 12:00:00 AM EDT 1 aborted levothyroxine sodium 0.1 MG Oral Tablet MILE ([facility]) Meclizine Hydrochloride 12.5 MG Oral Tablet Meclizine HCl 12.5 MG Oral Tablet Meclizine HCl 12.5 MG Oral Tablet 01/06/2020 12:00:00 AM EDT aborted meclizine hydrochloride 12.5 MG Oral Tab let MILE ([facility]) glimepiride 2 MG Oral Tablet Glimepiride 2 MG Oral Tab let Glimepiride 2 MG Oral Tablet 11/16/2019 12:00:00 AM EDT aborted glimepiride 2 MG Oral Tablet MILE ([facility]) glimepiride 2 MG Oral Tablet Glimepiride 2 MG Oral Tab let Glimepiride 2 MG Oral Tablet 11/12/2019 12:00:00 AM EDT 3 aborted glimepiride 2 MG Oral Tablet MILE ([facility]) glimepiride 2 MG Oral Tablet Glimepiride 2 MG OR TABS Glimep iride 2 MG OR TABS 11/12/2019 12:00:00 AM EDT 3 aborted glimepiride 2 MG Oral Tablet MILE ([facility]) Levothyroxine Sodium 0.088 MG Oral Table t Levothyroxine Sodium 88 MCG Oral Tablet Levothyroxine Sodium 88 MCG Oral Tablet 11/02/2019 12:00:00 AM EDT 1 aborted levothyroxine sodium 0.08 8 MG Oral Tablet GWYNN OAK ([facility]) Basaglar KwikPen 100 UNIT/ML Subcutaneous Solution Pen -injector Basaglar KwikPen 100 UNIT/ML Subcutaneous Solution Pen-injector 11/02/2019 12:00:00 AM EDT 1 active Sensor 3 ML insulin glargine 100 UNT/ML Pen Injector [Basaglar] GWYNN OAK ([facility]) Metformin hydrochloride 1000 MG Oral Tablet metFORMIN HCl 1000 MG Oral Tablet metFORMIN HCl 1000 MG Oral Tablet 11/02/2019 12:00:00 AM EDT 1 active metformin hydrochloride 1000 MG Oral Tablet MILE ( [facility]) Hydrochlorothiazide 25 MG Oral Tablet hydroCHLOROthiaz margarita 25 MG Oral Tablet hydroCHLOROthiazide 25 MG Oral Tablet 11/02/2019 12:00:00 AM EDT 1 aborted hydrochlorothiazide 25 MG Oral T ablet MILE ([facility]) Simvastatin 40 MG Oral Tablet Simvastatin 40 MG Oral Tablet 11/02/2019 12:00:00 AM EDT 1 active simvastatin 40 MG Oral Tablet GWYNN OAK ([facility]) duloxetine 30 MG Delayed Release Oral Ca psule [Cymbalta] Cymbalta 30 MG Oral Capsule Delayed Release Particles Cymbalta 30 MG Oral Capsule Delayed Rele ase Particles 11/02/2019 12:00:00 AM EDT 2 active duloxetine 30 MG Delayed Release Oral Capsule [Cymbalta] GWYNN OAK ([facility]) Potassium Chloride 20 MEQ Extended Relea se Oral Tablet Potassium Chloride ER 20 MEQ Oral Tablet Extended Release Potassium Chloride ER 20 MEQ Oral Tablet Extended Release 11/02/2019 12:00:00 AM EDT 1 a ctive potassium chloride 20 MEQ Extended Release Oral Tablet GWYNN OAK ([facility]) clopidogrel 75 MG Oral Tablet [Plavix] Plavix 75 MG Or al Tablet Plavix 75 MG Oral Tablet 11/02/2019 12:00:00 AM EDT 1 active clopidogrel 75 MG Oral Tablet [Plavix] GWYNN OAK ([facility]) CareFine Pen Hume 32G X 4 MM Miscellaneous CareFine Pen Hume 32G X 4 MM Miscellaneous 10/15/2019 12:00:00 AM EDT 1 abor jessica CareFine Pen Hume GWYNN OAK ([facility]) Magnesium Oxide 400 MG Oral Tablet Magnesium Oxide 400 MG Or al Tablet 09/29/2019 12:00:00 AM EST 1 active magnesi um oxide 400 MG Oral Tablet GWYNN OAK ([facility]) Magnesium Oxide 400 MG Oral Tablet Magnesium Oxide 400 MG Or al Tablet 09/24/2019 12:00:00 AM EST 1 aborted magnes ium oxide 400 MG Oral Tablet GWYNN OAK ([facility]) OneTouch Delica Lancets 33G Miscellaneous OneTouch Del ica Lancets 33G Miscellaneous 09/08/2019 12:00:00 AM EST abor jessica OneTouch Delica Lancets 33G GWYNN OAK ([facility]) OneTouch Ultra Blue In Vitro Strip OneTouch Ultra Blue In Vi tro Strip 09/08/2019 12:00:00 AM EST aborted OneTou ch Ultra Blue [facility] OneTouch Ultra 2 w/Device KIT OneTouch Ultra 2 w/Device KIT 08/28/2019 12:00:00 AM EST aborted OneTouch Ultra 2 [facility] OneTouch Ultra Blue In Vitro Strip OneTouch Ultra Blue In Vi tro Strip 08/28/2019 12:00:00 AM EST aborted OneTou ch Ultra Blue [facility]LE ([facility] OneTouch Delica Lancets 33G Miscellaneous OneTouch Del ica Lancets 33G Miscellaneous 08/28/2019 12:00:00 AM EST abor jessica OneTouch Delica Lancets 33G [facility]LE ([facility] OneTouch Delica Lancets 33G MISC OneTouch Delica Lancets 33G MISC 08/28/2019 12:00:00 AM EST aborted OneTouc h Delica Lancets 33G MILE ([facility] OneTouch Ultra Blue STRP OneTouch Ultra Blue STRP 08/06 12:00:00 AM EST aborted OneTouch Ultra B lue MILE ([facility] OneTouch Ultra Blue STRP OneTouch Ultra Blue STRP 08/06 12:00:00 AM EST aborted OneTouch Ultra B lue MILE ([facility]) OneTouch Ultra 2 w/Device Kit OneTouch Ultra 2 w/Device Kit 08/28/2019 12:00:00 AM EST active OneTouch Ultra 2 [facility] OneTouch Delica Lancets 33G MISC OneTouch Delica Lancets 33G MISC 08/28/2019 12:00:00 AM EST aborted OneTouc h Delica Lancets 33G MILE ([facility] OneTouch Ultra Blue In Vitro Strip OneTouch Ultra Blue In Vi tro Strip 08/28/2019 12:00:00 AM EST aborted OneTou ch Ultra Blue MILE ([facility] OneTouch Ultra Blue STRP OneTouch Ultra Blue STRP 08/06 12:00:00 AM EST aborted OneTouch Ultra B lue MILE ([facility]) OneTouch Club Lancets [place] [facility] 08/28/2019 12:00:00 AM EST aborted OneTou ch Club Lancets Fine Pt MILE ([facility]) Accu-Chek Melia Plus In Vitro Strip Accu-Chek Melia Plus In Vitro Strip 08/25/2019 12:00:00 AM EST aborted Accu-Chek Melia Plus MILE ([facility]) Accu-Chek Melia Plus In Vitro Strip Accu-Chek Melia Plus In Vitro Strip 08/25/2019 12:00:00 AM EST aborted Accu-Chek Melia Plus MILE ([facility]) POLYETHYLENE GLYCOL 3350 142 MG/ML Oral Solution [Eliz lax] MiraLax Oral Powder MiraLax Oral Powder 08/13/2019 12:00:00 AM EST aborted polyethylene glycol 3350 76401 MG Powder for Oral Solution [Miralax] MILE ([facility]) Basaglar KwikPen 100 UNIT/ML SC SOPN Basaglar KwikPen 100 UN IT/ML SC SOPN 07/07/2019 12:00:00 AM EST 1 aborted Sensor 3 ML insulin glargine 100 UNT/ML Pen Injector [Basaglar] MILE ([facility]) Basaglar KwikPen 100 UNIT/ML Subcutaneous Solution Pen -injector Basaglar KwikPen 100 UNIT/ML Subcutaneous Solution Pen-injector 07/07/2019 12:00:00 AM EST 1 aborted Sensor 3 ML in sulin glargine 100 UNT/ML Pen Injector [Basaglar] MILE ([facility]) Vitamin D (Ergocalciferol) 1.25 MG (11369 UT) Oral Cap poonam Vitamin D (Ergocalciferol) 1.25 MG (40916 UT) Oral Capsule 07/06/2019 12:00:00 AM EST aborted Vitamin D (Ergocalci ferol) MILE ([facility]) CareFine Pen Hume 32G X 4 MM Miscellaneous CareFine Pen [place] 32G X 4 MM Miscellaneous 07/01/2019 12:00:00 AM EST 1 abor jessica CareFine Pen Hume MILE ([facility]) Accu-Chek FastClix Lancets Miscellaneous Accu-Chek Fas tClix Lancets Miscellaneous 07/01/2019 12:00:00 AM EST 1 abor jessica Accu-Chek FastClix Lancets GWYNN OAK ([facility]) Magnesium Oxide 400 MG Oral Tablet Magnesium Oxide 400 MG Or al Tablet 06/26/2019 12:00:00 AM EST 1 aborted magnes ium oxide 400 MG Oral Tablet GWYNN OAK ([facility]) Levothyroxine Sodium 0.075 MG Oral Table t Levothyroxine Sodium 75 MCG Oral Tablet Levothyroxine Sodium 75 MCG Oral Tablet 06/26/2019 12:00:00 AM EST 1 aborted levothyroxine sodium 0.07 5 MG Oral Tablet GWYNN OAK ([facility]) clopidogrel 75 MG Oral Tablet [Plavix] Plavix 75 MG Or al Tablet Plavix 75 MG Oral Tablet 06/26/2019 12:00:00 AM EST 1 aborte d clopidogrel 75 MG Oral Tablet [Plavix] GWYNN OAK ([facility]) sitagliptin 100 MG Oral Tablet [Januvia] Januvia 100 M G Oral Tablet Januvia 100 MG Oral Tablet 06/26/2019 12:00:00 AM EST 1 abo rted sitagliptin 100 MG Oral Tablet [Januvia] GWYNN OAK ([facility]) Vitamin D (Ergocalciferol) 1.25 MG (53562 UT) Oral Cap poonam Vitamin D (Ergocalciferol) 1.25 MG (18095 UT) Oral Capsule 06/26/2019 12:00:00 AM EST aborted Vitamin D (Ergocalci ferol) GWYNN OAK ([facility]) Hydrochlorothiazide 25 MG Oral Tablet hydroCHLOROthiaz margarita 25 MG Oral Tablet hydroCHLOROthiazide 25 MG Oral Tablet 06/26/2019 12:00:00 AM EST 1 aborted hydrochlorothiazide 25 MG Oral T ablet GWYNN OAK ([facility]) Simvastatin 40 MG Oral Tablet Simvastatin 40 MG Oral Tablet 06/26/2019 12:00:00 AM EST 1 aborted simvastatin 40 M G Oral Tablet GWYNN OAK ([facility]) 3 ML Insulin Glargine 100 UNT/ML Pen Inj bubba [Lantus] Lantus SoloStar 100 UNIT/ML Subcutaneous Solution Pen-injector Lantus SoloStar 100 UNIT/ML Subcutaneous Solution Pen-injector 06/26/2019 12:00:00 AM EST 1 aborted 3 ML insulin glargine 100 UNT/ML Pen Inj bubba [Lantus] MILE ([facility]) duloxetine 30 MG Delayed Release Oral Ca psule [Cymbalta] Cymbalta 30 MG Oral Capsule Delayed Release Particles Cymbalta 30 MG Oral Capsule Delayed Rele ase Particles 06/26/2019 12:00:00 AM EST 2 aborted duloxetine 30 MG Delayed Release Oral Capsule [Cymbalta] MILE ([facility]) Potassium Chloride 20 MEQ Extended Relea se Oral Tablet Potassium Chloride ER 20 MEQ Oral Tablet Extended Release Potassium Chloride ER 20 MEQ Oral Tablet Extended Release 06/26/2019 12:00:00 AM EST 1 a borted potassium chloride 20 MEQ Extended Release Oral Tablet MILE ([facility]) glimepiride 2 MG Oral Tablet Glimepiride 2 MG Oral Tab let Glimepiride 2 MG Oral Tablet 06/26/2019 12:00:00 AM EST aborted glimepiride 2 MG Oral Tablet MILE ([facility]) Metformin hydrochloride 1000 MG Oral Tablet metFORMIN HCl 1000 MG Oral Tablet metFORMIN HCl 1000 MG Oral Tablet 06/26/2019 12:00:00 AM EST 1 aborted metformin hydrochloride 1000 MG Oral Tab let MILE ([facility]) Accu-Chek Melia Plus STRP Accu-Chek Melia Plus STRP 12:00:00 AM EDT 1 aborted Accu-Chek Melia Plus MILE ([facility]) POLYETHYLENE GLYCOL 3350 142 MG/ML Oral Solution [Eliz lax] MiraLax Oral Powder MiraLax Oral Powder 08/28/2018 12:00:00 AM EST aborted polyethylene glycol 3350 32876 MG Powder for Oral Solution [Miralax] MILE ([facility]) Accu-Chek Melia Device Accu-Chek Melia Device 07/24/2018 12:00:[address] aborted Accu-Chek Melia MILE ([facility]) Insurance Providers Payer name Policy type / Coverage type Policy ID Covered green party ID Covered green party's relationship to bernardo Policy Bernardo Plan Information [facility] [id number] [employer] Other 0 Self 0 [employer]. Other 0 Self 0 [employer] Other 0 Self 0 SELF PAY WellCare MCR [employer] [id number] SP [id number] HU[employer] MEDICARE ADVANTAGE [id number] Self [id number] SELF PAY Well[employer] M[employer] [id number] SP [id number] [employer] Other 0 Self 0 [employer]. Other 0 Self 0 [employer]. Other 0 Self 0 [employer] Other 0 Self 0 SELF PAY Well[employer] MCR [employer] [id number] SP [id number] SELF PAY Well[employer] M[employer] [id number] SP [id number] [employer] Other 0 Self 0 [employer]. Other 0 Self 0 SELF PAY WellCare MCR [employer] [id number] SP [id number] WELLCARE [id number] SP [id number] HU[employer]NA GOLD [id number] SP [id number] [employer]. Other 0 Self 0 SELF PAY Well[employer] M[employer] [id number] SP [id number] [employer]. Other 0 Self 0 [employer]. Other 0 Self 0 SELF PAY Well[employer] M[employer] [id number] SP [id number] [employer] Other 0 Self 0 SELF PAY Well[employer] [id number] SP [id number] [employer]. Other 0 Self 0 SELF PAY HU[employer]NA MEDICARE ADV [id number] SP [id number] Humana Care Plan Other 0 Self 0 SELF PAY HUMANA MEDICARE ADV [id number] SP [id number] Hum[employer] Care Plan Other 0 Self 0 Humana Care Plan Other 0 Self 0 Humana Care Plan Other 0 Self 0 SELF PAY HUMANA MEDICARE ADV [id number] SP [id number] SELF PAY HUMANA MEDICARE ADV [id number] SP [id number] Humana Care Plan Other 0 Self 0 HU[employer]NA GOLD [id number] SP [id number] [employer] [id number] SP [id number] SELF PAY HU[employer]NA MEDICARE ADV [id number] SP [id number] Medicare/Humana Commercial [id number] Self [id number] TODA[employer] OPTIONS MCR [id number] SP [id number] [employer] MCR [id number] SP [id number] [employer]IONS MCR [id number] SP [id number] TODAY'S OPTIONS [facility] [id number] SP [id number] Problems, Conditions, and Diagnoses Code Display Name Description Problem Type Effective Dates Data Source(s) 72244112 Tobacco dependence syndrome (disorder) N icotine Dependence Cigarettes Mild in Early Remission Problem 03/07/2020 12:00:00 AM EDT [facility]LE [facility] 84580557 Tobacco dependence syndrome (disorder) N icotine Dependence Cigarettes Mild in Early Remission Problem 03/07/2020 12:00:00 AM EDT MILE ([facility]) 38667905 Tobacco dependence syndrome (disorder) N icotine Dependence Cigarettes Mild in Early Remission Problem 03/07/2020 12:00:00 AM EDT MILE ([facility]) 99030424 Tobacco dependence syndrome (disorder) N icotine Dependence Cigarettes Mild in Early Remission Problem 03/07/2020 12:00:00 AM EDT [facility]LE [facility] [id number] Tobacco dependence syndrome (disorder) N icotine Dependence Cigarettes Mild in Early Remission Problem 03/07/2020 12:00:00 AM EDT MILE ([facility]) 03064156 Tobacco dependence syndrome (disorder) N icotine Dependence Cigarettes Mild in Early Remission Problem 03/07/2020 12:00:00 AM EDT [facility]LE [facility] Z87.891 Personal history of nicotine dependence Z87.891 - Personal history of nicotine dependence Diagnosis 03/30/2020 08:27:00 AM EDT [facility] E03.9 Hypothyroidism, unspecified E03.9 - Hypothyroidism, un specified Diagnosis 03/07/2020 08:20:00 AM EDT [facility] E87.6 Hypokalemia E87.6 - Hypokalemia Diagnosis 01/14/2020 09:3 6:00 AM EDT [facility] N39.0 Urinary tract infection, site not specif ied N39.0 - Urinary tract infection, site not specified Diagnosis 01/07/2020 11:47:00 PM EDT [facility]/Procedures Procedure Description Date Indications Data Source(s) [...] ([facility]) Immunization Administration (includes Percutaneous, In tile presser Immunization Administration (includes Percutaneous, Intrader 03/07/2020 12:00:00 [...] [facility]) Results ID Date Data Source [id number] 06/09/2020 12:00:00 AM EST MILE ([facility]) Name Value Range Interpretation Code Description Data Karen rce(s) Supporting Document(s) Hemoglobin A1c/Hemoglobin.total in Blood 8.6 Abnormal (applies to non-numeric results) Hgb A1c MILE ([facility]) ID Date Data Source [id number] 04/13/2020 10:24:00 AM EDT MILE ([facility]) Name Value Range Interpretation Code Description Data Karen rce(s) Supporting Document(s) Reported Physicians See Note Reported Physicians GWYNN OAK ([facility]) Note: Reported Physicians:Ordering: Sharmin ThompsonAttending: Sharmin Danielson ID Date Data Source [id number] 04/13/2020 10:24:00 AM EDT [facility] Name Value Range Interpretation Code Description Data Karen rce(s) Supporting Document(s) NO URINE RECEIVED FROM PATIENT NO URINE RECEIVED NO URINE RECEIVED FROM PATIENT GWYNN OAK ([facility]) Note: Patient informed to return with jaelyn espinoza.Responsible Observer: CLIVE JARAD NO URINE RECEIVED FORM PATIENT [phone] (A) ID Date Data Source [id number] 04/13/2020 10:25:00 AM EDT [facility] Name Value Range Interpretation Code Description Data Karen rce(s) Supporting Document(s) NO URINE RECEIVED FROM PATIENT NO URINE RECEIVED [facility] Patient informed to return with specime n. ID Date Data Source [id number] 04/13/2020 08:01:00 AM EDT MILE ([facility]) Name Value Range Interpretation Code Description Data Karen rce(s) Supporting Document(s) Reported Physicians See Note Reported Physicians GWYNN OAK ([facility]) Note: Reported Physicians:Ordering: Sharmin ThompsonAttending: Sharmin Danielson ID Date Data Source [id number] 04/13/2020 08:01:00 AM EDT [facility]LE [facility]) Name Value Range Interpretation Code Description Data Karen rce(s) Supporting Document(s) Thyrotropin [Units/volume] in Serum or Plasma by Detec tion limit <= 0.05 mIU/L 1.295 uIU/ML Normal TSH GWYNN OAK ([facility]) Note: Patients should not be tested for 72 hours post fluorescein dye angiography. A false depression of result may occur.Responsible Observer: TSH TSH 300.5500 (A) ID Date Data Source [id number] 04/13/2020 08:01:00 AM EDT MILE ([facility]) Name Value Range Interpretation Code Description Data Karen rce(s) Supporting Document(s) FREE T4 (FREE THYROXINE) 1.01 NG/DL Normal FREE T4 (FR EE THYROXINE) MILE ([facility]) Note: Responsible Observer: FREE T4 FREE THYROXINE 300.5250 (A) ID Date Data Source [id number] 04/13/2020 02:57:00 PM EDT [facility] Name Value Range Interpretation Code Description Data Karen rce(s) Supporting Document(s) FREE T4 (FREE THYROXINE) 1.01 NG/DL 0.76-1.78 N [facility] ID Date Data Source [id number] 04/13/2020 02:57:00 PM EDT [facility] Name Value Range Interpretation Code Description Data Karen rce(s) Supporting Document(s) TSH 1.295 uIU/ML 0.470-4.200 N [facility] Patients should not be tested for 72 ho urs post fluorescein dye angiography. A false depression of result may occur. ID Date Data Source [id number] 03/30/2020 10:27:00 [place] [address] Patient Name: Ender Simpson Exam Date: 03/30/20 [...] in 12 months. Professional interpretation performed by [facility] at [facility] . End of diagnostic report: [id number] Signed: Manjit Paris MD 03/30/20 1229 Interpreted by: Manjit ParisTranscribed by: Manjit Paris Name Value Range Interpretation Code Description Data Karen rce(s) Supporting Document(s) ID Date Data Source [id number] 03/30/2020 10:06:00 [place] [address] Patient Name: Ender Simpson Exam Date: 03/30/20 [...] 1 - NEGATIVE Professional interpretation performed at [facility] . End of diagnostic report: [id number] Signed: Joaquim Duran MD 03/30/20 1015 Interpreted by: Joaquim DuranTranscribed by: Joaquim Duran Name Value Range Interpretation Code Description Data Karen rce(s) Supporting Document(s) ID Date Data Source [id number] 03/30/2020 10:03:00 AM EDT [address] [address] Patient Name: Ender Simpson Exam Date: 03/30/20 [...] 1 - NEGATIVE Professional interpretation performed at [facility] . End of diagnostic report: [id number] Signed: Joaquim Duran MD 03/30/20 1015 Interpreted by: Joaquim DuranTranscribed by: Joaquim Duran Name Value Range Interpretation Code Description Data Karen rce(s) Supporting Document(s) ID Date Data Source [id number] 03/30/2020 09:36:00 [place] [address] Patient Name: Ender Simpson Exam Date: 03/30/20 [...] referring physician's office. Professional interpretation performed at [facility] . End of diagnostic report: [id number] Signed: Aj Valerio MD 03/30/20 0951 Interpreted by: Rossi Valerioscribed by: Aj Valerio Name Value Range Interpretation Code Description Data Karen rce(s) Supporting Document(s) ID Date Data Source [id number] 03/07/2020 01:29:00 PM EDT MILE ([facility]) Name Value Range Interpretation Code Description Data Karen rce(s) Supporting Document(s) Hemoglobin A1c/Hemoglobin.total in Blood 9.6 Abnormal (applies to non-numeric results) Hgb A1c [facility]LE [facility] ID Date Data Source [id number] 03/07/2020 08:22:00 AM EDT MILE ([facility]) Name Value Range Interpretation Code Description Data Karen rce(s) Supporting Document(s) Reported Physicians See Note Reported Physicians MILE ([facility]) Note: Reported Physicians:Ordering: Trevon Lindoending: Trevon Franklin ID Date Data Source [id number] 03/07/2020 08:22:00 AM EDT MILE ([facility]) Name Value Range Interpretation Code Description Data Karen rce(s) Supporting Document(s) BASO # (AUTO) 0.07 10\\^3/uL Normal BASO # (AUTO) MILE ([facility]) Note: Responsible Observer: BASO # (AUTO ) BASO # (AUTO) 100.1500 (A) BASO % (AUTO) 0.7 % Normal BASO % (AUTO) MILE ([facility]) Note: Responsible Observer: BASO % (AUTO ) BASO % (AUTO) 100.1250 (A) EOS # (AUTO) 0.25 10\\^3/uL Normal EOS # (AUTO) MILE ( [facility]) Note: Responsible Observer: EOS # (AUTO) EOS # (AUTO) 100.1450 (A) EOS % (AUTO) 2.6 % Normal EOS % (AUTO) MILE ([facility]) Note: Responsible Observer: EOS % (AUTO) EOS % (AUTO) 100.1200 (A) GRAN # (AUTO) 4.01 10\\^3/uL Normal GRAN # (AUTO) MILE ([facility]) Note: Responsible Observer: GRAN # (AUTO ) GRAN #(AUTO) 100.1325 (A) GRAN % (AUTO) 42.3 % Normal GRAN % (AUTO) MILE ([facility]) Note: Responsible Observer: GRAN % (AUTO ) GRAN % (AUTO) 100.1000 (A) Hematocrit [Volume Fraction] of Blood by Automated count 43.8 % Normal HEMATOCRIT MILE ([facility]) Note: Responsible Observer: HCT HEMATOCR IT 100.0400 (A) Hemoglobin [Mass/volume] in Blood 14.5 G/DL Normal HE MOGLOBIN MILE ([facility]) Note: Responsible Observer: HGB HEMOGLOB IN 100.0300 (A) IG # (AUTO) 0.0 10\\^3/uL IG # (AUTO) MILE ([facility]) Note: Responsible Observer: IG # (AUTO) IG # (AUTO) 100.1260 (A) IG % (AUTO) 0.4 % IG % (AUTO) MILE ([facility]) Note: Responsible Observer: IG % (AUTO) IG % (AUTO) 100.1255 (A) LYMPH # (AUTO) 4.3 k/uL Normal LYMPH # (AUTO) MILE ( [facility]) Note: Responsible Observer: LYMPH # (AUT O) LYMPH # (AUTO) 100.1350 (A) Erythrocyte mean corpuscular hemoglobin [Entitic mass] by Automated count 29.5 PG Normal MCH MILE ([facility]) Note: Responsible Observer: MCH MCH 100 .0600 (A) LYMPH % (AUTO) 45.1 % Normal LYMPH % (AUTO) MILE ( [facility]) Note: Responsible Observer: LYMPH % (AUT O) LYMPH % (AUTO) 100.1100 (A) Erythrocyte mean corpuscular hemoglobin concentration [Mass/volume] by Automated count 33.1 G/DL Normal MCHC MILE ([facility]) Note: Responsible Observer: MCHC MCHC 1 00.0650 (A) Erythrocyte mean corpuscular volume [Entitic volume] by Auto mated count 89.0 FL Normal MCV GWYNN OAK ([facility]) Note: Responsible Observer: MCV MCV 100 .0550 (A) MONO # (AUTO) 0.84 k/uL Normal MONO # (AUTO) MILE ([facility]) Note: Responsible Observer: MONO # (AUTO ) MONO # (AUTO) 100.1400 (A) MONO % (AUTO) 8.9 % Normal MONO % (AUTO) MILE ([facility]) Note: Responsible Observer: MONO % (AUTO ) MONO% (AUTO) 100.1150 (A) MPV 8.9 FL Normal MPV MILE ([facility]) Note: Responsible Observer: MPV MPV 100 .0950 (A) Platelets [#/volume] in Plasma by Automated count 312 10\\^3/uL Normal PLATELET COUNT GWYNN OAK ([facility]) Note: Responsible Observer: PLT PLATELET COUNT 100.0850 (A) Erythrocytes [#/volume] in Blood by Automated count 4.92 10\\^6/uL Normal RED BLOOD COUNT GWYNN OAK ([facility]) Note: Responsible Observer: RBC RED BLOO D COUNT 100.0250 (A) Erythrocyte distribution width [Ratio] by Automated count 12.9 % Normal RDW GWYNN OAK ([facility]) Note: Responsible Observer: RDW RDW 100 .0700 (A) Leukocytes [#/volume] in Blood by Automated count 9.49 10\\^3/uL Normal WHITE BLOOD COUNT GWYNN OAK ([facility]) Note: Responsible Observer: WBC WHITE BL OOD COUNT 100.0150 (A) ID Date Data Source [id number] 03/07/2020 08:22:00 AM EDT GWYNN OAK ([employer]) Name Value Range Interpretation Code Description Data Karen rce(s) Supporting Document(s) Thyrotropin [Units/volume] in Serum or Plasma by Detec tion limit <= 0.05 mIU/L 0.133 uIU/ML Below low normal TSH GWYNN OAK ([facility]) Note: Patients should not be tested for 72 hours post fluorescein dye angiography. A false depression of result may occur.Responsible Observer: TSH TSH 300.5500 (A) ID Date Data Source [id number] 03/07/2020 08:22:00 AM EDT [employer] ([employer]) Name Value Range Interpretation Code Description Data Karen rce(s) Supporting Document(s) Deprecated Cholesterol.in LDL/Cholestero l.in HDL [Mass ratio] in Serum or Plasma 4.3 Normal CHOL/HDL RATIO GWYNN OAK ([facility] ) Note: Responsible Observer: CHOL/HDL RAT IO CHOL/HDL RATIO 300.4700 (A) Cholesterol crystals [Presence] in Stone by Infrared spectroscop y 138 MG/DL Normal CHOLESTEROL GWYNN OAK ([facility]) Note: Responsible Observer: CHOL CHOLEST KATHERINE 300.4350 (A) Cholesterol in HDL [Mass/volume] in Serum or Plasma ultracen trifugate 32 MG/DL Normal HDL CHOLESTEROL GWYNN OAK ([facility]) Note: Responsible Observer: HDL HDL CHOL ESTEROL 300.4600 (A) Cholesterol in LDL [Mass/volume] in Serum or Plasma by Direct as say 47 MG/DL Below low normal LDL CHOLESTEROL GWYNN OAK ([facility]) Note: Responsible Observer: LDL LDL CHOL ESTEROL 300.4400 (A) Triglyceride [Mass/volume] in Serum or Plasma 295 MG/DL Above high normal TRIGLYCERIDES GWYNN OAK ([facility]) Note: Responsible Observer: TRIG TRIGLYC ERIDES 300.4300 (A) ID Date Data Source [id number] 03/07/2020 08:22:00 AM EDT [employer] ([employer]) Name Value Range Interpretation Code Description Data Karen rce(s) Supporting Document(s) Albumin/Globulin [Mass Ratio] in Amniotic fluid 2.3 G/DL Normal ALB/GLOB RATIO GWYNN OAK ([facility]) Note: Responsible Observer: A/G RATIO AL B/GLOB RATIO 300.4100 (A) Albumin [Mass/volume] in Synovial fluid 4.5 G/DL Normal ALBUMIN GWYNN OAK ([facility]) Note: Responsible Observer: ALB ALBUMIN 300.3900 (A) Alkaline phosphatase isoenzyme [Units/volume] in Serum or Plasma 72 U/L Normal ALKALINE PHOSPHATASE GWYNN OAK ([facility]) Note: Responsible Observer: ALK PHOS ALK PAUL PHOSPHATASE 300.3110 (A) Alanine aminotransferase [Enzymatic activity/volume] in Seru m or Plasma 55 U/L Above high normal ALT GWYNN OAK ([facility]) Note: Responsible Observer: ALT/SGPT ALT 300.3100 (A) Aspartate aminotransferase [Enzymatic activity/volume] in Serum or Plasma 25 U/L Normal AST GWYNN OAK ([facility]) Note: Responsible Observer: AST/SGOT AST 300.3050 (A) Urea nitrogen/Creatinine [Mass Ratio] in Serum or Plasma 14 Normal BUN/CREAT RATIO MILE ([facility]) Note: Responsible Observer: BUN/CREAT RA CAILIN BUN/CREAT RATIO 300.0450 (A) Bilirubin.total [Mass/volume] in Serum or Plasma 0.4 MG/DL Normal BILIRUBIN,TOTAL MILE ([facility]) Note: Responsible Observer: TOTAL BILI T OTAL BILIRUBIN 300.2700 (A) BLOOD UREA NITRO 16 MG/DL Normal BLOOD UREA NITRO [facility] ([facility]) Note: Responsible Observer: BUN BLOOD UR EA NITROGEN 300.0350 (A) CA 9.5 MG/DL Normal CA MILE ([facility]) Note: Responsible Observer: CA CALCIUM 300.2200 (A) Chloride [Moles/volume] in Serum, Plasma or Blood 102 MEQ/L Normal CHLORIDE GWYNN OAK ([facility]) Note: Responsible Observer: CL CHLORIDE 300.0200 (A) Carbon dioxide, total [Moles/volume] in Serum or Plasma 28 MEQ/L Normal CARBON DIOXIDE GWYNN OAK ([facility]) Note: Responsible Observer: CO2 CARBON D IOXIDE 300.0250 (A) Creatine/Creatinine [Mass Ratio] in Urine 1.1 MG/DL Sonia l CREATININE GWYNN OAK ([facility]) Note: Responsible Observer: CREAT CREATI NINE 300.0400 (A) Anion gap in Blood 17 Above high normal [facility]AP [facility]) Note: Responsible Observer: ANION GAP AN ION GAP 300.0300 (A) GFR 48.7 ML/MIN GFR MILE ([facility]) Note: Stage G3a - Mildly to [...] Serum by calculation 2.0 G/DL Normal GLOBULIN GWYNN OAK ([facility]) Note: Responsible Observer: GLOB GLOBULI N 300.4050 (A) Glucose [Presence] in Urine 173 MG/DL Above high normal G LUCOSE MILE ([facility]) Note: Responsible Observer: GLU GLUCOSE 300.0500 (A) Potassium [Mass/volume] in Blood 3.9 MEQ/L Normal POT ASSIUM GWYNN OAK ([facility]) Note: Responsible Observer: K POTASSIUM 300.0150 (A) Sodium [Moles/volume] in Serum, Plasma or Blood 143 MEQ/L Normal SODIUM GWYNN OAK ([facility]) Note: Responsible Observer: NA SODIUM 3 00.0100 (A) Protein [Mass/volume] in Synovial fluid 6.5 G/DL Normal TOTAL PROTEIN GWYNN OAK ([facility]) Note: Responsible Observer: TP TOTAL PRO TEIN 300.3750 (A) ID Date Data Source [id number] 03/07/2020 08:22:00 AM EDT GWYNN OAK ([facility]) Name Value Range Interpretation Code Description Data Karen rce(s) Supporting Document(s) Deprecated Creatinine 112.6 MG/DL CREAT RANDOM URI NE GWYNN OAK ([facility]) Note: No Normal Ranges Available for th is Procedure.Responsible Observer: UR CREAT UR CREATININE 200.3655 (A) Microalbumin [Mass/volume] in Urine 11.0 MG/L MICROALBUMIN,URINE GWYNN OAK ([facility]) Note: Responsible Observer: UR MICROALB RND UR MICROALBUMIN RANDOM 200.4000 (A) Microalbumin/Creatinine [Mass Ratio] in Urine 9.8 UG/MG_CR Normal MICROALBUM/CREATININE RATIO,UR MILE ([facility]) Note: Responsible Observer: UR MICROALB/ CRE UR MICROALBUMIN/CREAT RATIO 200.4100 (A) ID Date Data Source [id number] 03/07/2020 01:56:00 PM [facility] Has Patient Fasted For The Past 12 Hour s? Y Has Patient Fasted For The Past 12 Hour s? Y Has Patient Fasted For The Past 12 Hour s? Y Has Patient Fasted For The Past 12 Hour s? Y Name Value Range Interpretation Code Description Data Karen rce(s) Supporting Document(s) CREAT RANDOM URINE 112.6 MG/DL [facility] No Normal Ranges Available for this Pro cedure. MICROALBUMIN,URINE 11.0 MG/L [facility] MICROALBUM/CREATININE RATIO,UR 9.8 UG/MG CR 0.0-30.0 N [facility] ID Date Data Source [id number] 03/07/2020 02:32:00 PM EDT [facility] Has Patient Fasted For The Past 12 Hour s? Y Has Patient Fasted For The Past 12 Hour s? Y Has Patient Fasted For The Past 12 Hour s? Y Has Patient Fasted For The Past 12 Hour s? Y Name Value Range Interpretation Code Description Data Karen rce(s) Supporting Document(s) WHITE BLOOD COUNT 9.49 10^3/uL 4.00-10.50 N [facility] ealth RED BLOOD COUNT 4.92 10^6/uL 3.90-5.20 N [facility] HEMOGLOBIN 14.5 G/DL 11.5-15.6 N [facility] HEMATOCRIT 43.8 % 35.0-46.0 N [facility] MCV 89.0 FL 80.0-100.0 N [facility] MCH 29.5 PG 27.0-34.0 N [facility] MCHC 33.1 G/DL 32-36 N [facility] RDW 12.9 % 11.5-14.5 N [facility] PLATELET COUNT 312 10^3/uL 130-400 N [facility] MPV 8.9 FL 8.7-13.2 N [facility] GRAN % (AUTO) 42.3 % 42.0-75.0 N [facility] LYMPH % (AUTO) 45.1 % 20.0-51.0 N [facility] MONO % (AUTO) 8.9 % 2.0-15.0 N [facility] EOS % (AUTO) 2.6 % 0.0-11.0 N [facility] BASO % (AUTO) 0.7 % 0.0-2.0 [facility] IG % (AUTO) 0.4 % 1.00-5.00 [facility] IG # (AUTO) 0.0 10^3/uL <0.5 [facility] GRAN # (AUTO) 4.01 10^3/uL 1.50-6.50 N [facility] LYMPH # (AUTO) 4.3 k/uL 1.0-5.0 N [facility] MONO # (AUTO) 0.84 k/uL 0.20-1.50 N [facility] EOS # (AUTO) 0.25 10^3/uL 0.00-1.10 N [facility] BASO # (AUTO) 0.07 10^3/uL 0.00-0.20 N [facility] ID Date Data Source [id number] 03/07/2020 01:56:00 PM EDT [facility] Has Patient Fasted For The Past 12 Hour s? Y Has Patient Fasted For The Past 12 Hour s? Y Has Patient Fasted For The Past 12 Hour s? Y Has Patient Fasted For The Past 12 Hour s? Y Name Value Range Interpretation Code Description Data Karen rce(s) Supporting Document(s) SODIUM 143 MEQ/L 135-145 N [facility] POTASSIUM 3.9 MEQ/L 3.5-5.3 [facility] CHLORIDE 102 MEQ/L 94-110 [facility] CARBON DIOXIDE 28 MEQ/L 22-33 [facility] ANION GAP 17 5-16 H [facility] BLOOD UREA NITRO 16 MG/DL 7-25 N [facility] CREATININE 1.1 MG/DL 0.6-1.4 [facility] GFR 48.7 ML/MIN [facility] Stage G3a - Mildly to moderately decrea [...] years only. BUN/CREAT RATIO 14 8-36 N [facility] GLUCOSE 173 MG/DL 70-100 H [facility] CA 9.5 MG/DL 8.7-10.5 [facility] BILIRUBIN,TOTAL 0.4 MG/DL 0.1-1.3 N [facility] AST 25 U/L 5-40 N [facility] ALT 55 U/L 5-48 H [facility] ALKALINE PHOSPHATASE 72 U/L 40-140 [facility] alth TOTAL PROTEIN 6.5 G/DL 5.9-8.3 N [facility] ALBUMIN 4.5 G/DL 3.0-5.1 N [facility] GLOBULIN 2.0 G/DL 1.5-3.5 N [facility] ALB/GLOB RATIO 2.3 G/DL 1.0-3.0 N [facility] ID Date Data Source [id number] 03/07/2020 01:56:00 PM EDT [facility] Has Patient Fasted For The Past 12 Hour s? Y Has Patient Fasted For The Past 12 Hour s? Y Has Patient Fasted For The Past 12 Hour s? Y Has Patient Fasted For The Past 12 Hour s? Y Name Value Range Interpretation Code Description Data Karen rce(s) Supporting Document(s) TRIGLYCERIDES 295 MG/DL 45-150 H [facility] CHOLESTEROL 138 MG/DL 125-200 N [facility] LDL CHOLESTEROL 47 MG/DL 50-130 L [facility] HDL CHOLESTEROL 32 MG/DL 32-96 N [facility] CHOL/HDL RATIO 4.3 0-4.3 N [facility] ID Date Data Source [id number] 03/07/2020 01:56:00 PM EDT [facility] Has Patient Fasted For The Past 12 Hour s? Y Has Patient Fasted For The Past 12 Hour s? Y Has Patient Fasted For The Past 12 Hour s? Y Has Patient Fasted For The Past 12 Hour s? Y Name Value Range Interpretation Code Description Data Karen rce(s) Supporting Document(s) TSH 0.133 uIU/ML 0.470-4.200 L [facility] Patients should not be tested for 72 ho urs post fluorescein dye angiography. A false depression of result may occur. ID Date Data Source [id number] 03/01/2020 04:04:00 [place] [address] Patient Name: Ender Simpson Exam Date: 03/01/20 [...] glenohumeral osteoarthritis. K8 End of diagnostic report: [id number] Signed: Dejuan Christensen MD 03/01/20 1848 Interpreted by: Dejuan ChristensenTranscribed by: Dejuan Christensen Name Value Range Interpretation Code Description Data Karen rce(s) Supporting Document(s) ID Date Data Source [id number] 01/14/2020 09:39:00 AM EDT MILE ([facility]) Name Value Range Interpretation Code Description Data Karen rce(s) Supporting Document(s) Reported Physicians See Note Reported Physicians MILE ([facility]) Note: Reported Physicians:Ordering: Trevon Lindoending: Trevon Franklin ID Date Data Source [id number] 01/14/2020 09:39:00 AM EDT MILE ([facility]) [...] in Blood 14.3 G/DL Normal HE MOGLOBIN GWYNN OAK ([facility]) Note: Responsible Observer: HGB HEMOGLOB IN 100.0300 (A) Hematocrit [Volume Fraction] of Blood by Automated count 42.2 % Normal HEMATOCRIT GWYNN OAK ([facility]) Note: Responsible Observer: HCT HEMATOCR IT 100.0400 (A) LYMPHS % 46.0 % Above high normal LYMPHS % GWYNN OAK ([facility]) Note: Responsible Observer: LYMPH% LYMPH S % 100.1850 (A) LYMPH # 5.00 10\\^3/uL Normal LYMPH # MILE ([facility]) Note: Responsible Observer: LYMPH # LYMP H # 100.2550 (A) ATYPICAL LYMPHS % 3.0 % Above high normal ATYPICAL LY MPHS % GWYNN OAK ([facility]) Note: Responsible Observer: ATYPICAL LYM PHS ATYPICAL LYMPHS 100.3550 (A) Erythrocyte mean corpuscular hemoglobin concentration [Mass/volume] by Automated count 33.9 G/DL Normal MCHC GWYNN OAK ([facility]) Note: Responsible Observer: MCHC MCHC 1 00.0650 (A) Erythrocyte mean corpuscular hemoglobin [Entitic mass] by Automated count 29.7 PG Normal MCH GWYNN OAK ([facility]) Note: Responsible Observer: MCH MCH 100 .0600 (A) Erythrocyte mean corpuscular volume [Entitic volume] by Auto mated count 87.6 FL Normal MCV GWYNN OAK ([facility]) Note: Responsible Observer: MCV MCV 100 .0550 (A) MONO # 0.33 10\\^3/uL Normal MONO # MILE ([facility]) Note: Responsible Observer: MONO # MONO # 100.2650 (A) MONO % 3.00 % Normal MONO % GWYNN OAK ([facility]) Note: Responsible Observer: MONO% MONO % 100.1950 (A) MPV 8.9 FL Normal MPV GWYNN OAK ([facility]) Note: Responsible Observer: MPV MPV 100 .0950 (A) PLATELET ESTIMATE NORMAL [facility] ([facility]) Note: Responsible Observer: PLATELET EST PLATELET ESTIMATE 100.4305 (A) Platelets [#/volume] in Plasma by Automated count 283 10\\^3/uL Normal PLATELET COUNT GWYNN OAK ([facility]) Note: Responsible Observer: PLT PLATELET COUNT 100.0850 (A) Erythrocyte distribution width [Ratio] by Automated count 12.8 % Normal RDW GWYNN OAK ([facility]) Note: Responsible Observer: RDW RDW 100 .0700 (A) Erythrocytes [#/volume] in Blood by Automated count 4.82 10\\^6/uL Normal RED BLOOD COUNT GWYNN OAK ([facility]) Note: Responsible Observer: RBC RED BLOO D COUNT 100.0250 (A) Smudge cells [#/volume] in Blood by Manual count FEW SMUDGE CELLS GWYNN OAK ([facility]) Note: Responsible Observer: SMUDGE CELLS SMUDGE CELLS 100.4050 (A) TOTAL CELLS COUNTED(MANUAL) 100 TOTAL CE LLS COUNTED(MANUAL) GWYNN OAK ([facility]) Note: Responsible Observer: TOT CELLS CO UNT TOTAL CELLS COUNTED(MANUAL) 100.1550 (A) Leukocytes [#/volume] in Blood by Automated count 10.86 10\\^3/uL Above high normal WHITE BLOOD COUNT GWYNN OAK ([facility]) Note: Responsible Observer: WBC WHITE BL OOD COUNT 100.0150 (A) ID Date Data Source [id number] 01/14/2020 09:39:00 AM EDT MILE ([employer]) Name Value Range Interpretation Code Description Data Karen rce(s) Supporting Document(s) Thyrotropin [Units/volume] in Serum or Plasma by Detec tion limit <= 0.05 mIU/L 12.204 uIU/ML Above high normal TSH GWYNN OAK ([facility]) Note: Patients should not be tested for 72 hours post fluorescein dye angiography. A false depression of result may occur.Responsible Observer: TSH TSH 300.5500 (A) ID Date Data Source [id number] 01/14/2020 09:39:00 AM EDT GWYNN OAK ([employer]) Name Value Range Interpretation Code Description Data Karen rce(s) Supporting Document(s) Albumin/Globulin [Mass Ratio] in Amniotic fluid 2.0 G/DL Normal ALB/GLOB RATIO GWYNN OAK ([facility]) Note: Responsible Observer: A/G RATIO AL B/GLOB RATIO 300.4100 (A) Albumin [Mass/volume] in Synovial fluid 4.4 G/DL Normal ALBUMIN GWYNN OAK ([facility]) Note: Responsible Observer: ALB ALBUMIN 300.3900 (A) Alanine aminotransferase [Enzymatic activity/volume] in Seru m or Plasma 34 U/L Normal ALT MILE ([facility]) Note: Responsible Observer: ALT/SGPT ALT 300.3100 (A) Alkaline phosphatase isoenzyme [Units/volume] in Serum or Plasma 77 U/L Normal ALKALINE PHOSPHATASE MILE ([facility]) Note: Responsible Observer: ALK PHOS ALK PAUL PHOSPHATASE 300.3110 (A) Aspartate aminotransferase [Enzymatic activity/volume] in Serum or Plasma 16 U/L Normal AST MILE ([facility]) Note: Responsible Observer: AST/SGOT AST 300.3050 (A) Urea nitrogen/Creatinine [Mass Ratio] in Serum or Plasma 23 Normal BUN/CREAT RATIO [facility] ([facility]) Note: Responsible Observer: BUN/CREAT RA CIALIN BUN/CREAT RATIO 300.0450 (A) Bilirubin.total [Mass/volume] in Serum or Plasma 0.3 MG/DL Normal BILIRUBIN,TOTAL MILE ([facility]) Note: Responsible Observer: TOTAL BILI T OTAL BILIRUBIN 300.2700 (A) BLOOD UREA NITRO 23 MG/DL Normal BLOOD UREA NITRO [facility] ([facility]) Note: Responsible Observer: BUN BLOOD UR EA NITROGEN 300.0350 (A) CA 9.3 MG/DL Normal CA MILE ([facility]) Note: Responsible Observer: CA CALCIUM 300.2200 (A) Chloride [Moles/volume] in Serum, Plasma or Blood 101 MEQ/L Normal CHLORIDE MILE ([facility]) Note: Responsible Observer: CL CHLORIDE 300.0200 (A) Carbon dioxide, total [Moles/volume] in Serum or Plasma 28 MEQ/L Normal CARBON DIOXIDE MILE ([facility]) Note: Responsible Observer: CO2 CARBON D IOXIDE 300.0250 (A) Creatine/Creatinine [Mass Ratio] in Urine 1.0 MG/DL Sonia l CREATININE MIEL ([facility]) Note: Responsible Observer: CREAT CREATI NINE 300.0400 (A) Anion gap in Blood 14 Normal ANION GAP MILE ([facility]) Note: Responsible Observer: ANION GAP AN ION GAP 300.0300 (A) GFR 54.3 ML/MIN GFR MILE ([facility]) Note: Stage G3a - Mildly to [...] Serum by calculation 2.2 G/DL Normal GLOBULIN GWYNN OAK ([facility]) Note: Responsible Observer: GLOB GLOBULI N 300.4050 (A) Glucose [Presence] in Urine 321 MG/DL Above high normal G LUCOSE MILE ([facility]) Note: Responsible Observer: GLU GLUCOSE 300.0500 (A) Sodium [Moles/volume] in Serum, Plasma or Blood 139 MEQ/L Normal SODIUM MILE ([facility]) Note: Responsible Observer: NA SODIUM 3 00.0100 (A) Potassium [Mass/volume] in Blood 3.7 MEQ/L Normal POT ASSIUM GWYNN OAK ([facility]) Note: Responsible Observer: K POTASSIUM 300.0150 (A) Protein [Mass/volume] in Synovial fluid 6.6 G/DL Normal TOTAL PROTEIN GWYNN OAK ([facility]) Note: Responsible Observer: TP TOTAL PRO TEIN 300.3750 (A) ID Date Data Source [id number] 01/14/2020 01:57:00 PM EDT [facility] Has Patient Fasted For The Past 12 Hour s? N Has Patient Fasted For The Past 12 Hour s? N Name Value Range Interpretation Code Description Data Karen rce(s) Supporting Document(s) SODIUM 139 MEQ/L 135-145 N [facility] POTASSIUM 3.7 MEQ/L 3.5-5.3 N [facility] CHLORIDE 101 MEQ/L 94-110 N [facility] CARBON DIOXIDE 28 MEQ/L 22-33 N [facility] ANION GAP 14 5-16 N [facility] BLOOD UREA NITRO 23 MG/DL 7-25 N [facility] CREATININE 1.0 MG/DL 0.6-1.4 N [facility] GFR 54.3 ML/MIN [facility] Stage G3a - Mildly to moderately decrea [...] years only. BUN/CREAT RATIO 23 8-36 N [facility] GLUCOSE 321 MG/DL 70-100 H [facility] CA 9.3 MG/DL 8.7-10.5 [facility] BILIRUBIN,TOTAL 0.3 MG/DL 0.1-1.3 N [facility] AST 16 U/L 5-40 N [facility] ALT 34 U/L 5-48 [facility] ALKALINE PHOSPHATASE 77 U/L 40-140 [facility] alth TOTAL PROTEIN 6.6 G/DL 5.9-8.3 N [facility] ALBUMIN 4.4 G/DL 3.0-5.1 [facility] GLOBULIN 2.2 G/DL 1.5-3.5 [facility] ALB/GLOB RATIO 2.0 G/DL 1.0-3.0 [facility] ID Date Data Source [id number] 01/14/2020 02:17:00 PM EDT [facility] Has Patient Fasted For The Past 12 Hour s? N Has Patient Fasted For The Past 12 Hour s? N Name Value Range Interpretation Code Description Data Karen rce(s) Supporting Document(s) WHITE BLOOD COUNT 10.86 10^3/uL 4.00-10.50 H [facility] RED BLOOD COUNT 4.82 10^6/uL 3.90-5.[address] [facility] th HEMOGLOBIN 14.3 G/DL 11.5-15.6 [facility] HEMATOCRIT 42.2 % 35.0-46.0 [facility] MCV 87.6 FL 80.0-100.0 [facility] MCH 29.7 PG 27.0-34.0 [facility] MCHC 33.9 G/DL 32-36 N [facility] RDW 12.8 % 11.5-14.5 [facility] PLATELET COUNT 283 10^3/uL 130-400 [facility] MPV 8.9 FL 8.7-13.2 [facility] TOTAL CELLS COUNTED(MANUAL) 100 [facility] GRAN % 45.0 % 42-75 N [facility] LYMPHS % 46.0 % 25-45 H [facility] MONO % 3.00 % 2.0-15.0 N [facility] EOS % 3.00 % 0-11 N [facility] GRAN # 4.89 10^3/uL 1.50-6.50 N [facility] BAND # 0.00 10^3/uL 0.00-0.10 N [facility] LYMPH # 5.00 10^3/uL 1.00-5.00 N [facility] MONO # 0.33 10^3/uL 0.00-1.10 N [facility] EOS # 0.33 10^3/uL 0.00-1.10 N [facility] BASO # 0.00 10^3/uL 0.00-0.20 N [facility] ATYPICAL LYMPHS % 3.0 % 0-0 [facility] SMUDGE CELLS FEW [facility] PLATELET ESTIMATE NORMAL [facility] NICHOLAS CELLS 1+ [facility] ID Date Data Source [id number] 01/14/2020 01:57:00 PM EDT [facility] Has Patient Fasted For The Past 12 Hour s? N Has Patient Fasted For The Past 12 Hour s? N Name Value Range Interpretation Code Description Data Karen rce(s) Supporting Document(s) TSH 12.204 uIU/ML 0.470-4.200 [facility] Patients should not be tested for 72 ho urs post fluorescein dye angiography. A false depression of result may occur. ID Date Data Source [id number] 01/07/2020 06:47:00 PM EDT GWYNN OAK ([employer]) Name Value Range Interpretation Code Description Data Karen rce(s) Supporting Document(s) Reported Physicians See Note Reported Physicians GWYNN OAK ([facility]) Note: Reported Physicians:Ordering: Trevon Lindoending: Trevon Franklin ID Date Data Source [id number] 01/07/2020 06:47:00 PM EDT GWYNN OAK ([employer]) Name Value Range Interpretation Code Description Data Karen rce(s) Supporting Document(s) See Note Peterson See Note Kristen MILE ([employer]) Note: Run: 01/09/20 0849 INTERFACED REPORT Name: Edner Simpson Age/Sex: 74/F Location: [facility] Acct: [id number] Unit: [id number] Status: REG REF Room/Bed: Re01/07/20 Disch: Att Dr: Trevon Franklin DO Specimen #: [id number] Ordered : 01/07/2011/22/1846 Collected : 01/07/2011/22/1846 By: [...] END OF REPORT ID Date Data Source [id number] 01/07/2020 06:47:00 PM EDT MILE ([employer]) Name Value Range Interpretation Code Description Data Karen rce(s) Supporting Document(s) URINE EPITH MANY PER/LPF URINE EPITH MILE ([employer]) Note: Responsible Observer: UR EPITH URI NE EPITH 200.1155 (A) APPEARANCE,UR CLOUDY Abnormal (applies to non-numeric results) APPEARANCE,UR MILE ([employer]) Note: Responsible Observer: UR APPEAR UR APPEARANCE 200.0250 (A) BACTERIA,UR MANY PER_HPF Abnormal (applies to non-num rita results) BACTERIA,UR MILE ([email or web address]) Note: Responsible Observer: UR BACT UR B ACTERIA 200.1755 (A) BILIRUBIN,UR NEGATIVE BILIRUBIN,UR MILE ([facility]) Note: Responsible Observer: UR BILI UR B ILIRUBIN 200.0750 (A) COLOR,UR YELLOW COLOR,UR MILE ([facility]) Note: Responsible Observer: UR COLOR UR COLOR 200.0200 (A) GLUCOSE, UR 50 MG/DL Abnormal (applies to non-numeric re sults) GLUCOSE, UR MILE ([facility]) Note: Responsible Observer: UR GLU UR GL UCOSE 200.0500 (A) HYALINE CAST,UR RARE PER/LPF HYALINE CAST,UR GREEN WAY ([facility]) Note: Responsible Observer: UR HYALINE C AST HYALINE CAST,UR 200.1850 (A) KETONES,UR NEGATIVE MG/DL KETONES,UR MILE ([facility]) Note: Responsible Observer: UR KETO UR K ETONES 200.0600 (A) LEUKOCYTE ESTERASE ,UR LARGE Abnormal (applies to non-numeric results) LEUKOCYTE ESTERASE ,UR MILE ([facility]) Note: Responsible Observer: UR KEYONA ELYSE ASE UR LEUKOCYTE ESTERASE 200.0725 (A) MUCUS,UR RARE PER_HPF MUCUS,UR MILE ([facility]) Note: Responsible Observer: UR MUCUS UR MUCUS 200.2300 (A) NITRATE,UR POSITIVE Abnormal (applies to non-numeric res ults) NITRATE,UR MILE ([facility]) Note: Responsible Observer: UR NIT UR NI TRATE 200.0700 (A) OCCULT BLOOD,UR SMALL Abnormal (applies to non- numeric results) OCCULT BLOOD,UR MILE ([facility]) Note: Responsible Observer: UR OCLT BLD UR OCCULT BLOOD 200.0650 (A) PROTEIN,UR NEGATIVE MG/DL PROTEIN,UR MILE ([facility]) Note: Responsible Observer: UR PROT UR P ROTEIN 200.0450 (A) PH,UR 5.0 PH,UR MILE ([facility]) Note: Responsible Observer: UR PH UR PH 200.0350 (A) RBC,UR 3-9 PER_HPF Abnormal (applies to non-numeric re sults) RBC,UR MILE ([facility]) Note: Responsible Observer: UR RBC UR RB C 200.1005 (A) SPECIFIC GRAVITY,UR 1.013 Normal SPECIFIC GRAVITY,UR MILE ([facility]) Note: Responsible Observer: SG URINE SPE CIFIC GRAVITY,UR 200.0410 (A) UROBILINOGEN,UR 0.2-1.0 EU_MG/DL UROBILINOGEN,UR G DAYO ([facility]) Note: Responsible Observer: UR URO UR UR OBILINOGEN 200.0900 (A) WBC,UR >100 PER_HPF Abnormal (applies to non-numeric r esults) WBC,UR MILE ([facility]) Note: Responsible Observer: UR WBC UR WB C 200.1055 (A) ID Date Data Source [id number] 01/07/2020 07:24:00 PM EDT [facility] Run: 01/09/20 0849 INTERFACED REPORT Name: Ender Simpson Age/Sex: 74/F Location: [facility] Acct: [id number] Unit: [id number] Status: REG REF Room/Bed: Re01/07/20 Disch: Att Dr: Trevon Franklin DO Specimen #: [id number] Ordered : 01/07/2011/22/1846 Collected : 01/07/2011/22/1846 By: [...] Karen rce(s) Supporting Document(s) COLOR,UR YELLOW YELLOW [facility] APPEARANCE,UR CLOUDY CLEAR A [facility] PH,UR 5.0 5.0-8.0 [facility] SPECIFIC GRAVITY,UR 1.013 1.002-1.035 [facility] PROTEIN,UR NEGATIVE MG/DL NEGATIVE [facility] GLUCOSE, UR 50 MG/DL NEGATIVE A [facility] KETONES,UR NEGATIVE MG/DL NEGATIVE [facility] OCCULT BLOOD,UR SMALL NEGATIVE A [facility] NITRATE,UR POSITIVE NEGATIVE A [facility] LEUKOCYTE ESTERASE ,UR LARGE NEGATIVE A [facility] BILIRUBIN,UR NEGATIVE NEGATIVE [facility] UROBILINOGEN,UR 0.2-1.0 EU MG/DL NEG-0-1.0 [facility] RBC,UR 3-9 PER HPF 0-2 A [facility] WBC,UR >100 PER HPF <5 A [facility] URINE EPITH MANY PER/LPF FEW-MOD [facility] BACTERIA,UR MANY PER HPF NONE A [facility] HYALINE CAST,UR RARE PER/LPF NONE SEEN [facility] MUCUS,UR RARE PER HPF NONE SEEN [facility] ID Date Data Source [id number] 01/09/2020 08:49:00 AM EDT [facility] Run: 01/09/20 0849 INTERFACED REPORT Name: Elinor Simpsonlena Delacruz Age/Sex: 74/F Location: [facility] Acct: [id number] Unit: [id number] Status: REG REF Room/Bed: Re01/07/20 Disch: Rowan Dr: Trevon Franklin DO Specimen #: [id number] Ordered : 01/07/2011/22/1846 Collected : 01/07/2011/22/1846 By: [...] rce(s) Supporting Document(s) ID Date Data Source [id number] 10/28/2019 11:24:00 AM EDT GWYNN OAK ([employer]) Name Value Range Interpretation Code Description Data Karen rce(s) Supporting Document(s) Reported Physicians See Note Reported Physicians MILE ([facility]) Note: Reported Physicians:Ordering: Michelle PerezAttending: Michelle Horowitz ID Date Data Source [id number] 10/28/2019 11:24:00 AM EDT GWYNN OAK ([facility]) Name Value Range Interpretation Code Description Data Karen rce(s) Supporting Document(s) Thyrotropin [Units/volume] in Serum or Plasma by Detec tion limit <= 0.05 mIU/L 5.839 uIU/ML Above high normal TSH GWYNN OAK ([facility]) Note: Patients should not be tested for 72 hours post fluorescein dye angiography. A false depression of result may occur.Responsible Observer: TSH TSH 300.5500 (A) ID Date Data Source [id number] 10/30/2019 01:50:00 PM [facility] Name Value Range Interpretation Code Description Data Karen rce(s) Supporting Document(s) TSH 5.839 uIU/ML 0.470-4.200 H [facility] Patients should not be tested for 72 ho urs post fluorescein dye angiography. A false depression of result may occur. ID Date Data Source [id number] 08/26/2019 08:22:00 AM EST MILE ([facility]) Name Value Range Interpretation Code Description Data Karen rce(s) Supporting Document(s) Reported Physicians See Note Reported Physicians GWYNN OAK ([facility]) Note: Reported Physicians:Ordering: Michelle PerezAttending: Michelle Horowitz ID Date Data Source [id number] 08/26/2019 08:22:00 AM [facility] MILE ([facility]) Name Value Range Interpretation Code Description Data Karen rce(s) Supporting Document(s) Thyrotropin [Units/volume] in Serum or Plasma by Detec tion limit <= 0.05 mIU/L 6.402 uIU/ML Above high normal TSH GWYNN OAK ([facility]) Note: Patients should not be tested for 72 hours post fluorescein dye angiography. A false depression of result may occur.Responsible Observer: TSH TSH 300.5500 (A) ID Date Data Source [id number] 08/26/2019 08:22:00 AM [facility] MILE ([facility]) Name Value Range Interpretation Code Description Data Karen rce(s) Supporting Document(s) Folate [Interpretation] in Blood 10.73 NG/ML Normal FO LATE GWYNN OAK ([facility]) Note: Responsible Observer: FOLATE FOLAT E 300.5210 (A) ID Date Data Source [id number] 08/26/2019 08:22:00 AM [facility] MILE ([facility]) Name Value Range Interpretation Code Description Data Karen rce(s) Supporting Document(s) Deprecated Cobalamin [Mass/volume] in Serum 727 PG/ML Nor mal VITAMIN B12 GWYNN OAK ([facility]) Note: Responsible Observer: B12 VITAMIN B12 300.5200 (A) ID Date Data Source [id number] 08/26/2019 08:22:00 AM EST MILE ([facility]) Name Value Range Interpretation Code Description Data Karen rce(s) Supporting Document(s) Deprecated Cholesterol.in LDL/Cholestero l.in HDL [Mass ratio] in Serum or Plasma 4.3 Normal CHOL/HDL RATIO GWYNN OAK ([facility] ) Note: Responsible Observer: CHOL/HDL RAT IO CHOL/HDL RATIO 300.4700 (A) Cholesterol crystals [Presence] in Stone by Infrared spectroscop y 178 MG/DL Normal CHOLESTEROL GWYNN OAK ([facility]) Note: Responsible Observer: CHOL CHOLEST KATHERINE 300.4350 (A) Cholesterol in HDL [Mass/volume] in Serum or Plasma ultracen trifugate 41 MG/DL Normal HDL CHOLESTEROL GWYNN OAK ([facility]) Note: Responsible Observer: HDL HDL CHOL ESTEROL 300.4600 (A) Cholesterol in LDL [Mass/volume] in Serum or Plasma by Direct as say 94 MG/DL Normal LDL CHOLESTEROL GWYNN OAK ([facility]) Note: Responsible Observer: LDL LDL CHOL ESTEROL 300.4400 (A) Triglyceride [Mass/volume] in Serum or Plasma 217 MG/DL Above high normal TRIGLYCERIDES GWYNN OAK ([facility]) Note: Responsible Observer: TRIG TRIGLYC ERIDES 300.4300 (A) ID Date Data Source [id number] 08/26/2019 08:22:00 AM EST [employer] ([facility]) Name Value Range Interpretation Code Description Data Karen rce(s) Supporting Document(s) Ferritin [Mass/volume] in Serum or Plasma 45.7 NG/ML Sonia l FERRITIN GWYNN OAK ([facility]) Note: Responsible Observer: FERRITIN CAL RITIN 300.2650 (A) ID Date Data Source [id number] 08/26/2019 08:22:00 AM EST [employer] ([employer]) Name Value Range Interpretation Code Description Data Karen rce(s) Supporting Document(s) Iron [Mass/volume] in Urine collected for unspecified duration 9 0 UG/DL Normal IRON GWYNN OAK ([facility]) Note: Responsible Observer: FE IRON 300 .2400 (A) % IRON SATURATION 24.0 % Normal % [facility] ([facility]) Note: Responsible Observer: % FE SAT % I BEN SATURATION 300.2500 (A) TIBC 378 UG/DL Normal TIBC GWYNN OAK ([facility]) Note: Responsible Observer: TIBC TIBC 3 00.2450 (A) ID Date Data Source [id number] 08/26/2019 08:22:00 AM EST [employer] ([facility]) Name Value Range Interpretation Code Description Data Karen rce(s) Supporting Document(s) Albumin/Globulin [Mass Ratio] in Amniotic fluid 2.1 G/DL Normal ALB/GLOB RATIO MILE ([facility]) Note: Responsible Observer: A/G RATIO AL B/GLOB RATIO 300.4100 (A) Alkaline phosphatase isoenzyme [Units/volume] in Serum or Plasma 76 U/L Normal ALKALINE PHOSPHATASE MILE ([facility]) Note: Responsible Observer: ALK PHOS ALK PAUL PHOSPHATASE 300.3110 (A) Albumin [Mass/volume] in Synovial fluid 4.5 G/DL Normal ALBUMIN MILE ([facility]) Note: Responsible Observer: ALB ALBUMIN 300.3900 (A) Alanine aminotransferase [Enzymatic activity/volume] in Seru m or Plasma 26 U/L Normal ALT MILE ([facility]) Note: Responsible Observer: ALT/SGPT ALT 300.3100 (A) Urea nitrogen/Creatinine [Mass Ratio] in Serum or Plasma 24 Normal BUN/CREAT RATIO MILE ([facility]) Note: Responsible Observer: BUN/CREAT RA CAILIN BUN/CREAT RATIO 300.0450 (A) Aspartate aminotransferase [Enzymatic activity/volume] in Serum or Plasma 11 U/L Normal AST MILE ([facility]) Note: Responsible Observer: AST/SGOT AST 300.3050 (A) Bilirubin.total [Mass/volume] in Serum or Plasma 0.5 MG/DL Normal BILIRUBIN,TOTAL MILE ([facility]) Note: Responsible Observer: TOTAL BILI T OTAL BILIRUBIN 300.2700 (A) BLOOD UREA NITRO 24 MG/DL Normal BLOOD UREA NITRO [facility] ([facility]) Note: Responsible Observer: BUN BLOOD UR EA NITROGEN 300.0350 (A) Chloride [Moles/volume] in Serum, Plasma or Blood 103 MEQ/L Normal CHLORIDE MILE ([facility]) Note: Responsible Observer: CL CHLORIDE 300.0200 (A) CA 9.7 MG/DL Normal CA MILE ([facility]) Note: Responsible Observer: CA CALCIUM 300.2200 (A) Carbon dioxide, total [Moles/volume] in Serum or Plasma 31 MEQ/L Normal CARBON DIOXIDE MILE ([facility]) Note: Responsible Observer: CO2 CARBON D IOXIDE 300.0250 (A) Creatine/Creatinine [Mass Ratio] in Urine 1.0 MG/DL Sonia l CREATININE MILE ([facility]) Note: Responsible Observer: CREAT CREATI NINE 300.0400 (A) Anion gap in Blood 11 Normal ANION GAP MILE ([facility]) Note: Responsible Observer: ANION GAP AN ION GAP 300.0300 (A) GFR 54.5 ML/MIN GFR MILE ([facility]) Note: Stage G3a - Mildly to [...] Serum by calculation 2.1 G/DL Normal GLOBULIN GWYNN OAK ([facility]) Note: Responsible Observer: GLOB GLOBULI N 300.4050 (A) Glucose [Presence] in Urine 242 MG/DL Above high normal G LUCOSE GWYNN OAK ([facility]) Note: Responsible Observer: GLU GLUCOSE 300.0500 (A) Potassium [Mass/volume] in Blood 4.0 MEQ/L Normal POT ASSIUM GWYNN OAK ([facility]) Note: Responsible Observer: K POTASSIUM 300.0150 (A) Sodium [Moles/volume] in Serum, Plasma or Blood 141 MEQ/L Normal SODIUM GWYNN OAK ([facility]) Note: Responsible Observer: NA SODIUM 3 00.0100 (A) Protein [Mass/volume] in Synovial fluid 6.6 G/DL Normal TOTAL PROTEIN GWYNN OAK ([facility]) Note: Responsible Observer: TP TOTAL PRO TEIN 300.3750 (A) ID Date Data Source [id number] 08/26/2019 08:22:00 AM EST GWYNN OAK ([employer]) Name Value Range Interpretation Code Description Data Karen rce(s) Supporting Document(s) IMMATURE RETIC FRACTION 8.0 % Normal IMMATURE RET IC FRACTION MILE ([facility]) Note: Responsible Observer: IRF IMMATURE RETIC FRAC 100.6275 (A) ABSOLUTE RETICS # 0.0905 10\\^6/uL ABSOLUTE RETICS # MILE ([facility]) Note: Responsible Observer: ABS RETIC# A BSOLUTE RETICS # 100.6200 (A) RETICULOCYTE % (AUTO) 1.9 % Normal RETICULOCYTE % (AUTO) MILE ([facility]) Note: Responsible Observer: RETIC% (AUTO ) RETICULOCYTE % (AUTO) 100.6100 (A) RETICULOCYTE HGB 35.4 pg Above high normal RETICULOCYTE HGB MILE ([facility]) Note: Responsible Observer: RET-HE (AUTO ) RETICULOCYTE HGB 100.6155 (A) ID Date Data Source [id number] 08/26/2019 08:22:00 AM EST MILE ([facility]) Name Value Range Interpretation Code Description Data Karen rce(s) Supporting Document(s) BASO # (AUTO) 0.07 10\\^3/uL Normal BASO # (AUTO) MILE ([facility]) Note: Responsible Observer: BASO # (AUTO ) BASO # (AUTO) 100.1500 (A) EOS # (AUTO) 0.18 10\\^3/uL Normal EOS # (AUTO) MILE ( [facility]) Note: Responsible Observer: EOS # (AUTO) EOS # (AUTO) 100.1450 (A) BASO % (AUTO) 0.9 % Normal BASO % (AUTO) MILE ([facility]) Note: Responsible Observer: BASO % (AUTO ) BASO % (AUTO) 100.1250 (A) EOS % (AUTO) 2.3 % Normal EOS % (AUTO) MILE ([facility]) Note: Responsible Observer: EOS % (AUTO) EOS % (AUTO) 100.1200 (A) GRAN # (AUTO) 3.44 10\\^3/uL Normal GRAN # (AUTO) MILE ([facility]) Note: Responsible Observer: GRAN # (AUTO ) GRAN #(AUTO) 100.1325 (A) GRAN % (AUTO) 43.6 % Normal GRAN % (AUTO) [facility] Note: Responsible Observer: GRAN % (AUTO ) GRAN % (AUTO) 100.1000 (A) Hematocrit [Volume Fraction] of Blood by Automated count 42.2 % Normal HEMATOCRIT MILE ([facility]) Note: Responsible Observer: HCT HEMATOCR IT 100.0400 (A) IG # (AUTO) 0.0 10\\^3/uL IG # (AUTO) IMLE ([facility]) Note: Responsible Observer: IG # (AUTO) IG # (AUTO) 100.1260 (A) Hemoglobin [Mass/volume] in Blood 14.5 G/DL Normal HE MOGLOBIN MILE ([facility]) Note: Responsible Observer: HGB HEMOGLOB IN 100.0300 (A) IG % (AUTO) 0.4 % IG % (AUTO) MILE ([facility]) Note: Responsible Observer: IG % (AUTO) IG % (AUTO) 100.1255 (A) LYMPH # (AUTO) 3.5 k/uL Normal LYMPH # (AUTO) MILE ( [facility]) Note: Responsible Observer: LYMPH # (AUT O) LYMPH # (AUTO) 100.1350 (A) Erythrocyte mean corpuscular hemoglobin [Entitic mass] by Automated count 30.3 PG Normal MCH GWYNN OAK ([facility]) Note: Responsible Observer: MCH MCH 100 .0600 (A) LYMPH % (AUTO) 44.2 % Normal LYMPH % (AUTO) MILE ( [facility]) Note: Responsible Observer: LYMPH % (AUT O) LYMPH % (AUTO) 100.1100 (A) Erythrocyte mean corpuscular hemoglobin concentration [Mass/volume] by Automated count 34.4 G/DL Normal MCHC GWYNN OAK ([facility]) Note: Responsible Observer: MCHC MCHC 1 00.0650 (A) Erythrocyte mean corpuscular volume [Entitic volume] by Auto mated count 88.1 FL Normal MCV GWYNN OAK ([facility]) Note: Responsible Observer: MCV MCV 100 .0550 (A) MONO % (AUTO) 8.6 % Normal MONO % (AUTO) MILE ([facility]) Note: Responsible Observer: MONO % (AUTO ) MONO% (AUTO) 100.1150 (A) MONO # (AUTO) 0.68 k/uL Normal MONO # (AUTO) MILE ([facility]) Note: Responsible Observer: MONO # (AUTO ) MONO # (AUTO) 100.1400 (A) MPV 9.0 FL Normal MPV MILE ([facility]) Note: Responsible Observer: MPV MPV 100 .0950 (A) Platelets [#/volume] in Plasma by Automated count 248 10\\^3/uL Normal PLATELET COUNT MILE ([facility]) Note: Responsible Observer: PLT PLATELET COUNT 100.0850 (A) Erythrocyte distribution width [Ratio] by Automated count 12.9 % Normal RDW GWYNN OAK ([facility]) Note: Responsible Observer: RDW RDW 100 .0700 (A) Erythrocytes [#/volume] in Blood by Automated count 4.79 10\\^6/uL Normal RED BLOOD COUNT GWYNN OAK ([facility]) Note: Responsible Observer: RBC RED BLOO D COUNT 100.0250 (A) Leukocytes [#/volume] in Blood by Automated count 7.89 10\\^3/uL Normal WHITE BLOOD COUNT GWYNN OAK ([facility]) Note: Responsible Observer: WBC WHITE BL OOD COUNT 100.0150 (A) ID Date Data Source [id number] 08/26/2019 01:24:00 PM [facility] Has Patient Fasted For The Past 12 [...] WHITE BLOOD COUNT 7.89 10^3/uL 4.00-10.50 [facility] RED BLOOD COUNT 4.79 10^6/uL 3.90-5.[address] [facility] th HEMOGLOBIN 14.5 G/DL 11.5-15.6 [facility] HEMATOCRIT 42.2 % 35.0-46.0 [facility] MCV 88.1 FL 80.0-100.0 [facility] MCH 30.3 PG 27.0-34.0 [facility] MCHC 34.4 G/DL 32-36 [facility] RDW 12.9 % 11.5-14.5 [facility] PLATELET COUNT 248 10^3/uL 130-400 [facility] MPV 9.0 FL 8.7-13.2 N [facility] GRAN % (AUTO) 43.6 % 42.0-75.0 N [facility] LYMPH % (AUTO) 44.2 % 20.0-51.0 N [facility] MONO % (AUTO) 8.6 % 2.0-15.0 [facility] EOS % (AUTO) 2.3 % 0.0-11.0 N [facility] BASO % (AUTO) 0.9 % 0.0-2.0 N [facility] IG % (AUTO) 0.4 % 1.00-5.00 [facility] IG # (AUTO) 0.0 10^3/uL <0.5 [facility] GRAN # (AUTO) 3.44 10^3/uL 1.50-6.50 [facility] LYMPH # (AUTO) 3.5 k/uL 1.0-5.0 N [facility] MONO # (AUTO) 0.68 k/uL 0.20-1.50 N [facility] EOS # (AUTO) 0.18 10^3/uL 0.00-1.10 N [facility] BASO # (AUTO) 0.07 10^3/uL 0.00-0.20 [facility] ID Date Data Source [id number] 08/26/2019 01:54:00 PM EST [facility] Has Patient Fasted For The Past 12 [...] Supporting Document(s) SODIUM 141 MEQ/L 135-145 N [facility] POTASSIUM 4.0 MEQ/L 3.5-5.3 N [facility] CHLORIDE 103 MEQ/L 94-110 [facility] CARBON DIOXIDE 31 MEQ/L 22-33 [facility] ANION GAP 11 5-16 [facility] BLOOD UREA NITRO 24 MG/DL 7-25 [facility] CREATININE 1.0 MG/DL 0.6-1.4 [facility] GFR 54.5 ML/MIN [facility] Stage G3a - Mildly to moderately decrea sed kidney function GFR normal is >=90 The MDRD GFR calculation is considered valid between the ages of 18 and 75 years only. The GFR is an estimate of the Glomerular Filtration Rate. It is considered accurate in evaluating patients with Chronic Kidney Disease,but may underestimate kidney function in Healthy Patients. BUN/CREAT RATIO 24 8-36 [facility] GLUCOSE 242 MG/DL 70-100 H [facility] CA 9.7 MG/DL 8.7-10.5 [facility] BILIRUBIN,TOTAL 0.5 MG/DL 0.1-1.3 [facility] AST 11 U/L 5-40 [facility] ALT 26 U/L 5-48 [facility] ALKALINE PHOSPHATASE 76 U/L 40-140 [facility] alth TOTAL PROTEIN 6.6 G/DL 5.9-8.3 [facility] ALBUMIN 4.5 G/DL 3.0-5.1 [facility] GLOBULIN 2.1 G/DL 1.5-3.5 [facility] ALB/GLOB RATIO 2.1 G/DL 1.0-2.7 [facility] ID Date Data Source [id number] 08/26/2019 01:24:00 PM [facility] Has Patient Fasted For The Past 12 [...] Document(s) RETICULOCYTE % (AUTO) 1.9 % 0.5-2.0 [facility] ealt RETICULOCYTE HGB 35.4 pg 29-35 H [facility] ABSOLUTE RETICS # 0.0905 10^6/uL [facility] IMMATURE RETIC FRACTION 8.0 % 3.0-15.9 N [facility] ID Date Data Source [id number] 08/26/2019 01:54:00 PM [facility] Has Patient Fasted For The Past 12 [...] rce(s) Supporting Document(s) IRON 90 UG/DL 35-150 [facility] TIBC 378 UG/DL 260-400 [facility] % IRON SATURATION 24.0 % 20-50 N [facility] h ID Date Data Source [id number] 08/26/2019 01:54:00 PM [facility] Has Patient Fasted For The Past 12 [...] Supporting Document(s) FERRITIN 45.7 NG/ML 22-322 N [facility] ID Date Data Source [id number] 08/26/2019 01:54:00 PM [facility] Has Patient Fasted For The Past 12 [...] Supporting Document(s) TRIGLYCERIDES 217 MG/DL 45-150 H [facility] CHOLESTEROL 178 MG/DL 125-200 [facility] LDL CHOLESTEROL 94 MG/DL 50-130 [facility] HDL CHOLESTEROL 41 MG/DL 32-96 [facility] CHOL/HDL RATIO 4.3 0-4.3 N [facility] ID Date Data Source [id number] 08/26/2019 01:54:00 PM [facility] Has Patient Fasted For The Past 12 [...] Document(s) VITAMIN B12 727 PG/ML 211-1999 N [facility] ID Date Data Source [id number] 08/26/2019 01:54:00 PM [facility] Has Patient Fasted For The Past 12 [...] Supporting Document(s) FOLATE 10.73 NG/ML 3.40-24.00 N [facility] ID Date Data Source [id number] 08/26/2019 01:54:00 PM [facility] Has Patient Fasted For The Past 12 [...] Supporting Document(s) TSH 6.402 uIU/ML 0.470-4.200 [facility] Patients should not be tested for 72 ho urs post fluorescein dye angiography. A false depression of result may occur. ID Date Data Source [id number] 07/10/2019 08:57:00 AM EST [employer] ([employer]) Name Value Range Interpretation Code Description Data Karen rce(s) Supporting Document(s) Reported Physicians See Note Reported Physicians GWYNN OAK ([facility]) Note: Reported Physicians:Ordering: Checo Perezending: Michelle Horowitz ID Date Data Source [id number] 07/10/2019 08:57:00 AM EST GWYNN OAK ([facility]) Name Value Range Interpretation Code Description Data Karen rce(s) Supporting Document(s) Thyrotropin [Units/volume] in Serum or Plasma by Detec tion limit <= 0.05 mIU/L 2.683 uIU/ML Normal TSH GWYNN OAK ([facility]) Note: Patients should not be tested for 72 hours post fluorescein dye angiography. A false depression of result may occur.Responsible Observer: TSH TSH 300.5500 (A) ID Date Data Source [id number] 07/10/2019 12:45:00 PM EST [facility] Name Value Range Interpretation Code Description Data Karen rce(s) Supporting Document(s) TSH 2.683 uIU/ML 0.470-4.200 [address] [place] [facility] Patients should not be tested for 73 ho urs post fluorescein dye angiography. A false depression of result may occur. Procedure Social History Code Duration Value Status Description Data Source(s ) Smoking 06/09/2020 12:00:00 AM EST Ex-smoker (finding) complet ed Ex-smoker (finding) [place] ([facility]) Smoking 03/07/2020 12:00:00 AM EDT Ex-smoker (finding) complet ed Ex-smoker (finding) [place] ([facility]) Smoking 03/01/2020 12:00:00 AM EDT Ex-smoker (finding) complet ed Ex-smoker (finding) [place] ([facility]) Vital Signs ID Date Data Source UNK Name Value Range Interpretation Code Description Data Source(s) Inhaled oxygen concentration 21 % 21 % [facility] ([facility]) Inhaled oxygen flow rate 0 L/min 0 L/min [place] ([facility]) Oxygen saturation in Arterial blood by Pulse oximetry 95 % 95 % [place] ([facility]) PhenX - pain, abdominal - type and intensity protocol 0 0 [place] ([facility]) Body weight 180 [lb_av] 180 [lb_av] [facility] ([facility]) Body temperature 97.8 [degF] 97.8 [degF] [facility] ([facility]) Respiratory rate 18 /min 18 /min MI[facility] ([facility]) Heart rate rhythm 1 1 [facility] [facility] Heart rate 92 /min 92 /min [facility] Diastolic blood pressure 70 mm[Hg] 70 mm[Hg] [facility] ([facility]) Systolic blood pressure 124 mm[Hg] 124 mm[Hg] G REEWAY ([facility]) Inhaled oxygen concentration 21 % 21 % [facility] ([facility]) temp taken by Afshan SYKES Inhaled oxygen flow rate 0 L/min 0 L/min [facility] ([facility]) temp taken by Afshan SYKES Oxygen saturation in Arterial blood by Pulse oximetry 95 % 95 % [place] ([facility]) temp taken by Afshan SYKES PhenX - pain, abdominal - type and intensity protocol 0 0 [place] ([facility]) temp taken by Afshan SYKES Body surface area Derived from formula 1.91 m2 1.91 m2 MI[facility] ([facility]) temp taken by Afshan SYKES Body mass index (BMI) [Ratio] 28.9 kg/m2 28.9 k g/m2 [facility] ([facility]) temp taken by Afshan SYKES Body weight 179 [lb_av] 179 [lb_av] [facility] ([facility]) temp taken by Afshan SYKES Body height 66 [in_i] 66 [in_i] MILE ([facility]) temp taken by Afshan SYKES Body temperature 99.9 [degF] 99.9 [degF] [place] AY ([facility]) temp taken by Afshan SYKES Respiratory rate 18 /min 18 /min MI[facility] ([facility]) temp taken by Afshan SYKES Heart rate rhythm 1 1 [place] ([facility]) temp taken by Afshan SYKES Heart rate 92 /min 92 /min [facility] ([facility]) temp taken by Afshan SYKES Diastolic blood pressure 76 mm[Hg] 76 mm[Hg] MILE ([facility]) temp taken by Afshan SYKES Systolic blood pressure 120 mm[Hg] 120 mm[Hg] G REENWAY ([facility]) temp taken by Afshan SYKES Inhaled oxygen concentration 21 % 21 % [place] ([facility]) Inhaled oxygen flow rate 0 L/min 0 L/min [place] ([facility]) Oxygen saturation in Arterial blood by Pulse oximetry 97 % 97 % [place] ([facility]) PhenX - pain, abdominal - type and intensity protocol 0 0 [place] ([facility]) Body surface area Derived from formula 1.91 m2 1.91 m2 [place] ([facility]) Body mass index (BMI) [Ratio] 29.1 kg/m2 29.1 k g/m2 [facility] ([facility]) Body weight 180 [lb_av] 180 [lb_av] [facility] ([facility]) Body height 66 [in_i] 66 [in_i] [facility] ([facility]) Body temperature 98.6 [degF] 98.6 [degF] [facility] ([facility]) Respiratory rate 18 /min 18 /min [place] ([facility]) Heart rate 86 /min 86 /min [place] ([facility]) Diastolic blood pressure 80 mm[Hg] 80 mm[Hg] [place] ([facility]) Systolic blood pressure 148 mm[Hg] 148 mm[Hg] [facility] Intraocular pressure Left eye 15 mm[Hg] 15 mm[ Hg] MEDENT ([facility]) TP MH 11:24 Am Intraocular pressure Right eye 11 mm[Hg] 11 mm [Hg] [facility] ([facility]) Patient Treatment Plan of Care Planned Activity Planned Date Details Description Data Source (s) OneTouch Ultra In Vitro Strip 06/09/2020 12:00:00 AM [facility] ([facility]) Levothyroxine Sodium 0.088 MG Oral Tablet 06/09/2020 12:00:00 AM [facility] ([facility]) OneTouch Delica Lancets 33G Miscellaneous 06/09/2020 12:00:00 AM PicLyf [place] ([facility]) POLYETHYLENE GLYCOL 3350 142 MG/ML Oral Solution [Eliz lax] 06/09/2020 12:00:00 AM [facility] glime[facility] 2 MG Oral Tablet 06/09/2020 12:00:00 AM EST [facility] ([facility]) Levothyroxine Sodium 0.088 MG Oral Tablet 03/15/2020 12:00:00 AM ED T [facility] ([facility]) OneTouch Ultra In Vitro Strip 03/15/2020 12:00:00 AM EDT [facility] ([facility]) CareFine Pen [place] 32G X 4 MM Miscellaneous 03/15/2020 12:00:00 A M EDT [facility] ([facility]) sitagliptin 100 MG Oral Tablet [Januvia] 03/15/2020 12:00:00 AM EDT [facility] ([facility]) glimepiride 2 MG Oral Tablet 03/15/2020 12:00:00 AM EDT [facility] ([facility]) OneTouch Delica Lancets 33G Miscellaneous 03/15/2020 12:00:00 AM ED T [facility] ([facility]) Levothyroxine Sodium 0.088 MG Oral Tablet 03/10/2020 12:00:00 AM ED [facility] ([facility]) sitagliptin 100 MG Oral Tablet [Januvia] 03/07/2020 12:00:00 AM EDT [facility] ([facility]) glimepiride 2 MG Oral Tablet 03/07/2020 12:00:00 AM EDT [facility] ([facility]) Accu-Chek FastClix Lancets Miscellaneous 03/07/2020 12:00:00 AM EDT [facility] ([facility]) CareFine Pen [place] 32G X 4 MM Miscellaneous 03/07/2020 12:00:00 A M EDT [facility] ([facility]) Vitamin D (Ergocalciferol) 1.25 MG (56634 UT) Oral Cap poonam 03/07/2020 12:00:00 AM EDT [facility] ([facility]) Cyclobenzaprine hydrochloride 5 MG Oral Tablet 03/01/2020 12:00:00 AM EDT [facility] ([facility]) Levothyroxine Sodium 0.1 MG Oral Tablet 01/18/2020 12:00:00 AM EDT [facility] ([facility]) Levothyroxine Sodium 0.1 MG Oral Tablet 01/14/2020 12:00:00 AM EDT [facility] ([facility]) glimepiride 2 MG Oral Tablet 11/16/2019 12:00:00 AM ED [facility] ([facility]) glimepiride 2 MG Oral Tablet 11/12/2019 12:00:00 AM EDT [facility] ([facility]) Levothyroxine Sodium 0.088 MG Oral Tablet 11/02/2019 12:00:00 AM [facility] ([facility]) Hydrochlorothiazide 25 MG Oral Tablet 11/02/2019 12:00:00 AM EDT [place] ([facility]) Potassium Chloride 20 MEQ Extended Release Oral Tablet 11/02/2019 12:00:00 AM EDT [place] ([facility]) duloxetine 30 MG Delayed Release Oral Capsule [Cymbalt a] 11/02/2019 12:00:00 AM [facility] ([facility]) clopidogrel 75 MG Oral Tablet [Plavix] 11/02/2019 12:00:00 AM [facility] ([facility]) Simvastatin 40 MG Oral Tablet 11/02/2019 12:00:00 AM [facility] ([facility]) Metformin hydrochloride 1000 MG Oral Tablet 11/02/2019 12:00:00 AM [facility] ([facility]) Basaglar KwikPen 100 UNIT/ML Subcutaneous Solution Pen -injector 11/02/2019 12:00:00 AM [facility] ([facility]) CareFine Pen [place] 32G X 4 MM Miscellaneous 10/15/2019 12:00:00 A M [facility] ([facility]) Magnesium Oxide 400 MG Oral Tablet 09/29/2019 12:00:00 AM [facility] ([facility]) Magnesium Oxide 400 MG Oral Tablet 09/24/2019 12:00:00 AM [facility] ([facility]) OneTouch Delica Lancets 33G Miscellaneous 09/08/2019 12:00:00 AM T [facility] ([facility]) OneTouch Ultra Blue In Vitro Strip 09/08/2019 12:00:00 AM EST [facility] ([facility]) OneTouch Ultra Blue In Vitro Strip 08/28/2019 12:00:00 AM [facility] ([facility]) OneTouch Delica Lancets 33G Miscellaneous 08/28/2019 12:00:00 AM ES T [facility] ([facility]) OneTouch Ultra Blue In Vitro Strip 08/28/2019 12:00:00 AM EST [facility] ([facility]) OneTouch Ultra 2 w/Device Kit 08/28/2019 12:00:00 AM EST [facility] ([facility]) Accu-Chek Melia Plus In Vitro Strip 08/25/2019 12:00:00 AM EST [facility] ([facility]) Accu-Chek Melia Plus In Vitro Strip 08/25/2019 12:00:00 AM EST [facility] ([facility]) POLYETHYLENE GLYCOL 3350 142 MG/ML Oral Solution [Eliz lax] 08/13/2019 12:00:00 AM EST [facility] ([facility]) Basaglar KwikPen 100 UNIT/ML Subcutaneous Solution Pen -injector 07/07/2019 12:00:00 AM EST [facility] ([facility]) Vitamin D (Ergocalciferol) 1.25 MG (98289 UT) Oral Cap poonam 07/06/2019 12:00:00 AM EST [facility] ([facility]) CareFine Pen [place] 32G X 4 MM Miscellaneous 07/01/2019 12:00:00 A M EST [facility] ([facility]) Accu-Chek FastClix Lancets Miscellaneous 07/01/2019 12:00:00 AM EST [facility] ([facility]) glimepiride 2 MG Oral Tablet 06/26/2019 12:00:00 AM EST [facility] ([facility]) Vitamin D (Ergocalciferol) 1.25 MG (44180 UT) Oral Cap poonam 06/26/2019 12:00:00 AM EST [facility] ([facility]) Hydrochlorothiazide 25 MG Oral Tablet 06/26/2019 12:00:00 AM EST [facility] ([facility]) sitagliptin 100 MG Oral Tablet [Januvia] 06/26/2019 12:00:00 AM EST [facility] ([facility]) clopidogrel 75 MG Oral Tablet [Plavix] 06/26/2019 12:00:00 AM EST [facility] ([facility]) Levothyroxine Sodium 0.075 MG Oral Tablet 06/26/2019 12:00:00 AM ES T [facility] ([facility]) Magnesium Oxide 400 MG Oral Tablet 06/26/2019 12:00:00 AM EST [facility] ([facility]) Metformin hydrochloride 1000 MG Oral Tablet 06/26/2019 12:00:00 AM EST [facility] ([facility]) Simvastatin 40 MG Oral Tablet 06/26/2019 12:00:00 AM EST [facility] ([facility]) duloxetine 30 MG Delayed Release Oral Capsule [Cymbalt a] 06/26/2019 12:00:00 AM EST [facility] ([facility]) 3 ML Insulin Glargine 100 UNT/ML Pen Injector [Lantus] 06/26/2019 12:00:00 AM EST [facility] ([facility]) Potassium Chloride 20 MEQ Extended Release Oral Tablet 06/26/2019 12:00:00 AM EST [facility] ([facility]) POLYETHYLENE GLYCOL 3350 142 MG/ML Oral Solution [Eliz lax] 08/28/2018 12:00:00 AM EST [facility] ([facility]) Accu-Chek Melia Device 07/24/2018 12:00:00 AM EST [facility] ([facility])
[2020-09-01] MEDS ORDERED: DEXTROSE 50% 50 ML SYRINGE IV PRN (17:45)
[2020-09-01] MEDS ORDERED: GLUCOSE 4GM CHEW TABLET PO PRN (17:45)
[2020-09-01] MEDS ORDERED: ONDANSETRON 4MG/2ML VIAL IV PRN (17:45)
[2020-09-01] MEDS ORDERED: GLUCAGON INJ 1MG VIAL SC PRN (17:45)
--- OUTSIDE RECORDS SUMMARY | 2020-09-01 17:49 | CCD ---
Author Author [facility] Organization [facility] Address Unknown Phone Unavailable Care Team Providers Care Building And Grounds Supervisor Name Role Phone Kimberlyn, Chato Sharmin SUPERVISOR BEAM DEPARTMENT Unavailable Unavailable Shaben, E Sharmin SUPERVISOR BEAM DEPARTMENT Unavailable Unavailable Shaben, E Sharmin SUPERVISOR BEAM DEPARTMENT Unavailable Unavailable Shaben, E Sharmin SUPERVISOR BEAM DEPARTMENT Unavailable Unavailable Shaben, E Sharmin SUPERVISOR BEAM DEPARTMENT Unavailable Unavailable Shaben, E Sharmin SUPERVISOR BEAM DEPARTMENT Unavailable Unavailable Shaben, E Sharmin SUPERVISOR BEAM DEPARTMENT Unavailable Unavailable Shaben, E Sharmin SUPERVISOR BEAM DEPARTMENT Unavailable Unavailable Shaben, E Sharmin SUPERVISOR BEAM DEPARTMENT Unavailable Unavailable Shaben, E Sharmin SUPERVISOR BEAM DEPARTMENT Unavailable Unavailable Shaben, E Sharmin SUPERVISOR BEAM DEPARTMENT Unavailable Unavailable Shaben, E Sharmin SUPERVISOR BEAM DEPARTMENT Unavailable Unavailable Shaben, E Sharmin SUPERVISOR BEAM DEPARTMENT Unavailable Unavailable Shaben, E Sharmin SUPERVISOR BEAM DEPARTMENT Unavailable Unavailable Shaben, E Sharmin SUPERVISOR BEAM DEPARTMENT Unavailable Unavailable Shaben, E Sharmin SUPERVISOR BEAM DEPARTMENT Unavailable Unavailable Shaben, E Sharmin SUPERVISOR BEAM DEPARTMENT Unavailable Unavailable Shaben, E Sharmin SUPERVISOR BEAM DEPARTMENT Unavailable Unavailable Shaben, E Sharmin SUPERVISOR BEAM DEPARTMENT Unavailable Unavailable Shaben, E Sharmin SUPERVISOR BEAM DEPARTMENT Unavailable Unavailable Shaben, E Sharmin SUPERVISOR BEAM DEPARTMENT Unavailable Unavailable Shaben, E Sharmin SUPERVISOR BEAM DEPARTMENT Unavailable Unavailable Shaben, E Sharmin SUPERVISOR BEAM DEPARTMENT Unavailable Unavailable Shaben, E Sharmin SUPERVISOR BEAM DEPARTMENT Unavailable Unavailable Brushaber, M Michelle ORDNANCE TECHNICIAN Unavailable Unavailable Brushaber, M Michelle ORDNANCE TECHNICIAN Unavailable Unavailable Brushaber, M Michelle ORDNANCE TECHNICIAN Unavailable Unavailable Brushaber, M Michelle ORDNANCE TECHNICIAN Unavailable Unavailable Brushaber, M Michelle ORDNANCE TECHNICIAN Unavailable Unavailable Brushaber, M Michelle ORDNANCE TECHNICIAN Unavailable Unavailable Brushaber, M Michelle ORDNANCE TECHNICIAN Unavailable Unavailable Brushaber, M Michelle ORDNANCE TECHNICIAN Unavailable Unavailable Brushaber, M Michelle ORDNANCE TECHNICIAN Unavailable Unavailable Brushaber, M Michelle ORDNANCE TECHNICIAN Unavailable Unavailable Brushaber, M Michelle ORDNANCE TECHNICIAN Unavailable Unavailable Brushaber, M Michelle ORDNANCE TECHNICIAN Unavailable Unavailable Brushaber, M Michelle ORDNANCE TECHNICIAN Unavailable Unavailable Brushaber, M Michelle ORDNANCE TECHNICIAN Unavailable Unavailable Brushaber, M Michelle ORDNANCE TECHNICIAN Unavailable Unavailable Brushaber, M Michelle ORDNANCE TECHNICIAN Unavailable Unavailable Brushaber, M Michelle ORDNANCE TECHNICIAN Unavailable Unavailable Brushaber, M Michelle ORDNANCE TECHNICIAN Unavailable Unavailable Brushaber, M Michelle ORDNANCE TECHNICIAN Unavailable Unavailable Brushaber, M Michelle ORDNANCE TECHNICIAN Unavailable Unavailable Brushaber, M Michelle ORDNANCE TECHNICIAN Unavailable Unavailable Brushaber, M Michelle ORDNANCE TECHNICIAN Unavailable Unavailable Brushaber, M Michelle ORDNANCE TECHNICIAN Unavailable Unavailable Brushaber, M Michelle ORDNANCE TECHNICIAN Unavailable Unavailable Brushaber, M Michelle ORDNANCE TECHNICIAN Unavailable Unavailable Brushaber, M Michelle ORDNANCE TECHNICIAN Unavailable Unavailable Brushaber, M Michelle ORDNANCE TECHNICIAN Unavailable Unavailable Brushaber, M Michelle ORDNANCE TECHNICIAN Unavailable Unavailable Brushaber, M Michelle ORDNANCE TECHNICIAN Unavailable Unavailable Brushaber, M Michelle ORDNANCE TECHNICIAN Unavailable Unavailable Brushaber, M Michelle ORDNANCE TECHNICIAN Unavailable Unavailable Brushaber, M Michelle ORDNANCE TECHNICIAN Unavailable Unavailable Brushaber, M Michelle ORDNANCE TECHNICIAN Unavailable Unavailable Brushaber, M Michelle ORDNANCE TECHNICIAN Unavailable Unavailable JASIEL-GEORGE, CHASE ORDNANCE TECHNICIAN Unavailable Unavaila ble JASIEL-GEORGE, CHASE ORDNANCE TECHNICIAN Unavailable Unavaila ble JASIEL-GEORGE, CHASE ORDNANCE TECHNICIAN Unavailable Unavaila ble JASIEL-GEORGE, CHASE ORDNANCE TECHNICIAN Unavailable Unavaila ble JASIEL-GEORGE, CHASE ORDNANCE TECHNICIAN Unavailable Unavaila ble JASIEL-GEORGE, CHASE ORDNANCE TECHNICIAN Unavailable Unavaila ble JASIEL-GEORGE, SHARMIN ACOSTA ORDNANCE TECHNICIAN Unavailable Unavaila ble JASIEL-GEORGE, SHARMIN ACOSTA ORDNANCE TECHNICIAN Unavailable Unavaila ble JASIEL-GEORGE, SHARMIN ACOSTA ORDNANCE TECHNICIAN Unavailable Unavaila ble JASIEL-GEORGE, SHARMIN ACOSTA ORDNANCE TECHNICIAN Unavailable Unavaila ble JASIEL-GEORGE, SHARMIN ACOSTA ORDNANCE TECHNICIAN Unavailable Unavaila ble JASIEL-GEORGE, SHARMIN ACOSTA ORDNANCE TECHNICIAN Unavailable Unavaila ble JASIEL-GEORGE, SHARMIN ACOSTA ORDNANCE TECHNICIAN Unavailable Unavaila ble JASIEL-GEORGE, SHARMIN ACOSTA ORDNANCE TECHNICIAN Unavailable Unavaila ble JASIEL-GEORGE, SHARMIN ACOSTA ORDNANCE TECHNICIAN Unavailable Unavaila ble JASIEL-GEORGE, SHARMIN ACOSTA ORDNANCE TECHNICIAN Unavailable Unavaila ble JASIEL-GEORGE, SHARMIN ACOSTA ORDNANCE TECHNICIAN Unavailable Unavaila ble JASIEL-GEORGE, SHARMIN ACOSTA ORDNANCE TECHNICIAN Unavailable Unavaila ble JASIEL-GEORGE, SHARMIN ACOSTA ORDNANCE TECHNICIAN Unavailable Unavaila ble JASIEL-GEORGE, SHARMIN ACOSTA ORDNANCE TECHNICIAN Unavailable Unavaila ble JASIEL-GEORGE, SHARMIN ACOSTA ORDNANCE TECHNICIAN Unavailable Unavaila ble JASIEL-GEORGE, SHARMIN ACOSTA ORDNANCE TECHNICIAN Unavailable Unavaila ble JASIEL-GEORGE, SHARMIN ACOSTA ORDNANCE TECHNICIAN Unavailable Unavaila ble JASIEL-GEORGE, SHARMIN ACOSTA ORDNANCE TECHNICIAN Unavailable Unavaila ble JASIEL-GEORGE, SHARMIN ACOSTA ORDNANCE TECHNICIAN Unavailable Unavaila ble JASIEL-GEORGE, SHARMIN ACOSTA ORDNANCE TECHNICIAN Unavailable Unavaila ble JASIEL-GEORGE, SHARMIN ACOSTA ORDNANCE TECHNICIAN Unavailable Unavaila ble JASIEL-GEORGE, SHARMIN ACOSTA ORDNANCE TECHNICIAN Unavailable Unavaila ble JASIEL-GEORGE, SHARMIN ACOSTA ORDNANCE TECHNICIAN Unavailable Unavaila ble JASIEL-GEORGE, SHARMIN ACOSTA ORDNANCE TECHNICIAN Unavailable Unavaila ble JASIEL-GEORGE, SHARMIN ACOSTA ORDNANCE TECHNICIAN Unavailable Unavaila ble JASIEL-GEORGE, SHARMIN ACOSTA ORDNANCE TECHNICIAN Unavailable Unavaila ble JASIEL-GEORGE, SHARMIN ACOSTA ORDNANCE TECHNICIAN Unavailable Unavaila ble JASIEL-GEORGE, SHARMIN ACOSTA ORDNANCE TECHNICIAN Unavailable Unavaila ble JASIEL-GEORGE, SHARMIN ACOSTA ORDNANCE TECHNICIAN Unavailable Unavaila ble JASIEL-GEORGE, SHARMIN ACOSTA ORDNANCE TECHNICIAN Unavailable Unavaila ble JASIEL-GEORGE, SHARMIN ACOSTA ORDNANCE TECHNICIAN Unavailable Unavaila ble JASIEL-GEORGE, SHARMIN ACOSTA ORDNANCE TECHNICIAN Unavailable Unavaila ble JASIEL-GEORGE, SHARMIN ACOSTA ORDNANCE TECHNICIAN Unavailable Unavaila ble JASIEL-GEORGE, SHARMIN ACOSTA ORDNANCE TECHNICIAN Unavailable Unavaila ble JASIEL-GEORGE, SHARMIN ACOSTA ORDNANCE TECHNICIAN Unavailable Unavaila ble JASIEL-GEORGE, SHARMIN ACOSTA ORDNANCE TECHNICIAN Unavailable Unavaila ble JASIEL-GEORGE, SHARMIN ACOSTA ORDNANCE TECHNICIAN Unavailable Unavaila ble JASIEL-GEORGE, SHARMIN ACOSTA ORDNANCE TECHNICIAN Unavailable Unavaila ble JASIEL-GEORGE, SHARMIN ACOSTA ORDNANCE TECHNICIAN Unavailable Unavaila ble JASIEL-GEORGE, SHARMIN ACOSTA ORDNANCE TECHNICIAN Unavailable Unavaila ble JustinguJayme brizuela Trevon DO [...] Unavailable Unavailable CarguelloJayme Trevon DO Unavailable Unavailable CarguelloJamye Trevon DO Unavailable Unavailable CarguelloJayme Trevon DO [...] Abdiaziz CASTILLO, Hailey Unavailable RAVI, SHARMIN ACOSTA ORDNANCE TECHNICIAN Unavailable Unavaila ble RAVI, SHARMIN ACOSTA ORDNANCE TECHNICIAN Unavailable Unavaila ble RAVI, SHARMIN ACOSTA ORDNANCE TECHNICIAN Unavailable Unavaila ble JASIEL-GEORGE, SHARMIN ACOSTA ORDNANCE TECHNICIAN Unavailable Unavaila ble JASIEL-GEORGE, SHARMIN ACOSTA ORDNANCE TECHNICIAN Unavailable Unavaila ble JASIEL-GEORGE, SHARMIN ACOSTA ORDNANCE TECHNICIAN Unavailable Unavaila ble JASIEL-GEORGE, SHARMIN ACOSTA ORDNANCE TECHNICIAN Unavailable Unavaila ble JASIEL-GEORGE, SHARMIN ACOSTA ORDNANCE TECHNICIAN Unavailable Unavaila ble JASIEL-GEORGE, SHARMIN ACOSTA ORDNANCE TECHNICIAN Unavailable Unavaila ble JASIEL-GEORGE, SHARMIN ACOSTA ORDNANCE TECHNICIAN Unavailable Unavaila ble JASIEL-GEORGE, SHARMIN ACOSTA ORDNANCE TECHNICIAN Unavailable Unavaila ble JASIEL-GEORGE, SHARMIN ACOSTA ORDNANCE TECHNICIAN Unavailable Unavaila ble JASIEL-GEORGE, SHARMIN ACOSTA ORDNANCE TECHNICIAN Unavailable Unavaila ble JASIEL-GEORGE, SHARMIN ACOSTA ORDNANCE TECHNICIAN Unavailable Unavaila ble JASIEL-GEORGE, SHARMIN ACOSTA ORDNANCE TECHNICIAN Unavailable Unavaila ble JASIEL-GEORGE, SHARMIN ACOSTA ORDNANCE TECHNICIAN Unavailable Unavaila ble JASIEL-GEORGE, SHARMIN ACOSTA ORDNANCE TECHNICIAN Unavailable Unavaila ble JASIEL-GEORGE, SHARMIN ACOSTA ORDNANCE TECHNICIAN Unavailable Unavaila ble JASIEL-GEORGE, SHARMIN ACOSTA ORDNANCE TECHNICIAN Unavailable Unavaila ble JASIEL-GEORGE, SHARMIN ACOSTA ORDNANCE TECHNICIAN Unavailable Unavaila ble JASIEL-GEORGE, SHARMIN ACOSTA ORDNANCE TECHNICIAN Unavailable Unavaila ble JASIEL-GEORGE, SHARMIN ACOSTA ORDNANCE TECHNICIAN Unavailable Unavaila ble JASIEL-GEORGE, SHARMIN ACOSTA ORDNANCE TECHNICIAN Unavailable Unavaila ble JASIEL-GEORGE, SHARMIN ACOSTA ORDNANCE TECHNICIAN Unavailable Unavaila ble JASIEL-GEORGE, SHARMIN ACOSTA ORDNANCE TECHNICIAN Unavailable Unavaila ble JASIEL-GEORGE, SHARMIN ACOSTA ORDNANCE TECHNICIAN Unavailable Unavaila ble JASIEL-GEORGE, SHARMIN ACOSTA ORDNANCE TECHNICIAN Unavailable Unavaila ble JASIEL-GEORGE, SHARMIN ACOSTA ORDNANCE TECHNICIAN Unavailable Unavaila ble JASIEL-GEORGE, SHARMIN ACOSTA ORDNANCE TECHNICIAN Unavailable Unavaila ble JASIEL-GEORGE, SHARMIN ACOSTA ORDNANCE TECHNICIAN Unavailable Unavaila ble JASIEL-GEORGE, SHARMIN ACOSTA ORDNANCE TECHNICIAN Unavailable Unavaila ble JASIEL-GEORGE, SHARMIN ACOSTA ORDNANCE TECHNICIAN Unavailable Unavaila ble JASIEL-GEORGE, SHARMIN ACOSTA ORDNANCE TECHNICIAN Unavailable Unavaila ble JASIEL-GEORGE, SHARMIN ACOSTA ORDNANCE TECHNICIAN Unavailable Unavaila ble JASIEL-GEORGE, SHARMIN ACOSTA ORDNANCE TECHNICIAN Unavailable Unavaila ble JASIEL-GEORGE, SHARMIN ACOSTA ORDNANCE TECHNICIAN Unavailable Unavaila ble JASIEL-GEORGE, SHARMIN ACOSTA ORDNANCE TECHNICIAN Unavailable Unavaila ble JASIEL-GEORGE, SHARMIN ACOSTA ORDNANCE TECHNICIAN Unavailable Unavaila ble JASIEL-GEORGE, SHARMIN ACOSTA ORDNANCE TECHNICIAN Unavailable Unavaila ble JASIEL-GEORGE, SHARMIN ACOSTA ORDNANCE TECHNICIAN Unavailable Unavaila ble JASIEL-GEORGE, SHARMIN ACOSTA ORDNANCE TECHNICIAN Unavailable Unavaila ble JASIEL-GEORGE, SHARMIN ACOSTA ORDNANCE TECHNICIAN Unavailable Unavaila ble JASIEL-GEORGE, SHARMIN ACOSTA ORDNANCE TECHNICIAN Unavailable Unavaila ble JASIEL-GEORGE, SHARMIN ACOSTA ORDNANCE TECHNICIAN Unavailable Unavaila ble JASIEL-GEORGE, SHARMIN ACOSTA ORDNANCE TECHNICIAN Unavailable Unavaila ble JASIEL-GEORGE, SHARMIN ACOSTA ORDNANCE TECHNICIAN Unavailable Unavaila ble JONATHAN Bennett, Ksenia Unavailable Jayme Franklin DO Unavailable Unavailable Jayme Franklin DO Unavailable Unavailable Jayme Franklin DO Unavailable Unavailable Jayme Franklin DO Unavailable Unavailable Jyame Franklin Trevon DO Unavailable Unavailable Jayme Franklin [...] Unavailable Jayme Franklin Trevon DO Unavailable Unavailable JustinguJayem brizuela Trevon DO Unavailable Unavailable JustinguJayme brizuela [...] is protected by Article 27-F of the [facility] Public Health law. If you continue you may have access to information: Regarding HIV / AIDS; Provided by facilities licensed or operated by the [facility] Office of Mental Health; or Provided by the [facility] Office for People With Developmental Disabilities. If such information is present, then the following [facility] mandated warning applies: This information has been [...] law may result in a fine or care home sentence or both. A general authorization for the release of medical or other information is NOT sufficient authorization for further disc losure. Advance Directives Directive Description Employment Manager Brand Attendant Status Observation Descr iption Data Source(s) packet given Pt Bill of Rights, Priv Prac, Ad Dir completed packet given Pt Bill of Rights, Priv Prac, Ad Dir [place] ([facility]) Note: Pt declined AD packet Ebola Screening Performed completed Ebol a Screening Performed [place] ([facility]) Note: Within the last month, [...] Outpatient<td ID="encounterTypeDescripti onID0">Chronic Disease Follow- up</td><td>Sharmin Danielson NP</td><td>[facility]</td><td>06/09/2020</td><td><content ID="encounterDiagnosisID0-0"> Diabetes Mellitus Type 2</content>, <content ID="encounterDiagnosisID0- 1">Hypertension (systemic)</content>, <content ID="encounterDiagnosisID0-2">Hyperlipidemia</content>, <content ID="encounterDiagnosisID0-3">Hypothyroidism</content></td> Attender: Sharmin NAIK [facility] 06/09/2020 11:13:00 AM EST - 06/09/2020 12:02:01 PM EST HypothyroidismHyperlipidemiaHypertension (systemic)Diabetes Mellitus Type 2 [place] ([facility]) Hypothyroidism Hyperlipidemia Hypertension (systemic) Diabetes Mellitus Type 2 Outpatient<td ID="encounterTypeDescripti onID1">Care Management Medical- Telephone Encounter</td><td>Sharmin Danielson NP</td><td>[facility]</td><td>06/03/2020</td><td></td> Attender: Sharmin NAIK [facility] 06/03/2020 02:56:00 PM EDT - 06/03/2020 02:56:00 PM EDT [place] ([facility]) Unknown<td ID="encounterTypeDescriptionI D2">Chart Update</td><td>Hailey Freed RN</td><td></td><td>04/14/2020</td><td></td> Attender: Hailey Freed RN 04/14/2020 10:50:00 AM EDT - 04/14/2020 11:59:00 PM EDT [place] ([facility]) Outpatient Attender: Sharmin NAIK 04/13/2020 07:58:00 A M EDT lab 1 of 1 [facility] lab 1 of 1 Unknown<td ID="encounterTypeDescriptionI D3">Correspondence</td><td>Trevon Franklin DO</td><td></td><td>03/31/2020</td><td></td> Attender: Trevon Franklin DO 03/31/2020 04:11:00 PM EDT - 03/31/2020 11:59:00 PM EDT [facility] ([facility]) Unknown<td ID="encounterTypeDescriptionI D4">Chart Update</td><td>Sharmin Danielson NP</td><td></td><td>03/31/2020</td><td></td> Attender: Sharmin NAIK 03/31/2020 10:03:00 AM EDT - 03/31/2020 11:59:00 PM EDT [facility] ([facility]) Outpatient Attender: Sharmin NAIK 03/30/2020 08:2 7:00 AM EDT Z12.31 mammo/US,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 211 remiss Obstetrics<td ID="encounterTypeDescripti onID5">Lab Order</td><td>Sharmin Danielson NP</td><td></td><td>03/10/2020</td><td></td> Attender: Sharmin NAIK 03/10/2020 09:14:00 AM EDT - 03/10/2020 11:59:00 PM EDT [facility] ([facility]) Unknown<td ID="encounterTypeDescriptionI D6">[Patient Encounter]</td><td>Sharmin Danielson NP</td><td></td><td>03/08/2020</td><td></td> Attender: Sharmin NAIK 03/08/2020 10:08:00 AM EDT - 03/08/2020 11:59:00 PM EDT [facility] ([facility]) Unknown<td ID="encounterTypeDescriptionI D7">[Patient Encounter]</td><td>Sharmin Reis Jagjit DANIELS</td><td></td><td>03/07/2020</td><td></td> Attender: Sharmin Martinezlynette NAIK 03/07/2020 02:51:00 PM EDT - 03/07/2020 11:59:00 PM EDT [facility] ([facility]) Unknown<td ID="encounterTypeDescriptionI D8">AHR</td><td>Sharmin Reis Jagjit DANIELS</td><td>[facility]</td><td>03/07/2020</td><td><content ID="encounterDiagnosisID8-0">Routine History and Physical</content>, <content ID="encounterDiagnosisID8-1">Diabetes Mellitus Type 2</content>, <content ID="encounterDiagnosisID8-2">Hypertension (systemic)</content>, <content ID="encounterDiagnosisID8-3">Hypothyroidism</content>, <content ID="encounterDiagnosisID8-4">Nicotine Dependence Cigarettes Mild in Early Remission</content></td> Attender: Sharmin Martinezlynette [facility] 0 12:57:00 PM EDT - 03/07/2020 02:32:23 [...] Type 2Hypertension (systemic)Diabetes Mellitus Type 2 [place] ([facility]) Nicotine Dependence Cigarettes Mild in [...] 08:20:00 AM EDT lab 1 of 1 [facility] lab 1 of 1 Unknown<td ID="encounterTypeDescriptionI D9">Correspondence</td><td>Trevon Franklin DO</td><td></td><td>03/03/2020</td><td></td> Attender: Trevon Franklin DO 03/03/2020 09:26:00 AM EDT - 03/03/2020 11:59:00 PM EDT [place] ([facility]) Outpatient Attender: SHARMIN RODRIGUES NP 0 03/01/2020 03:53:00 PM EDT ay [facility] Xray Outpatient<td ID="encounterTypeDescripti onID10">Acute L3</td><td>Sharmin George NP</td><td>[facility]</td><td>03/01/2020</td><td><content ID="plymkwyxkUoufhrgxkFT16-3">Tendonitis Rotator Cuff Left</content>, <content ID="rqpwiuaddCgxttpjxcAI75-3">Trapezius Muscle Strain Left</content></td> Attender: SHARMIN RODRIGUES NP [facility] 03/01/2020 02: 22:00 PM EDT - [...] Left Outpatient<td ID="encounterTypeDescripti onID11">Telephonic Encounter</td><td>Trevon Franklin DO</td><td></td><td>01/14/2020</td><td><content ID="ntgfpfrkvYhynnjubsGU24-9"> Hypothyroidism</content></td> Attender: Trevon Franklin DO 01/14/2020 04:13:00 PM EDT - 01/14/2020 11:59:00 PM EDT HypothyroidismHypothyroidismHypothyroidismHypothyroidismHypothyroidismHypothyroi dismHypothyroidismHypothyroidism [place] ([facility]) Hypothyroidism Hypothyroidism Hypothyroidism Hypothyroidism Hypothyroidism Hypothyroidism Hypothyroidism Hypothyroidism Outpatient Attender: Trevon Franklin DO 01/14/2020 09:36 :00 AM EDT Lab [facility] Lab Outpatient Attender: Trevon Franklin DO 01/07/2020 11:47:00 PM EDT Chief Medical Director [facility] Chief Medical Director Outpatient<td ID="encounterTypeDescripti onID12">Telephonic Encounter</td><td>Trevon Franklin DO</td><td>[facility]</td><td>01/07/2020</td><td></td> Attender: Trevon Franklin DO [facility] 01/07/2020 04:40:00 PM EDT - 01/07/2020 02:40:38 PM EDT [place] ([facility]) Obstetrics<td ID="encounterTypeDescripti onID13">Lab Order</td><td>Trevon Franklin DO</td><td></td><td>01/07/2020</td><td><content ID="jlkabtbbcJofnxnsdkEV87-4">Vertigo</content>, <content ID="xubvglsiiOwsbmnhsbKQ02-8">Hypothyroidism</content>, <content ID="axdeullbqByngeughaXT73-3">Hypokalemia</content>, <content ID="pjtqqrdaxSuzaummkrLA63-6">Hypertension (systemic)</content>, <content ID="uvprjlwohJbsgbaxyuXU73-2">Diabetes Mellitus Type 2</content></td> Attender: Trevon Franklin DO 01/07/2020 11:12:00 AM EDT - 01/07/2020 11:59:00 PM EDT VertigoVertigoVertigoVertigoVertigoVertigoVertigoVertigoVertigoHypothyroidismHyp aHypokalemiaHypokalemiaHypokalemiaHypokalemia HypokalemiaHypokalemiaHypokalemiaHypokalemiaDiabetes Mellitus Type 2Hypertension (systemic)Diabetes Mellitus Type 2Hypertension (systemic)Diabetes Mellitus Type 2Hypertension (systemic)Diabetes Mellitus Type 2Hypertension (systemic)Diabetes Mellitus Type 2Hypertension (systemic)Diabetes Mellitus Type 2Hypertension (systemic)Diabetes Mellitus Type 2Hypertension (systemic)Diabetes Mellitus Type 2Hypertension (systemic)Diabetes Mellitus Type 2Hypertension (systemic) [place] ([facility]) Vertigo Vertigo Vertigo Vertigo Vertigo [...] ID="encounterTypeDescripti onID14">Primary Care Telehealth [facility]</td><td>Trevon Franklin DO</td><td></td><td>11/02/2019</td><td><content ID="wyftycjuqMqptshtpjKS07-7">Diabetes Mellitus Type 2</content>, <content ID="eojgywrjjQuhlabcxxKZ73-0">Hypothyroidism</content>, <content ID="xyeooynvbSsuqbijbxGO06-5">Hypertension (systemic)</content>, <content ID="jydnrovqlThgukfkosSC94-0">Anxiety Disorder of Unknown (axis Iii) Etiology</content>, <content ID="wbxvnplbyJbfkgnajhIG88-4">Hyperlipidemia</content></td> Attender: Trevon Franklin DO 11/02/2019 03:40:00 PM [...] Horowitz NP 10/28/2019 11:21:00 AM EDT Lab [facility] Lab Outpatient<td ID="encounterTypeDescripti onID15">Care Management Medical- Telephone Encounter</td><td>Michelle NAIK</td><td></td><td>10/13/2019</td><td></td> Attender: Michelle Horowitz NP 10/13/2019 03:39:00 PM EDT - 10/13/2019 11:59:00 PM EDT [facility] ([facility]) Outpatient<td ID="encounterTypeDescripti onID16">Care Management Medical- Telephone Encounter</td><td>Ksenia Bennett RN</td><td></td><td>10/06/2019</td><td></td> Attender: Ksenia Bennett RN 10/06/2019 09:22:00 AM EST - 10/06/2019 11:59:00 PM EST [facility] ([facility]) Unknown<td ID="encounterTypeDescriptionI D17">Correspondence</td><td>Michelle NAIK</td><td></td><td>08/28/2019</td><td></td> Attender: Michelle Horowitz NP 08/28/2019 10:54:00 AM EST - 08/28/2019 11:59:00 PM EST [place] ([facility]) Obstetrics<td ID="encounterTypeDescripti onID18">Lab Order</td><td>Michelle Horowitz SUPERVISOR BEAM DEPARTMENT</td><td></td><td>08/28/2019</td><td></td> Attender: Michelle Horowitz NP 08/28/2019 10:29:00 AM EST - 08/28/2019 11:59:00 PM EST [facility] Attender: Michelle Horowitz NP 08/26/2019 08:17:00 AM EST Lab [facility] Lab Outpatient<td ID="encounterTypeDescripti onID19">Medication Order</td><td>Michelle Horowitz SUPERVISOR BEAM DEPARTMENT</td><td></td><td>08/25/2019</td><td></td> Attender: Michelle Horowitz NP 08/25/2019 08:16:00 AM EST - 08/25/2019 11:59:00 PM EST [place] ([facility]) Unknown<td ID="encounterTypeDescriptionI D20">Correspondence</td><td>Michelle Horowitz SUPERVISOR BEAM DEPARTMENT</td><td></td><td>08/17/2019</td><td></td> Attender: Michelle Horowitz NP 08/17/2019 01:13:00 PM EST - 08/17/2019 11:59:00 PM EST [facility] Outpatient<td ID="encounterTypeDescripti onID21">Care Management Medical- Telephone Encounter</td><td>Ksenia Bennett RN</td><td></td><td>08/13/2019</td><td></td> Attender: Ksenia Bennett RN 08/13/2019 09:08:00 AM EST - 08/13/2019 11:59:00 PM EST [facility] Unknown<td ID="encounterTypeDescriptionI D22">Correspondence</td><td>Michelle REYNOLDSP</td><td></td><td>07/14/2019</td><td></td> Attender: Michelle Horowitz ORDNANCE TECHNICIAN 07/14/2019 11:47:00 AM EST - 07/14/2019 11:59:00 PM EST [place] ([facility]) Outpatient Attender: Michelle Horowitz NP 07/10/2019 08:51:00 AM EST lab [facility] lab Immunizations Vaccine Date Status Description Data Source(s) Tdap 03/07/2020 02:48:00 PM EDT completed Boostrix 1 0 Right Arm Complete (Administered) [facility] ([facility]) Medications Medication Brand Name Start Date Product Form Dose Route Admi nistrative Instructions Pharmacy Instructions Status Indications Reaction Description Data Source(s) glimepiride 2 MG Oral Tablet Glimepiride 2 MG Oral Tab let Glimepiride 2 MG Oral Tablet 06/09/2020 12:00:00 AM EST active glimepiride 2 MG Oral Tablet [place] ([facility]) OneTouch Delica Lancets 33G Miscellaneous OneTouch Del ica Lancets 33G Miscellaneous 06/09/2020 12:00:00 AM EST acti ve OneTouch Delica Lancets 33G [place] ([facility]) OneTouch Ultra In Vitro Strip OneTouch Ultra In Vitro Strip 06/09/2020 12:00:00 AM EST active [facility] Levothyroxine Sodium 0.088 MG Oral Table t Levothyroxine Sodium 88 MCG Oral Tablet Levothyroxine Sodium 88 MCG Oral Tablet 06/09/2020 12:00:00 AM EST 1 active levothyroxine sodium 0.08 8 MG Oral Tablet [place] ([facility]) POLYETHYLENE GLYCOL 3350 142 MG/ML Oral Solution [Miralax] MiraLax 17 GM/SCOOP Oral Powder MiraLax 17 GM/SCOOP Oral Powder 06/09/2020 12:00:00 AM EST active polyethylene gly col 3350 57290 MG Powder for Oral Solution [Miralax] [place] ([facility]) glimepiride 2 MG Oral Tablet Glimepiride 2 MG Oral Tab let Glimepiride 2 MG Oral Tablet 03/15/2020 12:00:00 AM EDT aborted glimepiride 2 MG Oral Tablet [place] ([facility]) CareFine Pen Hardy 32G X 4 MM Miscellaneous CareFine Pen Hardy 32G X 4 MM Miscellaneous 03/15/2020 12:00:00 AM EDT 1 acti ve CareFine Pen Hardy [place] ([facility]) sitagliptin 100 MG Oral Tablet [Januvia] Januvia 100 M G Oral Tablet Januvia 100 MG Oral Tablet 03/15/2020 12:00:00 AM EDT 1 act prateek sitagliptin 100 MG Oral Tablet [Januvia] [place] ([facility]) Levothyroxine Sodium 0.088 MG Oral Table t Levothyroxine Sodium 88 MCG Oral Tablet Levothyroxine Sodium 88 MCG Oral Tablet 03/15/2020 12:00:00 AM EDT 1 aborted levothyroxine sodium 0.08 8 MG Oral Tablet [place] ([facility]) OneTouch Ultra STRP OneTouch Ultra STRP 03/15/2020 12:00:00 AM E DT active OneTouch Ultra [place] ( [facility]) OneTouch Ultra In Vitro Strip OneTouch Ultra In Vitro Strip 03/15/2020 12:00:00 AM EDT aborted OneTouch Ultra G [place] ([facility]) OneTouch Delica Lancets 33G Miscellaneous OneTouch Del ica Lancets 33G Miscellaneous 03/15/2020 12:00:00 AM EDT abor jessica OneTouch Delica Lancets 33G [place] ([facility]) Levothyroxine Sodium 0.088 MG Oral Table t Levothyroxine Sodium 88 MCG Oral Tablet Levothyroxine Sodium 88 MCG Oral Tablet 03/10/2020 12:00:00 AM EDT 1 aborted levothyroxine sodium 0.08 8 MG Oral Tablet [place] ([facility]) Levothyroxine Sodium 0.088 MG Oral Tablet Levothyroxin e Sodium 88 MCG OR TABS Levothyroxine Sodium 88 MCG OR TABS 03/10/2020 12:00:00 AM EDT 1 aborted levothyroxine sodium 0.088 MG Or al Tablet [place] ([facility]) glimepiride 2 MG Oral Tablet Glimepiride 2 MG Oral Tab let Glimepiride 2 MG Oral Tablet 03/07/2020 12:00:00 AM EDT aborted glimepiride 2 MG Oral Tablet [place] ([facility]) CareFine Pen Hardy 32G X 4 MM Miscellaneous CareFine Pen Hardy 32G X 4 MM Miscellaneous 03/07/2020 12:00:00 AM EDT 1 abor jessica CareFine Pen Hardy [place] ([facility]) Vitamin D (Ergocalciferol) 1.25 MG (12837 UT) Oral Cap poonam Vitamin D (Ergocalciferol) 1.25 MG (39568 UT) Oral Capsule 03/07/2020 12:00:00 AM EDT active Vitamin D (Ergocalci ferol) [place] ([facility]) sitagliptin 100 MG Oral Tablet [Januvia] Januvia 100 M G Oral Tablet Januvia 100 MG Oral Tablet 03/07/2020 12:00:00 AM EDT 1 abo rted sitagliptin 100 MG Oral Tablet [Januvia] [place] ([facility]) Accu-Chek FastClix Lancets Miscellaneous Accu-Chek Fas tClix Lancets Miscellaneous 03/07/2020 12:00:00 AM EDT 1 abor jessica Accu-Chek FastClix Lancets [place] ([facility]) Cyclobenzaprine hydrochloride 5 MG Oral Tablet Cyclobenzaprine HCl 5 MG Oral Tablet Cyclobenzaprine HCl 5 MG Oral Tablet 03/01/2020 12:00:00 AM EDT 1 aborted cyclobenzaprine hydrochlorid e 5 MG Oral Tablet [place] ([facility]) Levothyroxine Sodium 0.1 MG Oral Tablet Levothyroxine Sodium 100 MCG OR TABS Levothyroxine Sodium 100 MCG OR TABS 01/18/2020 12:00:00 AM EDT 1 aborted levothyroxine sodium 0.1 MG Oral Tablet [place] ([facility]) Levothyroxine Sodium 0.1 MG Oral Tablet Levothyroxine Sodium 100 MCG Oral Tablet Levothyroxine Sodium 100 MCG Oral Tablet 01/18/2020 12:00:00 AM EDT 1 aborted levothyroxine sodium 0.1 MG Oral Tablet [place] ([facility]) Levothyroxine Sodium 0.1 MG Oral Tablet Levothyroxine Sodium 100 MCG Oral Tablet Levothyroxine Sodium 100 MCG Oral Tablet 01/14/2020 12:00:00 AM EDT 1 aborted levothyroxine sodium 0.1 MG Oral Tablet [place] ([facility]) Meclizine Hydrochloride 12.5 MG Oral Tablet Meclizine HCl 12.5 MG Oral Tablet Meclizine HCl 12.5 MG Oral Tablet 01/06/2020 12:00:00 AM EDT aborted meclizine hydrochloride 12.5 MG Oral Tab let [place] ([facility]) glimepiride 2 MG Oral Tablet Glimepiride 2 MG Oral Tab let Glimepiride 2 MG Oral Tablet 11/16/2019 12:00:00 AM EDT aborted glimepiride 2 MG Oral Tablet [place] ([facility]) glimepiride 2 MG Oral Tablet Glimepiride 2 MG Oral Tab let Glimepiride 2 MG Oral Tablet 11/12/2019 12:00:00 AM EDT 3 aborted glimepiride 2 MG Oral Tablet [place] ([facility]) glimepiride 2 MG Oral Tablet Glimepiride 2 MG OR TABS Glimep iride 2 MG OR TABS 11/12/2019 12:00:00 AM EDT 3 aborted glimepiride 2 MG Oral Tablet [place] ([facility]) Levothyroxine Sodium 0.088 MG Oral Table t Levothyroxine Sodium 88 MCG Oral Tablet Levothyroxine Sodium 88 MCG Oral Tablet 11/02/2019 12:00:00 AM EDT 1 aborted levothyroxine sodium 0.08 8 MG Oral Tablet [place] ([facility]) Basaglar KwikPen 100 UNIT/ML Subcutaneous Solution Pen -injector Basaglar KwikPen 100 UNIT/ML Subcutaneous Solution Pen-injector 11/02/2019 12:00:00 AM EDT 1 active Sensor 3 ML insulin glargine 100 UNT/ML Pen Injector [Basaglar] [place] ([facility]) Metformin hydrochloride 1000 MG Oral Tablet metFORMIN HCl 1000 MG Oral Tablet metFORMIN HCl 1000 MG Oral Tablet 11/02/2019 12:00:00 AM EDT 1 active metformin hydrochloride 1000 MG Oral Tablet [place] ( [facility]) Hydrochlorothiazide 25 MG Oral Tablet hydroCHLOROthiaz margarita 25 MG Oral Tablet hydroCHLOROthiazide 25 MG Oral Tablet 11/02/2019 12:00:00 AM EDT 1 aborted hydrochlorothiazide 25 MG Oral T ablet [place] ([facility]) Simvastatin 40 MG Oral Tablet Simvastatin 40 MG Oral Tablet 11/02/2019 12:00:00 AM EDT 1 active simvastatin 40 MG Oral Tablet [place] ([facility]) duloxetine 30 MG Delayed Release Oral Ca psule [Cymbalta] Cymbalta 30 MG Oral Capsule Delayed Release Particles Cymbalta 30 MG Oral Capsule Delayed Rele ase Particles 11/02/2019 12:00:00 AM EDT 2 active duloxetine 30 MG Delayed Release Oral Capsule [Cymbalta] [place] ([facility]) Potassium Chloride 20 MEQ Extended Relea se Oral Tablet Potassium Chloride ER 20 MEQ Oral Tablet Extended Release Potassium Chloride ER 20 MEQ Oral Tablet Extended Release 11/02/2019 12:00:00 AM EDT 1 a ctive potassium chloride 20 MEQ Extended Release Oral Tablet [place] ([facility]) clopidogrel 75 MG Oral Tablet [Plavix] Plavix 75 MG Or al Tablet Plavix 75 MG Oral Tablet 11/02/2019 12:00:00 AM EDT 1 active clopidogrel 75 MG Oral Tablet [Plavix] [place] ([facility]) CareFine Pen Hardy 32G X 4 MM Miscellaneous CareFine Pen Hardy 32G X 4 MM Miscellaneous 10/15/2019 12:00:00 AM EDT 1 abor jessica CareFine Pen Hardy [place] ([facility]) Magnesium Oxide 400 MG Oral Tablet Magnesium Oxide 400 MG Or al Tablet 09/29/2019 12:00:00 AM EST 1 active magnesi um oxide 400 MG Oral Tablet [place] ([facility]) Magnesium Oxide 400 MG Oral Tablet Magnesium Oxide 400 MG Or al Tablet 09/24/2019 12:00:00 AM EST 1 aborted magnes ium oxide 400 MG Oral Tablet [place] ([facility]) OneTouch Delica Lancets 33G Miscellaneous OneTouch Del ica Lancets 33G Miscellaneous 09/08/2019 12:00:00 AM EST abor jessica OneTouch Delica Lancets 33G [place] ([facility]) OneTouch Ultra Blue In Vitro Strip OneTouch Ultra Blue In Vi tro Strip 09/08/2019 12:00:00 AM EST aborted OneTou ch Ultra Blue [place] [facility] OneTouch Ultra 2 w/Device KIT OneTouch Ultra 2 w/Device KIT 08/28/2019 12:00:00 AM EST aborted OneTouch Ultra 2 [place] [facility] OneTouch Ultra Blue In Vitro Strip OneTouch Ultra Blue In Vi tro Strip 08/28/2019 12:00:00 AM EST aborted OneTou ch Ultra Blue [place] [facility] OneTouch Delica Lancets 33G Miscellaneous OneTouch Del ica Lancets 33G Miscellaneous 08/28/2019 12:00:00 AM EST abor jessica OneTouch Delica Lancets 33G [place] [facility] OneTouch Delica Lancets 33G MISC OneTouch Delica Lancets 33G MISC 08/28/2019 12:00:00 AM EST aborted OneTouc h Delica Lancets 33G [place] [facility] OneTouch Ultra Blue STRP OneTouch Ultra Blue STRP 08/06 12:00:00 AM EST aborted OneTouch Ultra B lue [place] [facility] OneTouch Ultra Blue STRP OneTouch Ultra Blue STRP 08/06 12:00:00 AM EST aborted OneTouch Ultra B lue [place] ([facility]) OneTouch Ultra 2 w/Device Kit OneTouch Ultra 2 w/Device Kit 08/28/2019 12:00:00 AM EST active OneTouch Ultra 2 [place] [facility] OneTouch Delica Lancets 33G MISC OneTouch Delica Lancets 33G MISC 08/28/2019 12:00:00 AM EST aborted OneTouc h Delica Lancets 33G [place] [facility] OneTouch Ultra Blue In Vitro Strip OneTouch Ultra Blue In Vi tro Strip 08/28/2019 12:00:00 AM EST aborted OneTou ch Ultra Blue [place] [facility] OneTouch Ultra Blue STRP OneTouch Ultra Blue STRP 08/06 12:00:00 AM EST aborted OneTouch Ultra B lue [place] ([facility]) OneTouch Club Lancets Fine Pt [facility] OneTouch Club Lancets [facility] 08/28/2019 12:00:00 AM EST aborted OneTou ch Club Lancets Fine Pt [place] ([facility]) Accu-Chek Melia Plus In Vitro Strip Accu-Chek Melia Plus In Vitro Strip 08/25/2019 12:00:00 AM EST aborted Accu-Chek Melia Plus [place] ([facility]) Accu-Chek Melia Plus In Vitro Strip Accu-Chek Melia Plus In Vitro Strip 08/25/2019 12:00:00 AM EST aborted Accu-Chek Melia Plus [place] ([facility]) POLYETHYLENE GLYCOL 3350 142 MG/ML Oral Solution [Eliz lax] MiraLax Oral Powder MiraLax Oral Powder 08/13/2019 12:00:00 AM EST aborted polyethylene glycol 3350 30335 MG Powder for Oral Solution [Miralax] [place] ([facility]) Basaglar KwikPen 100 UNIT/ML SC SOPN Basaglar KwikPen 100 UN IT/ML SC SOPN 07/07/2019 12:00:00 AM EST 1 aborted Sensor 3 ML insulin glargine 100 UNT/ML Pen Injector [Basaglar] [place] ([facility]) Basaglar KwikPen 100 UNIT/ML Subcutaneous Solution Pen -injector Basaglar KwikPen 100 UNIT/ML Subcutaneous Solution Pen-injector 07/07/2019 12:00:00 AM EST 1 aborted Sensor 3 ML in sulin glargine 100 UNT/ML Pen Injector [Basaglar] [place] ([facility]) Vitamin D (Ergocalciferol) 1.25 MG (65124 UT) Oral Cap poonam Vitamin D (Ergocalciferol) 1.25 MG (05500 UT) Oral Capsule 07/06/2019 12:00:00 AM EST aborted Vitamin D (Ergocalci ferol) [place] ([facility]) CareFine Pen Hardy 32G X 4 MM Miscellaneous CareFine Pen Hardy 32G X 4 MM Miscellaneous 07/01/2019 12:00:00 AM EST 1 abor jessica CareFine Pen Hardy [place] ([facility]) Accu-Chek FastClix Lancets Miscellaneous Accu-Chek Fas tClix Lancets Miscellaneous 07/01/2019 12:00:00 AM EST 1 abor jessica Accu-Chek FastClix Lancets [place] ([facility]) Magnesium Oxide 400 MG Oral Tablet Magnesium Oxide 400 MG Or al Tablet 06/26/2019 12:00:00 AM EST 1 aborted magnes ium oxide 400 MG Oral Tablet [place] ([facility]) Levothyroxine Sodium 0.075 MG Oral Table t Levothyroxine Sodium 75 MCG Oral Tablet Levothyroxine Sodium 75 MCG Oral Tablet 06/26/2019 12:00:00 AM EST 1 aborted levothyroxine sodium 0.07 5 MG Oral Tablet [place] ([facility]) clopidogrel 75 MG Oral Tablet [Plavix] Plavix 75 MG Or al Tablet Plavix 75 MG Oral Tablet 06/26/2019 12:00:00 AM EST 1 aborte d clopidogrel 75 MG Oral Tablet [Plavix] [place] ([facility]) sitagliptin 100 MG Oral Tablet [Januvia] Januvia 100 M G Oral Tablet Januvia 100 MG Oral Tablet 06/26/2019 12:00:00 AM EST 1 abo rted sitagliptin 100 MG Oral Tablet [Januvia] [place] ([facility]) Vitamin D (Ergocalciferol) 1.25 MG (45367 UT) Oral Cap poonam Vitamin D (Ergocalciferol) 1.25 MG (15620 UT) Oral Capsule 06/26/2019 12:00:00 AM EST aborted Vitamin D (Ergocalci ferol) [place] ([facility]) Hydrochlorothiazide 25 MG Oral Tablet hydroCHLOROthiaz margarita 25 MG Oral Tablet hydroCHLOROthiazide 25 MG Oral Tablet 06/26/2019 12:00:00 AM EST 1 aborted hydrochlorothiazide 25 MG Oral T ablet [place] ([facility]) Simvastatin 40 MG Oral Tablet Simvastatin 40 MG Oral Tablet 06/26/2019 12:00:00 AM EST 1 aborted simvastatin 40 M G Oral Tablet [place] ([facility]) 3 ML Insulin Glargine 100 UNT/ML Pen Inj bubba [Lantus] Lantus SoloStar 100 UNIT/ML Subcutaneous Solution Pen-injector Lantus SoloStar 100 UNIT/ML Subcutaneous Solution Pen-injector 06/26/2019 12:00:00 AM EST 1 aborted 3 ML insulin glargine 100 UNT/ML Pen Inj bubba [Lantus] [place] ([facility]) duloxetine 30 MG Delayed Release Oral Ca psule [Cymbalta] Cymbalta 30 MG Oral Capsule Delayed Release Particles Cymbalta 30 MG Oral Capsule Delayed Rele ase Particles 06/26/2019 12:00:00 AM EST 2 aborted duloxetine 30 MG Delayed Release Oral Capsule [Cymbalta] [place] ([facility]) Potassium Chloride 20 MEQ Extended Relea se Oral Tablet Potassium Chloride ER 20 MEQ Oral Tablet Extended Release Potassium Chloride ER 20 MEQ Oral Tablet Extended Release 06/26/2019 12:00:00 AM EST 1 a borted potassium chloride 20 MEQ Extended Release Oral Tablet [place] ([facility]) glimepiride 2 MG Oral Tablet Glimepiride 2 MG Oral Tab let Glimepiride 2 MG Oral Tablet 06/26/2019 12:00:00 AM EST aborted glimepiride 2 MG Oral Tablet [place] ([facility]) Metformin hydrochloride 1000 MG Oral Tablet metFORMIN HCl 1000 MG Oral Tablet metFORMIN HCl 1000 MG Oral Tablet 06/26/2019 12:00:00 AM EST 1 aborted metformin hydrochloride 1000 MG Oral Tab let [place] ([facility]) Accu-Chek Melia Plus STRP Accu-Chek Melia Plus STRP 12:00:00 AM EDT 1 aborted Accu-Chek Melia Plus [place] ([facility]) POLYETHYLENE GLYCOL 3350 142 MG/ML Oral Solution [Eliz lax] MiraLax Oral Powder MiraLax Oral Powder 08/28/2018 12:00:00 AM EST aborted polyethylene glycol 3350 88098 MG Powder for Oral Solution [Miralax] [place] ([facility]) Accu-Chek Melia Device Accu-Chek Melia Device 07/24/2018 12:00:[address] aborted Accu-Chek Melia [place] ([facility]) Insurance Providers Payer name Policy type / Coverage type Policy ID Covered green party ID Covered green party's relationship to bernardo Policy Bernardo Plan Information [facility] [id number] [employer] Other 0 Self 0 [employer] Other 0 Self 0 [employer] Other 0 Self 0 SELF PAY WellCare MCR [employer] [id number] SP [id number] HU[employer] MEDICARE ADVANTAGE [id number] Self [id number] SELF PAY Well[employer] MCR [employer] [id number] SP [id number] [employer] Other 0 Self 0 [employer]. Other 0 Self 0 [employer]. Other 0 Self 0 [employer] Other 0 Self 0 SELF PAY Well[employer] MCR [employer] [id number] SP [id number] SELF PAY Well[employer] MCR [employer] [id number] SP [id number] [employer] Other 0 Self 0 [employer]. Other 0 Self 0 SELF PAY WellCare MCR [employer] [id number] SP [id number] WELLCARE [id number] SP [id number] HU[employer]NA GOLD [id number] SP [id number] [employer]. Other 0 Self 0 SELF PAY Well[employer] MCR [employer] [id number] SP [id number] [employer]. Other 0 Self 0 [employer] Other 0 Self 0 SELF PAY Well[employer] M[employer] [id number] SP [id number] [employer]. Other 0 Self 0 SELF PAY Well[employer] M[employer] [id number] SP [id number] [employer]. Other 0 Self 0 SELF PAY HU[employer]NA MEDICARE ADV [id number] SP [id number] Humana Care Plan Other 0 Self 0 SELF PAY HUMANA MEDICARE ADV [id number] SP [id number] Hum[employer] Care Plan Other 0 Self 0 Humana Care Plan Other 0 Self 0 Humana Care Plan Other 0 Self 0 SELF PAY HUMANA MEDICARE ADV [id number] SP [id number] SELF PAY HUMANA MEDICARE ADV [id number] SP [id number] Humana Care Plan Other 0 Self 0 HUMANA GOLD [id number] SP [id number] [employer] [id number] SP [id number] SELF PAY HUMANA MEDICARE ADV [id number] SP [id number] Medicare/Humana Commercial [id number] Self [id number] TOD[employer] OPTIONS MCR [id number] SP [id number] TOD[employer] MCR [id number] SP [id number] TOD[employer] MCR [id number] SP [id number] TODAY'S OPTIONS [facility] [id number] SP [id number] Problems, Conditions, and Diagnoses Code Display Name Description Problem Type Effective Dates Data Source(s) 32109763 Tobacco dependence syndrome (disorder) N icotine Dependence Cigarettes Mild in Early Remission Problem 03/07/2020 12:00:00 AM EDT [place] [facility] 72617488 Tobacco dependence syndrome (disorder) N icotine Dependence Cigarettes Mild in Early Remission Problem 03/07/2020 12:00:00 AM EDT [place] ([facility]) 48624925 Tobacco dependence syndrome (disorder) N icotine Dependence Cigarettes Mild in Early Remission Problem 03/07/2020 12:00:00 AM EDT [place] ([facility]) 74561714 Tobacco dependence syndrome (disorder) N icotine Dependence Cigarettes Mild in Early Remission Problem 03/07/2020 12:00:00 AM EDT [facility] [facility] 69506397 Tobacco dependence syndrome (disorder) N icotine Dependence Cigarettes Mild in Early Remission Problem 03/07/2020 12:00:00 AM EDT [place] ([facility]) 07379475 Tobacco dependence syndrome (disorder) N icotine Dependence Cigarettes Mild in Early Remission Problem 03/07/2020 12:00:00 AM EDT [facility] [facility] Z87.891 Personal history of nicotine dependence Z87.891 - Personal history of nicotine dependence Diagnosis 03/30/2020 08:27:00 AM EDT [employer] E03.9 Hypothyroidism, unspecified E03.9 - Hypothyroidism, un specified Diagnosis 03/07/2020 08:20:00 AM EDT [place] E87.6 Hypokalemia E87.6 - Hypokalemia Diagnosis 01/14/2020 09:3 6:00 AM EDT [place] N39.0 Urinary tract infection, site not specif ied N39.0 - Urinary tract infection, site not specified Diagnosis 01/07/2020 11:47:00 PM EDT Os Absolute Antibody Surgeries/Procedures Procedure Description Date Indications Data Source(s) [...] ([facility]) Immunization Administration (includes Percutaneous, In executive secretary Immunization Administration (includes Percutaneous, Intrader 03/07/2020 12:00:00 [...] [facility]) Results ID Date Data Source [id number] 06/09/2020 12:00:00 AM EST [place] ([facility]) Name Value Range Interpretation Code Description Data Karen rce(s) Supporting Document(s) Hemoglobin A1c/Hemoglobin.total in Blood 8.6 Abnormal (applies to non-numeric results) Hgb A1c [place] ([facility]) ID Date Data Source [id number] 04/13/2020 10:24:00 AM EDT [place] ([facility]) Name Value Range Interpretation Code Description Data Karen rce(s) Supporting Document(s) Reported Physicians See Note Reported Physicians [place] ([facility]) Note: Reported Physicians:Ordering: Sharmin ThompsonAttending: Sharmin Danielson ID Date Data Source [id number] 04/13/2020 10:24:00 AM EDT [place] [facility]) Name Value Range Interpretation Code Description Data Karen rce(s) Supporting Document(s) NO URINE RECEIVED FROM PATIENT NO URINE RECEIVED NO URINE RECEIVED FROM PATIENT [place] ([facility]) Note: Patient informed to return with jaelyn espinoza.Responsible Observer: CLIVE JARAD NO URINE RECEIVED FORM PATIENT [phone] (A) ID Date Data Source [id number] 04/13/2020 10:25:00 AM EDT [place] Name Value Range Interpretation Code Description Data Karen rce(s) Supporting Document(s) NO URINE RECEIVED FROM PATIENT NO URINE RECEIVED [place] Patient informed to return with specime n. ID Date Data Source [id number] 04/13/2020 08:01:00 AM EDT [place] ([facility]) Name Value Range Interpretation Code Description Data Karen rce(s) Supporting Document(s) Reported Physicians See Note Reported Physicians [place] ([facility]) Note: Reported Physicians:Ordering: Sharmin ThompsonAttending: Sharmin Danielson ID Date Data Source [id number] 04/13/2020 08:01:00 AM EDT [place] ([facility]) Name Value Range Interpretation Code Description Data Karen rce(s) Supporting Document(s) Thyrotropin [Units/volume] in Serum or Plasma by Detec tion limit <= 0.05 mIU/L 1.295 uIU/ML Normal TSH [place] ([facility]) Note: Patients should not be tested for 72 hours post fluorescein dye angiography. A false depression of result may occur.Responsible Observer: TSH TSH [phone] (A) ID Date Data Source [id number] 04/13/2020 08:01:00 AM EDT [place] ([facility]) Name Value Range Interpretation Code Description Data Karen rce(s) Supporting Document(s) FREE T4 (FREE THYROXINE) 1.01 NG/DL Normal FREE T4 (FR EE THYROXINE) [place] ([facility]) Note: Responsible Observer: FREE T4 FREE THYROXINE 300.5250 (A) ID Date Data Source [id number] 04/13/2020 02:57:00 PM EDT [facility] Name Value Range Interpretation Code Description Data Karen rce(s) Supporting Document(s) FREE T4 (FREE THYROXINE) 1.01 NG/DL 0.76-1.78 N [facility] ID Date Data Source [id number] 04/13/2020 02:57:00 PM EDT [facility] Name Value Range Interpretation Code Description Data Karen rce(s) Supporting Document(s) TSH 1.295 uIU/ML 0.470-4.200 N [facility] Patients should not be tested for 72 ho urs post fluorescein dye angiography. A false depression of result may occur. ID Date Data Source [id number] 03/30/2020 10:27:00 [place] [address] Patient Name: Ender Simpson Exam Date: 03/30/20 [...] in 12 months. Professional interpretation performed by [facility] Medical Imaging at [facility] . End of diagnostic report: [id number] Signed: Manjit Paris MD 03/30/20 1229 Interpreted by: Manjit ParisTranscribed by: Manjit Paris Name Value Range Interpretation Code Description Data Karen rce(s) Supporting Document(s) ID Date Data Source [id number] 03/30/2020 10:06:00 [place] [address] Patient Name: Ender Simpson Exam Date: 03/30/20 [...] 1 - NEGATIVE Professional interpretation performed at [facility] . End of diagnostic report: [id number] Signed: Joaquim Duran MD 03/30/20 1015 Interpreted by: Joaquim DuranTranscribed by: Joaquim Duran Name Value Range Interpretation Code Description Data Karen rce(s) Supporting Document(s) ID Date Data Source [id number] 03/30/2020 10:03:00 AM EDT [address] [address] Patient Name: Ender Simpson Exam Date: 03/30/20 [...] 1 - NEGATIVE Professional interpretation performed at [facility] . End of diagnostic report: [id number] Signed: Joaquim Duran MD 03/30/20 1015 Interpreted by: Joaquim DuranTranscribed by: Joaquim Duran Name Value Range Interpretation Code Description Data Karen rce(s) Supporting Document(s) ID Date Data Source [id number] 03/30/2020 09:36:00 [place] [address] Patient Name: Ender Simpson Exam Date: 03/30/20 [...] referring physician's office. Professional interpretation performed at [facility] . End of diagnostic report: [id number] Signed: Aj Valerio MD 03/30/20 0951 Interpreted by: Rossi Valerioscribed by: Aj Valerio Name Value Range Interpretation Code Description Data Karen rce(s) Supporting Document(s) ID Date Data Source [id number] 03/07/2020 01:29:00 PM EDT [facility] ([facility]) Name Value Range Interpretation Code Description Data Karen rce(s) Supporting Document(s) Hemoglobin A1c/Hemoglobin.total in Blood 9.6 Abnormal (applies to non-numeric results) Hgb [facility]c [facility] ID Date Data Source [id number] 03/07/2020 08:22:00 AM EDT [facility] ([facility]) Name Value Range Interpretation Code Description Data Karen rce(s) Supporting Document(s) Reported Physicians See Note Reported Physicians [facility] ([facility]) Note: Reported Physicians:Ordering: Trevon Lindoending: Trevon Franklin ID Date Data Source [id number] 03/07/2020 08:22:00 AM EDT [facility] ([facility]) Name Value Range Interpretation Code Description Data Karen rce(s) Supporting Document(s) BASO # (AUTO) 0.07 10\\^3/uL Normal BASO # (AUTO) [facility] ([facility]) Note: Responsible Observer: BASO # (AUTO ) BASO # (AUTO) 100.1500 (A) BASO % (AUTO) 0.7 % Normal BASO % (AUTO) [facility] ([facility]) Note: Responsible Observer: BASO % (AUTO ) BASO % (AUTO) 100.1250 (A) EOS # (AUTO) 0.25 10\\^3/uL Normal EOS # (AUTO) [facility] ( [facility]) Note: Responsible Observer: EOS # (AUTO) EOS # (AUTO) 100.1450 (A) EOS % (AUTO) 2.6 % Normal EOS % (AUTO) [facility] ([facility]) Note: Responsible Observer: EOS % (AUTO) EOS % (AUTO) 100.1200 (A) GRAN # (AUTO) 4.01 10\\^3/uL Normal GRAN # (AUTO) [facility] ([facility]) Note: Responsible Observer: GRAN # (AUTO ) GRAN #(AUTO) 100.1325 (A) GRAN % (AUTO) 42.3 % Normal GRAN % (AUTO) [facility] ([facility]) Note: Responsible Observer: GRAN % (AUTO ) GRAN % (AUTO) 100.1000 (A) Hematocrit [Volume Fraction] of Blood by Automated count 43.8 % Normal HEMATOCRIT [facility] ([facility]) Note: Responsible Observer: HCT HEMATOCR IT 100.0400 (A) Hemoglobin [Mass/volume] in Blood 14.5 G/DL Normal HE MOGLOBIN [facility] ([facility]) Note: Responsible Observer: HGB HEMOGLOB IN 100.0300 (A) IG # (AUTO) 0.0 10\\^3/uL IG # (AUTO) [facility] ([facility]) Note: Responsible Observer: IG # (AUTO) IG # (AUTO) 100.1260 (A) IG % (AUTO) 0.4 % IG % (AUTO) [facility] ([facility]) Note: Responsible Observer: IG % (AUTO) IG % (AUTO) 100.1255 (A) LYMPH # (AUTO) 4.3 k/uL Normal LYMPH # (AUTO) [facility] ( [facility]) Note: Responsible Observer: LYMPH # (AUT O) LYMPH # (AUTO) 100.1350 (A) Erythrocyte mean corpuscular hemoglobin [Entitic mass] by Automated count 29.5 PG Normal MCH [facility] ([facility]) Note: Responsible Observer: MCH MCH 100 .0600 (A) LYMPH % (AUTO) 45.1 % Normal LYMPH % (AUTO) [facility] ( [facility]) Note: Responsible Observer: LYMPH % (AUT O) LYMPH % (AUTO) 100.1100 (A) Erythrocyte mean corpuscular hemoglobin concentration [Mass/volume] by Automated count 33.1 G/DL Normal MCHC [facility] ([facility]) Note: Responsible Observer: MCHC MCHC 1 00.0650 (A) Erythrocyte mean corpuscular volume [Entitic volume] by Auto mated count 89.0 FL Normal MCV [place] ([facility]) Note: Responsible Observer: MCV MCV 100 .0550 (A) MONO # (AUTO) 0.84 k/uL Normal MONO # (AUTO) [facility] ([facility]) Note: Responsible Observer: MONO # (AUTO ) MONO # (AUTO) 100.1400 (A) MONO % (AUTO) 8.9 % Normal MONO % (AUTO) [facility] ([facility]) Note: Responsible Observer: MONO % (AUTO ) MONO% (AUTO) 100.1150 (A) MPV 8.9 FL Normal MPV [facility] ([facility]) Note: Responsible Observer: MPV MPV 100 .0950 (A) Platelets [#/volume] in Plasma by Automated count 312 10\\^3/uL Normal PLATELET COUNT [place] ([facility]) Note: Responsible Observer: PLT PLATELET COUNT 100.0850 (A) Erythrocytes [#/volume] in Blood by Automated count 4.92 10\\^6/uL Normal RED BLOOD COUNT [place] ([facility]) Note: Responsible Observer: RBC RED BLOO D COUNT 100.0250 (A) Erythrocyte distribution width [Ratio] by Automated count 12.9 % Normal RDW [place] ([facility]) Note: Responsible Observer: RDW RDW 100 .0700 (A) Leukocytes [#/volume] in Blood by Automated count 9.49 10\\^3/uL Normal WHITE BLOOD COUNT [place] ([facility]) Note: Responsible Observer: WBC WHITE BL OOD COUNT 100.0150 (A) ID Date Data Source [id number] 03/07/2020 08:22:00 AM EDT [place] ([facility] [facility]) Name Value Range Interpretation Code Description Data Karen rce(s) Supporting Document(s) Thyrotropin [Units/volume] in Serum or Plasma by Detec tion limit <= 0.05 mIU/L 0.133 uIU/ML Below low normal TSH [place] ([facility]) Note: Patients should not be tested for 72 hours post fluorescein dye angiography. A false depression of result may occur.Responsible Observer: TSH TSH 300.5500 (A) ID Date Data Source [id number] 03/07/2020 08:22:00 AM EDT [facility] ([employer]) Name Value Range Interpretation Code Description Data Karen rce(s) Supporting Document(s) Deprecated Cholesterol.in LDL/Cholestero l.in HDL [Mass ratio] in Serum or Plasma 4.3 Normal CHOL/HDL RATIO [place] ([facility] ) Note: Responsible Observer: CHOL/HDL RAT IO CHOL/HDL RATIO 300.4700 (A) Cholesterol crystals [Presence] in Stone by Infrared spectroscop y 138 MG/DL Normal CHOLESTEROL [place] ([facility]) Note: Responsible Observer: CHOL CHOLEST KATHERNIE 300.4350 (A) Cholesterol in HDL [Mass/volume] in Serum or Plasma ultracen trifugate 32 MG/DL Normal HDL CHOLESTEROL [place] ([facility]) Note: Responsible Observer: HDL HDL CHOL ESTEROL 300.4600 (A) Cholesterol in LDL [Mass/volume] in Serum or Plasma by Direct as say 47 MG/DL Below low normal LDL CHOLESTEROL [place] ([facility]) Note: Responsible Observer: LDL LDL CHOL ESTEROL 300.4400 (A) Triglyceride [Mass/volume] in Serum or Plasma 295 MG/DL Above high normal TRIGLYCERIDES [place] ([facility]) Note: Responsible Observer: TRIG TRIGLYC ERIDES 300.4300 (A) ID Date Data Source [id number] 03/07/2020 08:22:00 AM EDT [facility] ([employer]) Name Value Range Interpretation Code Description Data Karen rce(s) Supporting Document(s) Albumin/Globulin [Mass Ratio] in Amniotic fluid 2.3 G/DL Normal ALB/GLOB RATIO [place] ([facility]) Note: Responsible Observer: A/G RATIO AL B/GLOB RATIO 300.4100 (A) Albumin [Mass/volume] in Synovial fluid 4.5 G/DL Normal ALBUMIN [place] ([facility]) Note: Responsible Observer: ALB ALBUMIN 300.3900 (A) Alkaline phosphatase isoenzyme [Units/volume] in Serum or Plasma 72 U/L Normal ALKALINE PHOSPHATASE [place] ([facility]) Note: Responsible Observer: ALK PHOS ALK PAUL PHOSPHATASE 300.3110 (A) Alanine aminotransferase [Enzymatic activity/volume] in Seru m or Plasma 55 U/L Above high normal ALT [place] ([facility]) Note: Responsible Observer: ALT/SGPT ALT 300.3100 (A) Aspartate aminotransferase [Enzymatic activity/volume] in Serum or Plasma 25 U/L Normal AST [place] ([facility]) Note: Responsible Observer: AST/SGOT AST 300.3050 (A) Urea nitrogen/Creatinine [Mass Ratio] in Serum or Plasma 14 Normal BUN/CREAT RATIO [place] ([facility]) Note: Responsible Observer: BUN/CREAT RA CAILIN BUN/CREAT RATIO 300.0450 (A) Bilirubin.total [Mass/volume] in Serum or Plasma 0.4 MG/DL Normal BILIRUBIN,TOTAL [place] ([facility]) Note: Responsible Observer: TOTAL BILI T OTAL BILIRUBIN 300.2700 (A) BLOOD UREA NITRO 16 MG/DL Normal BLOOD UREA NITRO [facility] ([facility]) Note: Responsible Observer: BUN BLOOD UR EA NITROGEN 300.0350 (A) CA 9.5 MG/DL Normal CA [facility] ([facility]) Note: Responsible Observer: CA CALCIUM 300.2200 (A) Chloride [Moles/volume] in Serum, Plasma or Blood 102 MEQ/L Normal CHLORIDE [place] ([facility]) Note: Responsible Observer: CL CHLORIDE 300.0200 (A) Carbon dioxide, total [Moles/volume] in Serum or Plasma 28 MEQ/L Normal CARBON DIOXIDE [place] ([facility]) Note: Responsible Observer: CO2 CARBON D IOXIDE 300.0250 (A) Creatine/Creatinine [Mass Ratio] in Urine 1.1 MG/DL Sonia l CREATININE [place] ([facility]) Note: Responsible Observer: CREAT CREATI NINE 300.0400 (A) Anion gap in Blood 17 Above high normal [facility] GAP [facility] ([facility]) Note: Responsible Observer: ANION GAP AN ION GAP 300.0300 (A) GFR 48.7 ML/MIN GFR [place] ([facility]) Note: Stage G3a - Mildly to moderately [...] Serum by calculation 2.0 G/DL Normal GLOBULIN [place] ([facility]) Note: Responsible Observer: GLOB GLOBULI N 300.4050 (A) Glucose [Presence] in Urine 173 MG/DL Above high normal G LUCOSE [facility] ([facility]) Note: Responsible Observer: GLU GLUCOSE 300.0500 (A) Potassium [Mass/volume] in Blood 3.9 MEQ/L Normal POT ASSIUM [place] ([facility]) Note: Responsible Observer: K POTASSIUM 300.0150 (A) Sodium [Moles/volume] in Serum, Plasma or Blood 143 MEQ/L Normal SODIUM [place] ([facility]) Note: Responsible Observer: NA SODIUM 3 00.0100 (A) Protein [Mass/volume] in Synovial fluid 6.5 G/DL Normal TOTAL PROTEIN [place] ([facility]) Note: Responsible Observer: TP TOTAL PRO TEIN 300.3750 (A) ID Date Data Source [id number] 03/07/2020 08:22:00 AM EDT [place] ([facility]) Name Value Range Interpretation Code Description Data Karen rce(s) Supporting Document(s) Deprecated Creatinine 112.6 MG/DL CREAT RANDOM URI NE [place] ([facility]) Note: No Normal Ranges Available for th is Procedure.Responsible Observer: UR CREAT UR CREATININE 200.3655 (A) Microalbumin [Mass/volume] in Urine 11.0 MG/L MICROALBUMIN,URINE [place] ([facility]) Note: Responsible Observer: UR MICROALB RND UR MICROALBUMIN RANDOM 200.4000 (A) Microalbumin/Creatinine [Mass Ratio] in Urine 9.8 UG/MG_CR Normal MICROALBUM/CREATININE RATIO,UR [facility] ([facility]) Note: Responsible Observer: UR MICROALB/ CRE UR MICROALBUMIN/CREAT RATIO 200.4100 (A) ID Date Data Source [id number] 03/07/2020 01:56:00 PM [facility] Has Patient Fasted For The Past 12 Hour s? Y Has Patient Fasted For The Past 12 Hour s? Y Has Patient Fasted For The Past 12 Hour s? Y Has Patient Fasted For The Past 12 Hour s? Y Name Value Range Interpretation Code Description Data Karen rce(s) Supporting Document(s) CREAT RANDOM URINE 112.6 MG/DL [place] [facility] No Normal Ranges Available for this Pro cedure. MICROALBUMIN,URINE 11.0 MG/L [facility] MICROALBUM/CREATININE RATIO,UR 9.8 UG/MG CR 0.0-30.0 N [facility] ID Date Data Source [id number] 03/07/2020 02:32:00 PM EDT [facility] Has Patient Fasted For The Past 12 Hour s? Y Has Patient Fasted For The Past 12 Hour s? Y Has Patient Fasted For The Past 12 Hour s? Y Has Patient Fasted For The Past 12 Hour s? Y Name Value Range Interpretation Code Description Data Karen rce(s) Supporting Document(s) WHITE BLOOD COUNT 9.49 10^3/uL 4.00-10.50 N [facility] RED BLOOD COUNT 4.92 10^6/uL 3.90-5.20 N [facility] HEMOGLOBIN 14.5 G/DL 11.5-15.6 N [facility] HEMATOCRIT 43.8 % 35.0-46.0 N [facility] MCV 89.0 FL 80.0-100.0 N [facility] MCH 29.5 PG 27.0-34.0 N [facility] MCHC 33.1 G/DL 32-36 N [facility] RDW 12.9 % 11.5-14.5 N [facility] PLATELET COUNT 312 10^3/uL 130-400 N [facility] MPV 8.9 FL 8.7-13.2 N [facility] GRAN % (AUTO) 42.3 % 42.0-75.0 N [facility] LYMPH % (AUTO) 45.1 % 20.0-51.0 N [facility] MONO % (AUTO) 8.9 % 2.0-15.0 N [facility] EOS % (AUTO) 2.6 % 0.0-11.0 N [facility] BASO % (AUTO) 0.7 % 0.0-2.0 [facility] IG % (AUTO) 0.4 % 1.00-5.00 [facility] IG # (AUTO) 0.0 10^3/uL <0.5 [facility] GRAN # (AUTO) 4.01 10^3/uL 1.50-6.50 N [facility] LYMPH # (AUTO) 4.3 k/uL 1.0-5.0 N [facility] MONO # (AUTO) 0.84 k/uL 0.20-1.50 N [facility] EOS # (AUTO) 0.25 10^3/uL 0.00-1.10 [facility] BASO # (AUTO) 0.07 10^3/uL 0.00-0.20 N [facility] ID Date Data Source [id number] 03/07/2020 01:56:00 PM EDT [facility] Has Patient Fasted For The Past 12 Hour s? Y Has Patient Fasted For The Past 12 Hour s? Y Has Patient Fasted For The Past 12 Hour s? Y Has Patient Fasted For The Past 12 Hour s? Y Name Value Range Interpretation Code Description Data Karen rce(s) Supporting Document(s) SODIUM 143 MEQ/L 135-145 N [facility] POTASSIUM 3.9 MEQ/L 3.5-5.3 [facility] CHLORIDE 102 MEQ/L 94-110 [facility] CARBON DIOXIDE 28 MEQ/L 22-33 [facility] ANION GAP 17 5-16 H [facility] BLOOD UREA NITRO 16 MG/DL 7-25 N [facility] CREATININE 1.1 MG/DL 0.6-1.4 [facility] GFR 48.7 ML/MIN [facility] Stage G3a - Mildly to moderately decrea [...] years only. BUN/CREAT RATIO 14 8-36 N [facility] GLUCOSE 173 MG/DL 70-100 H [facility] CA 9.5 MG/DL 8.7-10.5 [facility] BILIRUBIN,TOTAL 0.4 MG/DL 0.1-1.3 N [facility] AST 25 U/L 5-40 N [facility] ALT 55 U/L 5-48 H [facility] ALKALINE PHOSPHATASE 72 U/L 40-140 [facility] alth TOTAL PROTEIN 6.5 G/DL 5.9-8.3 N [facility] ALBUMIN 4.5 G/DL 3.0-5.1 N [facility] GLOBULIN 2.0 G/DL 1.5-3.5 N [facility] ALB/GLOB RATIO 2.3 G/DL 1.0-3.0 N [facility] ID Date Data Source [id number] 03/07/2020 01:56:00 PM EDT [facility] Has Patient Fasted For The Past 12 Hour s? Y Has Patient Fasted For The Past 12 Hour s? Y Has Patient Fasted For The Past 12 Hour s? Y Has Patient Fasted For The Past 12 Hour s? Y Name Value Range Interpretation Code Description Data Karen rce(s) Supporting Document(s) TRIGLYCERIDES 295 MG/DL 45-150 H [facility] CHOLESTEROL 138 MG/DL 125-200 N [facility] LDL CHOLESTEROL 47 MG/DL 50-130 L [facility] HDL CHOLESTEROL 32 MG/DL 32-96 N [facility] CHOL/HDL RATIO 4.3 0-4.3 N [facility] ID Date Data Source [id number] 03/07/2020 01:56:00 PM EDT [facility] Has Patient Fasted For The Past 12 Hour s? Y Has Patient Fasted For The Past 12 Hour s? Y Has Patient Fasted For The Past 12 Hour s? Y Has Patient Fasted For The Past 12 Hour s? Y Name Value Range Interpretation Code Description Data Karen rce(s) Supporting Document(s) TSH 0.133 uIU/ML 0.470-4.200 L [facility] Patients should not be tested for 72 ho urs post fluorescein dye angiography. A false depression of result may occur. ID Date Data Source [id number] 03/01/2020 04:04:00 [place] [address] Patient Name: Ender Simpson Exam Date: 03/01/20 [...] glenohumeral osteoarthritis. K8 End of diagnostic report: [id number] Signed: Dejuan Christensen MD 03/01/20 1848 Interpreted by: Dejuan ChristensenTranscribed by: Dejuan Christensen Name Value Range Interpretation Code Description Data Karen rce(s) Supporting Document(s) ID Date Data Source [id number] 01/14/2020 09:39:00 AM EDT [facility] ([facility]) Name Value Range Interpretation Code Description Data Karen rce(s) Supporting Document(s) Reported Physicians See Note Reported Physicians [facility] ([facility]) Note: Reported Physicians:Ordering: Trevon Lindoending: Trevon Franklin ID Date Data Source [id number] 01/14/2020 09:39:00 AM EDT [place] ([facility]) [...] in Blood 14.3 G/DL Normal HE MOGLOBIN [place] ([facility]) Note: Responsible Observer: HGB HEMOGLOB IN 100.0300 (A) Hematocrit [Volume Fraction] of Blood by Automated count 42.2 % Normal HEMATOCRIT [place] ([facility]) Note: Responsible Observer: HCT HEMATOCR IT 100.0400 (A) LYMPHS % 46.0 % Above high normal LYMPHS % [place] ([facility]) Note: Responsible Observer: LYMPH% LYMPH S % 100.1850 (A) LYMPH # 5.00 10\\^3/uL Normal LYMPH # [facility] ([facility]) Note: Responsible Observer: LYMPH # LYMP H # 100.2550 (A) ATYPICAL LYMPHS % 3.0 % Above high normal ATYPICAL LY MPHS % [place] ([facility]) Note: Responsible Observer: ATYPICAL LYM PHS ATYPICAL LYMPHS 100.3550 (A) Erythrocyte mean corpuscular hemoglobin concentration [Mass/volume] by Automated count 33.9 G/DL Normal MCHC [place] ([facility]) Note: Responsible Observer: MCHC MCHC 1 00.0650 (A) Erythrocyte mean corpuscular hemoglobin [Entitic mass] by Automated count 29.7 PG Normal MCH [place] ([facility]) Note: Responsible Observer: MCH MCH 100 .0600 (A) Erythrocyte mean corpuscular volume [Entitic volume] by Auto mated count 87.6 FL Normal MCV [place] ([facility]) Note: Responsible Observer: MCV MCV 100 .0550 (A) MONO # 0.33 10\\^3/uL Normal MONO # [place] ([facility]) Note: Responsible Observer: MONO # MONO # 100.2650 (A) MONO % 3.00 % Normal MONO % [place] ([facility]) Note: Responsible Observer: MONO% MONO % 100.1950 (A) MPV 8.9 FL Normal MPV [place] ([facility]) Note: Responsible Observer: MPV MPV 100 .0950 (A) PLATELET ESTIMATE NORMAL [facility] ([facility]) Note: Responsible Observer: PLATELET EST PLATELET ESTIMATE 100.4305 (A) Platelets [#/volume] in Plasma by Automated count 283 10\\^3/uL Normal PLATELET COUNT [place] ([facility]) Note: Responsible Observer: PLT PLATELET COUNT 100.0850 (A) Erythrocyte distribution width [Ratio] by Automated count 12.8 % Normal RDW [place] ([facility]) Note: Responsible Observer: RDW RDW 100 .0700 (A) Erythrocytes [#/volume] in Blood by Automated count 4.82 10\\^6/uL Normal RED BLOOD COUNT [place] ([facility]) Note: Responsible Observer: RBC RED BLOO D COUNT 100.0250 (A) Smudge cells [#/volume] in Blood by Manual count FEW SMUDGE CELLS [place] ([facility]) Note: Responsible Observer: SMUDGE CELLS SMUDGE CELLS 100.4050 (A) TOTAL CELLS COUNTED(MANUAL) 100 TOTAL CE LLS COUNTED(MANUAL) [place] ([facility]) Note: Responsible Observer: TOT CELLS CO UNT TOTAL CELLS COUNTED(MANUAL) 100.1550 (A) Leukocytes [#/volume] in Blood by Automated count 10.86 10\\^3/uL Above high normal WHITE BLOOD COUNT [place] ([facility]) Note: Responsible Observer: WBC WHITE BL OOD COUNT 100.0150 (A) ID Date Data Source [id number] 01/14/2020 09:39:00 AM EDT [facility] ([employer]) Name Value Range Interpretation Code Description Data Karen rce(s) Supporting Document(s) Thyrotropin [Units/volume] in Serum or Plasma by Detec tion limit <= 0.05 mIU/L 12.204 uIU/ML Above high normal TSH [place] ([facility]) Note: Patients should not be tested for 72 hours post fluorescein dye angiography. A false depression of result may occur.Responsible Observer: TSH TSH 300.5500 (A) ID Date Data Source [id number] 01/14/2020 09:39:00 AM EDT [place] ([employer]) Name Value Range Interpretation Code Description Data Karen rce(s) Supporting Document(s) Albumin/Globulin [Mass Ratio] in Amniotic fluid 2.0 G/DL Normal ALB/GLOB RATIO [place] ([facility]) Note: Responsible Observer: A/G RATIO AL B/GLOB RATIO 300.4100 (A) Albumin [Mass/volume] in Synovial fluid 4.4 G/DL Normal ALBUMIN [place] ([facility]) Note: Responsible Observer: ALB ALBUMIN 300.3900 (A) Alanine aminotransferase [Enzymatic activity/volume] in Seru m or Plasma 34 U/L Normal ALT [place] ([facility]) Note: Responsible Observer: ALT/SGPT ALT 300.3100 (A) Alkaline phosphatase isoenzyme [Units/volume] in Serum or Plasma 77 U/L Normal ALKALINE PHOSPHATASE [place] ([facility]) Note: Responsible Observer: ALK PHOS ALK PAUL PHOSPHATASE 300.3110 (A) Aspartate aminotransferase [Enzymatic activity/volume] in Serum or Plasma 16 U/L Normal AST [facility] ([facility]) Note: Responsible Observer: AST/SGOT AST 300.3050 (A) Urea nitrogen/Creatinine [Mass Ratio] in Serum or Plasma 23 Normal BUN/CREAT RATIO [place] ([facility]) Note: Responsible Observer: BUN/CREAT RA CAILIN BUN/CREAT RATIO 300.0450 (A) Bilirubin.total [Mass/volume] in Serum or Plasma 0.3 MG/DL Normal BILIRUBIN,TOTAL [place] ([facility]) Note: Responsible Observer: TOTAL BILI T OTAL BILIRUBIN 300.2700 (A) BLOOD UREA NITRO 23 MG/DL Normal BLOOD UREA NITRO [facility] ([facility]) Note: Responsible Observer: BUN BLOOD UR EA NITROGEN 300.0350 (A) CA 9.3 MG/DL Normal CA [facility] ([facility]) Note: Responsible Observer: CA CALCIUM 300.2200 (A) Chloride [Moles/volume] in Serum, Plasma or Blood 101 MEQ/L Normal CHLORIDE [place] ([facility]) Note: Responsible Observer: CL CHLORIDE 300.0200 (A) Carbon dioxide, total [Moles/volume] in Serum or Plasma 28 MEQ/L Normal CARBON DIOXIDE [facility] ([facility]) Note: Responsible Observer: CO2 CARBON D IOXIDE 300.0250 (A) Creatine/Creatinine [Mass Ratio] in Urine 1.0 MG/DL Sonia l CREATININE [place] ([facility]) Note: Responsible Observer: CREAT CREATI NINE 300.0400 (A) Anion gap in Blood 14 Normal ANION GAP [place] ([facility]) Note: Responsible Observer: ANION GAP AN ION GAP 300.0300 (A) GFR 54.3 ML/MIN GFR [place] ([facility]) Note: Stage G3a - Mildly to moderately [...] Serum by calculation 2.2 G/DL Normal GLOBULIN [place] ([facility]) Note: Responsible Observer: GLOB GLOBULI N 300.4050 (A) Glucose [Presence] in Urine 321 MG/DL Above high normal G LUCOSE [place] ([facility]) Note: Responsible Observer: GLU GLUCOSE 300.0500 (A) Sodium [Moles/volume] in Serum, Plasma or Blood 139 MEQ/L Normal SODIUM [place] ([facility]) Note: Responsible Observer: NA SODIUM 3 00.0100 (A) Potassium [Mass/volume] in Blood 3.7 MEQ/L Normal POT ASSIUM [place] ([facility]) Note: Responsible Observer: K POTASSIUM 300.0150 (A) Protein [Mass/volume] in Synovial fluid 6.6 G/DL Normal TOTAL PROTEIN [place] ([facility]) Note: Responsible Observer: TP TOTAL PRO TEIN 300.3750 (A) ID Date Data Source [id number] 01/14/2020 01:57:00 PM EDT [place] [employer] Has Patient Fasted For The Past 12 Hour s? N Has Patient Fasted For The Past 12 Hour s? N Name Value Range Interpretation Code Description Data Karen rce(s) Supporting Document(s) SODIUM 139 MEQ/L 135-145 N [place] [employer] POTASSIUM 3.7 MEQ/L 3.5-5.3 N [place] [employer] CHLORIDE 101 MEQ/L 94-110 [facility] CARBON DIOXIDE 28 MEQ/L 22-33 N [place] [employer] ANION GAP 14 5-16 N [place] [employer] BLOOD UREA NITRO 23 MG/DL 7-25 N [place] [employer] CREATININE 1.0 MG/DL 0.6-1.4 N [place] [employer] GFR 54.3 ML/MIN [place] [employer] Stage G3a - Mildly to moderately decrea [...] years only. BUN/CREAT RATIO 23 8-36 N [facility] GLUCOSE 321 MG/DL 70-100 H [facility] CA 9.3 MG/DL 8.7-10.5 [facility] BILIRUBIN,TOTAL 0.3 MG/DL 0.1-1.3 [facility] AST 16 U/L 5-40 [facility] ALT 34 U/L 5-48 [facility] ALKALINE PHOSPHATASE 77 U/L 40-140 [facility] alth TOTAL PROTEIN 6.6 G/DL 5.9-8.3 N [facility] ALBUMIN 4.4 G/DL 3.0-5.1 [facility] GLOBULIN 2.2 G/DL 1.5-3.5 [facility] ALB/GLOB RATIO 2.0 G/DL 1.0-3.0 [facility] ID Date Data Source [id number] 01/14/2020 02:17:00 PM EDT [facility] Has Patient Fasted For The Past 12 Hour s? N Has Patient Fasted For The Past 12 Hour s? N Name Value Range Interpretation Code Description Data Karen rce(s) Supporting Document(s) WHITE BLOOD COUNT 10.86 10^3/uL 4.00-10.50 H [facility] RED BLOOD COUNT 4.82 10^6/uL 3.90-5.20 [facility] th HEMOGLOBIN 14.3 G/DL 11.5-15.6 [facility] HEMATOCRIT 42.2 % 35.0-46.0 [facility] MCV 87.6 FL 80.0-100.0 [facility] MCH 29.7 PG 27.0-34.0 [facility] MCHC 33.9 G/DL 32-36 N [facility] RDW 12.8 % 11.5-14.5 [facility] PLATELET COUNT 283 10^3/uL 130-400 [facility] MPV 8.9 FL 8.7-13.2 [facility] TOTAL CELLS COUNTED(MANUAL) 100 [facility] GRAN % 45.0 % 42-75 N [facility] LYMPHS % 46.0 % 25-45 [facility] MONO % 3.00 % 2.0-15.0 N [facility] EOS % 3.00 % 0-11 N [facility] GRAN # 4.89 10^3/uL 1.50-6.50 N [facility] BAND # 0.00 10^3/uL 0.00-0.10 N [facility] LYMPH # 5.00 10^3/uL 1.00-5.00 N [facility] MONO # 0.33 10^3/uL 0.00-1.10 N [facility] EOS # 0.33 10^3/uL 0.00-1.10 N [facility] BASO # 0.00 10^3/uL 0.00-0.20 N [facility] ATYPICAL LYMPHS % 3.0 % 0-0 [facility] SMUDGE CELLS FEW [facility] PLATELET ESTIMATE NORMAL [facility] NICHOLAS CELLS 1+ [facility] ID Date Data Source [id number] 01/14/2020 01:57:00 PM EDT [facility] Has Patient Fasted For The Past 12 Hour s? N Has Patient Fasted For The Past 12 Hour s? N Name Value Range Interpretation Code Description Data Karen rce(s) Supporting Document(s) TSH 12.204 uIU/ML 0.470-4.200 [facility] Patients should not be tested for 72 ho urs post fluorescein dye angiography. A false depression of result may occur. ID Date Data Source [id number] 01/07/2020 06:47:00 PM EDT [place] ([employer]) Name Value Range Interpretation Code Description Data Karen rce(s) Supporting Document(s) Reported Physicians See Note Reported Physicians [place] ([facility]) Note: Reported Physicians:Ordering: Trevon Lindoending: Trevon Franklin ID Date Data Source [id number] 01/07/2020 06:47:00 PM EDT [place] ([employer]) Name Value Range Interpretation Code Description Data Karen rce(s) Supporting Document(s) See Note Peterson See Note Kristen [place] ([employer]) Note: Run: 01/09/20 0849 INTERFACED REPORT Name: Ender Simpson Age/Sex: 74/F Location: [facility] Acct: [id number] Unit: [id number] Status: REG REF Room/Bed: Re01/07/20 Disch: Att Dr: Trevon Franklin DO Specimen #: [id number] Ordered : 01/07/2011/22/1846 Collected : 01/07/2011/22/1846 By: [...] END OF REPORT ID Date Data Source [id number] 01/07/2020 06:47:00 PM EDT [place] ([employer]) Name Value Range Interpretation Code Description Data Karen rce(s) Supporting Document(s) URINE EPITH MANY PER/LPF URINE EPITH [place] ([employer]) Note: Responsible Observer: UR EPITH URI NE EPITH 200.1155 (A) APPEARANCE,UR CLOUDY Abnormal (applies to non-numeric results) APPEARANCE,UR [place] ([employer]) Note: Responsible Observer: UR APPEAR UR APPEARANCE 200.0250 (A) BACTERIA,UR MANY PER_HPF Abnormal (applies to non-num rita results) BACTERIA,UR [place] ([employer]) Note: Responsible Observer: UR BACT UR B ACTERIA 200.1755 (A) BILIRUBIN,UR NEGATIVE BILIRUBIN,UR [place] ([facility]) Note: Responsible Observer: UR BILI UR B ILIRUBIN 200.0750 (A) COLOR,UR YELLOW COLOR,UR [place] ([facility]) Note: Responsible Observer: UR COLOR UR COLOR 200.0200 (A) GLUCOSE, UR 50 MG/DL Abnormal (applies to non-numeric re sults) GLUCOSE, UR [place] ([facility]) Note: Responsible Observer: UR GLU UR GL UCOSE 200.0500 (A) HYALINE CAST,UR RARE PER/LPF HYALINE CAST,UR GREEN WAY ([facility]) Note: Responsible Observer: UR HYALINE C AST HYALINE CAST,UR 200.1850 (A) KETONES,UR NEGATIVE MG/DL KETONES,UR [place] ([facility]) Note: Responsible Observer: UR KETO UR K ETONES 200.0600 (A) LEUKOCYTE ESTERASE ,UR LARGE Abnormal (applies to non-numeric results) LEUKOCYTE ESTERASE ,UR [place] ([facility]) Note: Responsible Observer: UR KEYONA ELYSE ASE UR LEUKOCYTE ESTERASE 200.0725 (A) MUCUS,UR RARE PER_HPF MUCUS,UR MILE ([facility]) Note: Responsible Observer: UR MUCUS UR MUCUS 200.2300 (A) NITRATE,UR POSITIVE Abnormal (applies to non-numeric res ults) NITRATE,UR [place] ([facility]) Note: Responsible Observer: UR NIT UR NI TRATE 200.0700 (A) OCCULT BLOOD,UR SMALL Abnormal (applies to non- numeric results) OCCULT BLOOD,UR [place] ([facility]) Note: Responsible Observer: UR OCLT BLD UR OCCULT BLOOD 200.0650 (A) PROTEIN,UR NEGATIVE MG/DL PROTEIN,UR [place] ([facility]) Note: Responsible Observer: UR PROT UR P ROTEIN 200.0450 (A) PH,UR 5.0 PH,UR [place] ([facility]) Note: Responsible Observer: UR PH UR PH 200.0350 (A) RBC,UR 3-9 PER_HPF Abnormal (applies to non-numeric re sults) RBC,UR [place] ([facility]) Note: Responsible Observer: UR RBC UR RB C 200.1005 (A) SPECIFIC GRAVITY,UR 1.013 Normal SPECIFIC GRAVITY,UR [place] ([facility]) Note: Responsible Observer: SG URINE SPE CIFIC GRAVITY,UR 200.0410 (A) UROBILINOGEN,UR 0.2-1.0 EU_MG/DL UROBILINOGEN,UR G DAYO ([facility]) Note: Responsible Observer: UR URO UR UR OBILINOGEN 200.0900 (A) WBC,UR >100 PER_HPF Abnormal (applies to non-numeric r esults) WBC,UR MILE ([facility]) Note: Responsible Observer: UR WBC UR WB C 200.1055 (A) ID Date Data Source [id number] 01/07/2020 07:24:00 PM EDT [facility] Run: 01/09/20 0849 INTERFACED REPORT Name: Ender Simpson Age/Sex: 74/F Location: [facility] Acct: [id number] Unit: [id number] Status: REG REF Room/Bed: Re01/07/20 Disch: Att Dr: Trevon Franklin DO Specimen #: [id number] Ordered : 01/07/2011/22/1846 Collected : 01/07/2011/22/1846 By: [...] Karen rce(s) Supporting Document(s) COLOR,UR YELLOW YELLOW [facility] APPEARANCE,UR CLOUDY CLEAR A [facility] PH,UR 5.0 5.0-8.0 [facility] SPECIFIC GRAVITY,UR 1.013 1.002-1.035 [facility] PROTEIN,UR NEGATIVE MG/DL NEGATIVE [facility] GLUCOSE, UR 50 MG/DL NEGATIVE A [facility] KETONES,UR NEGATIVE MG/DL NEGATIVE [facility] OCCULT BLOOD,UR SMALL NEGATIVE A [facility] NITRATE,UR POSITIVE NEGATIVE A [facility] LEUKOCYTE ESTERASE ,UR LARGE NEGATIVE A [facility] BILIRUBIN,UR NEGATIVE NEGATIVE [facility] UROBILINOGEN,UR 0.2-1.0 EU MG/DL NEG-0-1.0 [facility] RBC,UR 3-9 PER HPF 0-2 A [facility] WBC,UR >100 PER HPF <5 A [facility] URINE EPITH MANY PER/LPF FEW-MOD [facility] BACTERIA,UR MANY PER HPF NONE A [facility] HYALINE CAST,UR RARE PER/LPF NONE SEEN [facility] MUCUS,UR RARE PER HPF NONE SEEN [facility] ID Date Data Source [id number] 01/09/2020 08:49:00 AM EDT [facility] Run: 01/09/20 0849 INTERFACED REPORT Name: Elinor Simpsonlena Delacruz Age/Sex: 74/F Location: [facility] Acct: [id number] Unit: [id number] Status: REG REF Room/Bed: Re01/07/20 Disch: Rowan Dr: Trevon Franklin DO Specimen #: [id number] Ordered : 01/07/2011/22/1846 Collected : 01/07/2011/22/1846 By: [...] rce(s) Supporting Document(s) ID Date Data Source [id number] 10/28/2019 11:24:00 AM EDT [place] ([employer]) Name Value Range Interpretation Code Description Data Karen rce(s) Supporting Document(s) Reported Physicians See Note Reported Physicians [place] ([facility]) Note: Reported Physicians:Ordering: Michelle PerezAttending: Michelle Horowitz ID Date Data Source [id number] 10/28/2019 11:24:00 AM EDT [place] ([email or web address]) Name Value Range Interpretation Code Description Data Karen rce(s) Supporting Document(s) Thyrotropin [Units/volume] in Serum or Plasma by Detec tion limit <= 0.05 mIU/L 5.839 uIU/ML Above high normal TSH [place] ([facility]) Note: Patients should not be tested for 72 hours post fluorescein dye angiography. A false depression of result may occur.Responsible Observer: TSH TSH 300.5500 (A) ID Date Data Source [id number] 10/30/2019 01:50:00 PM [facility] Name Value Range Interpretation Code Description Data Karen rce(s) Supporting Document(s) TSH 5.839 uIU/ML 0.470-4.200 H [facility] Patients should not be tested for 72 ho urs post fluorescein dye angiography. A false depression of result may occur. ID Date Data Source [id number] 08/26/2019 08:22:00 AM EST [place] ([email or web address]) Name Value Range Interpretation Code Description Data Karen rce(s) Supporting Document(s) Reported Physicians See Note Reported Physicians [place] ([facility]) Note: Reported Physicians:Ordering: Michelle PerezAttending: Michelle Horowitz ID Date Data Source [id number] 08/26/2019 08:22:00 AM [facility] [place] ([facility]) Name Value Range Interpretation Code Description Data Karen rce(s) Supporting Document(s) Thyrotropin [Units/volume] in Serum or Plasma by Detec tion limit <= 0.05 mIU/L 6.402 uIU/ML Above high normal TSH [place] ([facility]) Note: Patients should not be tested for 72 hours post fluorescein dye angiography. A false depression of result may occur.Responsible Observer: TSH TSH 300.5500 (A) ID Date Data Source [id number] 08/26/2019 08:22:00 AM [facility] [place] ([facility]) Name Value Range Interpretation Code Description Data Karen rce(s) Supporting Document(s) Folate [Interpretation] in Blood 10.73 NG/ML Normal FO LATE [place] ([facility]) Note: Responsible Observer: FOLATE FOLAT E 300.5210 (A) ID Date Data Source [id number] 08/26/2019 08:22:00 AM [facility] [place] ([facility]) Name Value Range Interpretation Code Description Data Karen rce(s) Supporting Document(s) Deprecated Cobalamin [Mass/volume] in Serum 727 PG/ML Nor mal VITAMIN B12 [place] ([facility]) Note: Responsible Observer: B12 VITAMIN B12 300.5200 (A) ID Date Data Source [id number] 08/26/2019 08:22:00 AM EST [place] ([facility]) Name Value Range Interpretation Code Description Data Karen rce(s) Supporting Document(s) Deprecated Cholesterol.in LDL/Cholestero l.in HDL [Mass ratio] in Serum or Plasma 4.3 Normal CHOL/HDL RATIO [place] ([facility] ) Note: Responsible Observer: CHOL/HDL RAT IO CHOL/HDL RATIO 300.4700 (A) Cholesterol crystals [Presence] in Stone by Infrared spectroscop y 178 MG/DL Normal CHOLESTEROL [place] ([facility]) Note: Responsible Observer: CHOL CHOLEST KATHERINE 300.4350 (A) Cholesterol in HDL [Mass/volume] in Serum or Plasma ultracen trifugate 41 MG/DL Normal HDL CHOLESTEROL [place] ([facility]) Note: Responsible Observer: HDL HDL CHOL ESTEROL 300.4600 (A) Cholesterol in LDL [Mass/volume] in Serum or Plasma by Direct as say 94 MG/DL Normal LDL CHOLESTEROL [place] ([facility]) Note: Responsible Observer: LDL LDL CHOL ESTEROL 300.4400 (A) Triglyceride [Mass/volume] in Serum or Plasma 217 MG/DL Above high normal TRIGLYCERIDES [place] ([facility]) Note: Responsible Observer: TRIG TRIGLYC ERIDES 300.4300 (A) ID Date Data Source [id number] 08/26/2019 08:22:00 AM EST [employer] ([email or web address]) Name Value Range Interpretation Code Description Data Karen rce(s) Supporting Document(s) Ferritin [Mass/volume] in Serum or Plasma 45.7 NG/ML Sonia l FERRITIN [place] ([facility]) Note: Responsible Observer: FERRITIN CAL RITIN 300.2650 (A) ID Date Data Source [id number] 08/26/2019 08:22:00 AM EST [employer] ([employer]) Name Value Range Interpretation Code Description Data Karen rce(s) Supporting Document(s) Iron [Mass/volume] in Urine collected for unspecified duration 9 0 UG/DL Normal IRON [place] ([facility]) Note: Responsible Observer: FE IRON 300 .2400 (A) % IRON SATURATION 24.0 % Normal % [facility] ([facility]) Note: Responsible Observer: % FE SAT % I BEN SATURATION 300.2500 (A) TIBC 378 UG/DL Normal TIBC [place] ([facility]) Note: Responsible Observer: TIBC TIBC 3 00.2450 (A) ID Date Data Source [id number] 08/26/2019 08:22:00 AM EST [employer] ([email or web address]) Name Value Range Interpretation Code Description Data Karen rce(s) Supporting Document(s) Albumin/Globulin [Mass Ratio] in Amniotic fluid 2.1 G/DL Normal ALB/GLOB RATIO [place] ([facility]) Note: Responsible Observer: A/G RATIO AL B/GLOB RATIO 300.4100 (A) Alkaline phosphatase isoenzyme [Units/volume] in Serum or Plasma 76 U/L Normal ALKALINE PHOSPHATASE [place] ([facility]) Note: Responsible Observer: ALK PHOS ALK PAUL PHOSPHATASE 300.3110 (A) Albumin [Mass/volume] in Synovial fluid 4.5 G/DL Normal ALBUMIN [place] ([facility]) Note: Responsible Observer: ALB ALBUMIN 300.3900 (A) Alanine aminotransferase [Enzymatic activity/volume] in Seru m or Plasma 26 U/L Normal ALT [place] ([facility]) Note: Responsible Observer: ALT/SGPT ALT 300.3100 (A) Urea nitrogen/Creatinine [Mass Ratio] in Serum or Plasma 24 Normal BUN/CREAT RATIO [place] ([facility]) Note: Responsible Observer: BUN/CREAT RA CAILIN BUN/CREAT RATIO 300.0450 (A) Aspartate aminotransferase [Enzymatic activity/volume] in Serum or Plasma 11 U/L Normal AST [place] ([facility]) Note: Responsible Observer: AST/SGOT AST 300.3050 (A) Bilirubin.total [Mass/volume] in Serum or Plasma 0.5 MG/DL Normal BILIRUBIN,TOTAL [place] ([facility]) Note: Responsible Observer: TOTAL BILI T OTAL BILIRUBIN 300.2700 (A) BLOOD UREA NITRO 24 MG/DL Normal BLOOD [facility]A NITRO [facility] ([facility]) Note: Responsible Observer: BUN BLOOD UR EA NITROGEN 300.0350 (A) Chloride [Moles/volume] in Serum, Plasma or Blood 103 MEQ/L Normal CHLORIDE [place] ([facility]) Note: Responsible Observer: CL CHLORIDE 300.0200 (A) CA 9.7 MG/DL Normal CA [facility] ([facility]) Note: Responsible Observer: CA CALCIUM 300.2200 (A) Carbon dioxide, total [Moles/volume] in Serum or Plasma 31 MEQ/L Normal CARBON DIOXIDE [place] ([facility]) Note: Responsible Observer: CO2 CARBON D IOXIDE 300.0250 (A) Creatine/Creatinine [Mass Ratio] in Urine 1.0 MG/DL Sonia l CREATININE [place] ([facility]) Note: Responsible Observer: CREAT CREATI NINE 300.0400 (A) Anion gap in Blood 11 Normal ANION GAP [place] ([facility]) Note: Responsible Observer: ANION GAP AN ION GAP 300.0300 (A) GFR 54.5 ML/MIN GFR [place] ([facility]) Note: Stage G3a - Mildly to moderately [...] Serum by calculation 2.1 G/DL Normal GLOBULIN [place] ([facility]) Note: Responsible Observer: GLOB GLOBULI N 300.4050 (A) Glucose [Presence] in Urine 242 MG/DL Above high normal G LUCOSE [place] ([facility]) Note: Responsible Observer: GLU GLUCOSE 300.0500 (A) Potassium [Mass/volume] in Blood 4.0 MEQ/L Normal POT ASSIUM [place] ([facility]) Note: Responsible Observer: K POTASSIUM 300.0150 (A) Sodium [Moles/volume] in Serum, Plasma or Blood 141 MEQ/L Normal SODIUM [place] ([facility]) Note: Responsible Observer: NA SODIUM 3 00.0100 (A) Protein [Mass/volume] in Synovial fluid 6.6 G/DL Normal TOTAL PROTEIN [place] ([facility]) Note: Responsible Observer: TP TOTAL PRO TEIN 300.3750 (A) ID Date Data Source [id number] 08/26/2019 08:22:00 AM EST [place] ([employer]) Name Value Range Interpretation Code Description Data Karen rce(s) Supporting Document(s) IMMATURE RETIC FRACTION 8.0 % Normal IMMATURE RET IC FRACTION [facility] ([facility]) Note: Responsible Observer: IRF IMMATURE RETIC FRAC 100.6275 (A) ABSOLUTE RETICS # 0.0905 10\\^6/uL ABSOLUTE RETICS # [facility] ([facility]) Note: Responsible Observer: ABS RETIC# A BSOLUTE RETICS # 100.6200 (A) RETICULOCYTE % (AUTO) 1.9 % Normal RETICULOCYTE % (AUTO) [place] ([facility]) Note: Responsible Observer: RETIC% (AUTO ) RETICULOCYTE % (AUTO) 100.6100 (A) RETICULOCYTE HGB 35.4 pg Above high normal RETICULOCYTE HGB [place] ([facility]) Note: Responsible Observer: RET-HE (AUTO ) RETICULOCYTE HGB 100.6155 (A) ID Date Data Source [id number] 08/26/2019 08:22:00 AM EST [facility] ([facility]) Name Value Range Interpretation Code Description Data Karen rce(s) Supporting Document(s) BASO # (AUTO) 0.07 10\\^3/uL Normal BASO # (AUTO) [facility] ([facility]) Note: Responsible Observer: BASO # (AUTO ) BASO # (AUTO) 100.1500 (A) EOS # (AUTO) 0.18 10\\^3/uL Normal EOS # (AUTO) [place] ( [facility]) Note: Responsible Observer: EOS # (AUTO) EOS # (AUTO) 100.1450 (A) BASO % (AUTO) 0.9 % Normal BASO % (AUTO) [facility] ([facility]) Note: Responsible Observer: BASO % (AUTO ) BASO % (AUTO) 100.1250 (A) EOS % (AUTO) 2.3 % Normal EOS % (AUTO) [place] ([facility]) Note: Responsible Observer: EOS % (AUTO) EOS % (AUTO) 100.1200 (A) GRAN # (AUTO) 3.44 10\\^3/uL Normal GRAN # (AUTO) [place] ([facility]) Note: Responsible Observer: GRAN # (AUTO ) GRAN #(AUTO) 100.1325 (A) GRAN % (AUTO) 43.6 % Normal GRAN % (AUTO) [facility] ([facility] Note: Responsible Observer: GRAN % (AUTO ) GRAN % (AUTO) 100.1000 (A) Hematocrit [Volume Fraction] of Blood by Automated count 42.2 % Normal HEMATOCRIT [place] ([facility]) Note: Responsible Observer: HCT HEMATOCR IT 100.0400 (A) IG # (AUTO) 0.0 10\\^3/uL IG # (AUTO) [facility] ([facility]) Note: Responsible Observer: IG # (AUTO) IG # (AUTO) 100.1260 (A) Hemoglobin [Mass/volume] in Blood 14.5 G/DL Normal HE MOGLOBIN [place] ([facility]) Note: Responsible Observer: HGB HEMOGLOB IN 100.0300 (A) IG % (AUTO) 0.4 % IG % (AUTO) [place] ([facility]) Note: Responsible Observer: IG % (AUTO) IG % (AUTO) 100.1255 (A) LYMPH # (AUTO) 3.5 k/uL Normal LYMPH # (AUTO) [place] ( [facility]) Note: Responsible Observer: LYMPH # (AUT O) LYMPH # (AUTO) 100.1350 (A) Erythrocyte mean corpuscular hemoglobin [Entitic mass] by Automated count 30.3 PG Normal MCH [place] ([facility]) Note: Responsible Observer: MCH MCH 100 .0600 (A) LYMPH % (AUTO) 44.2 % Normal LYMPH % (AUTO) [place] ( [facility]) Note: Responsible Observer: LYMPH % (AUT O) LYMPH % (AUTO) 100.1100 (A) Erythrocyte mean corpuscular hemoglobin concentration [Mass/volume] by Automated count 34.4 G/DL Normal MCHC [place] ([facility]) Note: Responsible Observer: MCHC MCHC 1 00.0650 (A) Erythrocyte mean corpuscular volume [Entitic volume] by Auto mated count 88.1 FL Normal MCV [place] ([facility]) Note: Responsible Observer: MCV MCV 100 .0550 (A) MONO % (AUTO) 8.6 % Normal MONO % (AUTO) [facility] ([facility]) Note: Responsible Observer: MONO % (AUTO ) MONO% (AUTO) 100.1150 (A) MONO # (AUTO) 0.68 k/uL Normal MONO # (AUTO) [facility] ([facility]) Note: Responsible Observer: MONO # (AUTO ) MONO # (AUTO) 100.1400 (A) MPV 9.0 FL Normal MPV [place] ([facility]) Note: Responsible Observer: MPV MPV 100 .0950 (A) Platelets [#/volume] in Plasma by Automated count 248 10\\^3/uL Normal PLATELET COUNT [facility] ([facility]) Note: Responsible Observer: PLT PLATELET COUNT 100.0850 (A) Erythrocyte distribution width [Ratio] by Automated count 12.9 % Normal RDW [place] ([facility]) Note: Responsible Observer: RDW RDW 100 .0700 (A) Erythrocytes [#/volume] in Blood by Automated count 4.79 10\\^6/uL Normal RED BLOOD COUNT [place] ([facility]) Note: Responsible Observer: RBC RED BLOO D COUNT 100.0250 (A) Leukocytes [#/volume] in Blood by Automated count 7.89 10\\^3/uL Normal WHITE BLOOD COUNT [place] ([facility]) Note: Responsible Observer: WBC WHITE BL OOD COUNT 100.0150 (A) ID Date Data Source [id number] 08/26/2019 01:24:00 PM [facility] Has Patient Fasted For The Past [...] WHITE BLOOD COUNT 7.89 10^3/uL 4.00-10.50 N [facility] RED BLOOD COUNT 4.79 10^6/uL 3.90-5.20 [facility] th HEMOGLOBIN 14.5 G/DL 11.5-15.6 [facility] HEMATOCRIT 42.2 % 35.0-46.0 [facility] MCV 88.1 FL 80.0-100.0 [facility] MCH 30.3 PG 27.0-34.0 [facility] MCHC 34.4 G/DL 32-36 [facility] RDW 12.9 % 11.5-14.5 [facility] PLATELET COUNT 248 10^3/uL 130-400 [facility] MPV 9.0 FL 8.7-13.2 N [facility] GRAN % (AUTO) 43.6 % 42.0-75.0 N [facility] LYMPH % (AUTO) 44.2 % 20.0-51.0 N [facility] MONO % (AUTO) 8.6 % 2.0-15.0 [facility] [employer] EOS % (AUTO) 2.3 % 0.0-11.0 N [facility] BASO % (AUTO) 0.9 % 0.0-2.0 N [facility] IG % (AUTO) 0.4 % 1.00-5.00 [facility] IG # (AUTO) 0.0 10^3/uL <0.5 [facility] GRAN # (AUTO) 3.44 10^3/uL 1.50-6.50 [facility] [employer] LYMPH # (AUTO) 3.5 k/uL 1.0-5.0 N [facility] MONO # (AUTO) 0.68 k/uL 0.20-1.50 N [facility] EOS # (AUTO) 0.18 10^3/uL 0.00-1.10 N [facility] BASO # (AUTO) 0.07 10^3/uL 0.00-0.20 N [facility] ID Date Data Source [id number] 08/26/2019 01:54:00 PM EST [facility] Has Patient Fasted For The Past 12 [...] Supporting Document(s) SODIUM 141 MEQ/L 135-145 N [facility] POTASSIUM 4.0 MEQ/L 3.5-5.3 N [facility] CHLORIDE 103 MEQ/L 94-110 [facility] CARBON DIOXIDE 31 MEQ/L 22-33 [facility] ANION GAP 11 5-16 [facility] BLOOD UREA NITRO 24 MG/DL 7-25 [facility] CREATININE 1.0 MG/DL 0.6-1.4 [facility] GFR 54.5 ML/MIN [facility] Stage G3a - Mildly to moderately decrea sed kidney function GFR normal is >=90 The MDRD GFR calculation is considered valid between the ages of 18 and 75 years only. The GFR is an estimate of the Glomerular Filtration Rate. It is considered accurate in evaluating patients with Chronic Kidney Disease,but may underestimate kidney function in Healthy Patients. BUN/CREAT RATIO 24 8-36 [facility] GLUCOSE 242 MG/DL 70-100 H [facility] CA 9.7 MG/DL 8.7-10.5 [facility] BILIRUBIN,TOTAL 0.5 MG/DL 0.1-1.3 [facility] AST 11 U/L 5-40 [facility] ALT 26 U/L 5-48 [facility] ALKALINE PHOSPHATASE 76 U/L 40-140 [facility] alth TOTAL PROTEIN 6.6 G/DL 5.9-8.3 [facility] ALBUMIN 4.5 G/DL 3.0-5.1 [facility] GLOBULIN 2.1 G/DL 1.5-3.5 [facility] ALB/GLOB RATIO 2.1 G/DL 1.0-2.7 [facility] ID Date Data Source [id number] 08/26/2019 01:24:00 PM [facility] Has Patient Fasted For The Past [...] Document(s) RETICULOCYTE % (AUTO) 1.9 % 0.5-2.0 [facility] ealt RETICULOCYTE HGB 35.4 pg 29-35 [facility] ABSOLUTE RETICS # 0.0905 10^6/uL [facility] IMMATURE RETIC FRACTION 8.0 % 3.0-15.9 [facility] ID Date Data Source [id number] 08/26/2019 01:54:00 PM [facility] Has Patient Fasted For The Past [...] rce(s) Supporting Document(s) IRON 90 UG/DL 35-150 [facility] TIBC 378 UG/DL 260-400 [facility] % IRON SATURATION 24.0 % 20-50 N [facility] h ID Date Data Source [id number] 08/26/2019 01:54:00 PM [facility] Has Patient Fasted For The Past [...] Supporting Document(s) FERRITIN 45.7 NG/ML 22-322 [facility] ID Date Data Source [id number] 08/26/2019 01:54:00 PM [facility] Has Patient Fasted For The Past [...] Supporting Document(s) TRIGLYCERIDES 217 MG/DL 45-150 [facility] CHOLESTEROL 178 MG/DL 125-200 [facility] LDL CHOLESTEROL 94 MG/DL 50-130 [facility] HDL CHOLESTEROL 41 MG/DL 32-96 [facility] CHOL/HDL RATIO 4.3 0-4.3 [facility] ID Date Data Source [id number] 08/26/2019 01:54:00 PM [facility] Has Patient Fasted For The Past [...] Document(s) VITAMIN B12 727 PG/ML 211-1999 N [employer] ID Date Data Source [id number] 08/26/2019 01:54:00 PM [facility] [employer] Has Patient Fasted For The Past 12 [...] Supporting Document(s) FOLATE 10.73 NG/ML 3.40-24.00 [facility] [employer] ID Date Data Source [id number] 08/26/2019 01:54:00 PM [facility] [employer] Has Patient Fasted For The Past 12 [...] Supporting Document(s) TSH 6.402 uIU/ML 0.470-4.200 [facility] [place] [facility] Patients should not be tested for 72 ho urs post fluorescein dye angiography. A false depression of result may occur. ID Date Data Source [id number] 07/10/2019 08:57:00 AM EST [employer] Name Value Range Interpretation Code Description Data Karen rce(s) Supporting Document(s) Reported Physicians See Note Reported Physicians [place] ([facility]) Note: Reported Physicians:Ordering: Checo Perezending: Michelle Horowitz ID Date Data Source [id number] 07/10/2019 08:57:00 AM EST [place] ([facility]) Name Value Range Interpretation Code Description Data Karen rce(s) Supporting Document(s) Thyrotropin [Units/volume] in Serum or Plasma by Detec tion limit <= 0.05 mIU/L 2.683 uIU/ML Normal TSH [place] ([facility]) Note: Patients should not be tested for 72 hours post fluorescein dye angiography. A false depression of result may occur.Responsible Observer: TSH TSH [phone] (A) ID Date Data Source [id number] 07/10/2019 12:45:00 PM EST [place] [employer] Name Value Range Interpretation Code Description Data Karen rce(s) Supporting Document(s) TSH 2.683 uIU/ML 0.470-4.200 N [place] [employer] Patients should not be tested for 72 ho urs post fluorescein dye angiography. A false depression of result may occur. Procedure Social History Code Duration Value Status Description Data Source(s ) Smoking 06/09/2020 12:00:00 AM EST Ex-smoker (finding) complet ed Ex-smoker (finding) [place] ([facility]) Smoking 03/07/2020 12:00:00 AM EDT Ex-smoker (finding) complet ed Ex-smoker (finding) [place] ([facility]) Smoking 03/01/2020 12:00:00 AM EDT Ex-smoker (finding) complet ed Ex-smoker (finding) [place] ([facility]) Vital Signs ID Date Data Source UNK Name Value Range Interpretation Code Description Data Source(s) Inhaled oxygen concentration 21 % 21 % [place] ([facility]) Inhaled oxygen flow rate 0 L/min 0 L/min [place] ([facility]) Oxygen saturation in Arterial blood by Pulse oximetry 95 % 95 % [place] ([facility]) PhenX - pain, abdominal - type and intensity protocol 0 0 [place] ([facility]) Body weight 180 [lb_av] 180 [lb_av] [place] ([facility]) Body temperature 97.8 [degF] 97.8 [degF] [facility] ([facility]) Respiratory rate 18 /min 18 /min [place] ([facility]) Heart rate rhythm 1 1 [place] [facility] Heart rate 92 /min 92 /min [place] [facility] Diastolic blood pressure 70 mm[Hg] 70 mm[Hg] [place] ([facility]) Systolic blood pressure 124 mm[Hg] 124 mm[Hg] [place] ([facility]) Inhaled oxygen concentration 21 % 21 % [place] ([facility]) temp taken by Afshan SYKES Inhaled oxygen flow rate 0 L/min 0 L/min [facility] ([facility]) temp taken by Afshan SYKES Oxygen saturation in Arterial blood by Pulse oximetry 95 % 95 % [place] ([facility]) temp taken by Afshan SYKES PhenX - pain, abdominal - type and intensity protocol 0 0 [place] ([facility]) temp taken by Afshan SYKES Body surface area Derived from formula 1.91 m2 1.91 m2 [place] ([facility]) temp taken by Afshan SYKES Body mass index (BMI) [Ratio] 28.9 kg/m2 28.9 k g/m2 [facility] ([facility]) temp taken by Afshan SYKES Body weight 179 [lb_av] 179 [lb_av] [place] ([facility]) temp taken by Afshan SYKES Body height 66 [in_i] 66 [in_i] [facility] ([facility]) temp taken by Afshan SYKES Body temperature 99.9 [degF] 99.9 [degF] [place] ([facility]) temp taken by Afshan SYKES Respiratory rate 18 /min 18 /min [place] ([facility]) temp taken by Afshan SYKES Heart rate rhythm 1 1 [place] ([facility]) temp taken by Afshan SYKES Heart rate 92 /min 92 /min [place] ([facility]) temp taken by Afshan SYKES Diastolic blood pressure 76 mm[Hg] 76 mm[Hg] [place] ([facility]) temp taken by Afshan SYKES Systolic blood pressure 120 mm[Hg] 120 mm[Hg] [place] ([facility]) temp taken by Afshan SYKES Inhaled oxygen concentration 21 % 21 % [place] ([facility]) Inhaled oxygen flow rate 0 L/min 0 L/min [place] ([facility]) Oxygen saturation in Arterial blood by Pulse oximetry 97 % 97 % [place] ([facility]) PhenX - pain, abdominal - type and intensity protocol 0 0 [place] ([facility]) Body surface area Derived from formula 1.91 m2 1.91 m2 [place] ([facility]) Body mass index (BMI) [Ratio] 29.1 kg/m2 29.1 k g/m2 [place] ([facility]) Body weight 180 [lb_av] 180 [lb_av] [place] ([facility]) Body height 66 [in_i] 66 [in_i] [place] ([facility]) Body temperature 98.6 [degF] 98.6 [degF] [facility] ([facility]) Respiratory rate 18 /min 18 /min [place] ([facility]) Heart rate 86 /min 86 /min [place] ([facility]) Diastolic blood pressure 80 mm[Hg] 80 mm[Hg] [place] ([facility]) Systolic blood pressure 148 mm[Hg] 148 mm[Hg] [facility] Intraocular pressure Left eye 15 mm[Hg] 15 mm[ Hg] [facility] ([facility]) TP MH 11:24 Am Intraocular pressure Right eye 11 mm[Hg] 11 mm [Hg] [facility] ([facility]) Patient Treatment Plan of Care Planned Activity Planned Date Details Description Data Source (s) OneTouch Ultra In Vitro Strip 06/09/2020 12:00:00 AM [facility] ([facility]) Levothyroxine Sodium 0.088 MG Oral Tablet 06/09/2020 12:00:00 AM [facility] ([facility]) OneTouch Delica Lancets 33G Miscellaneous 06/09/2020 12:00:00 AM [employer] [place] ([facility]) POLYETHYLENE GLYCOL 3350 142 MG/ML Oral Solution [Eliz lax] 06/09/2020 12:00:00 AM [facility] glimepiride 2 MG Oral Tablet 06/09/2020 12:00:00 AM EST [place] ([facility]) Levothyroxine Sodium 0.088 MG Oral Tablet 03/15/2020 12:00:00 AM ED T [place] ([facility]) OneTouch Ultra In Vitro Strip 03/15/2020 12:00:00 AM EDT [place] ([facility]) CareFine Pen Hardy 32G X 4 MM Miscellaneous 03/15/2020 12:00:00 A M EDT [place] ([facility]) sitagliptin 100 MG Oral Tablet [Januvia] 03/15/2020 12:00:00 AM EDT [place] ([facility]) glimepiride 2 MG Oral Tablet 03/15/2020 12:00:00 AM EDT [place] ([facility]) OneTouch Delica Lancets 33G Miscellaneous 03/15/2020 12:00:00 AM ED T [place] ([facility]) Levothyroxine Sodium 0.088 MG Oral Tablet 03/10/2020 12:00:00 AM ED [facility] ([facility]) sitagliptin 100 MG Oral Tablet [Januvia] 03/07/2020 12:00:00 AM EDT [place] ([facility]) glimepiride 2 MG Oral Tablet 03/07/2020 12:00:00 AM EDT [place] ([facility]) Accu-Chek Fast[employer]ix Lancets Miscellaneous 03/07/2020 12:00:00 AM EDT [place] ([facility]) CareFine Pen Hardy 32G X 4 MM Miscellaneous 03/07/2020 12:00:00 A M EDT [place] ([facility]) Vitamin D (Ergocalciferol) 1.25 MG (04989 UT) Oral Cap poonam 03/07/2020 12:00:00 AM EDT [facility] ([facility]) Cyclobenzaprine hydrochloride 5 MG Oral Tablet 03/01/2020 12:00:00 AM EDT [place] ([facility]) Levothyroxine Sodium 0.1 MG Oral Tablet 01/18/2020 12:00:00 AM EDT [facility] ([facility]) Levothyroxine Sodium 0.1 MG Oral Tablet 01/14/2020 12:00:00 AM EDT [facility] ([facility]) glimepiride 2 MG Oral Tablet 11/16/2019 12:00:00 AM ED [facility] ([facility]) glimepiride 2 MG Oral Tablet 11/12/2019 12:00:00 AM EDT [facility] ([facility]) Levothyroxine Sodium 0.088 MG Oral Tablet 11/02/2019 12:00:00 AM [facility] ([facility]) Hydrochlorothiazide 25 MG Oral Tablet 11/02/2019 12:00:00 AM EDT [place] ([facility]) Potassium Chloride 20 MEQ Extended Release Oral Tablet 11/02/2019 12:00:00 AM EDT [place] ([facility]) duloxetine 30 MG Delayed Release Oral Capsule [Cymbalt a] 11/02/2019 12:00:00 AM [facility] ([facility]) clopidogrel 75 MG Oral Tablet [Plavix] 11/02/2019 12:00:00 AM [facility] ([facility]) Simvastatin 40 MG Oral Tablet 11/02/2019 12:00:00 AM [facility] ([facility]) Metformin hydrochloride 1000 MG Oral Tablet 11/02/2019 12:00:00 AM [facility] ([facility]) Basaglar KwikPen 100 UNIT/ML Subcutaneous Solution Pen -injector 11/02/2019 12:00:00 AM [facility] ([facility]) CareFine Pen [place] 32G X 4 MM Miscellaneous 10/15/2019 12:00:00 A M [facility] ([facility]) Magnesium Oxide 400 MG Oral Tablet 09/29/2019 12:00:00 AM [facility] [place] ([facility]) Magnesium Oxide 400 MG Oral Tablet 09/24/2019 12:00:00 AM [facility] [place] ([facility]) OneTouch Delica Lancets 33G Miscellaneous 09/08/2019 12:00:00 AM T [place] ([facility]) OneTouch Ultra Blue In Vitro Strip 09/08/2019 12:00:00 AM EST [place] ([facility]) OneTouch Ultra Blue In Vitro Strip 08/28/2019 12:00:00 AM [facility] [place] ([facility]) OneTouch Delica Lancets 33G Miscellaneous 08/28/2019 12:00:00 AM ES T [place] ([facility]) OneTouch Ultra Blue In Vitro Strip 08/28/2019 12:00:00 AM EST [place] ([facility]) OneTouch Ultra 2 w/Device Kit 08/28/2019 12:00:00 AM EST [place] ([facility]) Accu-Chek Melia Plus In Vitro Strip 08/25/2019 12:00:00 AM EST [place] ([facility]) Accu-Chek Melia Plus In Vitro Strip 08/25/2019 12:00:00 AM EST [place] ([facility]) POLYETHYLENE GLYCOL 3350 142 MG/ML Oral Solution [Eliz lax] 08/13/2019 12:00:00 AM EST [facility] ([facility]) Basaglar KwikPen 100 UNIT/ML Subcutaneous Solution Pen -injector 07/07/2019 12:00:00 AM EST [facility] ([facility]) Vitamin D (Ergocalciferol) 1.25 MG (59188 UT) Oral Cap poonam 07/06/2019 12:00:00 AM EST [facility] ([facility]) CareFine Pen [place] 32G X 4 MM Miscellaneous 07/01/2019 12:00:00 A M EST [facility] ([facility]) Accu-Chek [employer]ix Lancets Miscellaneous 07/01/2019 12:00:00 AM EST [facility] ([facility]) glimepiride 2 MG Oral Tablet 06/26/2019 12:00:00 AM EST [facility] ([facility]) Vitamin D (Ergocalciferol) 1.25 MG (24876 UT) Oral Cap poonam 06/26/2019 12:00:00 AM EST [facility] ([facility]) Hydrochlorothiazide 25 MG Oral Tablet 06/26/2019 12:00:00 AM EST [facility] ([facility]) sitagliptin 100 MG Oral Tablet [Januvia] 06/26/2019 12:00:00 AM EST [facility] ([facility]) clopidogrel 75 MG Oral Tablet [Plavix] 06/26/2019 12:00:00 AM EST [facility] ([facility]) Levothyroxine Sodium 0.075 MG Oral Tablet 06/26/2019 12:00:00 AM ES T [facility] ([facility]) Magnesium Oxide 400 MG Oral Tablet 06/26/2019 12:00:00 AM EST [facility] ([facility]) Metformin hydrochloride 1000 MG Oral Tablet 06/26/2019 12:00:00 AM EST [facility] ([facility]) Simvastatin 40 MG Oral Tablet 06/26/2019 12:00:00 AM EST [facility] ([facility]) duloxetine 30 MG Delayed Release Oral Capsule [Cymbalt a] 06/26/2019 12:00:00 AM EST [facility] ([facility]) 3 ML Insulin Glargine 100 UNT/ML Pen Injector [Lantus] 06/26/2019 12:00:00 AM EST [facility] ([facility]) Potassium Chloride 20 MEQ Extended Release Oral Tablet 06/26/2019 12:00:00 AM EST [facility] ([facility]) POLYETHYLENE GLYCOL 3350 142 MG/ML Oral Solution [Eliz lax] 08/28/2018 12:00:00 AM EST [facility] ([facility]) Accu-Chek Melia Device 07/24/2018 12:00:00 AM EST [facility] ([facility])
[2020-09-01] MEDS ORDERED: GLIM2TAB29 PO (18:01)
[2020-09-01] MEDS ORDERED: LEVO88TA3 PO (18:01)
[2020-09-01] MEDS ORDERED: MECL12.590 PO (18:01)
--- NOTE | 2020-09-01 18:08 | HPEPDOC ---
[facility] Medical History & Physical Date of Admission Sep 01, 2020 Date of Service: Sep 01, 2020 Attending Physician: Mellissa Toscano MD History and Physical CHIEF COMPLAINT: dizziness HISTORY OF PRESENT ILLNESS: Patient is a 74-year-old female with past medical history of diabetes, hypertension, depression, anxiety, hypothyroidism, vertigo, hypokalemia, hyperlipidemia who presented to [facility] after having increased dizziness since early this morning. The patient states her symptoms began at 5 AM as she was walking to the bathroom she realized the room was spinning and she became very dizzy along with nauseous. She also began gagging and vomited 3 times, nonbloody. The patient has had similar episodes in the past when she's needed to be hospitalized for vertigo and has received vestibular therapy for this issue. She attempted to try to get into an outpatient clinic today but i jessica decided to come to [facility] for further evaluation. She denies fevers, chills, shortness of breath, chest pain, abdominal pain, diarrhea, recent falls, head injuries, headaches. She admits to having nausea, vomiting, vision changes and unsteadiness on her feet. In the ER, VS were stable. Labs unremarkable. She became very dizzy with movement of her head, nauseous and had vomitting. Admitted to same presentation last time she was admitted to hospital. PT evaluated her and did maneuvers to help with BPPV but this did not help and she remained symptomatic. It was suggested by PT to admit with reevaluation of PT in the AM to administer more maneuvers. REVIEW OF SYSTEMS: Neg except mentioned above PAST MEDICAL HISTORY: BPPV, hospitalized multiple times in past DM HTN Depression Anxiety Hypothyroidism Hypokalemia Hypomagnesemia HLD PAST SURGICAL HISTORY: Cholecystectomy Tubal ligation Right wrist surgery FAMILY HISTORY: Father: from heart disease Mother: Diagnosed with diabetes Siblings: Brother diagnosed with diabetes SOCIAL HISTORY: Prior smoker 1 PPD for 40 years, quit 3 years ago. Denies alcohol or drug use. Lives alone in [place], [place]. PCP is in [place]. Ambulates independently normally. States she is a DNR/DNI, unknown if MOLST on file. ALLERGIES: Please see below. HOME MEDICATIONS: Please see below. PHYSICAL EXAMINATION: VS: Please see below CONSTITUTIONAL: No acute distress, resting comfortably, AAO x 3 EYES: PERRLA, EOM intact HENT, MOUTH: Normocephalic, atraumatic, moist mucous membranes, NECK: SUPPLE, no JVD, no lymphadenopathy, no carotid bruit CV: Regular rate and rhythm, S1S2 normal, no murmurs/rubs/gallops RESPIRATORY: Clear to auscultation bilaterally, no rales/rhonchi/wheezes GI: BS positive in 4 quadrants, soft, nontender, nondistended, no rebound or guarding, no organomegaly : Deferred MUSCULOSKELETAL: Normal ROM. No cyanosis, clubbing, swelling, joint deformity, extremity edema INTEGUMENTARY: Intact, no rashes, no lesions, no erythema NEUROLOGIC: Cranial Nerves II-XII are intact, no focal deficits PSYCHIATRIC: Mood and affect are normal LABORATORY DATA: Please see below IMAGING: None ASSESSMENT: 74-year-old female with past medical history of diabetes, hypertension, depression, anxiety, hypothyroidism, vertigo, hypokalemia, hyperlipidemia admitted for further treatment of BPPV, unsteadiness on feet. PLAN: BPPV -Did not improve with maneuvers performed by PT in ER, still unsteady on feet, persistent dizziness, n/v -PT/OT to see in the AM, repeat maneuvers -IVFs, zofran for nausea, meclizine PRN -Fall risk DM type II -BS >200 -Levemir 32 HS, ISS with AC FS, consistent carb diet -Holding home PO meds HTN -Stable HLD -statin Hypothyroidism -Synthroid home dose Hypomagnesemia, chronic -C/w home supplement dose Hypokalemia, chronic -C/w home supplement dose Depression/anxiety -Stable -C/w duloxetine ? CAD vs. vascular disease -Does not know why on meds below -On ASA, clopidogrel, statin DVT px -Lovenox DISPOSITION: Admitted under observation status. PT to reevaluate in the AM. Plan is discharge home when medically improved. Vital Signs Vital Signs Date Time Temp Pulse Resp B/P (MAP) Pulse Ox O2 Delivery O2 Flow Rate FiO2 09/01/20 17:45 97.2 16 164/94 (117) Room Air 09/01/20 17:43 73 93 Laboratory Data Labs 24H Laboratory Tests 2 09/01/20 16:26: Nucleated Red Blood Cells % (auto) 0.0, Anion Gap 8, Glomerular Filtration Rate 55.3, Calcium Level 9.5 09/01/20 17:24: CBC/BMP Laboratory Tests 09/01/20 16:26 Home Medications Scheduled Aspirin (Aspirin) 325 Mg Tab, 325 MG PO DAILY Clopidogrel Bisulfate (Clopidogrel) 75 Mg Tab, 75 MG PO DAILY Duloxetine Hcl (Duloxetine HCl) 30 Mg Cap, 60 MG PO DAILY Ergocalciferol (Vitamin D2) (Vitamin D2) 50,000 Units Cap, 50,000 UNITS PO QWEEK SUNDAYS Glimepiride (Glimepiride) 2 Mg Tab, 4 MG PO QAM Glimepiride (Glimepiride) 2 Mg Tablet, 2 MG PO QHS Insulin Glargine,Hum.rec.anlog (Basaglar Kwikpen U-100) 100 Unit/Ml Inj, 36 UNIT SC QHS Levothyroxine Sodium (Levothyroxine Sodium) 88 Mcg Tablet, 88 MCG PO QAM Magnesium Oxide (Magnesium Oxide) 400 Mg Tab, 400 MG PO DAILY Metformin HCl (Metformin HCl) 1,000 Mg Tab, 1,000 MG PO BID Potassium Chloride (Potassium Chloride) 20 Meq Tab, 20 MEQ PO DAILY Simvastatin (Simvastatin) 40 Mg Tab, 40 MG PO QHS Sitagliptin Phosphate (Januvia) 100 Mg Tab, 100 MG PO QHS Scheduled PRN Meclizine HCl (Meclizine HCl) 12.5 Mg Tablet, 12.5 MG PO TID PRN for DIZZINESS Allergies Coded Allergies: Penicillins (Verified Adverse Reaction, Mild, vomiting, 01/05/20) codeine (Verified Adverse Reaction, Mild, vomiting, 01/05/20) A-FIB/CHADSVASC A-FIB History Current/History of A-Fib/PAF?: No Current PO Anticoag Therapy: No Age/Risk Factor Scoring CHADSVASC: CHADSVASC Response (Comments) Value Age Risk Factor Age 65-74 years old 1 Gender Risk Factor Female 1 Hx of CHF No 0 Hx of HTN Yes 1 Hx of Stroke/TIA/or VTE No 0 Hx of Diabetes Yes 1 Hx of Vascular Disease No 0 Total 4 Treatment Treatment ordered: Other Other anticoagulant ordered: Mellissa Tubbs MD Sep 01, 2020 18:08
[2020-09-01] MEDS ORDERED: MECLIZINE 12.5 MG TAB PO PRN (18:15)
[2020-09-01 18:21] LABS: RSV AMPLIFICATION NEGATIVE (NEGATIVE)
[2020-09-01] MEDS: HumaLOG INSULIN (NovoLOG) PER UNIT SC SCH ×2 (18:39→22:14)
[2020-09-01] MEDS: NS 1,000 ML IV SCH (19:51)
--- NOTE | 2020-09-01 20:57 | ECGEPIP ---
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
[2020-09-01] MEDS: LEVEMIR (INSULIN DETEMIR) 1 UNITS/0.01ML SC SCH (22:13)
[2020-09-01] MEDS: SIMVASTATIN 40 MG TAB PO SCH (22:13)
[2020-09-01 23:17] VITALS: BP 136/83
[2020-09-02] MEDS: NS 1,000 ML IV SCH (05:56)
[2020-09-02] MEDS: LEVOTHYROXINE 88MCG TABLET (0.088 MG) PO SCH (05:56)
[2020-09-02 05:58] LABS: HEMATOCRIT 41.8 % (36.0-47.0); HEMOGLOBIN 14.1 g/dl (12.0-15.5); MEAN CORPUSCULAR HEMOGLOBIN 29.7 pg (27.0-33.0); MEAN CORPUSCULAR HGB CONC 33.7 g/dl (32.0-36.5); PLATELET COUNT, AUTOMATED 246 10^3/uL (150-450); RED BLOOD COUNT 4.75 10^6/uL (4.00-5.40)
[2020-09-02 06:00] VITALS: BP 144/65
[2020-09-02 06:29] LABS: ALBUMIN 3.5 GM/DL (3.2-5.2); BILIRUBIN,TOTAL 0.2 MG/DL (0.2-1.0); CALCIUM LEVEL 8.6 MG/DL (8.8-10.2); CREATININE FOR GFR 1.03 MG/DL (0.55-1.30); GLOMERULAR FILTRATION RATE 55.9 (>39); TOTAL PROTEIN 6.5 GM/DL (6.4-8.2)
[2020-09-02] MEDS: HumaLOG INSULIN (NovoLOG) PER UNIT SC SCH ×4 (07:30→21:00)
[2020-09-02] MEDS ORDERED: PNEUMOCOCCAL VACCINE 0.5ML SYRINGE (PNEUMOVAX 23) IM ONE (09:00)
[2020-09-02] MEDS: ENOXAPARIN 40MG/0.4ML SYRINGE (J1650 PER 10MG) SC SCH (09:43)
[2020-09-02] MEDS: MAGNESIUM OXIDE 400 MG TAB (MAG-OX) PO SCH (09:43)
[2020-09-02] MEDS: ASPIRIN 325 MG TAB PO SCH (09:43)
[2020-09-02] MEDS: POTASSIUM CHLORIDE 10 MEQ SR TABLET PO SCH (09:43)
[2020-09-02] MEDS: CLOPIDOGREL 75 MG TAB PO SCH (09:43)
[2020-09-02] MEDS: DULoxetine 30 MG CAP (CYMBALTA) PO SCH (09:43)
[2020-09-02 14:00] VITALS: BP 125/56
--- NOTE | 2020-09-02 15:14 | IPNPDOC ---
Date Seen The patient was seen on 09/02/20. Progress Note SUBJECTIVE: PT evaluated today, maneuvers performed for BPPV ;however, was very dizzy, lightheaded and nauseous after. PT recommending continued treatment here, as she is unsteady on her feet like this. She denies chest pain, shortness of breath, fevers, chills. OBJECTIVE: PHYSICAL EXAMINATION: VS: Please see below CONSTITUTIONAL: appears lethargic this AM after PT, uncomfortable with feeling sick, AAO x 3 EYES: PERRLA, EOM intact HENT, MOUTH: Normocephalic, atraumatic, moist mucous membranes, NECK: SUPPLE, no JVD, no lymphadenopathy, no carotid bruit CV: Regular rate and rhythm, S1S2 normal, no murmurs/rubs/gallops RESPIRATORY: Clear to auscultation bilaterally, no rales/rhonchi/wheezes GI: BS positive in 4 quadrants, soft, nontender, nondistended, no rebound or guarding, no organomegaly : Deferred MUSCULOSKELETAL: Normal ROM. No cyanosis, clubbing, swelling, joint deformity, extremity edema INTEGUMENTARY: Intact, no rashes, no lesions, no erythema NEUROLOGIC: Cranial Nerves II-XII are intact, no focal deficits PSYCHIATRIC: Mood and affect are normal LABORATORY DATA: Please see below IMAGING: None ASSESSMENT: 74-year-old female with past medical history of diabetes, hypertension, depression, anxiety, hypothyroidism, vertigo, hypokalemia, hyperlipidemia admitted for further treatment of BPPV, unsteadiness on feet. PLAN: BPPV -Did not improve with maneuvers performed by PT today either, still unsteady on feet, dizziness, n/v -PT/OT to repeat maneuvers later today -zofran for nausea, meclizine PRN -Fall risk DM type II -BS >200 -Levemir 32 HS, ISS with AC FS, consistent carb diet -Holding home PO meds HTN -Stable HLD -statin Hypothyroidism -Synthroid home dose Hypomagnesemia, chronic -C/w home supplement dose Hypokalemia, chronic -C/w home supplement dose Depression/anxiety -Stable -C/w duloxetine ? CAD vs. vascular disease -Does not know why on meds below -On ASA, clopidogrel, statin DVT px -Lovenox DISPOSITION: Admitted to inpatient status today. PT to reevaluate today and over the weekend if needed. Plan is discharge home when medically improved. VS, I&O, 24H, Fishbone Vital Signs/I&O Vital Signs Date Time Temp Pulse Resp B/P (MAP) Pulse Ox O2 Delivery O2 Flow Rate FiO2 09/02/20 14:00 97.7 75 18 125/56 (79) 96 Room Air I&O- Last 24 Hours up to 6 AM 09/02/20 06:00 Intake Total 1150 ml Output Total 300 ml Balance 850 ml Laboratory Data 24H LABS Laboratory Tests 2 09/01/20 16:26: Nucleated Red Blood Cells % (auto) 0.0, Anion Gap 8, Glomerular Filtration Rate 55.3, Calcium Level 9.5 09/01/20 17:24: Coronavirus (COVID-19)(PCR) NEGATIVE, Influenza Type A (RT-PCR) NEGATIVE, Influenza Type B (RT-PCR) NEGATIVE, Respiratory Syncytial Virus (PCR) NEGATIVE 09/01/20 18:28: Bedside Glucose (Misc Panel) 241H 09/01/20 22:03: Bedside Glucose (Misc Panel) 302H 09/02/20 05:43: Nucleated Red Blood Cells % (auto) 0.0, Anion Gap 7L, Glomerular Filtration Rate 55.9, Calcium Level 8.6L, Total Bilirubin 0.2, Aspartate Amino Transf (AST/SGOT) 11, Alanine Aminotransferase (ALT/SGPT) 35, Alkaline Phosphatase 73, Total Protein 6.5, Albumin 3.5, Albumin/Globulin Ratio 1.2 09/02/20 11:15: Bedside Glucose (Misc Panel) 182H CBC/BMP Laboratory Tests 09/01/20 16:26 09/02/20 05:43 Current Medications Current Medications Medications (Trade) Dose Ordered Sig/Dennis Route PRN Reason Start Time Stop Time Status Last Admin Dose Admin Aspirin (Aspirin) 325 mg DAILY PO 09/02/20 09:00 09/02/20 09:43 Clopidogrel Bisulfate (PLAVix) 75 mg DAILY PO 09/02/20 09:00 09/02/20 09:43 Dextrose (Dextrose 50%) 25 ml ASDIRECTED PRN IV SEE LABEL COMMENTS 09/01/20 17:45 Duloxetine HCl (Cymbalta) 60 mg DAILY PO 09/02/20 09:00 09/02/20 09:43 Enoxaparin Sodium (Lovenox) 40 mg DAILY SC 09/02/20 09:00 09/02/20 09:43 Glucagon (Glucagon) 1 mg ASDIRECTED PRN SC SEE LABEL COMMENTS 09/01/20 17:45 Glucose (Glucose) 16 GM ASDIRECTED PRN PO SEE LABEL COMMENTS 09/01/20 17:45 Home Med (Med Rec Complete!) ASDIRECTED XX 09/01/20 18:15 09/01/20 18:05 DC Insulin Detemir (Levemir Insulin) 32 units QHS SC 09/01/20 21:00 09/01/20 22:13 Insulin Human Lispro (HumaLOG INSULIN) SEE PROTOCOL TABLE AC SC 09/01/20 17:30 09/02/20 12:32 Insulin Human Lispro (HumaLOG INSULIN) SEE PROTOCOL TABLE QHS SC 09/01/20 21:00 09/01/20 22:14 Levothyroxine Sodium (Synthroid) 88 mcg QAM@0600 PO 09/02/20 06:00 09/02/20 05:56 Magnesium Oxide (Mag-Ox) 400 mg DAILY PO 09/02/20 09:00 09/02/20 09:43 Meclizine HCl (Antivert) 12.5 mg TID PRN PO DIZZINESS 09/01/20 18:15 09/02/20 10:20 Ondansetron HCl (ZOFRAN INJection) 4 mg Q4HP PRN IV NAUSEA OR VOMITING 09/01/20 17:45 Potassium Chloride (Micro-K Extencaps) 20 meq DAILY PO 09/02/20 09:00 09/02/20 09:43 Simvastatin (Zocor) 40 mg QHS PO 09/01/20 21:00 09/01/20 22:13 Sodium Chloride 1,000 ml @ 100 mls/hr Q10H IV 09/01/20 17:45 09/02/20 08:14 DC 09/02/20 05:56 Allergies Coded Allergies: Penicillins (Verified Adverse Reaction, Mild, vomiting, 01/05/20) codeine (Verified Adverse Reaction, Mild, vomiting, 01/05/20) Mellissa Toscano MD Sep 02, 2020 15:14
[2020-09-02] MEDS: SIMVASTATIN 40 MG TAB PO SCH (21:27)
[2020-09-02] MEDS: LEVEMIR (INSULIN DETEMIR) 1 UNITS/0.01ML SC SCH (21:27)
[2020-09-02 22:00] VITALS: BP 151/68
[2020-09-03 06:00] VITALS: BP 134/60
[2020-09-03] MEDS: LEVOTHYROXINE 88MCG TABLET (0.088 MG) PO SCH (06:02)
[2020-09-03 06:23] LABS: HEMATOCRIT 40.2 % (36.0-47.0); HEMOGLOBIN 13.2 g/dl (12.0-15.5); MEAN CORPUSCULAR HEMOGLOBIN 29.5 pg (27.0-33.0); MEAN CORPUSCULAR HGB CONC 32.8 g/dl (32.0-36.5); MEAN CORPUSCULAR VOLUME 89.7 fl (80.0-96.0); PLATELET COUNT, AUTOMATED 238 10^3/uL (150-450); RED BLOOD COUNT 4.48 10^6/uL (4.00-5.40); WHITE BLOOD COUNT 9.2 10^3/uL (4.0-10.0)
[2020-09-03 06:55] LABS: ALBUMIN 3.4 GM/DL (3.2-5.2); BILIRUBIN,TOTAL 0.3 MG/DL (0.2-1.0); CALCIUM LEVEL 8.6 MG/DL (8.8-10.2); GLOMERULAR FILTRATION RATE 57.9 (>39); TOTAL PROTEIN 6.2 GM/DL (6.4-8.2)
[2020-09-03] MEDS: POTASSIUM CHLORIDE 10 MEQ SR TABLET PO SCH (08:46)
[2020-09-03] MEDS: ENOXAPARIN 40MG/0.4ML SYRINGE (J1650 PER 10MG) SC SCH (08:47)
[2020-09-03] MEDS: MAGNESIUM OXIDE 400 MG TAB (MAG-OX) PO SCH (08:47)
[2020-09-03] MEDS: ASPIRIN 325 MG TAB PO SCH (08:47)
[2020-09-03] MEDS: CLOPIDOGREL 75 MG TAB PO SCH (08:47)
[2020-09-03] MEDS: DULoxetine 30 MG CAP (CYMBALTA) PO SCH (08:47)
[2020-09-03] MEDS: HumaLOG INSULIN (NovoLOG) PER UNIT SC SCH ×2 (08:48→13:13)
[2020-09-03] MEDS ORDERED: MECL-86 PO (10:45)
[2020-09-03 14:00] VITALS: BP 130/60
--- NOTE | 2020-09-03 19:49 | DS.PDOC ---
Discharge Summary General Date of Admission Sep 01, 2020 at 14:59 Date of Discharge 09/03/20 Attending Physician: Mellissa Toscano MD Discharge Summary HISTORY OF PRESENT ILLNESS: Patient is a 74-year-old female with past medical history of diabetes, hypertension, depression, anxiety, hypothyroidism, vertigo, hypokalemia, hyperlipidemia who presented to [facility] after having increased dizziness since early this morning. The patient states her symptoms began at 5 AM as she was walking to the bathroom she realized the room was spinning and she became very dizzy along with nauseous. She also began gagging and vomited 3 times, nonbloody. The patient has had similar episodes in the past when she's needed to be hospitalized for vertigo and has received vestibular therapy for this issue. She attempted to try to get into an outpatient clinic today but instead decided to come to [facility] for further evaluation. She denies fevers, chills, shortness of breath, chest pain, abdominal pain, diarrhea, recent falls, head injuries, headaches. She admits to having nausea, vomiting, vision changes and unsteadiness on her feet. In the ER, VS were stable. Labs unremarkable. She became very dizzy with movement of her head, nauseous and had vomitting. Admitted to same presentation last time she was admitted to hospital. PT evaluated her and did maneuvers to help with BPPV but this did not help and she remained symptomatic. It was suggested by PT to admit with reevaluation of PT in the AM to administer more maneuvers. HOSPITAL COURSE: patient continued with vestibular therapy during her hospitalization. By 09/03/20 patient did well with PT and decision was made to discharge home. Patient states she has a hard time affording therapy and would like more information on how to do this. My recommendation is for her to call back after the weekend and speak with a automotive production worker or PFS rep to ask them about possibly getting a case mgr outside the hospital to help her with these kinds of things. Patient also asked about home health aids or having someone to come check in on her at her home. Again, this was deferred to Social work to discuss. Referral for vesti bular therapy was given to her to take anywhere she may want to go. Meclizine dose was increased. At time of discharge, patient had no other acute complaints. PAST MEDICAL HISTORY: BPPV, hospitalized multiple times in past DM HTN Depression Anxiety Hypothyroidism Hypokalemia Hypomagnesemia HLD PAST SURGICAL HISTORY: Cholecystectomy Tubal ligation Right wrist surgery FAMILY HISTORY: Father: from heart disease Mother: Diagnosed with diabetes Siblings: Brother diagnosed with diabetes SOCIAL HISTORY: Prior smoker 1 PPD for 40 years, quit 3 years ago. Denies alcohol or drug use. Lives alone in [place], [place]. PCP is in [place]. Ambulates independently normally. States she is a DNR/DNI, unknown if MOLST on file. PHYSICAL EXAMINATION: VS: Please see below CONSTITUTIONAL: NAD, resting in bed, AAO x 3 EYES: PERRLA, EOM intact HENT, MOUTH: Normocephalic, atraumatic, moist mucous membranes, NECK: SUPPLE, no JVD, no lymphadenopathy, no carotid bruit CV: Regular rate and rhythm, S1S2 normal, no murmurs/rubs/gallops RESPIRATORY: Clear to auscultation bilaterally, no rales/rhonchi/wheezes GI: BS positive in 4 quadrants, soft, nontender, nondistended, no rebound or guarding, no organomegaly : Deferred MUSCULOSKELETAL: Normal ROM. No cyanosis, clubbing, swelling, joint deformity, extremity edema INTEGUMENTARY: Intact, no rashes, no lesions, no erythema NEUROLOGIC: Cranial Nerves II-XII are intact, no focal deficits PSYCHIATRIC: Mood and affect are normal LABORATORY DATA: Please see below IMAGING: None ASSESSMENT: 74-year-old female with past medical history of diabetes, hypertension, depression, anxiety, hypothyroidism, vertigo, hypokalemia, hyperlipidemia admitted for further treatment of BPPV, unsteadiness on feet. PLAN: BPPV -Much improved today, did well with PT -New referral script given to patient for vestibular therapy to continue o/p -Meclizine PRN dose increased -Advised to f/u with PCP after weekend DM type II -Resume home meds HTN -Stable HLD -statin Hypothyroidism -Synthroid home dose Hypomagnesemia, chronic -C/w home supplement dose Hypokalemia, chronic -C/w home supplement dose Depression/anxiety -Stable -C/w duloxetine ? CAD vs. vascular disease -ASA, clopidogrel, statin DISPOSITION: Discharged to home today with vestibular therapy script, recommend her f/ uwith PCP after weekend. TIME SPENT ON DISCHARGE: Greater than 30 minutes. Vital Signs/I&Os Vital Signs Date Time Temp Pulse Resp B/P (MAP) Pulse Ox O2 Delivery O2 Flow Rate FiO2 09/03/20 14:00 98.6 79 17 130/60 (83) 97 Room Air I&O- Last 24 Hours up to 6 AM 09/03/20 06:00 Intake Total 1755 ml Output Total 0 ml Balance 1755 ml Laboratory Data Labs 24H Laboratory Tests 2 09/02/20 20:35: Bedside Glucose (Misc Panel) 247H 09/03/20 05:52: Nucleated Red Blood Cells % (auto) 0.0, Anion Gap 6L, Glomerular Filtration Rate 57.9, Calcium Level 8.6L, Total Bilirubin 0.3, Aspartate Amino Transf (AST/SGOT) 11, Alanine Aminotransferase (ALT/SGPT) 36, Alkaline Phosphatase 75, Total Protein 6.2L, Albumin 3.4, Albumin/Globulin Ratio 1.2 09/03/20 11:41: Bedside Glucose (Misc Panel) 306H CBC/BMP Laboratory Tests 09/03/20 05:52 FSBS Laboratory Tests Test 09/02/20 20:35 09/03/20 11:41 Range/Units Bedside Glucose (Misc Panel) 247 306 83-110 MG/DL Discharge Medications Scheduled Aspirin (Aspirin) 325 Mg Tab, 325 MG PO DAILY, (Reported) Clopidogrel Bisulfate (Clopidogrel) 75 Mg Tab, 75 MG PO DAILY, (Reported) Duloxetine Hcl (Duloxetine HCl) 30 Mg Cap, 60 MG PO DAILY, (Reported) Ergocalciferol (Vitamin D2) (Vitamin D2) 50,000 Units Cap, 50,000 UNITS PO QWEEK, (Reported) SUNDAYS Glimepiride (Glimepiride) 2 Mg Tab, 4 MG PO QAM, (Reported) Glimepiride (Glimepiride) 2 Mg Tablet, 2 MG PO QHS, (Reported) Insulin Glargine,Hum.rec.anlog (Basaglar Kwikpen U-100) 100 Unit/Ml Inj, 36 UNIT SC QHS, (Reported) Levothyroxine Sodium (Levothyroxine Sodium) 88 Mcg Tablet, 88 MCG PO QAM, (Reported) Magnesium Oxide (Magnesium Oxide) 400 Mg Tab, 400 MG PO DAILY, (Reported) Metformin HCl (Metformin HCl) 1,000 Mg Tab, 1,000 MG PO BID, (Reported) Potassium Chloride (Potassium Chloride) 20 Meq Tab, 20 MEQ PO DAILY, (Reported) Simvastatin (Simvastatin) 40 Mg Tab, 40 MG PO QHS, (Reported) Sitagliptin Phosphate (Januvia) 100 Mg Tab, 100 MG PO QHS, (Reported) Scheduled PRN Meclizine HCl (Meclizine HCl) 25 Mg Tablet, 25 MG PO TIDP PRN for dizziness Allergies Coded Allergies: Penicillins (Verified Adverse Reaction, Mild, vomiting, 01/05/20) codeine (Verified Adverse Reaction, Mild, vomiting, 01/05/20) Mellissa Toscano MD Sep 03, 2020 19:49
[2020-09-03] MEDS ORDERED: LEVEMIR (INSULIN DETEMIR) 1 UNITS/0.01ML SC SCH (21:00)
== END 2020-09-03 17:37 | disposition home or self-care (01) | DRG 149 ==
LOC: M ED 14:58 → M ED INP 14:59 → M MSPAV 23:17 → OBSVTOIN 09-02 15:13
PROVIDERS: ADMIT Internal Medicine; ATTEND Internal Medicine
DX: H81.10 Benign paroxysmal vertigo, unspecified ear (principal); E11.9 Type 2 diabetes mellitus without complications; I10 Essential (primary) hypertension; F41.9 Anxiety disorder, unspecified; F32.9 Major depressive disorder, single episode, unspecified; E03.9 Hypothyroidism, unspecified; E87.6 Hypokalemia; E83.42 Hypomagnesemia; E78.5 Hyperlipidemia, unspecified; Z87.891 Personal history of nicotine dependence; Z79.899 Other long term (current) drug therapy; Z79.82 Long term (current) use of aspirin; Z79.4 Long term (current) use of insulin; Z88.0 Allergy status to penicillin; Z88.5 Allergy status to narcotic agent

== ENCOUNTER 2021-03-07 19:42 | Emergency (ER) | payer MEDICARE ==
[~2021-03-07] VITALS: Ht 167.6 cm; Wt 85.4 kg
[~2021-03-07 19:42] MED LIST changes: +ERGO500029 PO; +GLIM2TAB29 PO; +HYDR-3490 PO; -HYDR25TAB PO; +LEVO88TA3 PO; -MAG400TA PO; +MAGN400T35 PO; +MECL-136 PO; +MECL-86 PO; -MECL12.590 PO; -VITA50005 PO
[2021-03-07 20:49] LABS: BASO # 0.1 10^3/uL (0.0-0.2); BASO % 0.6 % (0.0-1.0); EOS # 0.2 10^3/uL (0.0-0.5); EOS % 1.8 % (0.0-3.0); HEMATOCRIT 40.5 % (36.0-47.0); HEMOGLOBIN 13.6 g/dl (12.0-15.5); LYMPH # 3.2 10^3/uL (1.5-5.0); LYMPH % 37.6 % (24.0-44.0); MEAN CORPUSCULAR HEMOGLOBIN 29.8 pg (27.0-33.0); MEAN CORPUSCULAR HGB CONC 33.6 g/dl (32.0-36.5); MEAN CORPUSCULAR VOLUME 88.8 fl (80.0-96.0); MONO # 0.6 10^3/uL (0.0-0.8); MONO % 6.5 % (2.0-8.0); NEUTROPHILS # 4.5 10^3/uL (1.5-8.5); NEUTROPHILS % 53.1 % (36.0-66.0); PLATELET COUNT, AUTOMATED 226 10^3/uL (150-450); RED BLOOD COUNT 4.56 10^6/uL (4.00-5.40); WHITE BLOOD COUNT 8.4 10^3/uL (4.0-10.0)
[2021-03-07 21:11] LABS: CREATININE FOR GFR 1.14 MG/DL (0.55-1.30); GLOMERULAR FILTRATION RATE 49.6 (>39); POTASSIUM SERUM 4.3 MEQ/L (3.5-5.1)
--- NOTE | 2021-03-07 21:14 | REPVR ---
PROCEDURE INFORMATION: Exam: CT Head Without Contrast Exam date and time: 03/07/2021 8:34 PM Age: 75 years old Clinical indication: Injury or trauma; Fall; Blunt trauma (contusions or hematomas) TECHNIQUE: Imaging protocol: Computed tomography of the head without contrast. Axial and coronal reformatted images were created and reviewed. Radiation optimization: All CT scans at this facility use at least one of these dose optimization techniques: automated exposure control; mA and/or kV adjustment per patient size (includes targeted exams where dose is matched to clinical indication); or iterative reconstruction. COMPARISON: CT Head without contrast 01/05/2020 9:12 PM FINDINGS: Brain: Subtle, patchy areas of hypoattenuation in the periventricular and subcortical white matter, nonspecific but suggestive of mild chronic small vessel ischemic disease. No CT evidence of acute intracranial hemorrhage or acute territorial infarction. No significant mass effect or midline shift. Basal cisterns patent. Cerebral ventricles: Prominence of the cortical sulci, cisterns and ventricular system, consistent with cerebral and cerebellar volume loss. Paranasal sinuses: Minimal ethmoid mucosal thickening. No fluid levels. Mastoid air cells: Grossly unremarkable. Bones/joints: No acute osseous abnormality. Soft tissues: Grossly unremarkable. IMPRESSION: 1. No CT evidence of acute intracranial pathology. 2. Additional findings, as above. Electronically signed by: Armand Felton On 03/07/2021 21:13:15 PM
--- NOTE | 2021-03-07 21:18 | REPVR ---
PROCEDURE INFORMATION: Exam: CT Cervical Spine Without Contrast Exam date and time: 03/07/2021 8:34 PM Age: 75 years old Clinical indication: Injury or trauma; Fall; Blunt trauma TECHNIQUE: Imaging protocol: Computed tomography images of the cervical spine without contrast. Axial, coronal and sagittal reformatted images were created and reviewed. Radiation optimization: All CT scans at this facility use at least one of these dose optimization techniques: automated exposure control; mA and/or kV adjustment per patient size (includes targeted exams where dose is matched to clinical indication); or iterative reconstruction. COMPARISON: CT Head without contrast 01/05/2020 9:12 PM FINDINGS: Bones/joints: Straightening of the normal cervical lordosis. Congenital nonunion of the C1 posterior arch. No CT evidence of acute fracture, dislocation or subluxation. Alignment anatomic. Vertebral body heights maintained. Discs/Spinal canal/Neural foramina: Mild multilevel spondylosis. No significant spinal canal or neural foraminal stenosis. Lungs: Grossly unremarkable. Soft tissues: Grossly unremarkable. IMPRESSION: 1. No CT evidence of acute cervical spine traumatic injury. 2. Additional findings, as above. Electronically signed by: Armand Felton On 03/07/2021 21:17:32 PM
--- NOTE | 2021-03-07 21:30 | REPVR ---
PROCEDURE INFORMATION: Exam: XR Right Hip Exam date and time: 03/07/2021 8:43 PM Age: 75 years old Clinical indication: Hip pain; Right hip; Additional info: Fall TECHNIQUE: Imaging protocol: XR Right hip. Views: 2 or 3 views hip with pelvis when performed. COMPARISON: No relevant prior studies available. FINDINGS: Bones/joints: Mild bilateral hip arthropathy. Otherwise unremarkable. Soft tissues: Unremarkable. IMPRESSION: No acute findings. Electronically signed by: Da Breen On 03/07/2021 21:30:20 PM
[2021-03-07 22:17] VITALS: BP 147/72
== END 2021-03-07 22:20 | disposition home or self-care (01) ==
LOC: M ED 19:42
DX: S09.90XA Unspecified injury of head, initial encounter (principal); W19.XXXA Unspecified fall, initial encounter; Y92.099 Unspecified place in other non-institutional residence as the place of occurrence of the external cause; Y93.9 Activity, unspecified; Y99.9 Unspecified external cause status; E11.9 Type 2 diabetes mellitus without complications; I10 Essential (primary) hypertension; F41.9 Anxiety disorder, unspecified; F32.9 Major depressive disorder, single episode, unspecified; E03.9 Hypothyroidism, unspecified; Z87.891 Personal history of nicotine dependence; Z79.4 Long term (current) use of insulin; Z79.82 Long term (current) use of aspirin; Z79.899 Other long term (current) drug therapy; Z88.0 Allergy status to penicillin; Z88.5 Allergy status to narcotic agent

== ENCOUNTER 2023-01-08 06:09 | Day surgery (SDC) | payer OTHER ==
[~2023-01-08] VITALS: Ht 167.6 cm; Wt 82.1 kg
[~2023-01-08 06:09] MED LIST changes: +METO1TAB32 PO; +POTA-298 PO; -POTA1TAB14 PO; +PROPARACAINE 0.5% OPHTH SOL 15ML OS ONE
[2023-01-08] MEDS ORDERED: INSULIN LISPRO (NovoLOG) PER UNIT SC PRN (06:15)
[2023-01-08] MEDS: PHENYLEPHRINE 2.5% OPHTH SOL 2ML OS SCH (06:40)
[2023-01-08] MEDS: CYCLOPENTOLATE 1% OPHTH SOLN 2ML BTL OS SCH (06:40)
[2023-01-08] MEDS: OFLOXACIN 0.3 % (OCUFLOX) OPTH SOL 5ML OS SCH (06:40)
[2023-01-08] MEDS: TROPICAMIDE 1% OPHTH SOLN 15ML OS SCH (06:40)
[2023-01-08] MEDS ORDERED: MIDAZOLAM INJ 2MG/2ML VIAL As Ordered ONE (06:45)
[2023-01-08] MEDS ORDERED: fentaNYL 100 MCG/2 ML INJECTION As Ordered ONE (06:45)
[2023-01-08] MEDS ORDERED: LIDOCAINE 1% SDV 5ML VIAL As Ordered ONE (06:57)
[2023-01-08] MEDS ORDERED: BSS IRR 500ML/OMIDRIA 4ML IRR BAG (OR ONLY) As Ordered ONE (06:58)
[2023-01-08] MEDS ORDERED: CEFUROXIME 1MG/0.1ML INTRACAMERAL INJ As Ordered ONE (06:59)
[2023-01-08] MEDS ORDERED: TOBRADEX OPHTH OINT 3.5 GM As Ordered ONE (07:10)
[2023-01-08 08:00] VITALS: BP 149/74; TEMP 96.7; O2SAT 96
== END 2023-01-08 08:16 | disposition home or self-care (01) ==
LOC: M SDC 06:09
PROVIDERS: ATTEND Ophthalmology
DX: H25.12 Age-related nuclear cataract, left eye (principal); I10 Essential (primary) hypertension; E78.5 Hyperlipidemia, unspecified; E11.9 Type 2 diabetes mellitus without complications; E03.9 Hypothyroidism, unspecified; K76.0 Fatty (change of) liver, not elsewhere classified; F32.A Depression, unspecified; I73.9 Peripheral vascular disease, unspecified; Z88.0 Allergy status to penicillin; Z88.5 Allergy status to narcotic agent; Z79.82 Long term (current) use of aspirin; Z79.84 Long term (current) use of oral hypoglycemic drugs; Z79.899 Other long term (current) drug therapy; Z87.891 Personal history of nicotine dependence
CPT/HCPCS: 66984; J1097; J2250; J3010; V2632

== ENCOUNTER → 2023-01-29 | Outpatient (CLI) | payer OTHER ==
[~2023-01-29] MED LIST changes: -PROPARACAINE 0.5% OPHTH SOL 15ML OS ONE
== END ==
LOC: M SLEEP HO 11:05
PROVIDERS: ATTEND Internal Medicine Cardiovascular Disease
DX: G47.33 Obstructive sleep apnea (adult) (pediatric) (principal)

== ENCOUNTER 2023-03-19 06:36 | Day surgery (SDC) | payer OTHER ==
[~2023-03-19] VITALS: Ht 167.6 cm; Wt 80.3 kg
[~2023-03-19 06:36] MED LIST changes: +CYCLOPENTOLATE 1% OPHTH SOLN 2ML BTL OD SCH; +GLIM4TAB5 PO; +JARD1TAB PO; +LISI10TA22 PO; +MAGN400T33 PO; +OFLOXACIN 0.3 % (OCUFLOX) OPTH SOL 5ML OD SCH; +PHENYLEPHRINE 2.5% OPHTH SOL 2ML OD SCH; +PROPARACAINE 0.5% OPHTH SOL 15ML OD ONE; +TROPICAMIDE 1% OPHTH SOLN 15ML OD SCH
[2023-03-19] MEDS ORDERED: LIDOCAINE 1% SDV 5ML VIAL As Ordered ONE (06:55)
[2023-03-19] MEDS ORDERED: BSS IRR 500ML/OMIDRIA 4ML IRR BAG (OR ONLY) As Ordered ONE (06:55)
[2023-03-19] MEDS ORDERED: MIDAZOLAM INJ 2MG/2ML VIAL As Ordered ONE (07:05)
[2023-03-19] MEDS ORDERED: fentaNYL 100 MCG/2 ML INJECTION As Ordered ONE (07:05)
[2023-03-19] MEDS ORDERED: TOBRADEX OPHTH SUSP 2.5 ML As Ordered ONE (08:10)
[2023-03-19] MEDS ORDERED: TOBRADEX OPHTH OINT 3.5 GM As Ordered ONE (08:12)
[2023-03-19 08:20] VITALS: BP 192/84; TEMP 96.7; O2SAT 91
== END 2023-03-19 08:36 | disposition home or self-care (01) ==
LOC: M SDC 06:36
PROVIDERS: ATTEND Ophthalmology
DX: H25.11 Age-related nuclear cataract, right eye (principal); I10 Essential (primary) hypertension; E78.5 Hyperlipidemia, unspecified; E11.9 Type 2 diabetes mellitus without complications; E03.9 Hypothyroidism, unspecified; K76.0 Fatty (change of) liver, not elsewhere classified; F41.9 Anxiety disorder, unspecified; F32.A Depression, unspecified; Z88.0 Allergy status to penicillin; Z88.5 Allergy status to narcotic agent; Z79.899 Other long term (current) drug therapy
CPT/HCPCS: 66984; J1097; J2250; J3010; V2632

== ENCOUNTER 2024-03-03 01:36 | Emergency (ER) | payer OTHER, MEDICAID ==
[~2024-03-03] VITALS: Ht 165.1 cm; Wt 76.0 kg
[~2024-03-03 01:36] MED LIST changes: -CYCLOPENTOLATE 1% OPHTH SOLN 2ML BTL OD SCH; -OFLOXACIN 0.3 % (OCUFLOX) OPTH SOL 5ML OD SCH; -PHENYLEPHRINE 2.5% OPHTH SOL 2ML OD SCH; -PROPARACAINE 0.5% OPHTH SOL 15ML OD ONE; -TROPICAMIDE 1% OPHTH SOLN 15ML OD SCH
[2024-03-03] MEDS ORDERED: PERC5TAB12 PO (04:03)
[2024-03-03] MEDS: OXYCODONE/APAP 5MG/325MG(HOME DOSE PACK) PO ONE (04:23)
[2024-03-03 04:27] VITALS: BP 164/78; TEMP 97.8; O2SAT 99
== END 2024-03-03 05:20 | disposition home or self-care (01) ==
LOC: M ED 01:36
DX: S42.352A Displaced comminuted fracture of shaft of humerus, left arm, initial encounter for closed fracture (principal); W19.XXXA Unspecified fall, initial encounter; E11.9 Type 2 diabetes mellitus without complications; Z88.0 Allergy status to penicillin; Z88.5 Allergy status to narcotic agent; Z79.82 Long term (current) use of aspirin; Z79.4 Long term (current) use of insulin; Z79.811 Long term (current) use of aromatase inhibitors; Z79.899 Other long term (current) drug therapy; Y92.009 Unspecified place in unspecified non-institutional (private) residence as the place of occurrence of the external cause; Y93.89 Activity, other specified; Y99.9 Unspecified external cause status

== ENCOUNTER → 2024-05-19 | Outpatient (CLI) | payer OTHER, MEDICAID ==
[~2024-05-19] MED LIST changes: +PERC5TAB12 PO
== END ==
LOC: M WHC 10:53
PROVIDERS: ATTEND Physician Assistant Surgical
DX: S42.295D Other nondisplaced fracture of upper end of left humerus, subsequent encounter for fracture with routine healing (principal)